=== PATIENT | male | born 1990 | race African-American/Black ===

== ENCOUNTER 2019-03-10 14:32 | Inpatient (IN) | payer OTHER ==
[2019-03-10 17:12] VITALS: BMI 28.2
--- NOTE | 2019-03-10 17:46 | HP ---
"CIWA Score Nausea/Vomitin-No Nausea/No Vomiting Muscle Tremors: 4-Moderate,w/Arms Extend Anxiety: 3 Agitation: 3 Paroxysmal Sweats: 3 (Increased facial moisture) Orientation: 0-Oriented Tacttile Disturbances: 0-None Auditory Disturbances: 0-None Visual Disturbances: 0-None Headache: 0-None Present CIWA-Ar Total Score: 13 - Admission Criteria OASAS Guidelines: Admission for Medically Managed Detox: Requires at least one of the followin. CIWA greater than 12 2. Seizures within the past 24 hours 3. Delirium tremens within the past 24 hours 4. Hallucinations within the past 24 hours 5. Acute intervention needed for co occurring medical disorder 6. Acute intervention needed for co occurring psychiatric disorder 7. Severe withdrawal that cannot be handled at a lower level of care (continued vomiting, continued diarrhea, abnormal vital signs) requiring intravenous medication and/or fluids 8. Patient presents the following: CIWA greater than 12 Admission Criteria Met: Admission criteria met Admission ROS [facility] Chief Complaint: Here to detox from alcohol and occ Xanax. Allergies/Adverse Reactions: Allergies Allergy/AdvReac Type Severity Reaction Status Date / Time No Known Allergies Allergy Verified 03/10/19 17:04 History of Present Illness: First admission for this 28 yo who presents w/ withdrawal symptoms seeking alcohol and xanax detox. Hx: Two blackouts in past 2 weeks. Denies seizures or overdoses. Alcohol use began at age 13. Currently drinks 2-4 pints/day. Increased since beginning of December. Xanax use began at age 18. Currently uses 2 mg 1-2x/wk. Marijuana use began at age 13. Currently smokes 2 x/wk. Nicotine use began at age 13. Smokes 1/2 to 1 PPD. PMHx: Asthma (Last exacerbation 2 months ago); MHHx: Schizophrenia and depression. Denies thoughts of harming self or others. Last saw Provider 2 days go in [facility]. This provider called the following pharmacies: [facility]: Seroquel 100 mg HS: Filled 12/26/18; Mirtazapine 15 mg filled 12/13/18: [facility] [place] : No mental health meds filled. SHx: Domiciled. Unemployed. Denies legal issues. Search Terms: James Rosario, 1990 Search Date: 03/10/2019 05:50:07 PM The Drug Utilization Report below displays all of the controlled substance prescriptions, if any, that your patient has filled in the last twelve months. The information displayed on this report is compiled from pharmacy submissions to the Department, and accurately reflects the information as submitted by the pharmacies. This report was requested by: Celine Salgado | Reference #: [id number] There are no results for the search terms that you entered. Exam Limitations: No Limitations - Ebola screening Have you traveled outside of the country in the last 21 days: No Have you had contact with anyone from an Ebola affected area: No Have you been sick,other than usual withdrawal symptoms: No Do you have a fever: No - Review of Systems Constitutional: Chills, Changes in sleep (Resolved w/ meds) EENT: reports: Blurred Vision, Dental Problems (Tooth pain - internmittent.) Respiratory: reports: No Symptoms reported Cardiac: reports: No Symptoms Reported GI: reports: Vomiting (States vomited 2 days ago after blackout) : reports: No Symptoms Reported Musculoskeletal: reports: Muscle Pain (Intermittent muscle aches/cramps) Integumentary: reports: No Symptoms Reported Neuro: reports: Tremors Endocrine: reports: Increased Thirst Hematology: reports: No Symptoms Reported Psychiatric: reports: Orientated x3, Anxious, Depressed (Denies thoughts of harming self or others.) Patient History - PPD History Previous Implant?: Yes Documented Results: Negative w/o proof Implanted On Prior [facility] Admission?: No PPD to be Administered?: Yes - Smoking Cessation Smoking history: Current every day smoker Have you smoked in the past 12 months: Yes Aproximately how many cigarettes per day: 10 Hx Chewing Tobacco Use: No Initiated information on smoking cessation: No 'Breaking Loose' booklet given: 03/10/19 - Substance & Tx. History Hx Alcohol Use: Yes Hx Substance Use: Yes Substance Use Type: Alcohol, Marijuana, Tranquilizers Hx Substance Use Treatment: No (Has tried to stop on own.) - Substances abused Alcohol Substance route: Oral Frequency: Daily Amount used: 3-4 pints of liquor Age of first use: 13 Date of last use: 03/10/19 Alprazolam (Xanax) Substance route: Oral Frequency: 3-6 times per week Amount used: 2mg Age of first use: 28 Date of last use: 03/08/19 Admission Physical Exam [facility] - Vital Signs Vital Signs: Vital Signs - 24 hr 03/10/19 03/10/19 17:03 17:27 Temperature 97.9 F 97.9 F Pulse Rate 83 83 Respiratory 16 16 Rate Blood Pressure 133/78 133/78 - Physical General Appearance: Yes: Nourished, Mild Distress, Tremorous, Irritable, Sweating (Increased facial moisture), Anxious HEENTM: Yes: EOMI (Jerking movement of eyes upon lateral gaze), Hearing grossly Normal, Normocephalic, Normal Voice, JUAN, Pharynx Normal (Tickened saliva) Respiratory: Yes: Lungs Clear (Pulse Ox = 97 %), Normal Breath Sounds, No Respiratory Distress Neck: Yes: No masses,lesions,Nodules, Supple Breast: Yes: Breast Exam Deferred Cardiology: Yes: Regular Rhythm, Regular Rate, S1, S2 Abdominal: Yes: Normal Bowel Sounds, Non Tender, Flat, Soft Genitourinary: Yes: Within Normal Limits Back: Yes: Normal Inspection Musculoskeletal: Yes: full range of Motion, Gait Steady Extremities: Yes: Normal Capillary Refill, Tremors (Gross tremors) 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 NML intact (Jerking movement of eyes upon lateral gaze), Motor Strength 5/5, Depressed Affect Integumentary: Yes: Normal Color, Dry (Decreased skin turgor), Warm, Moist ( Increased facial moisture) Lymphatic: Yes: Within Normal Limits - Diagnostic (1) Alcohol dependence with withdrawal, uncomplicated Current Visit: Yes Status: Acute (2) Cannabis abuse, uncomplicated Current Visit: Yes Status: Chronic (3) Sedative, hypnotic or anxiolytic abuse, uncomplicated Current Visit: Yes Status: Acute (4) Nicotine dependence, unspecified, uncomplicated Current Visit: Yes Status: Chronic Qualifiers: Nicotine product type: cigarettes Qualified Code(s): F17.210 - Nicotine dependence, cigarettes, uncomplicated (5) Unspecified nystagmus Current Visit: Yes Status: Acute (6) Dehydration Current Visit: Yes Status: Acute (7) Tinea pedis Current Visit: Yes Status: Chronic Qualifiers: Laterality: bilateral Qualified Code(s): B35.3 - Tinea pedis Cleared for Admission [facility] - Detox or Rehab [facility] Level of Care: Medically Managed Detox Regimen/Protocol: Valium (ATIVAN), Not Applicable Claeared for Rehab Admission: No Breathalyzer - Breathalyzer Breathalyzer: 0 Urine Drug Screen - Test Device Lot number: [id number] Expiration date: 10/30/20 - Control Is test valid?: Yes - Results Drug screen NEGATIVE: No Urine drug screen results: THC-Marijuana, BZO-Benzodiazepines Inpatient Rehab Admission - Rehab Decision to Admit Inpatient rehab admission?: No"
[2019-03-10] MEDS ORDERED: BISMUTH SUBSALICYLATE 524 MG/30 ML UD PO PRN (18:23)
[2019-03-10] MEDS ORDERED: MAG HYDROX/AL HYDROX/SIMETH 30 ML UNIT-DOSE CUP PO PRN (18:23)
[2019-03-10] MEDS ORDERED: MENTHOL/PHENOL 1 EACH UD MM PRN (18:23)
[2019-03-10] MEDS ORDERED: MAGNESIUM CITRATE 300 ML BOTTLE PO PRN (18:23)
[2019-03-10] MEDS ORDERED: NICOTINE POLACRILEX 2 MG GUM BUC PRN (18:23)
[2019-03-10] MEDS ORDERED: LORazepam 1 MG TABLET PO PRN (18:23)
[2019-03-10] MEDS ORDERED: MAGNESIUM HYDROX 2400MG/30ML ORAL SUSPENSION 30 ML CUP PO PRN (18:23)
[2019-03-10] MEDS ORDERED: ACETAMINOPHEN 325 MG TABLET (FP) PO PRN ×2 (18:23)
[2019-03-10] MEDS ORDERED: MELATONIN 5 MG TABLETS PO PRN (18:23)
[2019-03-10] MEDS ORDERED: BENZOCAINE 20 % GEL TUBE MM PRN (18:32)
[2019-03-10] MEDS ORDERED: QUEtiapine FUMARATE 50 MG TABLET PO ONE (19:45)
[2019-03-10] MEDS ORDERED: LORazepam 2 MG TABLET PO ONE (19:45)
[2019-03-10] MEDS: IBUPROFEN 400 MG TABLET (FP) PO PRN (20:07)
[2019-03-10] MEDS: TOLNAFTATE 1% CREAM 15 GM TUBE TP SCH (22:18)
[2019-03-10] MEDS: LORazepam 2 MG TABLET PO SCH (22:18)
[2019-03-10] MEDS: THIAMINE HCL 100 MG TABLET (FP) PO SCH (22:18)
[2019-03-11] MEDS: LORazepam 2 MG TABLET PO SCH ×4 (06:30→22:04)
--- NOTE | 2019-03-11 09:08 | EKG ---
Test Reason : Blood Pressure : / mmHG Vent. Rate : 074 BPM Atrial Rate : 074 BPM P-R Int : 134 ms QRS Dur : 094 ms QT Int : 386 ms P-R-T Axes : 075 072 053 degrees QTc Int : 428 ms NORMAL SINUS RHYTHM WITH SINUS ARRHYTHMIA POSSIBLE LEFT ATRIAL ENLARGEMENT LEFT VENTRICULAR HYPERTROPHY ABNORMAL ECG NO PREVIOUS ECGS AVAILABLE Confirmed by Julien Yeboah MD ([id number]) on 03/11/2019 9:07:50 AM Referred By: POWER Confirmed By:Julien Yeboah MD
--- NOTE | 2019-03-11 09:40 | PN ---
S CIWA - CIWA Score Nausea/Vomitin-Mild Nausea/No Vomiting Muscle Tremors: 3 Anxiety: 2 Agitation: 2 Paroxysmal Sweats: No Perspiration Orientation: 0-Oriented Tacttile Disturbances: 1-Very Mild Itch/Numbness Auditory Disturbances: 0-None Visual Disturbances: 0-None Headache: 2-Mild CIWA-Ar Total Score: 11 BHS Progress Note (SOAP) Subjective: alert,irritable,anxious,interrupted sleep,painin the body,nausea Objective: 03/11/19 09:39 Vital Signs Temperature 97.7 F 03/11/19 09:07 Pulse Rate 63 03/11/19 06:00 Respiratory Rate 18 03/11/19 09:07 Blood Pressure 136/71 03/11/19 09:07 O2 Sat by Pulse Oximetry (%) Assessment: 03/11/19 09:40 withdrawal symptom Plan: continue detox ativan regimen
--- NOTE | 2019-03-11 09:45 | CONSULT ---
[facility] Psychiatric Consult - Data Date of interview: 03/11/19 Admission source: Self-referred Identifying data: Mr Rosario is a 28 years old single Black, unemployed receiving food stamp, homeless seeking detox treatment for alcohol, benzodiazepine and cannabis Substance Abuse History: Reports history of alcohol, xanax, and marijuana use. Refer to addiction counselor's summary for further information Medical History: Significant for bronchial asthma. Smokes 10-20 cigarettes daily Psychiatric History: Reports that his first psychiatric contact occured in October 2018 when he was admitted to [facility] for depression, auditory hallucinations and suicidal ideations. Reports that he was diagnosed with Schizophrenia and started on Seroquel and Zoloft. He was discharged after a week and referred to [facility] for outpatient treatment. Claims after seeing the psychiatrist there once, he went to [place], [place] to live with a friend. He said that while at [place], things did not work out with his friend and somehow ended up admitted to [facility] in 2018 for depression and suicidal ideations. He stayed there for 1.5 week and treated with Seroquel 200 mg/hs and Zoloft. After being discharged from [facility], he came back to [facility] and by the end of December attended an outpatient program at [facility] for couple of weeks. At that program, he saw a [facility] and was prescribed Seroquel 200 mg/hs and Lexapro 20 mg/day. 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 Denies previous suicidal attempt. At present, denies experiencing psychotic symptoms. However, reports feeling depressed and sleeping poorly. Requests to resume these medications Physical/Sexual Abuse/Trauma History: Denies history of abuse as a child or DV relationship as an adult Additional Comment: Denies criminal history Mental Status Exam - Mental Status Exam Alert and Oriented to: Time, Place, Person Cognitive Function: Fair Patient Appearance: Well Groomed Mood: Depressed Affect: Appropriate Patient Behavior: Cooperative Speech Pattern: Clear Voice Loudness: Normal Thought Process: Intact, Goal Oriented Thought Disorder: Not Present Hallucinations: Denies Suicidal Ideation: Denies Homicidal Ideation: Denies Insight/Judgement: Poor Sleep: Poorly Appetite: Fair Muscle strength/Tone: Normal Gait/Station: Normal Psychiatric Findings - Problem List ([place] 1, 2,3) (1) Schizophrenia Current Visit: Yes Status: Chronic (2) Substance induced mood disorder Current Visit: Yes Status: Acute (3) Substance-induced sleep disorder Current Visit: Yes Status: Acute (4) Alcohol dependence with withdrawal, uncomplicated Current Visit: Yes Status: Acute (5) Sedative, hypnotic or anxiolytic abuse, uncomplicated Current Visit: Yes Status: Acute (6) Cannabis abuse, uncomplicated Current Visit: Yes Status: Acute (7) Nicotine dependence, unspecified, uncomplicated Current Visit: Yes Status: Chronic Qualifiers: Nicotine product type: cigarettes Qualified Code(s): F17.210 - Nicotine dependence, cigarettes, uncomplicated (8) Bronchial asthma Current Visit: Yes Status: Chronic - Initial Treatment Plan Initial Treatment Plan: 1) Resume Lexapro 20 mg po daily. 2) Start Seroquel 100 mg po HS. 3) Continue inpatient detoxification
[2019-03-11] MEDS: TOLNAFTATE 1% CREAM 15 GM TUBE TP SCH ×2 (10:04→22:04)
[2019-03-11] MEDS: PRENATAL VITAMINS W/ FOLIC ACID TABLET (FP) PO SCH (10:04)
[2019-03-11] MEDS: NICOTINE 14 MG/24 HOURS TOPICAL PATCH TD SCH (10:05)
[2019-03-11] MEDS: ESCITALOPRAM OXALATE 20 MG TABLET (FP) PO SCH (11:00)
[2019-03-11 11:03] LABS: HEMATOCRIT 41.2 % (35.4-49); HEMOGLOBIN 13.6 GM/dL (11.7-16.9); MCH 31.2 pg (25.7-33.7); MCHC 33.1 g/dl (32.0-35.9); MEAN CELL VOLUME 94.3 fl (80-96); MEAN PLT VOLUME 8.3 fl (7.5-11.1); PLATELET COUNT 228 K/MM3 (134-434); RBC 4.37 M/mm3 (4.00-5.60); RDW 14.1 % (11.9-15.9); WHITE BLOOD COUNT 4.8 K/mm3 (4.0-10.0)
[2019-03-11 13:21] LABS: ALBUMIN 3.6 g/dl (3.4-5.0); BILIRUBIN,TOTAL 1.7 mg/dL (0.2-1); BLOOD UREA NITROGEN 20.3 mg/dL (7-18); CALCIUM 9.3 mg/dL (8.5-10.1); CREATININE 0.9 mg/dL (0.55-1.3); POTASSIUM 4.2 mmol/L (3.5-5.1); TOT PROT 6.2 g/dl (6.4-8.2)
[2019-03-11] MEDS: THIAMINE HCL 100 MG TABLET (FP) PO SCH (22:04)
[2019-03-11] MEDS: QUEtiapine FUMARATE 100 MG TABLET (FP) PO SCH (22:04)
[2019-03-12] MEDS: LORazepam 1 MG TABLET PO SCH ×4 (05:58→22:07)
--- NOTE | 2019-03-12 09:40 | PN ---
S CIWA - CIWA Score Nausea/Vomitin-Mild Nausea/No Vomiting Muscle Tremors: 1-None Visible, but [place] Anxiety: 2 Agitation: 2 Paroxysmal Sweats: No Perspiration Orientation: 0-Oriented Tacttile Disturbances: 1-Very Mild Itch/Numbness Auditory Disturbances: 0-None Visual Disturbances: 0-None Headache: 1-Very Mild CIWA-Ar Total Score: 8 BHS Progress Note (SOAP) Subjective: alert,irritable,anxious,interrupted sleep,nausea Objective: 03/12/19 09:37 Vital Signs Temperature 97.7 F 03/12/19 09:20 Pulse Rate 92 H 03/12/19 09:20 Respiratory Rate 18 03/12/19 09:20 Blood Pressure 130/69 03/12/19 09:20 O2 Sat by Pulse Oximetry (%) Laboratory Last Values WBC 4.8 K/mm3 (4.0-10.0) 03/11/19 07:50 RBC 4.37 M/mm3 (4.00-5.60) 03/11/19 07:50 Hgb 13.6 GM/dL (11.7-16.9) 03/11/19 07:50 Hct 41.2 % (35.4-49) 03/11/19 07:50 MCV 94.3 fl (80-96) 03/11/19 07:50 MCH 31.2 pg (25.7-33.7) 03/11/19 07:50 MCHC 33.1 g/dl (32.0-35.9) 03/11/19 07:50 RDW 14.1 % (11.9-15.9) 03/11/19 07:50 Plt Count 228 K/MM3 (134-434) 03/11/19 07:50 MPV 8.3 fl (7.5-11.1) 03/11/19 07:50 Sodium 140 mmol/L (136-145) 03/11/19 07:50 Potassium 4.2 mmol/L (3.5-5.1) 03/11/19 07:50 Chloride 106 mmol/L (98-107) 03/11/19 07:50 Carbon Dioxide 28 mmol/L (21-32) 03/11/19 07:50 Anion Gap 6 MMOL/L (8-16) L 03/11/19 07:50 BUN 20.3 mg/dL (7-18) H 03/11/19 07:50 Creatinine 0.9 mg/dL (0.55-1.3) 03/11/19 07:50 Est GFR (CKD-EPI)AfAm 132.37 03/11/19 07:50 Est GFR (CKD-EPI)NonAf 114.21 03/11/19 07:50 Random Glucose 88 mg/dL (74-106) 03/11/19 07:50 Calcium 9.3 mg/dL (8.5-10.1) 03/11/19 07:50 Total Bilirubin 1.7 mg/dL (0.2-1) H 03/11/19 07:50 AST 28 U/L (15-37) 03/11/19 07:50 ALT 38 U/L (13-61) 03/11/19 07:50 Alkaline Phosphatase 64 U/L (45-117) 03/11/19 07:50 Total Protein 6.2 g/dl (6.4-8.2) L 03/11/19 07:50 Albumin 3.6 g/dl (3.4-5.0) 03/11/19 07:50 Assessment: 03/12/19 09:38 withdrawal symptom,bun is 20.3,bili 1.7,probably due to dehydration,encourage oraL FLUID,REPEAT CMP IN AM Plan: CONTINUE DETOX ATIVAN REGIMEN,FLUID,REPEAT CMP IN AM
[2019-03-12] MEDS: TOLNAFTATE 1% CREAM 15 GM TUBE TP SCH ×2 (10:23→22:10)
[2019-03-12] MEDS: NICOTINE 14 MG/24 HOURS TOPICAL PATCH TD SCH (10:24)
[2019-03-12] MEDS: PRENATAL VITAMINS W/ FOLIC ACID TABLET (FP) PO SCH (10:24)
[2019-03-12] MEDS: ESCITALOPRAM OXALATE 20 MG TABLET (FP) PO SCH (10:24)
[2019-03-12] MEDS: IBUPROFEN 400 MG TABLET (FP) PO PRN (17:07)
[2019-03-12] MEDS: QUEtiapine FUMARATE 100 MG TABLET (FP) PO SCH (22:07)
[2019-03-12] MEDS: THIAMINE HCL 100 MG TABLET (FP) PO SCH (22:07)
[2019-03-13] MEDS ORDERED: LORazepam 0.5 MG TABLET PO PRN
[2019-03-13] MEDS: LORazepam 0.5 MG TABLET PO SCH ×4 (06:21→22:17)
--- NOTE | 2019-03-13 09:29 | PN ---
S CIWA - CIWA Score Nausea/Vomitin-Mild Nausea/No Vomiting Muscle Tremors: 1-None Visible, but [place] Anxiety: 1-Mildly Anxious Agitation: 1-Slight > Activity Paroxysmal Sweats: No Perspiration Orientation: 0-Oriented Tacttile Disturbances: 1-Very Mild Itch/Numbness Auditory Disturbances: 0-None Visual Disturbances: 0-None Headache: 1-Very Mild CIWA-Ar Total Score: 6 BHS Progress Note (SOAP) Subjective: alert,irritable,anxious,interrupted sleep Objective: 03/13/19 09:28 Vital Signs Temperature 96 F L 03/13/19 09:25 Pulse Rate 76 03/13/19 09:25 Respiratory Rate 18 03/13/19 09:25 Blood Pressure 134/77 03/13/19 09:25 O2 Sat by Pulse Oximetry (%) Assessment: 03/13/19 09:29 withdrawal symptom Plan: continue detox ,ativan regimen
[2019-03-13] MEDS: TOLNAFTATE 1% CREAM 15 GM TUBE TP SCH ×2 (10:20→22:18)
[2019-03-13] MEDS: ESCITALOPRAM OXALATE 20 MG TABLET (FP) PO SCH (10:20)
[2019-03-13] MEDS: NICOTINE 14 MG/24 HOURS TOPICAL PATCH TD SCH (10:21)
[2019-03-13] MEDS: PRENATAL VITAMINS W/ FOLIC ACID TABLET (FP) PO SCH (10:30)
[2019-03-13 14:58] LABS: ALBUMIN 3.8 g/dl (3.4-5.0); BILIRUBIN,TOTAL 0.7 mg/dL (0.2-1); BLOOD UREA NITROGEN 16.9 mg/dL (7-18); CALCIUM 9.4 mg/dL (8.5-10.1); CREATININE 0.8 mg/dL (0.55-1.3); POTASSIUM 4.5 mmol/L (3.5-5.1); TOT PROT 6.6 g/dl (6.4-8.2)
[2019-03-13] MEDS: IBUPROFEN 400 MG TABLET (FP) PO PRN (17:50)
[2019-03-13] MEDS: THIAMINE HCL 100 MG TABLET (FP) PO SCH (22:17)
[2019-03-13] MEDS: QUEtiapine FUMARATE 100 MG TABLET (FP) PO SCH (22:17)
[2019-03-14] MEDS ORDERED: LORazepam 0.5 MG TABLET PO ONE (05:00)
[2019-03-14] MEDS: ESCITALOPRAM OXALATE 20 MG TABLET (FP) PO SCH (10:13)
[2019-03-14] MEDS: TOLNAFTATE 1% CREAM 15 GM TUBE TP SCH (10:13)
[2019-03-14] MEDS: PRENATAL VITAMINS W/ FOLIC ACID TABLET (FP) PO SCH (10:13)
[2019-03-14] MEDS: NICOTINE 14 MG/24 HOURS TOPICAL PATCH TD SCH (10:13)
--- NOTE | 2019-03-14 11:07 | DS ---
[facility] Detox Discharge Summary Admission Date: 03/10/19 Discharge Date: 03/14/19 - History Present History: Alcohol Dependence, Cannabis Dependence, Sedative Dependence - Physical Exam Results Vital Signs: Vital Signs Temperature 98.1 F 03/14/19 10:15 Pulse Rate 61 03/14/19 10:15 Respiratory Rate 18 03/14/19 10:15 Blood Pressure 119/60 03/14/19 10:15 O2 Sat by Pulse Oximetry (%) - Treatment Hospital Course: Detox Protocol Followed, Detoxed Safely, Responded well, Discharged Condition Good - Medication Discharge Medications: Ambulatory Orders Escitalopram Oxalate [Lexapro -] 20 mg PO DAILY 03/10/19 Quetiapine Fumarate [Seroquel -] 200 mg PO HS 03/10/19 - Diagnosis (1) Alcohol dependence with withdrawal, uncomplicated Current Visit: Yes Status: Chronic (2) Cannabis abuse, uncomplicated Current Visit: Yes Status: Chronic (3) Sedative, hypnotic or anxiolytic abuse, uncomplicated Current Visit: Yes Status: Chronic (4) Bronchial asthma Current Visit: Yes Status: Chronic Qualifiers: Asthma persistence: intermittent - AMA Did Patient Leave Against Medical Advice: No
[2019-03-14 12:58] VITALS: BP 136/85; PULSE 107; TEMP 98.6
== END 2019-03-14 14:47 | disposition home or self-care (01) | DRG 775 ==
LOC: YASAS 14:32 → Y6N 19:23 → UNDODISIN 03-12 13:50
PROVIDERS: ADMIT Allergy & Immunology; ATTEND Allergy & Immunology
PROC: HZ2ZZZZ Detoxification Services for Substance Abuse Treatment (ICD-10-PCS; principal; 2019-03-10)
DX: F10.230 Alcohol dependence with withdrawal, uncomplicated (principal); F13.10 Sedative, hypnotic or anxiolytic abuse, uncomplicated; F12.10 Cannabis abuse, uncomplicated; F17.210 Nicotine dependence, cigarettes, uncomplicated; F20.9 Schizophrenia, unspecified; F19.24 Other psychoactive substance dependence with psychoactive substance-induced mood disorder; F19.282 Other psychoactive substance dependence with psychoactive substance-induced sleep disorder; J45.20 Mild intermittent asthma, uncomplicated; E86.0 Dehydration; B35.3 Tinea pedis; H55.00 Unspecified nystagmus; Z56.0 Unemployment, unspecified
CPT/HCPCS: 36415; 80053; 85027; 86593; 93005; 93010

== ENCOUNTER 2019-04-03 19:44 | Inpatient (IN) | payer OTHER ==
[2019-04-03 21:42] VITALS: BMI 30.7
--- NOTE | 2019-04-03 22:15 | HP ---
CIWA Score Nausea/Vomitin-No Nausea/No Vomiting Muscle Tremors: None Anxiety: 4-Mod. Anxious/Guarded Agitation: 4-Moderately Restless Paroxysmal Sweats: 3 Orientation: 1-Uncertain about Date Tacttile Disturbances: 0-None Auditory Disturbances: 0-None Visual Disturbances: 2-Mild Sensitivity (to light) Headache: 3-Moderate CIWA-Ar Total Score: 17 - Admission Criteria OASAS Guidelines: Admission for Medically Managed Detox: Requires at least one of the followin. CIWA greater than 12 2. Seizures within the past 24 hours 3. Delirium tremens within the past 24 hours 4. Hallucinations within the past 24 hours 5. Acute intervention needed for co occurring medical disorder 6. Acute intervention needed for co occurring psychiatric disorder 7. Severe withdrawal that cannot be handled at a lower level of care (continued vomiting, continued diarrhea, abnormal vital signs) requiring intravenous medication and/or fluids 8. Patient presents the following: CIWA greater than 12 Admission Criteria Met: Admission criteria met Admitting History and Physical - Smoking History Smoking history: Current every day smoker Have you smoked in the past 12 months: Yes Aproximately how many cigarettes per day: 10 - Alcohol/Substance Use Hx Alcohol Use: Yes Admission ROS S - HPI Chief Complaint: SEEKING ALCOHOL DETOX Allergies/Adverse Reactions: Allergies Allergy/AdvReac Type Severity Reaction Status Date / Time No Known Allergies Allergy Verified 04/03/19 21:24 History of Present Illness: HERE FOR ALCOHOL DETOX. CLIENT IS SELF REFERRED KNOWN TO PROGRAM LAST HERE 3 WEEKS AGO. CLIENT REPORTS RELAPSING RIGHT AFTER DC. SPRESENTS W/ C/O WITHDRAWAL SX'S. SEEKING DETOX AND THE REHAB. REPORTS DAILY USE OF 2 PINTS OF VODKA. LAST USE TODAY APPROX 1 PINT. + EYE WEB APPLICATIONS ARCHITECT, BLACK OUTS, . DENIES HX/O SZ. HE ALSO ABUSES CANNABIS. LIVES W/ FAMILY, UNEMPLOYED, DENIES LEGALS Exam Limitations: No Limitations - Ebola screening Have you traveled outside of the country in the last 21 days: No (N) Have you had contact with anyone from an Ebola affected area: No Do you have a fever: No - Review of Systems Constitutional: Chills, Night Sweats EENT: reports: Dental Problems (TOOT PAIN) Respiratory: reports: No Symptoms reported Cardiac: reports: No Symptoms Reported GI: reports: No Symptoms Reported : reports: No Symptoms Reported Musculoskeletal: reports: Neck Pain Integumentary: reports: No Symptoms Reported Neuro: reports: Headache, Seizure (R/T ETOH WITHDRAWAL "A WHILE AGO") Endocrine: reports: No Symptoms Reported Hematology: reports: No Symptoms Reported Psychiatric: reports: Orientated x3, Anxious Other Systems: Reviewed and Negative Patient History - Patient Medical History Hx Anemia: No Hx Asthma: Yes Hx Chronic Obstructive Pulmonary Disease (COPD): No Hx Cancer: No Hx Cardiac Disorders: No Hx Congestive Heart Failure: No Hx Hypertension: No Hx Hypercholesterolemia: No Hx Pacemaker: No HX Cerebrovascular Accident: No Hx Seizures: No Hx Dementia: No Hx Diabetes: No Hx Gastrointestinal Disorders: Yes (GERD) Hx Liver Disease: No Hx Genitourinary Disorders: No Hx Sexually Transmitted Disorders: No Hx Renal Disease (ESRD): No Hx Thyroid Disease: No Hx Hepatitis C: No Hx Depression: No Hx Suicide Attempt: No Hx Bipolar Disorder: No Hx Schizophrenia: No Other Medical History: DENIES - Patient Surgical History Past Surgical History: No - PPD History Previous Implant?: Yes Documented Results: Negative w/proof Date: 03/12/19 Results: 0MM PPD to be Administered?: No - Smoking Cessation Smoking history: Current every day smoker Have you smoked in the past 12 months: Yes Aproximately how many cigarettes per day: 20 Cigars Per Day: 0 Hx Chewing Tobacco Use: No Initiated information on smoking cessation: Yes 'Breaking Loose' booklet given: 04/03/19 - Substance & Tx. History Hx Alcohol Use: Yes Hx Substance Use: Yes Substance Use Type: Alcohol, Marijuana Hx Substance Use Treatment: Yes ([facility]) - Substances abused Alcohol Substance route: Oral Frequency: Daily Amount used: 2-4 pints of vodka Age of first use: 13 Date of last use: 04/03/19 Alprazolam (Xanax) Substance route: Oral Frequency: 3-6 times per week Amount used: 2mg Age of first use: 28 Date of last use: 03/08/19 Cocaine Substance route: Oral Frequency: 3-6 times per week Amount used: $50 Age of first use: 27 Date of last use: 04/03/19 Marijuana/Hashish Substance route: Smoking Frequency: Daily Amount used: 4 blunts Age of first use: 12 Date of last use: 04/03/19 Admission Physical Exam [facility] - Vital Signs Vital Signs: Vital Signs - 24 hr 04/03/19 21:24 Temperature 98.5 F Pulse Rate 95 H Respiratory 20 Rate Blood Pressure 119/67 - Physical General Appearance: Yes: Mild Distress, Anxious HEENTM: Yes: EOMI, Normocephalic, Normal Voice, JUAN, Pharynx Normal Respiratory: Yes: Chest Non-Tender, Lungs Clear, Normal Breath Sounds, No Respiratory Distress, No Accessory Muscle Use Neck: Yes: No masses,lesions,Nodules, Supple, Trachea in good position Breast: Yes: Breast Exam Deferred Cardiology: Yes: Regular Rhythm, Regular Rate, S1, S2 Abdominal: Yes: Normal Bowel Sounds, Non Tender, Soft Genitourinary: Yes: Within Normal Limits Back: Yes: Normal Inspection Musculoskeletal: Yes: full range of Motion, Gait Steady Extremities: Yes: Normal Capillary Refill, Normal Range of Motion, Non-Tender Neurological: Yes: Fully Oriented, Alert, Motor Strength 5/5, Depressed Affect Integumentary: Yes: Dry, Warm Lymphatic: Yes: Within Normal Limits - Diagnostic (1) Substance induced mood disorder Current Visit: Yes Status: Suspected (2) Substance-induced sleep disorder Current Visit: Yes Status: Suspected (3) Alcohol dependence with withdrawal, uncomplicated Current Visit: Yes Status: Acute (4) Bronchial asthma Current Visit: Yes Status: Chronic Qualifiers: Asthma persistence: intermittent (5) Cannabis abuse, uncomplicated Current Visit: Yes Status: Acute (6) Nicotine dependence, unspecified, uncomplicated Current Visit: Yes Status: Chronic Qualifiers: Nicotine product type: cigarettes Qualified Code(s): F17.210 - Nicotine dependence, cigarettes, uncomplicated Cleared for Admission [facility] - Detox or Rehab [facility] Level of Care: Medically Managed Detox Regimen/Protocol: Librium Claeared for Rehab Admission: No Breathalyzer - Breathalyzer Breathalyzer: 0 Urine Drug Screen - Test Device Lot number: [id number] Expiration date: 10/30/20 - Control Is test valid?: Yes - Results Drug screen NEGATIVE: No Urine drug screen results: THC-Marijuana, BZO-Benzodiazepines Inpatient Rehab Admission - Rehab Decision to Admit Inpatient rehab admission?: No
[2019-04-03] MEDS ORDERED: DICYCLOMINE HCL 10 MG CAPSULE PO PRN (22:31)
[2019-04-03] MEDS ORDERED: MAGNESIUM CITRATE 300 ML BOTTLE PO PRN (22:31)
[2019-04-03] MEDS ORDERED: P-EPHED 60MG/TRIPROLIDI 2.5MG TABLET PO PRN (22:31)
[2019-04-03] MEDS ORDERED: MELATONIN 5 MG TABLETS PO PRN (22:31)
[2019-04-03] MEDS ORDERED: MAGNESIUM HYDROX 2400MG/30ML ORAL SUSPENSION 30 ML CUP PO PRN (22:31)
[2019-04-03] MEDS ORDERED: MAG HYDROX/AL HYDROX/SIMETH 30 ML UNIT-DOSE CUP PO PRN (22:31)
[2019-04-03] MEDS ORDERED: ACETAMINOPHEN 325 MG TABLET (FP) PO PRN ×2 (22:31)
[2019-04-03] MEDS ORDERED: ONDANSETRON *ODT* 4 MG TABLET SL PRN (22:31)
[2019-04-03] MEDS ORDERED: BISMUTH SUBSALICYLATE 524 MG/30 ML UD PO PRN (22:31)
[2019-04-03] MEDS ORDERED: NICOTINE POLACRILEX 2 MG GUM BUC PRN (22:31)
[2019-04-03] MEDS ORDERED: guaiFENesin 200 MG/10 ML 10 ML UNIT-DOSE CUPS PO PRN (22:31)
[2019-04-03] MEDS ORDERED: MENTHOL/PHENOL 1 EACH UD MM PRN (22:31)
[2019-04-03] MEDS ORDERED: hydrOXYzine PAMOATE 25 MG CAPSULE (FP) PO PRN (22:31)
[2019-04-03] MEDS ORDERED: chlordiazePOXIDE HCL 10 MG CAPSULE PO PRN (22:34)
[2019-04-03] MEDS: chlordiazePOXIDE HCL 25 MG CAPSULE PO SCH (23:48)
[2019-04-03] MEDS: METHOCARBAMOL 500 MG TABLET PO PRN (23:52)
[2019-04-03] MEDS: IBUPROFEN 400 MG TABLET (FP) PO PRN (23:52)
[2019-04-04] MEDS: IBUPROFEN 400 MG TABLET (FP) PO PRN ×3 (05:27→21:40)
[2019-04-04] MEDS: chlordiazePOXIDE HCL 25 MG CAPSULE PO SCH ×3 (05:27→21:40)
[2019-04-04] MEDS: METHOCARBAMOL 500 MG TABLET PO PRN ×3 (05:28→21:40)
[2019-04-04 10:13] LABS: HEMOGLOBIN 13.3 GM/dL (11.7-16.9); MCH 31.2 pg (25.7-33.7); MCHC 32.5 g/dl (32.0-35.9); MEAN CELL VOLUME 95.9 fl (80-96); MEAN PLT VOLUME 8.4 fl (7.5-11.1); PLATELET COUNT 241 K/MM3 (134-434); RBC 4.27 M/mm3 (4.00-5.60); RDW 14.2 % (11.9-15.9)
[2019-04-04 10:16] LABS: ALBUMIN 3.5 g/dl (3.4-5.0); BILIRUBIN,TOTAL 1.1 mg/dL (0.2-1); BLOOD UREA NITROGEN 18.4 mg/dL (7-18); CALCIUM 8.8 mg/dL (8.5-10.1); CREATININE 0.9 mg/dL (0.55-1.3); TOT PROT 6.1 g/dl (6.4-8.2)
[2019-04-04] MEDS: TOLNAFTATE 1% POWDER 45 GM POW TP SCH ×2 (10:45→21:43)
[2019-04-04] MEDS: PRENATAL VITAMINS W/ FOLIC ACID TABLET (FP) PO SCH (10:56)
[2019-04-04] MEDS: NICOTINE 21 MG/24 HOURS TOPICAL PATCH TD SCH (10:57)
--- NOTE | 2019-04-04 13:22 | CONSULT ---
[facility] Psychiatric Consult - Data Date of interview: 04/04/19 Admission source: Self-referred Identifying data: Mr Rosario is a 28 years old single Black, unemployed receiving food stamp, homeless seeking detox treatment for alcohol, cocaine, benzodiazepine and cannabis Substance Abuse History: Reports history of alcohol, cocaine, xanax, and marijuana use. Refer to addiction counselor's summary for further information Medical History: Significant for bronchial asthma and GERD. Smokes 10-20 cigarettes daily Psychiatric History: Patient is known to newspaper writer from a encounter during a ecent admission to this facility from April 10-. Historical narrative remains consistent. He reports that his first psychiatric contact occured in October 2018 when he was admitted to [facility] for depression, auditory hallucinations and suicidal ideations. Reports that he was diagnosed with Schizophrenia and started on Seroquel and Zoloft. He was discharged after a week and referred to [facility] for outpatient treatment. Reports that he only went to the outpatient once. Reports a subsequent psychiaric hospitalization at [facility] in December 2018 for depression and suicidal ideations. He stayed there for 1.5 week and treated with Seroquel 200 mg/hs and Zoloft. After being discharged from [facility], he came back to [facility] and by the end of December attended an outpatient program at [facility] for couple of weeks. At that program, he saw a ROOM INSPECTOR and was prescribed Seroquel 200 mg/hs and Lexapro 20 mg/day. When seen by newspaper writer on 03/11/19, he told newspaper writer he stopped taking medications 1.5 week ago [place] Lexapro 20 mg/day and Seroquel 100 mg/hs were ordered by newspaper writer. Told newspaper writer that he has been off medications since being discharge from this facility on 03/14/19. Denies previous suicidal attempt. At present, denies experiencing psychotic and depressive symptoms. He is unwilling to resume these medications Physical/Sexual Abuse/Trauma History: Denies history of abuse as a child or DV relationship as an adult Additional Comment: Denies criminal history Mental Status Exam - Mental Status Exam Alert and Oriented to: Time, Place, Person Cognitive Function: Fair Patient Appearance: Well Groomed Patient Behavior: Cooperative Speech Pattern: Clear Voice Loudness: Normal Thought Process: Intact, Goal Oriented Thought Disorder: Not Present Hallucinations: Denies Suicidal Ideation: Denies Homicidal Ideation: Denies Insight/Judgement: Poor Sleep: Poorly Appetite: Good Muscle strength/Tone: Normal Gait/Station: Normal Psychiatric Findings - Problem List ([place] 1, 2,3) (1) Schizophrenia Current Visit: No Status: Chronic (2) Alcohol dependence with withdrawal, uncomplicated Current Visit: Yes Status: Acute (3) Cocaine dependence Current Visit: Yes Status: Acute (4) Sedative, hypnotic or anxiolytic abuse, uncomplicated Current Visit: No Status: Acute (5) Cannabis dependence Current Visit: Yes Status: Acute (6) Nicotine dependence, unspecified, uncomplicated Current Visit: Yes Status: Chronic Qualifiers: Nicotine product type: cigarettes Qualified Code(s): F17.210 - Nicotine dependence, cigarettes, uncomplicated (7) Bronchial asthma Current Visit: Yes Status: Chronic Qualifiers: Asthma persistence: intermittent (8) GERD (gastroesophageal reflux disease) Current Visit: Yes Status: Acute - Initial Treatment Plan Initial Treatment Plan: Continue inpatient detoxification
--- NOTE | 2019-04-04 14:48 | PN ---
BHS CIWA - CIWA Score Nausea/Vomitin-Mild Nausea/No Vomiting Muscle Tremors: 1-None Visible, but [place] Anxiety: 1-Mildly Anxious Agitation: 1-Slight > Activity Paroxysmal Sweats: 2 Orientation: 0-Oriented (b) Tacttile Disturbances: 1-Very Mild Itch/Numbness ( [id number] [id number] ) Auditory Disturbances: 0-None Visual Disturbances: 0-None Headache: 0-None Present (bbbbbb) CIWA-Ar Total Score: 7 BHS Progress Note (SOAP) Subjective: interrupted sleep, weak, tired , Objective: 04/04/19 14:46 Vital Signs Temperature 98.2 F 04/04/19 13:16 Pulse Rate 66 04/04/19 13:16 Respiratory Rate 20 04/04/19 13:16 Blood Pressure 131/80 04/04/19 13:16 O2 Sat by Pulse Oximetry (%) Laboratory Tests 04/04/19 04/04/19 04/04/19 07:40 07:40 07:40 WBC 5.0 RBC 4.27 Hgb 13.3 Hct 41.0 MCV 95.9 MCH 31.2 MCHC 32.5 RDW 14.2 Plt Count 241 MPV 8.4 Sodium 141 Potassium 4.0 Chloride 108 H Carbon Dioxide 28 Anion Gap 4 L BUN 18.4 H Creatinine 0.9 Est GFR (CKD-EPI)AfAm 131.44 Est GFR (CKD-EPI)NonAf 113.41 Random Glucose 96 Calcium 8.8 Total Bilirubin 1.1 H AST 21 ALT 29 Alkaline Phosphatase 62 Total Protein 6.1 L Albumin 3.5 RPR Titer Nonreactive pt aox3 in nad ambulating Assessment: 04/04/19 14:47 withdrawal sx's Plan: cont. detox increase fluids
[2019-04-04] MEDS: THIAMINE HCL 100 MG TABLET (FP) PO SCH (21:40)
[2019-04-05] MEDS: chlordiazePOXIDE 5 MG CAPSULE PO SCH ×3 (06:30→22:32)
[2019-04-05] MEDS: METHOCARBAMOL 500 MG TABLET PO PRN ×3 (06:30→22:35)
[2019-04-05] MEDS: IBUPROFEN 400 MG TABLET (FP) PO PRN ×3 (06:31→22:35)
--- NOTE | 2019-04-05 10:59 | PN ---
S CIWA - CIWA Score Nausea/Vomitin-Mild Nausea/No Vomiting Muscle Tremors: 2 Anxiety: 1-Mildly Anxious Agitation: 2 Paroxysmal Sweats: 2 Orientation: 0-Oriented Tacttile Disturbances: 0-None Auditory Disturbances: 0-None Visual Disturbances: 0-None Headache: 1-Very Mild CIWA-Ar Total Score: 9 BHS Progress Note (SOAP) Subjective: pt admitted for alcohol detox- says he is feeling fine. O: Vital Signs - 24 hr 04/04/19 04/04/19 04/04/19 13:16 17:23 21:45 Temperature 98.2 F 98.8 F 98.2 F Pulse Rate 66 77 91 H Respiratory 20 18 18 Rate Blood Pressure 131/80 119/73 145/83 04/05/19 04/05/19 04/05/19 00:30 03:38 07:16 Temperature 97.3 F L Pulse Rate 87 Respiratory 18 18 18 Rate Blood Pressure 127/78 04/05/19 09:55 Temperature 97.8 F Pulse Rate 68 Respiratory 18 Rate Blood Pressure 139/72 Laboratory Tests 04/04/19 04/04/19 04/04/19 07:40 07:40 07:40 WBC 5.0 RBC 4.27 Hgb 13.3 Hct 41.0 MCV 95.9 MCH 31.2 MCHC 32.5 RDW 14.2 Plt Count 241 MPV 8.4 Sodium 141 Potassium 4.0 Chloride 108 H Carbon Dioxide 28 Anion Gap 4 L BUN 18.4 H Creatinine 0.9 Est GFR (CKD-EPI)AfAm 131.44 Est GFR (CKD-EPI)NonAf 113.41 Random Glucose 96 Calcium 8.8 Total Bilirubin 1.1 H AST 21 ALT 29 Alkaline Phosphatase 62 Total Protein 6.1 L Albumin 3.5 RPR Titer Nonreactive a/p: AUD- continue alcohol detox
[2019-04-05] MEDS: TOLNAFTATE 1% POWDER 45 GM POW TP SCH (11:11)
[2019-04-05] MEDS: NICOTINE 21 MG/24 HOURS TOPICAL PATCH TD SCH (11:11)
[2019-04-05] MEDS: PRENATAL VITAMINS W/ FOLIC ACID TABLET (FP) PO SCH (11:11)
[2019-04-05] MEDS: THIAMINE HCL 100 MG TABLET (FP) PO SCH (22:32)
[2019-04-06] MEDS ORDERED: chlordiazePOXIDE HCL 10 MG CAPSULE PO PRN
[2019-04-06] MEDS: TOLNAFTATE 1% POWDER 45 GM POW TP SCH ×3 (00:01→22:28)
[2019-04-06] MEDS: IBUPROFEN 400 MG TABLET (FP) PO PRN ×2 (06:26→22:28)
[2019-04-06] MEDS: METHOCARBAMOL 500 MG TABLET PO PRN ×2 (06:26→22:28)
[2019-04-06] MEDS: chlordiazePOXIDE HCL 10 MG CAPSULE PO SCH ×3 (06:27→22:27)
[2019-04-06] MEDS: PRENATAL VITAMINS W/ FOLIC ACID TABLET (FP) PO SCH (10:39)
[2019-04-06] MEDS: NICOTINE 21 MG/24 HOURS TOPICAL PATCH TD SCH (10:39)
--- NOTE | 2019-04-06 14:35 | PN ---
BHS CIWA - CIWA Score Nausea/Vomitin-No Nausea/No Vomiting Muscle Tremors: 2 Anxiety: 2 Agitation: 1-Slight > Activity Paroxysmal Sweats: No Perspiration Orientation: 0-Oriented Tacttile Disturbances: 0-None Auditory Disturbances: 0-None Visual Disturbances: 0-None Headache: 0-None Present CIWA-Ar Total Score: 5 BHS Progress Note (SOAP) Subjective: Feels ok, medication working ok Objective: 04/06/19 14:33 Last Vital Signs Temp Pulse Resp BP Pulse Ox 99.3 F 70 17 141/85 04/06/19 13:57 04/06/19 13:57 04/06/19 13:57 04/06/19 13:57 Elevated b/p noted: denies HTN Laboratory Tests 04/04/19 04/04/19 04/04/19 07:40 07:40 07:40 WBC 5.0 RBC 4.27 Hgb 13.3 Hct 41.0 MCV 95.9 MCH 31.2 MCHC 32.5 RDW 14.2 Plt Count 241 MPV 8.4 Sodium 141 Potassium 4.0 Chloride 108 H Carbon Dioxide 28 Anion Gap 4 L BUN 18.4 H Creatinine 0.9 Est GFR (CKD-EPI)AfAm 131.44 Est GFR (CKD-EPI)NonAf 113.41 Random Glucose 96 Calcium 8.8 Total Bilirubin 1.1 H AST 21 ALT 29 Alkaline Phosphatase 62 Total Protein 6.1 L Albumin 3.5 RPR Titer Nonreactive Labs reviewed Assessment: 04/06/19 14:34 Withdrawal sxs Noted with elevated b/p Plan: Continue detox Encouraged PO water intake Elevated b/p: denies htn, could be r/t withdrawal, start clonidine prn
[2019-04-06] MEDS ORDERED: cloNIDine HCL 0.1 MG TABLET PO PRN (14:36)
[2019-04-06] MEDS: THIAMINE HCL 100 MG TABLET (FP) PO SCH (22:27)
[2019-04-07] MEDS ORDERED: chlordiazePOXIDE HCL 10 MG CAPSULE PO ONE (05:00)
[2019-04-07] MEDS: IBUPROFEN 400 MG TABLET (FP) PO PRN (06:58)
[2019-04-07] MEDS: METHOCARBAMOL 500 MG TABLET PO PRN (07:00)
[2019-04-07 07:02] VITALS: BP 111/55; PULSE 61; TEMP 97.7
--- NOTE | 2019-04-07 09:03 | DS ---
[facility] Detox Discharge Summary Admission Date: 04/03/19 Discharge Date: 04/07/19 - History Present History: Alcohol Dependence, Cannabis Dependence, Cocaine Dependence - Physical Exam Results Vital Signs: Vital Signs Temperature 97.7 F 04/07/19 07:01 Pulse Rate 61 04/07/19 07:01 Respiratory Rate 18 04/07/19 07:01 Blood Pressure 111/55 L 04/07/19 07:01 O2 Sat by Pulse Oximetry (%) Pertinent Admission Physical Exam Findings: Vital Signs Temperature 97.7 F 04/07/19 07:01 Pulse Rate 61 04/07/19 07:01 Respiratory Rate 18 04/07/19 07:01 Blood Pressure 111/55 L 04/07/19 07:01 O2 Sat by Pulse Oximetry (%) Laboratory Tests 04/04/19 04/04/19 04/04/19 07:40 07:40 07:40 WBC 5.0 RBC 4.27 Hgb 13.3 Hct 41.0 MCV 95.9 MCH 31.2 MCHC 32.5 RDW 14.2 Plt Count 241 MPV 8.4 Sodium 141 Potassium 4.0 Chloride 108 H Carbon Dioxide 28 Anion Gap 4 L BUN 18.4 H Creatinine 0.9 Est GFR (CKD-EPI)AfAm 131.44 Est GFR (CKD-EPI)NonAf 113.41 Random Glucose 96 Calcium 8.8 Total Bilirubin 1.1 H AST 21 ALT 29 Alkaline Phosphatase 62 Total Protein 6.1 L Albumin 3.5 RPR Titer Nonreactive - Treatment Hospital Course: Detox Protocol Followed, Detoxed Safely, Responded well, Discharged Condition Good, Rehab Referral Accepted Patient has Accepted a Rehab Referral to: pt declined; referral provided - Medication Discharge Medications: Ambulatory Orders Ibuprofen 600 mg PO Q6H 04/03/19 Methocarbamol [Robaxin-750] 750 mg PO TID 04/03/19 - Diagnosis (1) Alcohol dependence with withdrawal, uncomplicated Current Visit: Yes Status: Acute (2) Cannabis abuse, uncomplicated Current Visit: Yes Status: Acute (3) Cannabis dependence Current Visit: Yes Status: Acute (4) Cocaine dependence Current Visit: Yes Status: Acute (5) GERD (gastroesophageal reflux disease) Current Visit: Yes Status: Acute (6) Bronchial asthma Current Visit: Yes Status: Chronic Qualifiers: Asthma persistence: intermittent (7) Nicotine dependence, unspecified, uncomplicated Current Visit: Yes Status: Chronic Qualifiers: Nicotine product type: cigarettes Qualified Code(s): F17.210 - Nicotine dependence, cigarettes, uncomplicated (8) Substance induced mood disorder Current Visit: Yes Status: Suspected (9) Substance-induced sleep disorder Current Visit: Yes Status: Suspected (10) Dehydration Current Visit: No Status: Acute (11) Sedative, hypnotic or anxiolytic abuse, uncomplicated Current Visit: No Status: Acute (12) Unspecified nystagmus Current Visit: No Status: Acute (13) Schizophrenia Current Visit: No Status: Chronic (14) Tinea pedis Current Visit: No Status: Chronic Qualifiers: Laterality: bilateral Qualified Code(s): B35.3 - Tinea pedis - AMA Did Patient Leave Against Medical Advice: No
== END 2019-04-07 08:25 | disposition home or self-care (01) | DRG 774 ==
LOC: YASAS 19:44 → Y6N 23:01
PROVIDERS: ADMIT Allergy & Immunology; ATTEND Allergy & Immunology
PROC: HZ2ZZZZ Detoxification Services for Substance Abuse Treatment (ICD-10-PCS; principal; 2019-04-03)
DX: F10.230 Alcohol dependence with withdrawal, uncomplicated (principal); F14.20 Cocaine dependence, uncomplicated; F12.20 Cannabis dependence, uncomplicated; F13.10 Sedative, hypnotic or anxiolytic abuse, uncomplicated; F17.210 Nicotine dependence, cigarettes, uncomplicated; F19.24 Other psychoactive substance dependence with psychoactive substance-induced mood disorder; F19.282 Other psychoactive substance dependence with psychoactive substance-induced sleep disorder; F20.9 Schizophrenia, unspecified; R03.0 Elevated blood-pressure reading, without diagnosis of hypertension; E86.0 Dehydration; K21.9 Gastro-esophageal reflux disease without esophagitis; J45.20 Mild intermittent asthma, uncomplicated; H55.00 Unspecified nystagmus; B35.3 Tinea pedis; Z56.0 Unemployment, unspecified
CPT/HCPCS: 36415; 80053; 85027; 86593

== ENCOUNTER 2019-05-15 19:18 | Inpatient (IN) | payer OTHER ==
--- NOTE | 2019-05-15 19:43 | BHS.RME ---
Substance Use & Tx History - Substance Use History Alcohol Substance amount: 2-4 liters of vodka, 3-4 16 oz beers/day Frequency of use: Daily Substance route: Oral Date of Last Use: 05/15/19 (less than 1 hr ago) Cannabis Substance amount: 2 blunts Frequency of use: Daily Substance route: Smoking Date of Last Use: 05/15/19 (4/5 PM) Cocaine (Powder) Substance amount: 1/2 gm Frequency of use: Less than 3 times per week Substance route: Oral Date of Last Use: 05/14/19 (8 PM) Opiates (Other) Substance amount: 4-5 5/10 mg tabs non-prescribed Percocets Frequency of use: More than 3 times per week Substance route: Oral Date of Last Use: 05/15/19 ( 7 am) Physical/Psych/Mental Status - Behavior General Behavior: Increased activity (restlessness, agitation) Eye Contact: Normal - Cooperativeness Cooperativeness: Cooperative - Thinking Thought Processes: Logical Thought content: Future oriented - Physical Health Problems Is patient presently having any pain?: Yes ((R) arm) Does patient presently have any injuries (include location): Yes ((R) arm fx w/ splint inplace) Does patient currently have a fever: No Is patient : No COWS - Scale Resting Pulse: 0= [place] 80 or Below Sweatin= No chills or Flushing Restless Observation: 0= Sits Still Pupil Size: 2= Moderately Dilated (Pupils = 4 mm) Bone or Joint Aches: 1= Mild Discomfort Runny Nose/ Eye Tearin= Nasal Congestion GI Upset > 30mins: 0= None Tremor Observation: 0= None Yawning Observation: 0= None Anxiety or Irritability: 1=Feels Anxious/Irritable Goose Flesh Skin: 0=Smooth Skin COWS Score: 5 CIWA Nausea/Vomitin-No Nausea/No Vomiting Muscle Tremors: None Anxiety: 3 Agitation: 1-Slight > Activity Paroxysmal Sweats: No Perspiration Orientation: 0-Oriented Tacttile Disturbances: 0-None Auditory Disturbances: 0-None Visual Disturbances: 0-None Headache: 0-None Present CIWA-Ar Total Score: 4
[2019-05-15 20:06] VITALS: BMI 28.6
--- NOTE | 2019-05-15 20:27 | HP ---
COWS - Scale Resting Pulse: 0= [place] 80 or Below Sweatin= Chills/Flushing Restless Observation: 0= Sits Still Pupil Size: 2= Moderately Dilated (Pupils = 4 mm) Bone or Joint Aches: 1= Mild Discomfort Runny Nose/ Eye Tearin= None GI Upset > 30mins: 0= None Tremor Observation: 0= None Yawning Observation: 0= None Anxiety or Irritability: 1=Feels Anxious/Irritable Goose Flesh Skin: 0=Smooth Skin COWS Score: 5 CIWA Score Nausea/Vomitin-Mild Nausea/No Vomiting Muscle Tremors: 3 Anxiety: 3 Agitation: 2 Paroxysmal Sweats: 3 (Increased facial moisture) Orientation: 0-Oriented Tacttile Disturbances: 0-None Auditory Disturbances: 0-None Visual Disturbances: 0-None Headache: 0-None Present CIWA-Ar Total Score: 12 - Admission Criteria OASAS Guidelines: Admission for Medically Managed Detox: Requires at least one of the followin. CIWA greater than 12 2. Seizures within the past 24 hours 3. Delirium tremens within the past 24 hours 4. Hallucinations within the past 24 hours 5. Acute intervention needed for co occurring medical disorder 6. Acute intervention needed for co occurring psychiatric disorder 7. Severe withdrawal that cannot be handled at a lower level of care (continued vomiting, continued diarrhea, abnormal vital signs) requiring intravenous medication and/or fluids 8. Patient presents the following: CIWA greater than 12, Acute intervention needed for co-occurring med or psych disorder (JN: 0.10 Elevated blood pressure, Fx (R) arm) Admission Criteria Met: Admission criteria met Admitting History and Physical - Smoking History Smoking history: Current every day smoker Have you smoked in the past 12 months: Yes Aproximately how many cigarettes per day: 20 - Alcohol/Substance Use Hx Alcohol Use: Yes Admission ROS BHS - HPI Chief Complaint: Here cause I need stop and get myself together. Allergies/Adverse Reactions: Allergies Allergy/AdvReac Type Severity Reaction Status Date / Time No Known Allergies Allergy Verified 05/15/19 20:33 History of Present Illness: 28 yo who presents w/ withdrawal symptoms seeking alcohol and opioid detox. Patient seen in [facility] today and sent here for detox after being diagnosed w/ a (R ) ulna fx. Patient has a splint on. Hospital discharge papers reviewed. Last detox 04/07/19 Hx: Denies seizures or overdoses. Blackout in 01/2019 Alcohol use began at age 13. Currently drinks 2-4 pints/day. States started back drinking the same day of discharge. Marijuana use began at age 13. Currently smokes daily. Nicotine use began at age 13. Smokes 1/2 to 1 PPD. EK03/11/19- Reviewed RPR 04/04/2019 - non-reactive PMHx: Fx (R) arm MHHx: Depression. (Not on meds) Denies thoughts of harming self or others. SHx: Domiciled. Unemployed. Denies legal issues. Patient Name: James Christopher Date: 1990 Address: [address] [place] [address] Sex: Male Rx Written Rx Dispensed Drug Quantity Days Supply Prescriber Name 05/10/2019 05/11/2019 oxycodone-acetaminophen 5-325 mg tab 6 1 Negrito Encarnacion Exam Limitations: No Limitations - Ebola screening Have you traveled outside of the country in the last 21 days: No Have you had contact with anyone from an Ebola affected area: No Have you been sick,other than usual withdrawal symptoms: No Do you have a fever: No - Review of Systems Constitutional: Chills, Changes in sleep (Difficulty staying asleep), Weight Stable EENT: reports: Nose Congestion Respiratory: reports: No Symptoms reported Cardiac: reports: No Symptoms Reported GI: reports: Nausea : reports: No Symptoms Reported Musculoskeletal: reports: Other ((R) arm pain. Recent fx) Integumentary: reports: No Symptoms Reported Neuro: reports: Tingling (Fingers (R) hand) Endocrine: reports: Increased Thirst Hematology: reports: No Symptoms Reported Psychiatric: reports: Judgement Intact, Orientated x3, Agitated, Anxious, Depressed (Denies thoughts of harming self or others) Patient History - Patient Medical History Hx Anemia: No Hx Asthma: Yes Hx Chronic Obstructive Pulmonary Disease (COPD): No Hx Cancer: No Hx Cardiac Disorders: No Hx Congestive Heart Failure: No Hx Hypertension: No Hx Hypercholesterolemia: No Hx Pacemaker: No HX Cerebrovascular Accident: No Hx Seizures: No Hx Dementia: No Hx Diabetes: No Hx Gastrointestinal Disorders: No Hx Liver Disease: No Hx Genitourinary Disorders: No Hx Sexually Transmitted Disorders: No Hx Renal Disease (ESRD): No Hx Thyroid Disease: No Hx Hepatitis C: No Hx Depression: No Hx Suicide Attempt: No Hx Bipolar Disorder: No Hx Schizophrenia: No - Patient Surgical History Past Surgical History: No Hx Neurologic Surgery: No Hx Cataract Extraction: No Hx Cardiac Surgery: No Hx Lung Surgery: No Hx Breast Surgery: No Hx Breast Biopsy: No Hx Abdominal Surgery: No Hx Appendectomy: No Hx Cholecystectomy: No Hx Genitourinary Surgery: No Hx Section: No Hx Orthopedic Surgery: Yes (foot sx. 2017) Anesthesia Reaction: No - PPD History Date: 03/12/19 Results: 0MM - Smoking Cessation Smoking history: Current every day smoker Have you smoked in the past 12 months: Yes Aproximately how many cigarettes per day: 20 Cigars Per Day: 0 Hx Chewing Tobacco Use: No Initiated information on smoking cessation: Yes 'Breaking Loose' booklet given: 05/15/19 - Substance & Tx. History Hx Alcohol Use: Yes Hx Substance Use: Yes Substance Use Type: Alcohol, Marijuana, Opiates Hx Substance Use Treatment: Yes (detox, rehab) - Substances abused Alcohol Substance route: Oral Frequency: Daily Amount used: 2 LITERS VODKA Age of first use: 14 Date of last use: 05/15/19 Other Other (specify): PERCOCET Substance route: Oral Frequency: Daily Amount used: 2/10MG Age of first use: 22 Date of last use: 05/15/19 Admission Physical Exam [facility] - Physical General Appearance: Yes: Nourished, Mild Distress, Tremorous (Mild tremors felt) , Irritable HEENTM: Yes: EOMI (Jerking movement of eyes upon lateral gaze), Normal ENT Inspection, JUAN (Pupils = 4 mm), Pharynx Normal Respiratory: Yes: Lungs Clear, Normal Breath Sounds, No Respiratory Distress Neck: Yes: No masses,lesions,Nodules, Supple Breast: Yes: Breast Exam Deferred Cardiology: Yes: Regular Rhythm, Regular Rate, S1, S2 Abdominal: Yes: Non Tender, Flat, Soft, Increased Bowel Sounds Genitourinary: Yes: Within Normal Limits Back: Yes: Within Normal Limits Musculoskeletal: Yes: Gait Steady, Other (Splint (R) arm removed and arm assessed. Radial pulse +. Slight swelling of fingers. Cap refill < 3 sec. Skin intact. Splint w/ elastic bandage re-applied.) Extremities: Yes: Tremors (Mild tremors felt) Neurological: Yes: smooth plater II-XII NML intact (Jerking movement of eyes upon lateral gaze), Fully Oriented, Alert, Normal Response Integumentary: Yes: Normal Color, Warm, Diaphoresis (Mild facial moisture) Lymphatic: Yes: Within Normal Limits - Diagnostic (1) Alcohol dependence with withdrawal, uncomplicated Current Visit: Yes Status: Acute (2) Cannabis abuse, uncomplicated Current Visit: Yes Status: Chronic (3) Unspecified nystagmus Current Visit: Yes Status: Chronic (4) Nicotine dependence, unspecified, uncomplicated Current Visit: Yes Status: Chronic Qualifiers: Nicotine product type: cigarettes Qualified Code(s): F17.210 - Nicotine dependence, cigarettes, uncomplicated (5) Ulna fracture Current Visit: Yes Status: Acute Qualifiers: Encounter type: subsequent encounter Ulna location: shaft Fracture type: closed Fracture morphology: transverse Fracture alignment: displaced Laterality: right Fracture healing: with routine healing Qualified Code(s): S52.221D - Displaced transverse fracture of shaft of right ulna, subsequent encounter for closed fracture with routine healing Cleared for Admission [facility] - Detox or Rehab [facility] Level of Care: Medically Managed Detox Regimen/Protocol: Librium Claeared for Rehab Admission: No Breathalyzer - Breathalyzer Breathalyzer: 0.10 Urine Drug Screen - Test Device Lot number: [id number] Expiration date: 02/24/21 - Control Is test valid?: Yes - Results Drug screen NEGATIVE: No Urine drug screen results: THC-Marijuana, OXY-Oxycodone Inpatient Rehab Admission - Rehab Decision to Admit Inpatient rehab admission?: No
[2019-05-15] MEDS ORDERED: MAG HYDROX/AL HYDROX/SIMETH 30 ML UNIT-DOSE CUP PO PRN (21:13)
[2019-05-15] MEDS ORDERED: MAGNESIUM CITRATE 300 ML BOTTLE PO PRN (21:13)
[2019-05-15] MEDS ORDERED: MAGNESIUM HYDROX 2400MG/30ML ORAL SUSPENSION 30 ML CUP PO PRN (21:13)
[2019-05-15] MEDS ORDERED: NICOTINE POLACRILEX 2 MG GUM BUC PRN (21:13)
[2019-05-15] MEDS ORDERED: MENTHOL/PHENOL 1 EACH UD MM PRN (21:13)
[2019-05-15] MEDS ORDERED: MELATONIN 5 MG TABLETS PO PRN (21:13)
[2019-05-15] MEDS ORDERED: BISMUTH SUBSALICYLATE 524 MG/30 ML UD PO PRN (21:13)
[2019-05-15] MEDS ORDERED: chlordiazePOXIDE HCL 25 MG CAPSULE PO PRN (21:13)
[2019-05-15] MEDS ORDERED: ACETAMINOPHEN 325 MG TABLET (FP) PO PRN (21:13)
[2019-05-15] MEDS: chlordiazePOXIDE HCL 25 MG CAPSULE PO SCH (22:49)
[2019-05-15] MEDS: THIAMINE HCL 100 MG TABLET (FP) PO SCH (22:50)
[2019-05-15] MEDS: IBUPROFEN 400 MG TABLET (FP) PO PRN (22:51)
[2019-05-16] MEDS: chlordiazePOXIDE HCL 25 MG CAPSULE PO SCH ×4 (06:26→22:30)
[2019-05-16] MEDS: IBUPROFEN 400 MG TABLET (FP) PO PRN ×2 (06:31→16:54)
[2019-05-16 09:46] LABS: HEMATOCRIT 41.5 % (35.4-49); HEMOGLOBIN 13.8 GM/dL (11.7-16.9); MCH 31.9 pg (25.7-33.7); MCHC 33.4 g/dl (32.0-35.9); MEAN CELL VOLUME 95.8 fl (80-96); MEAN PLT VOLUME 8.7 fl (7.5-11.1); PLATELET COUNT 202 K/MM3 (134-434); RBC 4.33 M/mm3 (4.00-5.60); RDW 13.3 % (11.9-15.9); WHITE BLOOD COUNT 5.3 K/mm3 (4.0-10.0)
[2019-05-16 10:09] LABS: ALBUMIN 3.1 g/dl (3.4-5.0); BILIRUBIN,TOTAL 0.4 mg/dL (0.2-1); BLOOD UREA NITROGEN 19.6 mg/dL (7-18); CALCIUM 8.4 mg/dL (8.5-10.1); CREATININE 0.9 mg/dL (0.55-1.3); POTASSIUM 3.8 mmol/L (3.5-5.1); TOT PROT 5.8 g/dl (6.4-8.2)
--- NOTE | 2019-05-16 10:14 | PN ---
[facility] CIWA - CIWA Score Nausea/Vomitin Muscle Tremors: 1-None Visible, but [place] Anxiety: 0-No Anxiety, at Ease Agitation: 1-Slight > Activity Paroxysmal Sweats: 1-Minimal Palms Moist Orientation: 0-Oriented Tacttile Disturbances: 0-None Auditory Disturbances: 0-None Visual Disturbances: 1-Very Mild Sensitivity Headache: 1-Very Mild CIWA-Ar Total Score: 8 [facility] COWS - Scale Resting Pulse: 0= [place] 80 or Below Sweatin=Flushed/Facial Moisture Restless Observation: 0= Sits Still Pupil Size: 0= Normal to Room Light Bone or Joint Aches: 0= None Runny Nose/ Eye Tearin= None GI Upset > 30mins: 2= Nausea/Diarrhea Tremor Observation of Outstretched Hands: 1= Tremor [place], Not Seen Yawning Observation: 0= None Anxiety or Irritability: 0= None Goose Flesh Skin: 0=Smooth Skin COWS Score: 5 S Progress Note (SOAP) Subjective: Complains of pain in left arm post fracture 6 days ago Objective: 05/16/19 10:12 Laboratory Last Values WBC 5.3 K/mm3 (4.0-10.0) 05/16/19 07:25 RBC 4.33 M/mm3 (4.00-5.60) 05/16/19 07:25 Hgb 13.8 GM/dL (11.7-16.9) 05/16/19 07:25 Hct 41.5 % (35.4-49) 05/16/19 07:25 MCV 95.8 fl (80-96) 05/16/19 07:25 MCH 31.9 pg (25.7-33.7) 05/16/19 07:25 MCHC 33.4 g/dl (32.0-35.9) 05/16/19 07:25 RDW 13.3 % (11.9-15.9) 05/16/19 07:25 Plt Count 202 K/MM3 (134-434) 05/16/19 07:25 MPV 8.7 fl (7.5-11.1) 05/16/19 07:25 Sodium 141 mmol/L (136-145) 05/16/19 07:25 Potassium 3.8 mmol/L (3.5-5.1) 05/16/19 07:25 Chloride 109 mmol/L (98-107) H 05/16/19 07:25 Carbon Dioxide 27 mmol/L (21-32) 05/16/19 07:25 Anion Gap 5 MMOL/L (8-16) L 05/16/19 07:25 BUN 19.6 mg/dL (7-18) H 05/16/19 07:25 Creatinine 0.9 mg/dL (0.55-1.3) 05/16/19 07:25 Est GFR (CKD-EPI)AfAm 131.44 05/16/19 07:25 Est GFR (CKD-EPI)NonAf 113.41 05/16/19 07:25 Random Glucose 92 mg/dL (74-106) 05/16/19 07:25 Calcium 8.4 mg/dL (8.5-10.1) L 05/16/19 07:25 Total Bilirubin 0.4 mg/dL (0.2-1) 05/16/19 07:25 AST 24 U/L (15-37) 05/16/19 07:25 ALT 28 U/L (13-61) 05/16/19 07:25 Alkaline Phosphatase 59 U/L (45-117) 05/16/19 07:25 Total Protein 5.8 g/dl (6.4-8.2) L 05/16/19 07:25 Albumin 3.1 g/dl (3.4-5.0) L 05/16/19 07:25 Vital Signs Temperature 97.1 F L 05/16/19 09:28 Pulse Rate 71 05/16/19 09:28 Respiratory Rate 16 05/16/19 09:28 Blood Pressure 104/59 L 05/16/19 09:28 O2 Sat by Pulse Oximetry (%) PE Gnl: WDWN, right arm in cast, in bed Mental status: initially asleep. easily aroused, oriented Motor; moves 4 limbs well Assessment: 05/16/19 10:13 1. Alcohol use disorder 2. Opioid use disorder, Percocet, had rx given for recent arm fracture, not on a detox protocol at this time. Not using heroin, not in a methadone program. per notes using Percocet since age 19y. 3. right arm fracture 05/16/19 10:18 Plan: 1. continue Librium detox 2. opioid detox not required at this time, will continue to monitor 3. arm fracture: tx with ibuprofen, muscle relaxor
[2019-05-16] MEDS: PRENATAL VITAMINS W/ FOLIC ACID TABLET (FP) PO SCH (10:35)
[2019-05-16] MEDS: NICOTINE 21 MG/24 HOURS TOPICAL PATCH TD SCH (10:38)
--- NOTE | 2019-05-16 13:05 | CONSULT ---
[facility] Psychiatric Consult - Data Date of interview: 05/16/19 Admission source: [facility] Identifying data: TWO visits at bedside, medical students in attendance, met with patient's refusal of psychiatric interview. Mr Rosario gave multiple pretexts to elude contact with the psychiatric team. " I am tired ", " Come back after I eat " and " I don't want to talk to psychiatrists now." Nursing staff is made aware. Re-enter order for psychiatric consult if still needed or patient willing to cooperate.
--- NOTE | 2019-05-16 15:04 | PN ---
[facility] Progress Note Note: Pt asking for Robaxin for facial tightness. PE: Gnl: in bed Mental status: easily aroused HEENT: symmetric face, nl hearing, nl lip movement Imp 1. complains of facial tightness, nonspecific 2. will hold Robaxin, pt sleeping both times that I examined him, reluctant to give a muscle relaxer when sleepy
[2019-05-16] MEDS: ACETAMINOPHEN 325 MG TABLET (FP) PO PRN (20:56)
[2019-05-16] MEDS: THIAMINE HCL 100 MG TABLET (FP) PO SCH (22:29)
[2019-05-17] MEDS: IBUPROFEN 400 MG TABLET (FP) PO PRN ×3 (02:04→21:37)
[2019-05-17] MEDS: chlordiazePOXIDE HCL 25 MG CAPSULE PO SCH ×4 (06:14→22:18)
--- NOTE | 2019-05-17 10:32 | PN ---
S CIWA - CIWA Score Nausea/Vomitin-No Nausea/No Vomiting Muscle Tremors: None Anxiety: 3 Agitation: 1-Slight > Activity Paroxysmal Sweats: 3 Orientation: 0-Oriented Tacttile Disturbances: 0-None Auditory Disturbances: 0-None Visual Disturbances: 0-None Headache: 2-Mild CIWA-Ar Total Score: 9 [facility] Progress Note (SOAP) Subjective: c/o sweats, anxiety, and headache. Objective: 05/17/19 10:31 Vital Signs 05/17/19 05/17/19 05/17/19 03:30 05:05 06:30 Temperature 98.3 F Pulse Rate 53 L Respiratory 18 18 18 Rate Blood Pressure 118/64 05/17/19 08:55 Temperature 97.8 F Pulse Rate 71 Respiratory 18 Rate Blood Pressure 127/69 Laboratory Last Values WBC 5.3 K/mm3 (4.0-10.0) 05/16/19 07:25 RBC 4.33 M/mm3 (4.00-5.60) 05/16/19 07:25 Hgb 13.8 GM/dL (11.7-16.9) 05/16/19 07:25 Hct 41.5 % (35.4-49) 05/16/19 07:25 MCV 95.8 fl (80-96) 05/16/19 07:25 MCH 31.9 pg (25.7-33.7) 05/16/19 07:25 MCHC 33.4 g/dl (32.0-35.9) 05/16/19 07:25 RDW 13.3 % (11.9-15.9) 05/16/19 07:25 Plt Count 202 K/MM3 (134-434) 05/16/19 07:25 MPV 8.7 fl (7.5-11.1) 05/16/19 07:25 Sodium 141 mmol/L (136-145) 05/16/19 07:25 Potassium 3.8 mmol/L (3.5-5.1) 05/16/19 07:25 Chloride 109 mmol/L (98-107) H 05/16/19 07:25 Carbon Dioxide 27 mmol/L (21-32) 05/16/19 07:25 Anion Gap 5 MMOL/L (8-16) L 05/16/19 07:25 BUN 19.6 mg/dL (7-18) H 05/16/19 07:25 Creatinine 0.9 mg/dL (0.55-1.3) 05/16/19 07:25 Est GFR (CKD-EPI)AfAm 131.44 05/16/19 07:25 Est GFR (CKD-EPI)NonAf 113.41 05/16/19 07:25 Random Glucose 92 mg/dL (74-106) 05/16/19 07:25 Calcium 8.4 mg/dL (8.5-10.1) L 05/16/19 07:25 Total Bilirubin 0.4 mg/dL (0.2-1) 05/16/19 07:25 AST 24 U/L (15-37) 05/16/19 07:25 ALT 28 U/L (13-61) 05/16/19 07:25 Alkaline Phosphatase 59 U/L (45-117) 05/16/19 07:25 Total Protein 5.8 g/dl (6.4-8.2) L 05/16/19 07:25 Albumin 3.1 g/dl (3.4-5.0) L 05/16/19 07:25 Labs noted. Assessment: 05/17/19 10:31 AOX3, in no acute respiratory distress. Full ROM, ambulating in the unit. Withdrawal symptoms. Plan: Continue detox. Increase fluids.
[2019-05-17] MEDS: NICOTINE 21 MG/24 HOURS TOPICAL PATCH TD SCH (11:13)
[2019-05-17] MEDS: PRENATAL VITAMINS W/ FOLIC ACID TABLET (FP) PO SCH (11:14)
[2019-05-17] MEDS: ACETAMINOPHEN 325 MG TABLET (FP) PO PRN (17:47)
[2019-05-17] MEDS: THIAMINE HCL 100 MG TABLET (FP) PO SCH (21:36)
[2019-05-18] MEDS ORDERED: chlordiazePOXIDE HCL 10 MG CAPSULE PO PRN
[2019-05-18] MEDS: chlordiazePOXIDE HCL 10 MG CAPSULE PO SCH ×2 (06:48→10:33)
[2019-05-18] MEDS: IBUPROFEN 400 MG TABLET (FP) PO PRN (06:48)
[2019-05-18] MEDS ORDERED: LOPERAMIDE HCL 2 MG CAPSULE PO ONE (09:34)
[2019-05-18] MEDS ORDERED: ONDANSETRON *ODT* 4 MG TABLET SL ONE (09:35)
--- NOTE | 2019-05-18 09:40 | PN ---
S CIWA - CIWA Score Nausea/Vomitin-No Nausea/No Vomiting Muscle Tremors: 2 Anxiety: 2 Agitation: 0-Normal Activity Paroxysmal Sweats: 2 Orientation: 0-Oriented Tacttile Disturbances: 0-None Auditory Disturbances: 0-None Visual Disturbances: 0-None Headache: 2-Mild CIWA-Ar Total Score: 8 [facility] Progress Note (SOAP) Subjective: 29 years old male admitted on 05/15/19 for alcohol withdrawal sx management treating with librium detox regiment right fore arm Fx on 05/16/19 1/2 cast with steve bandage fingers mobile pink warm follow up appointment with [facility] on June 12 2019 reports loose stool x 1 and feeling nausea after breakfast imodium 8 mg po x 1 + zofran 8 mg sl x 1 Objective: 05/18/19 09:37 Vital Signs Temperature 98.1 F 05/18/19 07:20 Pulse Rate 55 L 05/18/19 07:20 Respiratory Rate 18 05/18/19 07:20 Blood Pressure 102/56 L 05/18/19 07:20 O2 Sat by Pulse Oximetry (%) Laboratory Last Values WBC 5.3 K/mm3 (4.0-10.0) 05/16/19 07:25 RBC 4.33 M/mm3 (4.00-5.60) 05/16/19 07:25 Hgb 13.8 GM/dL (11.7-16.9) 05/16/19 07:25 Hct 41.5 % (35.4-49) 05/16/19 07:25 MCV 95.8 fl (80-96) 05/16/19 07:25 MCH 31.9 pg (25.7-33.7) 05/16/19 07:25 MCHC 33.4 g/dl (32.0-35.9) 05/16/19 07:25 RDW 13.3 % (11.9-15.9) 05/16/19 07:25 Plt Count 202 K/MM3 (134-434) 05/16/19 07:25 MPV 8.7 fl (7.5-11.1) 05/16/19 07:25 Sodium 141 mmol/L (136-145) 05/16/19 07:25 Potassium 3.8 mmol/L (3.5-5.1) 05/16/19 07:25 Chloride 109 mmol/L (98-107) H 05/16/19 07:25 Carbon Dioxide 27 mmol/L (21-32) 05/16/19 07:25 Anion Gap 5 MMOL/L (8-16) L 05/16/19 07:25 BUN 19.6 mg/dL (7-18) H 05/16/19 07:25 Creatinine 0.9 mg/dL (0.55-1.3) 05/16/19 07:25 Est GFR (CKD-EPI)AfAm 131.44 05/16/19 07:25 Est GFR (CKD-EPI)NonAf 113.41 05/16/19 07:25 Random Glucose 92 mg/dL (74-106) 05/16/19 07:25 Calcium 8.4 mg/dL (8.5-10.1) L 05/16/19 07:25 Total Bilirubin 0.4 mg/dL (0.2-1) 05/16/19 07:25 AST 24 U/L (15-37) 05/16/19 07:25 ALT 28 U/L (13-61) 05/16/19 07:25 Alkaline Phosphatase 59 U/L (45-117) 05/16/19 07:25 Total Protein 5.8 g/dl (6.4-8.2) L 05/16/19 07:25 Albumin 3.1 g/dl (3.4-5.0) L 05/16/19 07:25 lab noted Assessment: 05/18/19 09:38 alcohol withdrawal Plan: librium regiment
[2019-05-18] MEDS: PRENATAL VITAMINS W/ FOLIC ACID TABLET (FP) PO SCH (10:33)
[2019-05-18] MEDS: NICOTINE 21 MG/24 HOURS TOPICAL PATCH TD SCH (10:33)
[2019-05-18 14:11] VITALS: BP 103/52; PULSE 71; TEMP 97.4
--- NOTE | 2019-05-18 14:43 | DS ---
[facility] Detox Discharge Summary Admission Date: 05/15/19 Discharge Date: 05/18/19 - History Present History: Alcohol Dependence Additional Comments: 29 years old male admitted on 05/15/19 for alcohol withdrawal sx management treated with librium detox regiment monthly detox admission Mr Rosario prefers to leave the detox today to "take care of few things" and return to [facility] for [facility] admission patient is alert oriented x 3 speech clearly coherently ambulating steady gait respiratory clear lungs bilaterally on auscultation abdomen soft on rebound tenderness skin warm and dry right fore arm 1/2 cast with steve bandage in place fingers pink warm mobile Pertinent Past History: time for discharge: 38 minutes - Physical Exam Results Vital Signs: Vital Signs Temperature 97.4 F L 05/18/19 13:44 Pulse Rate 71 05/18/19 13:44 Respiratory Rate 18 05/18/19 13:44 Blood Pressure 103/52 L 05/18/19 13:44 O2 Sat by Pulse Oximetry (%) Pertinent Admission Physical Exam Findings: alcohol withdrawal Laboratory Last Values WBC 5.3 K/mm3 (4.0-10.0) 05/16/19 07:25 RBC 4.33 M/mm3 (4.00-5.60) 05/16/19 07:25 Hgb 13.8 GM/dL (11.7-16.9) 05/16/19 07:25 Hct 41.5 % (35.4-49) 05/16/19 07:25 MCV 95.8 fl (80-96) 05/16/19 07:25 MCH 31.9 pg (25.7-33.7) 05/16/19 07:25 MCHC 33.4 g/dl (32.0-35.9) 05/16/19 07:25 RDW 13.3 % (11.9-15.9) 05/16/19 07:25 Plt Count 202 K/MM3 (134-434) 05/16/19 07:25 MPV 8.7 fl (7.5-11.1) 05/16/19 07:25 Sodium 141 mmol/L (136-145) 05/16/19 07:25 Potassium 3.8 mmol/L (3.5-5.1) 05/16/19 07:25 Chloride 109 mmol/L (98-107) H 05/16/19 07:25 Carbon Dioxide 27 mmol/L (21-32) 05/16/19 07:25 Anion Gap 5 MMOL/L (8-16) L 05/16/19 07:25 BUN 19.6 mg/dL (7-18) H 05/16/19 07:25 Creatinine 0.9 mg/dL (0.55-1.3) 05/16/19 07:25 Est GFR (CKD-EPI)AfAm 131.44 05/16/19 07:25 Est GFR (CKD-EPI)NonAf 113.41 05/16/19 07:25 Random Glucose 92 mg/dL (74-106) 05/16/19 07:25 Calcium 8.4 mg/dL (8.5-10.1) L 05/16/19 07:25 Total Bilirubin 0.4 mg/dL (0.2-1) 05/16/19 07:25 AST 24 U/L (15-37) 05/16/19 07:25 ALT 28 U/L (13-61) 05/16/19 07:25 Alkaline Phosphatase 59 U/L (45-117) 05/16/19 07:25 Total Protein 5.8 g/dl (6.4-8.2) L 05/16/19 07:25 Albumin 3.1 g/dl (3.4-5.0) L 05/16/19 07:25 lab noted - Treatment Hospital Course: Detox Protocol Followed, Detoxed Safely, Responded well, Discharged Condition Good, Rehab Referral Accepted Patient has Accepted a Rehab Referral to: community support approach - Medication Discharge Medications: Ambulatory Orders NK [No Known Home Medication] 05/15/19 - Diagnosis (1) Alcohol dependence with withdrawal, uncomplicated Current Visit: Yes Status: Acute (2) Ulna fracture Current Visit: Yes Status: Acute Qualifiers: Encounter type: subsequent encounter Ulna location: shaft Fracture type: closed Fracture morphology: transverse Fracture alignment: displaced Laterality: right Fracture healing: with routine healing Qualified Code(s): S52.221D - Displaced transverse fracture of shaft of right ulna, subsequent encounter for closed fracture with routine healing (3) Nicotine dependence, unspecified, uncomplicated Current Visit: Yes Status: Acute Qualifiers: Nicotine product type: cigarettes Qualified Code(s): F17.210 - Nicotine dependence, cigarettes, uncomplicated (4) GERD (gastroesophageal reflux disease) Current Visit: Yes Status: Chronic Qualifiers: Esophagitis presence: without esophagitis Qualified Code(s): K21.9 - Gastro -esophageal reflux disease without esophagitis (5) Substance induced mood disorder Current Visit: Yes Status: Suspected - AMA Did Patient Leave Against Medical Advice: No CIWA Score - CIWA Score Nausea/Vomitin-No Nausea/No Vomiting Muscle Tremors: 2 Anxiety: 1-Mildly Anxious Agitation: 0-Normal Activity Paroxysmal Sweats: 1-Minimal Palms Moist Orientation: 0-Oriented Tacttile Disturbances: 0-None Auditory Disturbances: 0-None Visual Disturbances: 0-None Headache: 2-Mild CIWA-Ar Total Score: 6
[2019-05-19] MEDS ORDERED: chlordiazePOXIDE HCL 10 MG CAPSULE PO SCH (05:00)
[2019-05-20] MEDS ORDERED: chlordiazePOXIDE HCL 10 MG CAPSULE PO ONE (05:00)
== END 2019-05-18 15:43 | disposition home or self-care (01) | DRG 773 ==
LOC: YASAS 19:18 → Y3N 21:32
PROVIDERS: ADMIT Allergy & Immunology; ATTEND Allergy & Immunology
PROC: HZ2ZZZZ Detoxification Services for Substance Abuse Treatment (ICD-10-PCS; principal; 2019-05-15)
DX: F10.230 Alcohol dependence with withdrawal, uncomplicated (principal); F11.23 Opioid dependence with withdrawal; F14.20 Cocaine dependence, uncomplicated; F12.20 Cannabis dependence, uncomplicated; F17.210 Nicotine dependence, cigarettes, uncomplicated; F19.24 Other psychoactive substance dependence with psychoactive substance-induced mood disorder; F32.9 Major depressive disorder, single episode, unspecified; H55.00 Unspecified nystagmus; S52.221D Displaced transverse fracture of shaft of right ulna, subsequent encounter for closed fracture with routine healing; X58.XXXD Exposure to other specified factors, subsequent encounter
CPT/HCPCS: 36415; 80053; 85027; Q0162

== ENCOUNTER 2020-08-18 23:13 | Inpatient (IN) | payer OTHER ==
[2020-08-19 01:52] VITALS: BMI 30.8
[2020-08-19] MEDS ORDERED: IBUPROFEN 400 MG TABLET (FP) PO PRN (02:21)
[2020-08-19] MEDS ORDERED: ACETAMINOPHEN 325 MG TABLET (FP) PO PRN (02:21)
[2020-08-19] MEDS ORDERED: MENTHOL/PHENOL 1 EACH UD MM PRN (02:21)
[2020-08-19] MEDS ORDERED: MAGNESIUM HYDROX 2400MG/30ML ORAL SUSPENSION 30 ML CUP PO PRN (02:21)
[2020-08-19] MEDS ORDERED: DICYCLOMINE HCL 10 MG CAPSULE PO PRN (02:21)
[2020-08-19] MEDS ORDERED: ONDANSETRON *ODT* 4 MG TABLET SL PRN (02:21)
[2020-08-19] MEDS ORDERED: MAG HYDROX/AL HYDROX/SIMETH 30 ML UNIT-DOSE CUP PO PRN (02:21)
[2020-08-19] MEDS ORDERED: P-EPHED 60MG/TRIPROLIDI 2.5MG TABLET PO PRN (02:21)
[2020-08-19] MEDS ORDERED: MAGNESIUM CITRATE 300 ML BOTTLE PO PRN (02:21)
[2020-08-19] MEDS ORDERED: guaiFENesin 200 MG/10 ML 10 ML UNIT-DOSE CUPS PO PRN (02:21)
[2020-08-19] MEDS: METHOCARBAMOL 500 MG TABLET PO PRN ×2 (06:03→11:06)
[2020-08-19] MEDS: PRENATAL VITAMINS W/ FOLIC ACID TABLET (FP) PO SCH (08:02)
[2020-08-19] MEDS ORDERED: ALBUTEROL SO4 HFA INHALER IH PRN (08:38)
[2020-08-19] MEDS ORDERED: DOXYCYCLINE HYCLATE 100 MG CAPSULE PO SCH (10:00)
[2020-08-19] MEDS ORDERED: PRENATAL VITAMINS W/ FOLIC ACID TABLET (FP) PO SCH (10:00)
[2020-08-19 10:02] LABS: HEMOGLOBIN 13.5 GM/dL (11.7-16.9); MCH 32.3 pg (25.7-33.7); MCHC 33.8 g/dl (32.0-35.9); MEAN CELL VOLUME 95.8 fl (80-96); MEAN PLT VOLUME 8.3 fl (7.5-11.1); PLATELET COUNT 227 K/MM3 (134-434); RBC 4.18 M/mm3 (4.00-5.60); RDW 13.2 % (11.9-15.9); WHITE BLOOD COUNT 5.1 K/mm3 (4.0-10.0)
[2020-08-19 10:12] LABS: CALCIUM 8.8 mg/dL (8.5-10.1)
[2020-08-19 10:14] LABS: ALBUMIN 3.8 g/dl (3.4-5.0); BLOOD UREA NITROGEN 21.2 mg/dL (7-18)
[2020-08-19 10:16] LABS: CREATININE 0.9 mg/dL (0.55-1.3)
[2020-08-19 10:18] LABS: BILIRUBIN,TOTAL 0.9 mg/dL (0.2-1); TOT PROT 6.5 g/dl (6.4-8.2)
[2020-08-19] MEDS: FAMOTIDINE 20 MG TABLET PO SCH ×2 (11:02→23:58)
[2020-08-19] MEDS: hydrOXYzine PAMOATE 25 MG CAPSULE (FP) PO PRN (11:02)
[2020-08-19] MEDS: NICOTINE 14 MG/24 HOURS TOPICAL PATCH TD SCH (11:04)
[2020-08-19] MEDS: chlordiazePOXIDE HCL 10 MG CAPSULE PO SCH ×2 (11:04→23:58)
[2020-08-19] MEDS: ESCITALOPRAM OXALATE 10 MG TABLET PO SCH (13:46)
[2020-08-19] MEDS: DOXYCYCLINE HYCLATE 100 MG TABLET PO SCH (17:35)
[2020-08-19] MEDS: QUEtiapine FUMARATE 100 MG TABLET (FP) PO SCH (23:58)
[2020-08-19] MEDS: MELATONIN 5 MG TABLETS PO SCH (23:58)
[2020-08-19] MEDS: THIAMINE HCL 100 MG TABLET (FP) PO SCH (23:58)
[2020-08-20] MEDS: ACETAMINOPHEN 325 MG TABLET (FP) PO PRN ×3 (02:25→22:40)
[2020-08-20] MEDS: METHOCARBAMOL 500 MG TABLET PO PRN ×2 (02:25→10:55)
[2020-08-20] MEDS ORDERED: chlordiazePOXIDE HCL 10 MG CAPSULE PO ONE (05:00)
[2020-08-20] MEDS ORDERED: IBUPROFEN 400 MG TABLET (FP) PO ONE (05:36)
[2020-08-20] MEDS: PRENATAL VITAMINS W/ FOLIC ACID TABLET (FP) PO SCH (06:13)
[2020-08-20] MEDS ORDERED: chlordiazePOXIDE HCL 10 MG CAPSULE PO PRN (09:49)
[2020-08-20] MEDS: FAMOTIDINE 20 MG TABLET PO SCH ×2 (10:54→22:39)
[2020-08-20] MEDS: DOXYCYCLINE HYCLATE 100 MG TABLET PO SCH ×2 (10:55→19:10)
[2020-08-20] MEDS: hydrOXYzine PAMOATE 25 MG CAPSULE (FP) PO PRN (10:55)
[2020-08-20] MEDS: NICOTINE 14 MG/24 HOURS TOPICAL PATCH TD SCH (10:55)
[2020-08-20] MEDS: ESCITALOPRAM OXALATE 10 MG TABLET PO SCH (10:55)
[2020-08-20] MEDS: chlordiazePOXIDE HCL 25 MG CAPSULE PO SCH ×4 (10:56→22:39)
[2020-08-20] MEDS: THIAMINE HCL 100 MG TABLET (FP) PO SCH (22:39)
[2020-08-20] MEDS: QUEtiapine FUMARATE 100 MG TABLET (FP) PO SCH (22:39)
[2020-08-20] MEDS: MELATONIN 5 MG TABLETS PO SCH (22:39)
[2020-08-21] MEDS: PRENATAL VITAMINS W/ FOLIC ACID TABLET (FP) PO SCH (06:23)
[2020-08-21] MEDS: chlordiazePOXIDE 5 MG CAPSULE PO SCH ×4 (10:25→22:48)
[2020-08-21] MEDS: ESCITALOPRAM OXALATE 10 MG TABLET PO SCH (10:25)
[2020-08-21] MEDS: DOXYCYCLINE HYCLATE 100 MG TABLET PO SCH ×2 (10:25→17:52)
[2020-08-21] MEDS: NICOTINE 14 MG/24 HOURS TOPICAL PATCH TD SCH (10:26)
[2020-08-21] MEDS: ACETAMINOPHEN 325 MG TABLET (FP) PO PRN (15:01)
[2020-08-21] MEDS: METHOCARBAMOL 500 MG TABLET PO PRN (15:01)
[2020-08-21] MEDS: NICOTINE POLACRILEX 2 MG GUM BUC PRN ×2 (15:06→17:52)
[2020-08-21] MEDS: QUEtiapine FUMARATE 100 MG TABLET (FP) PO SCH (22:47)
[2020-08-21] MEDS: THIAMINE HCL 100 MG TABLET (FP) PO SCH (22:47)
[2020-08-21] MEDS: BISMUTH SUBSALICYLATE 524 MG/30 ML PO PRN (22:49)
[2020-08-21] MEDS: MELATONIN 5 MG TABLETS PO SCH (22:52)
[2020-08-22] MEDS: METHOCARBAMOL 500 MG TABLET PO PRN ×2 (05:26→18:06)
[2020-08-22] MEDS ORDERED: LORazepam 0.5 MG TABLET PO PRN (06:00)
[2020-08-22] MEDS: PRENATAL VITAMINS W/ FOLIC ACID TABLET (FP) PO SCH (06:06)
[2020-08-22] MEDS ORDERED: chlordiazePOXIDE HCL 10 MG CAPSULE PO SCH (10:00)
[2020-08-22] MEDS: ESCITALOPRAM OXALATE 10 MG TABLET PO SCH (10:40)
[2020-08-22] MEDS: DOXYCYCLINE HYCLATE 100 MG TABLET PO SCH ×2 (10:40→18:03)
[2020-08-22] MEDS: ACETAMINOPHEN 325 MG TABLET (FP) PO PRN ×2 (10:40→22:46)
[2020-08-22] MEDS: NICOTINE 14 MG/24 HOURS TOPICAL PATCH TD SCH (10:41)
[2020-08-22] MEDS ORDERED: chlordiazePOXIDE HCL 10 MG CAPSULE PO PRN (10:53)
[2020-08-22] MEDS ORDERED: LOPERAMIDE HCL 2 MG CAPSULE PO ONE (11:00)
[2020-08-22] MEDS: BISMUTH SUBSALICYLATE 524 MG/30 ML PO PRN (12:20)
[2020-08-22] MEDS: chlordiazePOXIDE HCL 10 MG CAPSULE PO SCH ×2 (12:24→22:43)
[2020-08-22 14:06] LABS: SARS-CoV-2 NAA Not Detected (Not Detected)
[2020-08-22] MEDS ORDERED: LORazepam 0.5 MG TABLET PO ONE (22:00)
[2020-08-22] MEDS: QUEtiapine FUMARATE 100 MG TABLET (FP) PO SCH (22:42)
[2020-08-22] MEDS: THIAMINE HCL 100 MG TABLET (FP) PO SCH (22:42)
[2020-08-22] MEDS: MELATONIN 5 MG TABLETS PO SCH (22:44)
[2020-08-23] MEDS ORDERED: chlordiazePOXIDE HCL 10 MG CAPSULE PO ONE ×2 (05:00)
[2020-08-23] MEDS ORDERED: LORazepam 0.5 MG TABLET PO ONE (05:00)
[2020-08-23] MEDS: PRENATAL VITAMINS W/ FOLIC ACID TABLET (FP) PO SCH (06:00)
[2020-08-23 06:06] VITALS: PULSE 57
[2020-08-23 09:43] VITALS: BP 122/75; TEMP 97.7
== END 2020-08-23 09:30 | disposition home or self-care (01) | DRG 775 ==
LOC: YASAS 23:13 → Y6N 08-19 02:26
PROVIDERS: ADMIT Allergy & Immunology; ATTEND Allergy & Immunology
PROC: HZ2ZZZZ Detoxification Services for Substance Abuse Treatment (ICD-10-PCS; principal; 2020-08-19)
DX: F10.230 Alcohol dependence with withdrawal, uncomplicated (principal); F12.20 Cannabis dependence, uncomplicated; F17.210 Nicotine dependence, cigarettes, uncomplicated; F20.9 Schizophrenia, unspecified; F19.282 Other psychoactive substance dependence with psychoactive substance-induced sleep disorder; F19.24 Other psychoactive substance dependence with psychoactive substance-induced mood disorder; F32.9 Major depressive disorder, single episode, unspecified; F41.9 Anxiety disorder, unspecified; J45.20 Mild intermittent asthma, uncomplicated; K21.9 Gastro-esophageal reflux disease without esophagitis; Z20.2 Contact with and (suspected) exposure to infections with a predominantly sexual mode of transmission; Z91.410 Personal history of adult physical and sexual abuse; Z56.0 Unemployment, unspecified; Z59.0 Homelessness
CPT/HCPCS: 36415; 80053; 85027; 86780; 93005; 93010; C9803; Q0162; U0003; U0005

== ENCOUNTER 2020-09-03 21:38 | Inpatient (IN) | payer OTHER ==
[2020-09-03 23:18] VITALS: BMI 30.2
[2020-09-03] MEDS ORDERED: NICOTINE POLACRILEX 2 MG GUM BUC PRN (23:53)
[2020-09-03] MEDS ORDERED: BISMUTH SUBSALICYLATE 524 MG/30 ML PO PRN (23:53)
[2020-09-03] MEDS ORDERED: ONDANSETRON *ODT* 4 MG TABLET SL PRN (23:53)
[2020-09-03] MEDS ORDERED: MENTHOL/PHENOL 1 EACH UD MM PRN (23:53)
[2020-09-03] MEDS ORDERED: MAGNESIUM HYDROX 2400MG/30ML ORAL SUSPENSION 30 ML CUP PO PRN (23:53)
[2020-09-03] MEDS ORDERED: MAG HYDROX/AL HYDROX/SIMETH 30 ML UNIT-DOSE CUP PO PRN (23:53)
[2020-09-03] MEDS ORDERED: ACETAMINOPHEN 325 MG TABLET (FP) PO PRN (23:53)
[2020-09-03] MEDS ORDERED: MAGNESIUM CITRATE 300 ML BOTTLE PO PRN (23:53)
[2020-09-03] MEDS ORDERED: diazePAM 5 MG TABLET PO PRN (23:54)
[2020-09-03] MEDS ORDERED: diazePAM 5 MG TABLET PO ONE (23:54)
[2020-09-04] MEDS: IBUPROFEN 400 MG TABLET (FP) PO PRN ×3 (04:01→22:15)
[2020-09-04] MEDS: diazePAM 5 MG TABLET PO SCH ×3 (05:21→22:11)
[2020-09-04] MEDS: METHOCARBAMOL 500 MG TABLET PO PRN ×3 (05:22→22:16)
[2020-09-04] MEDS: ACETAMINOPHEN 325 MG TABLET (FP) PO PRN (05:22)
[2020-09-04] MEDS: PRENATAL VITAMINS W/ FOLIC ACID TABLET (FP) PO SCH (10:30)
[2020-09-04] MEDS: hydrOXYzine PAMOATE 25 MG CAPSULE (FP) PO PRN ×2 (10:31→22:14)
[2020-09-04 11:18] LABS: HEMATOCRIT 40.4 % (35.4-49); HEMOGLOBIN 13.7 GM/dL (11.7-16.9); MCH 31.7 pg (25.7-33.7); MCHC 33.8 g/dl (32.0-35.9); MEAN PLT VOLUME 8.2 fl (7.5-11.1); PLATELET COUNT 258 K/MM3 (134-434); RDW 13.1 % (11.9-15.9); WHITE BLOOD COUNT 5.9 K/mm3 (4.0-10.0)
[2020-09-04 11:40] LABS: ALBUMIN 3.7 g/dl (3.4-5.0); BLOOD UREA NITROGEN 17.8 mg/dL (7-18)
[2020-09-04 11:43] LABS: CREATININE 0.9 mg/dL (0.55-1.3)
[2020-09-04 11:44] LABS: BILIRUBIN,TOTAL 0.9 mg/dL (0.2-1); TOT PROT 6.4 g/dl (6.4-8.2)
[2020-09-04] MEDS: QUEtiapine FUMARATE 100 MG TABLET (FP) PO SCH (22:11)
[2020-09-04] MEDS: THIAMINE HCL 100 MG TABLET (FP) PO SCH (22:12)
[2020-09-04] MEDS: MELATONIN 5 MG TABLETS PO SCH (22:13)
[2020-09-05] MEDS: diazePAM 5 MG TABLET PO SCH ×2 (05:40→17:40)
[2020-09-05] MEDS: hydrOXYzine PAMOATE 25 MG CAPSULE (FP) PO PRN ×3 (05:41→22:44)
[2020-09-05] MEDS: IBUPROFEN 400 MG TABLET (FP) PO PRN ×2 (05:43→22:40)
[2020-09-05] MEDS: METHOCARBAMOL 500 MG TABLET PO PRN ×2 (05:43→17:45)
[2020-09-05] MEDS ORDERED: ALBUTEROL SO4 HFA INHALER IH PRN (09:42)
[2020-09-05] MEDS ORDERED: ONDANSETRON *ODT* 4 MG TABLET SL ONE (09:45)
[2020-09-05] MEDS ORDERED: diazePAM 5 MG TABLET PO PRN (09:49)
[2020-09-05] MEDS ORDERED: cloNIDine HCL 0.1 MG TABLET PO PRN (09:53)
[2020-09-05] MEDS: PRENATAL VITAMINS W/ FOLIC ACID TABLET (FP) PO SCH (10:49)
[2020-09-05] MEDS: ESCITALOPRAM OXALATE 10 MG TABLET PO SCH (10:49)
[2020-09-05] MEDS: ACETAMINOPHEN 325 MG TABLET (FP) PO PRN (10:50)
[2020-09-05] MEDS: QUEtiapine FUMARATE 100 MG TABLET (FP) PO SCH (22:40)
[2020-09-05] MEDS: MELATONIN 5 MG TABLETS PO SCH (22:40)
[2020-09-05] MEDS: THIAMINE HCL 100 MG TABLET (FP) PO SCH (22:40)
[2020-09-06] MEDS ORDERED: diazePAM 5 MG TABLET PO ONE (06:00)
[2020-09-06] MEDS: PRENATAL VITAMINS W/ FOLIC ACID TABLET (FP) PO SCH (10:14)
[2020-09-06] MEDS: ESCITALOPRAM OXALATE 10 MG TABLET PO SCH (10:14)
[2020-09-06] MEDS: hydrOXYzine PAMOATE 25 MG CAPSULE (FP) PO PRN ×2 (10:16→17:40)
[2020-09-06] MEDS: METHOCARBAMOL 500 MG TABLET PO PRN ×2 (10:16→18:21)
[2020-09-06] MEDS: IBUPROFEN 400 MG TABLET (FP) PO PRN (18:21)
[2020-09-06] MEDS: THIAMINE HCL 100 MG TABLET (FP) PO SCH (22:09)
[2020-09-06] MEDS: MELATONIN 5 MG TABLETS PO SCH (22:09)
[2020-09-06] MEDS: QUEtiapine FUMARATE 100 MG TABLET (FP) PO SCH (22:09)
[2020-09-07] MEDS ORDERED: diazePAM 5 MG TABLET PO ONE (05:00)
[2020-09-07 09:17] VITALS: BP 126/76; PULSE 89; TEMP 97.9
[2020-09-07] MEDS: PRENATAL VITAMINS W/ FOLIC ACID TABLET (FP) PO SCH (09:40)
[2020-09-07] MEDS: ESCITALOPRAM OXALATE 10 MG TABLET PO SCH (09:40)
== END 2020-09-07 09:48 | disposition home or self-care (01) | DRG 774 ==
LOC: YASAS 21:38 → Y6N 09-04 03:17
PROVIDERS: ADMIT Allergy & Immunology; ATTEND Allergy & Immunology
PROC: HZ2ZZZZ Detoxification Services for Substance Abuse Treatment (ICD-10-PCS; principal; 2020-09-04)
DX: F10.230 Alcohol dependence with withdrawal, uncomplicated (principal); F14.20 Cocaine dependence, uncomplicated; F12.20 Cannabis dependence, uncomplicated; F17.210 Nicotine dependence, cigarettes, uncomplicated; F19.282 Other psychoactive substance dependence with psychoactive substance-induced sleep disorder; F32.9 Major depressive disorder, single episode, unspecified; J45.909 Unspecified asthma, uncomplicated; K21.9 Gastro-esophageal reflux disease without esophagitis; Z91.410 Personal history of adult physical and sexual abuse; Z91.5 Personal history of self-harm; Z56.0 Unemployment, unspecified; Z59.0 Homelessness
CPT/HCPCS: 36415; 80053; 85027; 86780; C9803; Q0162; U0003; U0005

== ENCOUNTER 2020-09-18 00:11 | Inpatient (IN) | payer OTHER ==
[2020-09-18 00:42] VITALS: BMI 30.2
[2020-09-18] MEDS ORDERED: MAGNESIUM HYDROX 2400MG/30ML ORAL SUSPENSION 30 ML CUP PO PRN (01:08)
[2020-09-18] MEDS ORDERED: diazePAM 5 MG TABLET PO ONE (01:08)
[2020-09-18] MEDS ORDERED: MAG HYDROX/AL HYDROX/SIMETH 30 ML UNIT-DOSE CUP PO PRN (01:08)
[2020-09-18] MEDS ORDERED: diazePAM 5 MG TABLET PO PRN (01:08)
[2020-09-18] MEDS ORDERED: MAGNESIUM CITRATE 300 ML BOTTLE PO PRN (01:08)
[2020-09-18] MEDS ORDERED: MENTHOL/PHENOL 1 EACH UD MM PRN (01:08)
[2020-09-18] MEDS ORDERED: NICOTINE POLACRILEX 2 MG GUM BUC PRN (01:08)
[2020-09-18] MEDS ORDERED: BISMUTH SUBSALICYLATE 524 MG/30 ML PO PRN (01:08)
[2020-09-18] MEDS ORDERED: ACETAMINOPHEN 325 MG TABLET (FP) PO PRN (01:08)
[2020-09-18] MEDS: IBUPROFEN 400 MG TABLET (FP) PO PRN (02:07)
[2020-09-18] MEDS: ONDANSETRON *ODT* 4 MG TABLET SL PRN ×3 (02:08→17:51)
[2020-09-18] MEDS: diazePAM 5 MG TABLET PO SCH ×4 (05:40→22:54)
[2020-09-18] MEDS: hydrOXYzine PAMOATE 25 MG CAPSULE (FP) PO SCH ×5 (05:40→23:43)
[2020-09-18] MEDS: ACETAMINOPHEN 325 MG TABLET (FP) PO PRN (05:41)
[2020-09-18] MEDS: PRENATAL VITAMINS W/ FOLIC ACID TABLET (FP) PO SCH (11:03)
[2020-09-18] MEDS: NICOTINE 14 MG/24 HOURS TOPICAL PATCH TD SCH (11:04)
[2020-09-18] MEDS: METHOCARBAMOL 500 MG TABLET PO PRN ×3 (11:04→22:53)
[2020-09-18] MEDS ORDERED: cloNIDine HCL 0.1 MG TABLET PO PRN (13:36)
[2020-09-18] MEDS: MELATONIN 5 MG TABLETS PO SCH (22:51)
[2020-09-18] MEDS: THIAMINE HCL 100 MG TABLET (FP) PO SCH (23:43)
[2020-09-19] MEDS: diazePAM 5 MG TABLET PO SCH ×3 (06:29→22:06)
[2020-09-19] MEDS: hydrOXYzine PAMOATE 25 MG CAPSULE (FP) PO SCH ×5 (06:29→22:47)
[2020-09-19] MEDS: METHOCARBAMOL 500 MG TABLET PO PRN ×2 (06:31→14:44)
[2020-09-19 10:11] LABS: HEMATOCRIT 43.8 % (35.4-49); HEMOGLOBIN 14.4 GM/dL (11.7-16.9); MCH 31.1 pg (25.7-33.7); MCHC 32.9 g/dl (32.0-35.9); MEAN CELL VOLUME 94.3 fl (80-96); PLATELET COUNT 270 10^3/uL (134-434); RBC 4.64 M/mm3 (4.00-5.60); RDW 13.1 % (11.9-15.9); WHITE BLOOD COUNT 6.9 K/mm3 (4.0-10.0)
[2020-09-19 10:15] LABS: CALCIUM 9.6 mg/dL (8.5-10.1)
[2020-09-19 10:16] LABS: ALBUMIN 3.7 g/dl (3.4-5.0)
[2020-09-19 10:20] LABS: TOT PROT 6.6 g/dl (6.4-8.2)
[2020-09-19 10:29] LABS: BILIRUBIN,TOTAL 1.3 mg/dL (0.2-1)
[2020-09-19] MEDS: PRENATAL VITAMINS W/ FOLIC ACID TABLET (FP) PO SCH (10:38)
[2020-09-19] MEDS: NICOTINE 14 MG/24 HOURS TOPICAL PATCH TD SCH (10:39)
[2020-09-19] MEDS ORDERED: GABAPENTIN 100 MG CAPSULE PO ONE (15:32)
[2020-09-19] MEDS: ACETAMINOPHEN 325 MG TABLET (FP) PO PRN (22:04)
[2020-09-19] MEDS: GABAPENTIN 100 MG CAPSULE PO SCH (22:05)
[2020-09-19] MEDS: QUEtiapine FUMARATE 100 MG TABLET (FP) PO SCH (22:06)
[2020-09-19] MEDS: MELATONIN 5 MG TABLETS PO SCH (22:06)
[2020-09-19] MEDS: THIAMINE HCL 100 MG TABLET (FP) PO SCH (22:06)
[2020-09-20] MEDS: diazePAM 5 MG TABLET PO SCH ×2 (05:37→17:30)
[2020-09-20] MEDS: METHOCARBAMOL 500 MG TABLET PO PRN ×2 (05:38→17:31)
[2020-09-20] MEDS: IBUPROFEN 400 MG TABLET (FP) PO PRN ×2 (05:56→22:46)
[2020-09-20] MEDS: hydrOXYzine PAMOATE 25 MG CAPSULE (FP) PO SCH ×5 (07:56→22:44)
[2020-09-20] MEDS: PRENATAL VITAMINS W/ FOLIC ACID TABLET (FP) PO SCH (10:19)
[2020-09-20] MEDS: ESCITALOPRAM OXALATE 10 MG TABLET PO SCH (10:23)
[2020-09-20] MEDS: ACETAMINOPHEN 325 MG TABLET (FP) PO PRN (10:23)
[2020-09-20] MEDS: GABAPENTIN 100 MG CAPSULE PO SCH ×2 (10:23→22:44)
[2020-09-20] MEDS: NICOTINE 14 MG/24 HOURS TOPICAL PATCH TD SCH (10:25)
[2020-09-20] MEDS: MELATONIN 5 MG TABLETS PO SCH (22:43)
[2020-09-20] MEDS: THIAMINE HCL 100 MG TABLET (FP) PO SCH (22:44)
[2020-09-20] MEDS: QUEtiapine FUMARATE 100 MG TABLET (FP) PO SCH (22:44)
[2020-09-21] MEDS ORDERED: diazePAM 5 MG TABLET PO ONE (06:00)
[2020-09-21] MEDS: METHOCARBAMOL 500 MG TABLET PO PRN (06:28)
[2020-09-21] MEDS: hydrOXYzine PAMOATE 25 MG CAPSULE (FP) PO SCH ×2 (06:28→10:30)
[2020-09-21 07:07] LABS: SARS-CoV-2 NAA Not Detected (Not Detected)
[2020-09-21 09:30] VITALS: BP 111/66; PULSE 75; TEMP 97.8
[2020-09-21] MEDS: PRENATAL VITAMINS W/ FOLIC ACID TABLET (FP) PO SCH (10:30)
[2020-09-21] MEDS: ESCITALOPRAM OXALATE 10 MG TABLET PO SCH (10:30)
[2020-09-21] MEDS: GABAPENTIN 100 MG CAPSULE PO SCH (10:30)
[2020-09-21] MEDS: NICOTINE 14 MG/24 HOURS TOPICAL PATCH TD SCH (10:31)
== END 2020-09-21 12:57 | disposition other institution (70) | DRG 774 ==
LOC: YASAS 00:11 → Y6N 01:35
PROVIDERS: ADMIT Allergy & Immunology; ATTEND Allergy & Immunology
PROC: HZ2ZZZZ Detoxification Services for Substance Abuse Treatment (ICD-10-PCS; principal; 2020-09-18)
DX: F10.230 Alcohol dependence with withdrawal, uncomplicated (principal); F14.20 Cocaine dependence, uncomplicated; F15.20 Other stimulant dependence, uncomplicated; F12.20 Cannabis dependence, uncomplicated; F17.210 Nicotine dependence, cigarettes, uncomplicated; F20.9 Schizophrenia, unspecified; F19.280 Other psychoactive substance dependence with psychoactive substance-induced anxiety disorder; F19.282 Other psychoactive substance dependence with psychoactive substance-induced sleep disorder; F41.9 Anxiety disorder, unspecified; J45.909 Unspecified asthma, uncomplicated; K21.9 Gastro-esophageal reflux disease without esophagitis; Z91.410 Personal history of adult physical and sexual abuse; Z56.0 Unemployment, unspecified; Z59.0 Homelessness
CPT/HCPCS: 36415; 80053; 85027; 86780; C9803; Q0162; U0003; U0005

== ENCOUNTER 2020-09-21 13:33 | Inpatient (IN) | payer OTHER ==
[2020-09-21] MEDS ORDERED: MAGNESIUM HYDROX 2400MG/30ML ORAL SUSPENSION 30 ML CUP PO PRN (13:59)
[2020-09-21] MEDS ORDERED: MENTHOL/PHENOL 1 EACH UD MM PRN (13:59)
[2020-09-21] MEDS ORDERED: P-EPHED 60MG/TRIPROLIDI 2.5MG TABLET PO PRN (13:59)
[2020-09-21] MEDS ORDERED: MAG HYDROX/AL HYDROX/SIMETH 30 ML UNIT-DOSE CUP PO PRN (13:59)
[2020-09-21] MEDS ORDERED: MAGNESIUM CITRATE 300 ML BOTTLE PO PRN (13:59)
[2020-09-21] MEDS ORDERED: guaiFENesin 200 MG/10 ML 10 ML UNIT-DOSE CUPS PO PRN (13:59)
[2020-09-21] MEDS ORDERED: NICOTINE POLACRILEX 2 MG GUM BUC PRN (13:59)
[2020-09-21] MEDS ORDERED: IBUPROFEN 400 MG TABLET (FP) PO PRN (13:59)
[2020-09-21] MEDS: hydrOXYzine PAMOATE 25 MG CAPSULE (FP) PO PRN ×2 (14:47→21:43)
[2020-09-21] MEDS: ACETAMINOPHEN 325 MG TABLET (FP) PO PRN (14:47)
[2020-09-21] MEDS: LOPERAMIDE HCL 2 MG CAPSULE PO PRN (14:47)
[2020-09-21] MEDS: QUEtiapine FUMARATE 100 MG TABLET (FP) PO SCH (21:43)
[2020-09-21] MEDS: THIAMINE HCL 100 MG TABLET (FP) PO SCH (21:43)
[2020-09-21] MEDS: MELATONIN 5 MG TABLETS PO SCH (21:44)
[2020-09-22] MEDS: ACETAMINOPHEN 325 MG TABLET (FP) PO PRN (06:30)
[2020-09-22] MEDS: hydrOXYzine PAMOATE 25 MG CAPSULE (FP) PO PRN (06:30)
[2020-09-22] MEDS: LOPERAMIDE HCL 2 MG CAPSULE PO PRN (06:32)
[2020-09-22] MEDS ORDERED: GABAPENTIN 100 MG CAPSULE PO ONE (11:09)
[2020-09-22] MEDS: NICOTINE 7 MG/24 HOURS TOPICAL PATCH TD SCH (11:09)
[2020-09-22] MEDS: ESCITALOPRAM OXALATE 10 MG TABLET PO SCH (11:10)
[2020-09-22] MEDS: METHOCARBAMOL 500 MG TABLET PO PRN ×2 (11:10→21:34)
[2020-09-22] MEDS: PRENATAL VITAMINS W/ FOLIC ACID TABLET (FP) PO SCH (11:10)
[2020-09-22 14:45] LABS: HIV INTERPRETATION NEGATIVE (NEGATIVE)
[2020-09-22] MEDS: MELATONIN 5 MG TABLETS PO SCH (21:34)
[2020-09-22] MEDS: GABAPENTIN 100 MG CAPSULE PO SCH (21:34)
[2020-09-22] MEDS: QUEtiapine FUMARATE 100 MG TABLET (FP) PO SCH (21:35)
[2020-09-22] MEDS: THIAMINE HCL 100 MG TABLET (FP) PO SCH (21:35)
[2020-09-23] MEDS: PRENATAL VITAMINS W/ FOLIC ACID TABLET (FP) PO SCH (10:01)
[2020-09-23] MEDS: GABAPENTIN 100 MG CAPSULE PO SCH ×2 (10:01→21:38)
[2020-09-23] MEDS: NICOTINE 7 MG/24 HOURS TOPICAL PATCH TD SCH (10:02)
[2020-09-23] MEDS: ESCITALOPRAM OXALATE 10 MG TABLET PO SCH (10:02)
[2020-09-23] MEDS: METHOCARBAMOL 500 MG TABLET PO PRN ×2 (10:04→21:36)
[2020-09-23] MEDS: THIAMINE HCL 100 MG TABLET (FP) PO SCH (21:36)
[2020-09-23] MEDS: MELATONIN 5 MG TABLETS PO SCH (21:38)
[2020-09-23] MEDS ORDERED: QUEtiapine FUMARATE 50 MG TABLET PO SCH (22:00)
[2020-09-24 07:34] VITALS: TEMP 97.7
[2020-09-24] MEDS: PRENATAL VITAMINS W/ FOLIC ACID TABLET (FP) PO SCH (10:14)
[2020-09-24] MEDS: GABAPENTIN 100 MG CAPSULE PO SCH (10:14)
[2020-09-24] MEDS: ESCITALOPRAM OXALATE 10 MG TABLET PO SCH (10:14)
[2020-09-24] MEDS: NICOTINE 7 MG/24 HOURS TOPICAL PATCH TD SCH (10:15)
[2020-09-24] MEDS: METHOCARBAMOL 500 MG TABLET PO PRN (10:17)
[2020-09-24 13:47] VITALS: BP 155/77; PULSE 59
[2020-09-24] MEDS ORDERED: ASPIRIN 81 MG CHEWABLE TABLETS PO ONE (13:53)
== END 2020-09-24 14:00 | disposition short-term general hospital (02) | DRG 772 ==
LOC: YASAS 13:33 → Y5N 13:34
PROVIDERS: ADMIT Allergy & Immunology; ATTEND Allergy & Immunology
PROC: HZ42ZZZ Group Counseling for Substance Abuse Treatment, Cognitive-Behavioral (ICD-10-PCS; principal; 2020-09-21)
DX: F10.20 Alcohol dependence, uncomplicated (principal); F15.20 Other stimulant dependence, uncomplicated; F12.20 Cannabis dependence, uncomplicated; F17.210 Nicotine dependence, cigarettes, uncomplicated; F19.280 Other psychoactive substance dependence with psychoactive substance-induced anxiety disorder; F19.282 Other psychoactive substance dependence with psychoactive substance-induced sleep disorder; F20.9 Schizophrenia, unspecified; R07.9 Chest pain, unspecified; R03.0 Elevated blood-pressure reading, without diagnosis of hypertension; Z91.410 Personal history of adult physical and sexual abuse
CPT/HCPCS: 36415; 87389; 93005; 93010

== ENCOUNTER 2020-10-29 13:11 | Inpatient (IN) | payer OTHER ==
[2020-10-29 14:12] VITALS: BMI 31.0
[2020-10-29] MEDS ORDERED: MAG HYDROX/AL HYDROX/SIMETH 30 ML UNIT-DOSE CUP PO PRN (16:31)
[2020-10-29] MEDS ORDERED: MENTHOL/PHENOL 1 EACH UD MM PRN (16:31)
[2020-10-29] MEDS ORDERED: BISMUTH SUBSALICYLATE 524 MG/30 ML PO PRN (16:31)
[2020-10-29] MEDS ORDERED: MAGNESIUM HYDROX 2400MG/30ML ORAL SUSPENSION 30 ML CUP PO PRN (16:31)
[2020-10-29] MEDS ORDERED: NICOTINE 10 MG CARTRIDGE (INHALER) IH PRN (16:31)
[2020-10-29] MEDS ORDERED: NICOTINE POLACRILEX 2 MG GUM BUC PRN (16:31)
[2020-10-29] MEDS ORDERED: ACETAMINOPHEN 325 MG TABLET (FP) PO PRN ×2 (16:31)
[2020-10-29] MEDS ORDERED: MAGNESIUM CITRATE 300 ML BOTTLE PO PRN (16:31)
[2020-10-29] MEDS: hydrOXYzine PAMOATE 25 MG CAPSULE (FP) PO SCH ×2 (19:35→22:12)
[2020-10-29] MEDS: diazePAM 5 MG TABLET PO SCH ×2 (19:35→22:12)
[2020-10-29] MEDS: PRENATAL VITAMINS W/ FOLIC ACID TABLET (FP) PO SCH (19:36)
[2020-10-29] MEDS: NICOTINE 21 MG/24 HOURS TOPICAL PATCH TD SCH (19:38)
[2020-10-29] MEDS: ONDANSETRON *ODT* 4 MG TABLET SL PRN (22:12)
[2020-10-29] MEDS: MELATONIN 5 MG TABLETS PO SCH (22:12)
[2020-10-29] MEDS: THIAMINE HCL 100 MG TABLET (FP) PO SCH (22:12)
[2020-10-30] MEDS: diazePAM 5 MG TABLET PO SCH ×4 (06:43→22:32)
[2020-10-30] MEDS: hydrOXYzine PAMOATE 25 MG CAPSULE (FP) PO SCH ×5 (06:43→22:31)
[2020-10-30] MEDS: METHOCARBAMOL 500 MG TABLET PO PRN ×2 (10:53→17:25)
[2020-10-30] MEDS: PRENATAL VITAMINS W/ FOLIC ACID TABLET (FP) PO SCH (10:53)
[2020-10-30] MEDS: NICOTINE 21 MG/24 HOURS TOPICAL PATCH TD SCH (10:55)
[2020-10-30 11:06] LABS: HEMATOCRIT 41.2 % (35.4-49); HEMOGLOBIN 13.9 GM/dL (11.7-16.9); MCH 31.7 pg (25.7-33.7); MCHC 33.8 g/dl (32.0-35.9); MEAN CELL VOLUME 93.9 fl (80-96); MEAN PLT VOLUME 8.6 fl (7.5-11.1); PLATELET COUNT 221 10^3/uL (134-434); RBC 4.39 M/mm3 (4.00-5.60); RDW 13.4 % (11.9-15.9)
[2020-10-30 11:23] LABS: CALCIUM 8.9 mg/dL (8.5-10.1)
[2020-10-30 11:24] LABS: ALBUMIN 3.5 g/dl (3.4-5.0); BLOOD UREA NITROGEN 13.1 mg/dL (7-18)
[2020-10-30 11:29] LABS: BILIRUBIN,TOTAL 0.9 mg/dL (0.2-1); TOT PROT 6.2 g/dl (6.4-8.2)
[2020-10-30] MEDS: THIAMINE HCL 100 MG TABLET (FP) PO SCH (22:31)
[2020-10-30] MEDS: GABAPENTIN 100 MG CAPSULE PO SCH (22:31)
[2020-10-30] MEDS: QUEtiapine FUMARATE 100 MG TABLET (FP) PO SCH (22:32)
[2020-10-30] MEDS: MELATONIN 5 MG TABLETS PO SCH (22:32)
[2020-10-31] MEDS: hydrOXYzine PAMOATE 25 MG CAPSULE (FP) PO SCH ×5 (06:52→22:17)
[2020-10-31] MEDS: diazePAM 5 MG TABLET PO SCH ×3 (06:52→22:16)
[2020-10-31] MEDS: PRENATAL VITAMINS W/ FOLIC ACID TABLET (FP) PO SCH (10:30)
[2020-10-31] MEDS: METHOCARBAMOL 500 MG TABLET PO PRN (10:30)
[2020-10-31] MEDS: diazePAM 5 MG TABLET PO PRN (10:30)
[2020-10-31] MEDS: ESCITALOPRAM OXALATE 10 MG TABLET PO SCH (10:30)
[2020-10-31] MEDS: NICOTINE 21 MG/24 HOURS TOPICAL PATCH TD SCH (10:31)
[2020-10-31] MEDS: IBUPROFEN 400 MG TABLET (FP) PO PRN (13:53)
[2020-10-31] MEDS: QUEtiapine FUMARATE 100 MG TABLET (FP) PO SCH (22:16)
[2020-10-31] MEDS: MELATONIN 5 MG TABLETS PO SCH (22:17)
[2020-10-31] MEDS: GABAPENTIN 100 MG CAPSULE PO SCH (22:17)
[2020-10-31] MEDS: ONDANSETRON *ODT* 4 MG TABLET SL PRN (22:18)
[2020-10-31] MEDS: THIAMINE HCL 100 MG TABLET (FP) PO SCH (23:17)
[2020-11-01] MEDS: hydrOXYzine PAMOATE 25 MG CAPSULE (FP) PO SCH (05:39)
[2020-11-01] MEDS ORDERED: diazePAM 5 MG TABLET PO SCH (06:00)
[2020-11-01] MEDS ORDERED: hydrOXYzine PAMOATE 25 MG CAPSULE (FP) PO PRN (09:18)
[2020-11-01 09:25] VITALS: BP 130/71; PULSE 84; TEMP 97.3
[2020-11-01] MEDS: PRENATAL VITAMINS W/ FOLIC ACID TABLET (FP) PO SCH (09:51)
[2020-11-01] MEDS: diazePAM 5 MG TABLET PO PRN (09:51)
[2020-11-01] MEDS: ESCITALOPRAM OXALATE 10 MG TABLET PO SCH (09:51)
[2020-11-01] MEDS: METHOCARBAMOL 500 MG TABLET PO PRN (09:51)
[2020-11-01] MEDS: IBUPROFEN 400 MG TABLET (FP) PO PRN (09:52)
[2020-11-01] MEDS: NICOTINE 21 MG/24 HOURS TOPICAL PATCH TD SCH (09:53)
[2020-11-02] MEDS ORDERED: diazePAM 5 MG TABLET PO ONE (06:00)
== END 2020-11-01 10:49 | disposition home or self-care (01) | DRG 775 ==
LOC: YASAS 13:11 → UNDOADMIN 18:57 → Y3N 18:57
PROVIDERS: ADMIT Allergy & Immunology; ATTEND Allergy & Immunology
PROC: HZ2ZZZZ Detoxification Services for Substance Abuse Treatment (ICD-10-PCS; principal; 2020-10-29)
DX: F10.230 Alcohol dependence with withdrawal, uncomplicated (principal); F13.230 Sedative, hypnotic or anxiolytic dependence with withdrawal, uncomplicated; F12.20 Cannabis dependence, uncomplicated; F17.210 Nicotine dependence, cigarettes, uncomplicated; F41.9 Anxiety disorder, unspecified; F19.24 Other psychoactive substance dependence with psychoactive substance-induced mood disorder; F19.280 Other psychoactive substance dependence with psychoactive substance-induced anxiety disorder; F19.282 Other psychoactive substance dependence with psychoactive substance-induced sleep disorder; F20.9 Schizophrenia, unspecified; J45.909 Unspecified asthma, uncomplicated; R07.9 Chest pain, unspecified; E86.0 Dehydration; K21.9 Gastro-esophageal reflux disease without esophagitis; B35.3 Tinea pedis; H55.00 Unspecified nystagmus; R73.9 Hyperglycemia, unspecified; R77.9 Abnormality of plasma protein, unspecified; Z91.410 Personal history of adult physical and sexual abuse; Z20.2 Contact with and (suspected) exposure to infections with a predominantly sexual mode of transmission; Z56.0 Unemployment, unspecified; Z59.0 Homelessness
CPT/HCPCS: 36415; 80053; 82947; 83036; 85027; C9803; Q0162; U0003; U0005

== ENCOUNTER 2020-11-04 14:48 | Inpatient (IN) | payer OTHER ==
[2020-11-04 15:38] VITALS: BMI 31.9
[2020-11-04] MEDS ORDERED: guaiFENesin 200 MG/10 ML 10 ML UNIT-DOSE CUPS PO PRN (21:23)
[2020-11-04] MEDS ORDERED: NICOTINE 10 MG CARTRIDGE (INHALER) IH PRN (21:23)
[2020-11-04] MEDS ORDERED: MAG HYDROX/AL HYDROX/SIMETH 30 ML UNIT-DOSE CUP PO PRN (21:23)
[2020-11-04] MEDS ORDERED: ACETAMINOPHEN 325 MG TABLET (FP) PO PRN (21:23)
[2020-11-04] MEDS ORDERED: MAGNESIUM CITRATE 300 ML BOTTLE PO PRN (21:23)
[2020-11-04] MEDS ORDERED: P-EPHED 60MG/TRIPROLIDI 2.5MG TABLET PO PRN (21:23)
[2020-11-04] MEDS ORDERED: LOPERAMIDE HCL 2 MG CAPSULE PO PRN (21:23)
[2020-11-04] MEDS ORDERED: MAGNESIUM HYDROX 2400MG/30ML ORAL SUSPENSION 30 ML CUP PO PRN (21:23)
[2020-11-04] MEDS: MELATONIN 5 MG TABLETS PO SCH (22:25)
[2020-11-04] MEDS: IBUPROFEN 400 MG TABLET (FP) PO PRN (22:26)
[2020-11-04] MEDS: THIAMINE HCL 100 MG TABLET (FP) PO SCH (22:26)
[2020-11-05] MEDS: hydrOXYzine PAMOATE 25 MG CAPSULE (FP) PO PRN ×2 (07:58→10:02)
[2020-11-05] MEDS: IBUPROFEN 400 MG TABLET (FP) PO PRN ×3 (07:58→21:31)
[2020-11-05] MEDS: PRENATAL VITAMINS W/ FOLIC ACID TABLET (FP) PO SCH (10:02)
[2020-11-05] MEDS: CYCLOBENZAPRINE HCL 10 MG TABLET (FP) PO PRN ×2 (10:03→22:24)
[2020-11-05 15:54] LABS: URINE APPEARANCE CLEAR; URINE BILIRUBIN NEGATIVE (NEGATIVE); URINE COLOR YELLOW; URINE GLUCOSE (UA) NEGATIVE (NEGATIVE); URINE KETONE NEGATIVE (NEGATIVE); URINE LEUK ESTERASE NEGATIVE (NEGATIVE); URINE NITRITE NEGATIVE (NEGATIVE); URINE PROTEIN NEGATIVE (NEGATIVE); URINE UROBILINOGEN 0.2 mg/dL (0.2-1.0)
[2020-11-05] MEDS: THIAMINE HCL 100 MG TABLET (FP) PO SCH (21:29)
[2020-11-05] MEDS: PRAZOSIN HCL 1 MG CAPSULE PO SCH (21:29)
[2020-11-05] MEDS: GABAPENTIN 100 MG CAPSULE PO SCH (21:30)
[2020-11-05] MEDS: MELATONIN 5 MG TABLETS PO SCH (21:31)
[2020-11-05] MEDS: QUEtiapine FUMARATE 50 MG TABLET PO SCH (22:55)
[2020-11-06] MEDS: CYCLOBENZAPRINE HCL 10 MG TABLET (FP) PO PRN ×2 (07:03→22:26)
[2020-11-06] MEDS: PRENATAL VITAMINS W/ FOLIC ACID TABLET (FP) PO SCH (09:52)
[2020-11-06] MEDS: GABAPENTIN 100 MG CAPSULE PO SCH ×2 (09:52→22:00)
[2020-11-06] MEDS: ESCITALOPRAM OXALATE 10 MG TABLET PO SCH (09:52)
[2020-11-06] MEDS: IBUPROFEN 400 MG TABLET (FP) PO PRN (09:53)
[2020-11-06] MEDS: QUEtiapine FUMARATE 50 MG TABLET PO SCH ×2 (22:00→22:58)
[2020-11-06] MEDS: PRAZOSIN HCL 1 MG CAPSULE PO SCH (22:00)
[2020-11-06] MEDS: THIAMINE HCL 100 MG TABLET (FP) PO SCH (22:02)
[2020-11-06] MEDS ORDERED: PT OWN MED DRAWER 7, Y5N ONE (22:05)
[2020-11-06] MEDS: MELATONIN 5 MG TABLETS PO SCH (22:40)
[2020-11-07 06:52] VITALS: BP 124/68; PULSE 75; TEMP 97.3
[2020-11-07] MEDS: ESCITALOPRAM OXALATE 10 MG TABLET PO SCH (09:38)
[2020-11-07] MEDS: GABAPENTIN 100 MG CAPSULE PO SCH (09:39)
[2020-11-07] MEDS: PRENATAL VITAMINS W/ FOLIC ACID TABLET (FP) PO SCH (09:39)
[2020-11-07] MEDS ORDERED: PT OWN MED DRAWER 7, Y5N ONE (09:40)
[2020-11-07] MEDS: CYCLOBENZAPRINE HCL 10 MG TABLET (FP) PO PRN (09:40)
== END 2020-11-07 15:00 | disposition home or self-care (01) | DRG 772 ==
LOC: YASAS 14:48 → Y3W 20:39 → Y3E 11-06 04:22
PROVIDERS: ADMIT Allergy & Immunology; ATTEND Allergy & Immunology
PROC: HZ42ZZZ Group Counseling for Substance Abuse Treatment, Cognitive-Behavioral (ICD-10-PCS; principal; 2020-11-04)
DX: F10.20 Alcohol dependence, uncomplicated (principal); F15.20 Other stimulant dependence, uncomplicated; F12.20 Cannabis dependence, uncomplicated; F17.210 Nicotine dependence, cigarettes, uncomplicated; F20.9 Schizophrenia, unspecified; F19.280 Other psychoactive substance dependence with psychoactive substance-induced anxiety disorder; F19.282 Other psychoactive substance dependence with psychoactive substance-induced sleep disorder; F41.9 Anxiety disorder, unspecified; J45.20 Mild intermittent asthma, uncomplicated; K21.9 Gastro-esophageal reflux disease without esophagitis; Z91.410 Personal history of adult physical and sexual abuse; Z56.0 Unemployment, unspecified; Z59.0 Homelessness
CPT/HCPCS: 81003; C9803; U0003; U0005

== ENCOUNTER 2020-11-18 22:00 | Inpatient (IN) | payer OTHER ==
[~2020-11-18 22:00] MED LIST: LORazepam 2 MG TABLET PO SCH
[2020-11-18] MEDS ORDERED: METHOCARBAMOL 500 MG TABLET PO ONE (22:59)
[2020-11-18 23:36] VITALS: BMI 30.9
[2020-11-18] MEDS ORDERED: ONDANSETRON *ODT* 4 MG TABLET SL PRN (23:51)
[2020-11-18] MEDS ORDERED: MENTHOL/PHENOL 1 EACH UD MM PRN (23:51)
[2020-11-18] MEDS ORDERED: MAGNESIUM HYDROX 2400MG/30ML ORAL SUSPENSION 30 ML CUP PO PRN (23:51)
[2020-11-18] MEDS ORDERED: ACETAMINOPHEN 325 MG TABLET (FP) PO PRN ×2 (23:51)
[2020-11-18] MEDS ORDERED: BISMUTH SUBSALICYLATE 524 MG/30 ML PO PRN (23:51)
[2020-11-18] MEDS ORDERED: METHOCARBAMOL 500 MG TABLET PO PRN (23:51)
[2020-11-18] MEDS ORDERED: MAG HYDROX/AL HYDROX/SIMETH 30 ML UNIT-DOSE CUP PO PRN (23:51)
[2020-11-18] MEDS ORDERED: LORazepam 1 MG TABLET PO PRN (23:51)
[2020-11-18] MEDS ORDERED: NICOTINE 10 MG CARTRIDGE (INHALER) IH PRN (23:51)
[2020-11-18] MEDS ORDERED: MAGNESIUM CITRATE 300 ML BOTTLE PO PRN (23:51)
[2020-11-19] MEDS ORDERED: IBUPROFEN 400 MG TABLET (FP) PO ONE (01:06)
[2020-11-19] MEDS ORDERED: METHOCARBAMOL 500 MG TABLET ONE (01:06)
[2020-11-19] MEDS: IBUPROFEN 400 MG TABLET (FP) PO PRN (01:09)
[2020-11-19] MEDS ORDERED: LORazepam 1 MG TABLET PO SCH (05:00)
[2020-11-19] MEDS ORDERED: hydrOXYzine PAMOATE 25 MG CAPSULE (FP) PO SCH (06:00)
[2020-11-19] MEDS ORDERED: LORazepam 1 MG TABLET PO PRN (08:44)
[2020-11-19] MEDS: GABAPENTIN 100 MG CAPSULE PO SCH ×2 (10:41→22:08)
[2020-11-19] MEDS: PRENATAL VITAMINS W/ FOLIC ACID TABLET (FP) PO SCH (10:41)
[2020-11-19] MEDS: LORazepam 2 MG TABLET PO SCH ×3 (10:41→23:22)
[2020-11-19] MEDS: CYCLOBENZAPRINE HCL 10 MG TABLET (FP) PO PRN (10:43)
[2020-11-19 11:13] LABS: HEMATOCRIT 39.1 % (35.4-49); HEMOGLOBIN 13.1 GM/dL (11.7-16.9); MCH 31.2 pg (25.7-33.7); MCHC 33.6 g/dl (32.0-35.9); MEAN CELL VOLUME 92.8 fl (80-96); PLATELET COUNT 234 10^3/uL (134-434); RBC 4.22 M/mm3 (4.00-5.60); RDW 13.4 % (11.9-15.9); WHITE BLOOD COUNT 6.4 K/mm3 (4.0-10.0)
[2020-11-19 11:34] LABS: CALCIUM 8.7 mg/dL (8.5-10.1)
[2020-11-19 11:35] LABS: ALBUMIN 3.7 g/dl (3.4-5.0); BLOOD UREA NITROGEN 24.4 mg/dL (7-18)
[2020-11-19 11:38] LABS: CREATININE 0.9 mg/dL (0.55-1.3)
[2020-11-19 11:39] LABS: BILIRUBIN,TOTAL 0.6 mg/dL (0.2-1); TOT PROT 6.4 g/dl (6.4-8.2)
[2020-11-19] MEDS ORDERED: MELATONIN 5 MG TABLETS PO SCH (22:00)
[2020-11-19] MEDS: THIAMINE HCL 100 MG TABLET (FP) PO SCH (22:08)
[2020-11-19] MEDS: PRAZOSIN HCL 1 MG CAPSULE PO SCH (22:08)
[2020-11-19] MEDS: QUEtiapine FUMARATE 50 MG TABLET PO SCH (22:08)
[2020-11-20] MEDS ORDERED: LORazepam 0.5 MG TABLET PO PRN
[2020-11-20] MEDS ORDERED: LORazepam 0.5 MG TABLET PO SCH (05:00)
[2020-11-20] MEDS: LORazepam 2 MG TABLET PO SCH ×4 (06:39→22:40)
[2020-11-20] MEDS: CYCLOBENZAPRINE HCL 10 MG TABLET (FP) PO PRN ×2 (06:41→17:40)
[2020-11-20] MEDS: GABAPENTIN 100 MG CAPSULE PO SCH ×2 (11:08→21:50)
[2020-11-20] MEDS: PRENATAL VITAMINS W/ FOLIC ACID TABLET (FP) PO SCH (11:10)
[2020-11-20] MEDS: THIAMINE HCL 100 MG TABLET (FP) PO SCH (21:50)
[2020-11-20] MEDS: PRAZOSIN HCL 1 MG CAPSULE PO SCH (21:50)
[2020-11-20] MEDS: QUEtiapine FUMARATE 50 MG TABLET PO SCH (21:50)
[2020-11-21] MEDS ORDERED: LORazepam 0.5 MG TABLET PO ONE (05:00)
[2020-11-21] MEDS: LORazepam 1 MG TABLET PO SCH ×4 (06:34→23:21)
[2020-11-21] MEDS: PRENATAL VITAMINS W/ FOLIC ACID TABLET (FP) PO SCH (10:30)
[2020-11-21] MEDS: GABAPENTIN 100 MG CAPSULE PO SCH ×2 (10:30→22:04)
[2020-11-21] MEDS: CYCLOBENZAPRINE HCL 10 MG TABLET (FP) PO PRN ×2 (10:30→17:56)
[2020-11-21] MEDS: IBUPROFEN 400 MG TABLET (FP) PO PRN (19:40)
[2020-11-21] MEDS: QUEtiapine FUMARATE 50 MG TABLET PO SCH (22:04)
[2020-11-21] MEDS: THIAMINE HCL 100 MG TABLET (FP) PO SCH (22:04)
[2020-11-21] MEDS: PRAZOSIN HCL 1 MG CAPSULE PO SCH (22:04)
[2020-11-22] MEDS ORDERED: LORazepam 0.5 MG TABLET PO PRN
[2020-11-22] MEDS: LORazepam 0.5 MG TABLET PO SCH ×4 (05:46→22:43)
[2020-11-22] MEDS: CYCLOBENZAPRINE HCL 10 MG TABLET (FP) PO PRN ×2 (05:47→17:18)
[2020-11-22] MEDS ORDERED: MAGNESIUM HYDROX 2400MG/30ML ORAL SUSPENSION 30 ML CUP PO ONE (09:45)
[2020-11-22] MEDS ORDERED: hydrOXYzine PAMOATE 25 MG CAPSULE (FP) PO PRN (10:01)
[2020-11-22] MEDS ORDERED: HALOPERIDOL 5 MG TABLET PO SCH (10:15)
[2020-11-22] MEDS: HALOPERIDOL 5 MG PO SCH ×2 (11:46→22:44)
[2020-11-22] MEDS: PRENATAL VITAMINS W/ FOLIC ACID TABLET (FP) PO SCH (11:47)
[2020-11-22] MEDS: PATIENT'S OWN MEDICATION (NON-FORMULARY) (Hydroxyzine Hcl [Hydroxyzine Hcl] 25 MG Tablet) PO SCH ×2 (11:47→22:48)
[2020-11-22] MEDS: PRAZOSIN HCL 1 MG CAPSULE PO SCH (22:43)
[2020-11-22] MEDS: IBUPROFEN 400 MG TABLET (FP) PO PRN (22:44)
[2020-11-22] MEDS: THIAMINE HCL 100 MG TABLET (FP) PO SCH (22:44)
[2020-11-23] MEDS ORDERED: LORazepam 0.5 MG TABLET PO ONE (05:00)
[2020-11-23 05:38] VITALS: TEMP 98.1
[2020-11-23 09:38] VITALS: BP 122/64; PULSE 82
== END 2020-11-23 09:56 | disposition home or self-care (01) | DRG 774 ==
LOC: YASAS 22:00 → Y6N 11-19 01:17
PROVIDERS: ADMIT Allergy & Immunology; ATTEND Allergy & Immunology
PROC: HZ2ZZZZ Detoxification Services for Substance Abuse Treatment (ICD-10-PCS; principal; 2020-11-19)
DX: F10.230 Alcohol dependence with withdrawal, uncomplicated (principal); F13.230 Sedative, hypnotic or anxiolytic dependence with withdrawal, uncomplicated; F14.20 Cocaine dependence, uncomplicated; F12.20 Cannabis dependence, uncomplicated; F17.210 Nicotine dependence, cigarettes, uncomplicated; F39 Unspecified mood [affective] disorder; F41.9 Anxiety disorder, unspecified; R79.89 Other specified abnormal findings of blood chemistry; Z91.410 Personal history of adult physical and sexual abuse
CPT/HCPCS: 36415; 80053; 84520; 85027; 86780; C9803; U0003; U0005

== ENCOUNTER 2020-12-10 14:27 | Inpatient (IN) | payer OTHER ==
[2020-12-10 18:13] VITALS: BMI 33.7
[2020-12-10] MEDS ORDERED: P-EPHED 60MG/TRIPROLIDI 2.5MG TABLET PO PRN (19:22)
[2020-12-10] MEDS ORDERED: LOPERAMIDE HCL 2 MG CAPSULE PO PRN (19:22)
[2020-12-10] MEDS ORDERED: guaiFENesin 200 MG/10 ML 10 ML UNIT-DOSE CUPS PO PRN (19:22)
[2020-12-10] MEDS ORDERED: ACETAMINOPHEN 325 MG TABLET (FP) PO PRN (19:22)
[2020-12-10] MEDS ORDERED: MAGNESIUM CITRATE 300 ML BOTTLE PO PRN (19:22)
[2020-12-10] MEDS ORDERED: MAGNESIUM HYDROX 2400MG/30ML ORAL SUSPENSION 30 ML CUP PO PRN (19:22)
[2020-12-10] MEDS ORDERED: MAG HYDROX/AL HYDROX/SIMETH 30 ML UNIT-DOSE CUP PO PRN (19:22)
[2020-12-11] MEDS: MELATONIN 5 MG TABLETS PO SCH ×2 (02:26→21:33)
[2020-12-11] MEDS: THIAMINE HCL 100 MG TABLET (FP) PO SCH ×2 (02:27→21:33)
[2020-12-11] MEDS ORDERED: NICOTINE 7 MG/24 HOURS TOPICAL PATCH TD SCH (10:00)
[2020-12-11] MEDS: PRENATAL VITAMINS W/ FOLIC ACID TABLET (FP) PO SCH (10:51)
[2020-12-11] MEDS: NICOTINE 21 MG/24 HOURS TOPICAL PATCH TD SCH (10:57)
[2020-12-11] MEDS: IBUPROFEN 400 MG TABLET (FP) PO PRN (16:02)
[2020-12-12] MEDS: GABAPENTIN 100 MG CAPSULE PO SCH ×2 (09:51→21:17)
[2020-12-12] MEDS: PRENATAL VITAMINS W/ FOLIC ACID TABLET (FP) PO SCH (09:51)
[2020-12-12] MEDS: NICOTINE 21 MG/24 HOURS TOPICAL PATCH TD SCH (09:51)
[2020-12-12] MEDS: CYCLOBENZAPRINE HCL 5 MG TABLET PO PRN ×2 (14:44→21:17)
[2020-12-12] MEDS: IBUPROFEN 400 MG TABLET (FP) PO PRN (17:41)
[2020-12-12] MEDS: PRAZOSIN HCL 1 MG CAPSULE PO SCH (21:16)
[2020-12-12] MEDS: QUEtiapine FUMARATE 100 MG TABLET (FP) PO SCH (21:17)
[2020-12-12] MEDS: MELATONIN 5 MG TABLETS PO SCH (21:19)
[2020-12-12] MEDS: THIAMINE HCL 100 MG TABLET (FP) PO SCH (21:19)
[2020-12-12] MEDS ORDERED: PRAZOSIN HCL 1 MG CAPSULE PO SCH (22:00)
[2020-12-13] MEDS: PRENATAL VITAMINS W/ FOLIC ACID TABLET (FP) PO SCH (10:22)
[2020-12-13] MEDS: GABAPENTIN 100 MG CAPSULE PO SCH ×2 (10:22→21:28)
[2020-12-13] MEDS: IBUPROFEN 400 MG TABLET (FP) PO PRN (10:23)
[2020-12-13] MEDS: CYCLOBENZAPRINE HCL 5 MG TABLET PO PRN ×3 (10:23→21:30)
[2020-12-13] MEDS: NICOTINE 10 MG CARTRIDGE (INHALER) IH PRN (10:24)
[2020-12-13] MEDS: CALCIUM 500MG/VIT-D 200 UNITS COMBO TABLET (FP) PO SCH ×2 (11:55→21:28)
[2020-12-13 16:09] LABS: HEMATOCRIT 42.7 % (35.4-49); HEMOGLOBIN 14.5 GM/dL (11.7-16.9); MCH 31.3 pg (25.7-33.7); MCHC 33.9 g/dl (32.0-35.9); MEAN CELL VOLUME 92.3 fl (80-96); MEAN PLT VOLUME 8.3 fl (7.5-11.1); PLATELET COUNT 279 10^3/uL (134-434); RBC 4.63 M/mm3 (4.00-5.60); RDW 13.9 % (11.9-15.9); WHITE BLOOD COUNT 6.1 K/mm3 (4.0-10.0)
[2020-12-13 16:48] LABS: ALBUMIN 3.9 g/dl (3.4-5.0); BLOOD UREA NITROGEN 14.6 mg/dL (7-18); CALCIUM 9.5 mg/dL (8.5-10.1)
[2020-12-13 16:52] LABS: CREATININE 0.9 mg/dL (0.55-1.3)
[2020-12-13 16:53] LABS: BILIRUBIN,TOTAL 0.6 mg/dL (0.2-1); TOT PROT 7.1 g/dl (6.4-8.2)
[2020-12-13] MEDS ORDERED: PT OWN MED DRAWER 7, Y5N ONE (19:22)
[2020-12-13] MEDS: THIAMINE HCL 100 MG TABLET (FP) PO SCH (21:28)
[2020-12-13] MEDS: PRAZOSIN HCL 1 MG CAPSULE PO SCH (21:28)
[2020-12-13] MEDS: MELATONIN 5 MG TABLETS PO SCH (21:28)
[2020-12-13] MEDS: QUEtiapine FUMARATE 100 MG TABLET (FP) PO SCH (21:29)
[2020-12-14] MEDS: GABAPENTIN 100 MG CAPSULE PO SCH ×2 (10:31→21:15)
[2020-12-14] MEDS: PRENATAL VITAMINS W/ FOLIC ACID TABLET (FP) PO SCH (10:31)
[2020-12-14] MEDS: CYCLOBENZAPRINE HCL 5 MG TABLET PO PRN ×3 (10:31→21:16)
[2020-12-14] MEDS ORDERED: PT OWN MED DRAWER 7, Y5N ONE ×2 (10:32→10:37)
[2020-12-14] MEDS: IBUPROFEN 400 MG TABLET (FP) PO PRN (10:34)
[2020-12-14] MEDS: CALCIUM 500MG/VIT-D 200 UNITS COMBO TABLET (FP) PO SCH ×2 (11:56→21:15)
[2020-12-14] MEDS: PRAZOSIN HCL 1 MG CAPSULE PO SCH (21:15)
[2020-12-14] MEDS: MELATONIN 5 MG TABLETS PO SCH (21:15)
[2020-12-14] MEDS: THIAMINE HCL 100 MG TABLET (FP) PO SCH (21:15)
[2020-12-14] MEDS: QUEtiapine FUMARATE 100 MG TABLET (FP) PO SCH (21:16)
[2020-12-15] MEDS: GABAPENTIN 100 MG CAPSULE PO SCH ×2 (10:07→21:18)
[2020-12-15] MEDS: PRENATAL VITAMINS W/ FOLIC ACID TABLET (FP) PO SCH (10:08)
[2020-12-15] MEDS: CALCIUM 500MG/VIT-D 200 UNITS COMBO TABLET (FP) PO SCH ×2 (10:08→21:17)
[2020-12-15] MEDS: CYCLOBENZAPRINE HCL 5 MG TABLET PO PRN ×2 (10:08→21:19)
[2020-12-15] MEDS: IBUPROFEN 400 MG TABLET (FP) PO PRN ×2 (10:09→17:16)
[2020-12-15] MEDS: NICOTINE 10 MG CARTRIDGE (INHALER) IH PRN (17:17)
[2020-12-15] MEDS: PRAZOSIN HCL 1 MG CAPSULE PO SCH (21:17)
[2020-12-15] MEDS: THIAMINE HCL 100 MG TABLET (FP) PO SCH (21:17)
[2020-12-15] MEDS: MELATONIN 5 MG TABLETS PO SCH (21:17)
[2020-12-15] MEDS: QUEtiapine FUMARATE 100 MG TABLET (FP) PO SCH (21:19)
[2020-12-16 06:54] VITALS: BP 151/82; PULSE 67; TEMP 97.1
== END 2020-12-16 10:20 | disposition home or self-care (01) | DRG 772 ==
LOC: YASAS 14:27 → Y3W 12-11 01:35
PROVIDERS: ADMIT Allergy & Immunology; ATTEND Allergy & Immunology
PROC: HZ42ZZZ Group Counseling for Substance Abuse Treatment, Cognitive-Behavioral (ICD-10-PCS; principal; 2020-12-11)
DX: F10.20 Alcohol dependence, uncomplicated (principal); F14.20 Cocaine dependence, uncomplicated; F13.20 Sedative, hypnotic or anxiolytic dependence, uncomplicated; F12.20 Cannabis dependence, uncomplicated; F17.210 Nicotine dependence, cigarettes, uncomplicated; F19.280 Other psychoactive substance dependence with psychoactive substance-induced anxiety disorder; F19.282 Other psychoactive substance dependence with psychoactive substance-induced sleep disorder; F25.9 Schizoaffective disorder, unspecified; F41.8 Other specified anxiety disorders; F43.10 Post-traumatic stress disorder, unspecified; G47.00 Insomnia, unspecified; M62.838 Other muscle spasm; Z91.410 Personal history of adult physical and sexual abuse
CPT/HCPCS: 36415; 80053; 85027; 86780; 93005; 93010; C9803; U0003; U0005

== ENCOUNTER 2021-04-05 16:19 | Inpatient (IN) | payer OTHER ==
[2021-04-05] MEDS ORDERED: ACETAMINOPHEN 325 MG TABLET (FP) PO PRN ×2 (20:56)
[2021-04-05] MEDS ORDERED: MAG HYDROX/AL HYDROX/SIMETH 30 ML UNIT-DOSE CUP PO PRN (20:56)
[2021-04-05] MEDS ORDERED: BISMUTH SUBSALICYLATE 524 MG/30 ML PO PRN (20:56)
[2021-04-05] MEDS ORDERED: P-EPHED 60MG/TRIPROLIDI 2.5MG TABLET PO PRN (20:56)
[2021-04-05] MEDS ORDERED: ONDANSETRON *ODT* 4 MG TABLET SL PRN (20:56)
[2021-04-05] MEDS ORDERED: MENTHOL/PHENOL 1 EACH UD MM PRN (20:56)
[2021-04-05] MEDS ORDERED: MAGNESIUM CITRATE 300 ML BOTTLE PO PRN (20:56)
[2021-04-05] MEDS ORDERED: guaiFENesin 200 MG/10 ML 10 ML UNIT-DOSE CUPS PO PRN (20:56)
[2021-04-05] MEDS ORDERED: NICOTINE POLACRILEX 2 MG GUM BUC PRN (20:56)
[2021-04-05] MEDS ORDERED: DICYCLOMINE HCL 10 MG CAPSULE PO PRN (20:56)
[2021-04-05] MEDS ORDERED: MAGNESIUM HYDROX 2400MG/30ML ORAL SUSPENSION 30 ML CUP PO PRN (20:56)
[2021-04-05 23:08] VITALS: BMI 32.5
[2021-04-06] MEDS: MELATONIN 5 MG TABLETS PO SCH ×2 (03:02→22:57)
[2021-04-06] MEDS: THIAMINE HCL 100 MG TABLET (FP) PO SCH ×2 (03:03→22:57)
[2021-04-06] MEDS: hydrOXYzine PAMOATE 25 MG CAPSULE (FP) PO PRN (10:24)
[2021-04-06] MEDS: NICOTINE 14 MG/24 HOURS TOPICAL PATCH TD SCH (10:24)
[2021-04-06] MEDS: METHOCARBAMOL 500 MG TABLET PO PRN (10:24)
[2021-04-06] MEDS: PRENATAL VITAMINS W/ FOLIC ACID TABLET (FP) PO SCH (10:24)
[2021-04-06 10:30] LABS: HEMATOCRIT 43.9 % (35.4-49); HEMOGLOBIN 14.2 GM/dL (11.7-16.9); MCH 29.4 pg (25.7-33.7); MCHC 32.3 g/dl (32.0-35.9); MEAN PLT VOLUME 8.4 fl (7.5-11.1); PLATELET COUNT 279 10^3/uL (134-434); RBC 4.82 M/mm3 (4.00-5.60); RDW 13.8 % (11.9-15.9); WHITE BLOOD COUNT 7.3 K/mm3 (4.0-10.0)
[2021-04-06 11:05] LABS: BLOOD UREA NITROGEN 18.5 mg/dL (7-18)
[2021-04-06 11:06] LABS: BILIRUBIN,TOTAL 0.8 mg/dL (0.2-1); TOT PROT 7.1 g/dl (6.4-8.2)
[2021-04-06] MEDS ORDERED: risperiDONE 2 MG TABLET PO ONE (14:15)
[2021-04-06] MEDS ORDERED: chlordiazePOXIDE HCL 25 MG CAPSULE PO PRN (14:48)
[2021-04-06] MEDS: chlordiazePOXIDE HCL 25 MG CAPSULE PO SCH ×2 (17:31→22:57)
[2021-04-06] MEDS: IBUPROFEN 400 MG TABLET (FP) PO PRN (17:33)
[2021-04-06] MEDS: PRAZOSIN HCL 1 MG CAPSULE PO SCH (22:57)
[2021-04-06] MEDS: risperiDONE 3 MG TABLET PO SCH (22:57)
[2021-04-06] MEDS: busPIRone HCL 10 MG TABLET (FP) PO SCH (22:57)
[2021-04-07] MEDS: busPIRone HCL 10 MG TABLET (FP) PO SCH ×3 (06:30→22:50)
[2021-04-07] MEDS: chlordiazePOXIDE HCL 25 MG CAPSULE PO SCH ×4 (06:30→22:51)
[2021-04-07] MEDS: NICOTINE 14 MG/24 HOURS TOPICAL PATCH TD SCH (10:18)
[2021-04-07] MEDS: NICOTINE 10 MG CARTRIDGE (INHALER) IH PRN (10:18)
[2021-04-07] MEDS: buPROPion HCL 75 MG TABLET PO SCH (10:20)
[2021-04-07] MEDS: PRENATAL VITAMINS W/ FOLIC ACID TABLET (FP) PO SCH (10:20)
[2021-04-07] MEDS: risperiDONE 3 MG TABLET PO SCH ×2 (10:20→22:51)
[2021-04-07] MEDS: MELATONIN 5 MG TABLETS PO SCH (22:50)
[2021-04-07] MEDS: THIAMINE HCL 100 MG TABLET (FP) PO SCH (22:50)
[2021-04-07] MEDS: PRAZOSIN HCL 1 MG CAPSULE PO SCH (22:51)
[2021-04-07] MEDS: METHOCARBAMOL 500 MG TABLET PO PRN (22:52)
[2021-04-07] MEDS: IBUPROFEN 400 MG TABLET (FP) PO PRN (22:52)
[2021-04-07] MEDS: hydrOXYzine PAMOATE 25 MG CAPSULE (FP) PO PRN (22:53)
[2021-04-08] MEDS: busPIRone HCL 10 MG TABLET (FP) PO SCH ×3 (06:59→23:34)
[2021-04-08] MEDS: chlordiazePOXIDE HCL 25 MG CAPSULE PO SCH ×4 (06:59→23:35)
[2021-04-08] MEDS: NICOTINE 10 MG CARTRIDGE (INHALER) IH PRN (10:42)
[2021-04-08] MEDS: PRENATAL VITAMINS W/ FOLIC ACID TABLET (FP) PO SCH (10:43)
[2021-04-08] MEDS: risperiDONE 3 MG TABLET PO SCH ×2 (10:43→23:35)
[2021-04-08] MEDS: buPROPion HCL 75 MG TABLET PO SCH (10:45)
[2021-04-08] MEDS: NICOTINE 14 MG/24 HOURS TOPICAL PATCH TD SCH (10:46)
[2021-04-08] MEDS: IBUPROFEN 400 MG TABLET (FP) PO PRN (18:22)
[2021-04-08] MEDS: MELATONIN 5 MG TABLETS PO SCH (23:35)
[2021-04-08] MEDS: PRAZOSIN HCL 1 MG CAPSULE PO SCH (23:35)
[2021-04-08] MEDS: THIAMINE HCL 100 MG TABLET (FP) PO SCH (23:35)
[2021-04-09] MEDS ORDERED: chlordiazePOXIDE HCL 10 MG CAPSULE PO PRN
[2021-04-09] MEDS: busPIRone HCL 10 MG TABLET (FP) PO SCH ×3 (06:57→22:11)
[2021-04-09] MEDS: chlordiazePOXIDE HCL 10 MG CAPSULE PO SCH ×4 (06:58→22:11)
[2021-04-09] MEDS: buPROPion HCL 75 MG TABLET PO SCH (10:15)
[2021-04-09] MEDS: PRENATAL VITAMINS W/ FOLIC ACID TABLET (FP) PO SCH (10:16)
[2021-04-09] MEDS: hydrOXYzine PAMOATE 25 MG CAPSULE (FP) PO PRN (10:16)
[2021-04-09] MEDS: NICOTINE 10 MG CARTRIDGE (INHALER) IH PRN (10:17)
[2021-04-09] MEDS: risperiDONE 3 MG TABLET PO SCH ×2 (10:18→22:11)
[2021-04-09] MEDS: NICOTINE 14 MG/24 HOURS TOPICAL PATCH TD SCH (10:20)
[2021-04-09] MEDS: PRAZOSIN HCL 1 MG CAPSULE PO SCH (22:11)
[2021-04-09] MEDS: THIAMINE HCL 100 MG TABLET (FP) PO SCH (22:11)
[2021-04-09] MEDS: MELATONIN 5 MG TABLETS PO SCH (22:13)
[2021-04-10] MEDS: busPIRone HCL 10 MG TABLET (FP) PO SCH ×3 (05:23→22:16)
[2021-04-10] MEDS: chlordiazePOXIDE HCL 10 MG CAPSULE PO SCH ×2 (05:23→17:34)
[2021-04-10] MEDS: PRENATAL VITAMINS W/ FOLIC ACID TABLET (FP) PO SCH (10:19)
[2021-04-10] MEDS: NICOTINE 14 MG/24 HOURS TOPICAL PATCH TD SCH (10:19)
[2021-04-10] MEDS: NICOTINE 10 MG CARTRIDGE (INHALER) IH PRN (10:20)
[2021-04-10] MEDS: risperiDONE 3 MG TABLET PO SCH ×2 (10:21→22:16)
[2021-04-10] MEDS: buPROPion HCL 75 MG TABLET PO SCH (10:21)
[2021-04-10] MEDS: PRAZOSIN HCL 1 MG CAPSULE PO SCH (22:16)
[2021-04-10] MEDS: THIAMINE HCL 100 MG TABLET (FP) PO SCH (22:16)
[2021-04-10] MEDS: MELATONIN 5 MG TABLETS PO SCH (22:16)
[2021-04-11] MEDS ORDERED: chlordiazePOXIDE HCL 10 MG CAPSULE PO ONE (05:00)
[2021-04-11] MEDS: busPIRone HCL 10 MG TABLET (FP) PO SCH (06:41)
[2021-04-11 09:04] VITALS: BP 117/58; PULSE 86; TEMP 97.5
[2021-04-11] MEDS: NICOTINE 14 MG/24 HOURS TOPICAL PATCH TD SCH (10:34)
[2021-04-11] MEDS: buPROPion HCL 75 MG TABLET PO SCH (10:34)
[2021-04-11] MEDS: risperiDONE 3 MG TABLET PO SCH (10:34)
[2021-04-11] MEDS: PRENATAL VITAMINS W/ FOLIC ACID TABLET (FP) PO SCH (10:34)
== END 2021-04-11 10:54 | disposition home or self-care (01) | DRG 774 ==
LOC: YASAS 16:19 → Y3N 04-06 00:55 → UNDOADMIN 04-06 00:55
PROVIDERS: ADMIT Allergy & Immunology; ATTEND Allergy & Immunology
PROC: HZ2ZZZZ Detoxification Services for Substance Abuse Treatment (ICD-10-PCS; principal; 2021-04-06)
DX: F10.230 Alcohol dependence with withdrawal, uncomplicated (principal); F14.20 Cocaine dependence, uncomplicated; F13.20 Sedative, hypnotic or anxiolytic dependence, uncomplicated; F12.20 Cannabis dependence, uncomplicated; F17.210 Nicotine dependence, cigarettes, uncomplicated; F25.9 Schizoaffective disorder, unspecified; F19.24 Other psychoactive substance dependence with psychoactive substance-induced mood disorder; F43.10 Post-traumatic stress disorder, unspecified; R23.8 Other skin changes; R63.8 Other symptoms and signs concerning food and fluid intake; Z91.410 Personal history of adult physical and sexual abuse; Z59.00 Homelessness unspecified; Z56.0 Unemployment, unspecified
CPT/HCPCS: 36415; 80053; 85027; 86780; C9803-CS; U0003; U0005

== ENCOUNTER 2021-04-12 12:42 | Inpatient (IN) | payer OTHER ==
[2021-04-12 18:18] VITALS: BMI 33.2
[2021-04-12] MEDS ORDERED: ACETAMINOPHEN 325 MG TABLET (FP) PO PRN (19:55)
[2021-04-12] MEDS ORDERED: LOPERAMIDE HCL 2 MG CAPSULE PO PRN (19:55)
[2021-04-12] MEDS ORDERED: MAGNESIUM HYDROX 2400MG/30ML ORAL SUSPENSION 30 ML CUP PO PRN (19:55)
[2021-04-12] MEDS ORDERED: MAGNESIUM CITRATE 300 ML BOTTLE PO PRN (19:55)
[2021-04-12] MEDS ORDERED: P-EPHED 60MG/TRIPROLIDI 2.5MG TABLET PO PRN (19:55)
[2021-04-12] MEDS ORDERED: MAG HYDROX/AL HYDROX/SIMETH 30 ML UNIT-DOSE CUP PO PRN (19:55)
[2021-04-12] MEDS ORDERED: hydrOXYzine PAMOATE 25 MG CAPSULE (FP) PO PRN (19:55)
[2021-04-12] MEDS ORDERED: guaiFENesin 200 MG/10 ML 10 ML UNIT-DOSE CUPS PO PRN (19:55)
[2021-04-12] MEDS ORDERED: NICOTINE POLACRILEX 2 MG GUM BC PRN (19:55)
[2021-04-12] MEDS: MELATONIN 5 MG TABLETS PO SCH (21:25)
[2021-04-12] MEDS: THIAMINE HCL 100 MG TABLET (FP) PO SCH (21:25)
[2021-04-13] MEDS ORDERED: NICOTINE 14 MG/24 HOURS TOPICAL PATCH TD SCH (10:00)
[2021-04-13] MEDS: risperiDONE 3 MG TABLET PO SCH ×2 (10:59→21:14)
[2021-04-13] MEDS: PRENATAL VITAMINS W/ FOLIC ACID TABLET (FP) PO SCH (10:59)
[2021-04-13] MEDS: busPIRone HCL 10 MG TABLET (FP) PO SCH ×2 (10:59→21:14)
[2021-04-13] MEDS: buPROPion HCL 75 MG TABLET PO SCH (11:00)
[2021-04-13] MEDS: NICOTINE 10 MG CARTRIDGE (INHALER) IH SCH (11:02)
[2021-04-13 12:05] LABS: ALBUMIN 4.1 g/dl (3.4-5.0); BLOOD UREA NITROGEN 16.4 mg/dL (7-18); CALCIUM 10.1 mg/dL (8.5-10.1)
[2021-04-13 12:07] LABS: BILIRUBIN,TOTAL 0.9 mg/dL (0.2-1); TOT PROT 7.3 g/dl (6.4-8.2)
[2021-04-13 12:11] LABS: HEMATOCRIT 44.7 % (35.4-49); HEMOGLOBIN 14.4 GM/dL (11.7-16.9); MCH 29.5 pg (25.7-33.7); MCHC 32.3 g/dl (32.0-35.9); MEAN CELL VOLUME 91.3 fl (80-96); MEAN PLT VOLUME 8.1 fl (7.5-11.1); PLATELET COUNT 289 10^3/uL (134-434); WHITE BLOOD COUNT 6.1 K/mm3 (4.0-10.0)
[2021-04-13 15:42] LABS: EPI CELLS 4 /uL (0-25.1); HYALINE CASTS 7 /uL (0-3.1); PH,URINE 5.5 (5.0-8.0); URINE APPEARANCE CLEAR; URINE BACTERIA >9,000 /uL (0-1359); URINE BILIRUBIN NEGATIVE (NEGATIVE); URINE COLOR YELLOW; URINE GLUCOSE (UA) NEGATIVE (NEGATIVE); URINE KETONE TRACE (NEGATIVE); URINE LEUK ESTERASE 1+ (NEGATIVE); URINE NITRITE NEGATIVE (NEGATIVE); URINE PROTEIN NEGATIVE (NEGATIVE); URINE RBC 4 /uL (0-23.9); URINE UROBILINOGEN 0.2 mg/dL (0.2-1.0); URINE WBC 201 /uL (0-25.8)
[2021-04-13] MEDS: PRAZOSIN HCL 1 MG CAPSULE PO SCH (21:14)
[2021-04-13] MEDS: MELATONIN 5 MG TABLETS PO SCH (21:14)
[2021-04-13] MEDS: THIAMINE HCL 100 MG TABLET (FP) PO SCH (21:14)
[2021-04-14] MEDS: busPIRone HCL 10 MG TABLET (FP) PO SCH ×2 (09:32→21:15)
[2021-04-14] MEDS: risperiDONE 3 MG TABLET PO SCH ×2 (09:32→21:15)
[2021-04-14] MEDS: PRENATAL VITAMINS W/ FOLIC ACID TABLET (FP) PO SCH (09:32)
[2021-04-14] MEDS: buPROPion HCL 75 MG TABLET PO SCH (09:32)
[2021-04-14] MEDS: NICOTINE 10 MG CARTRIDGE (INHALER) IH SCH (09:33)
[2021-04-14] MEDS: MELATONIN 5 MG TABLETS PO SCH (21:15)
[2021-04-14] MEDS: THIAMINE HCL 100 MG TABLET (FP) PO SCH (21:15)
[2021-04-14] MEDS: PRAZOSIN HCL 1 MG CAPSULE PO SCH (21:15)
[2021-04-15] MEDS: busPIRone HCL 10 MG TABLET (FP) PO SCH ×2 (10:13→21:21)
[2021-04-15] MEDS: buPROPion HCL 75 MG TABLET PO SCH (10:14)
[2021-04-15] MEDS: PRENATAL VITAMINS W/ FOLIC ACID TABLET (FP) PO SCH (10:14)
[2021-04-15] MEDS: risperiDONE 3 MG TABLET PO SCH ×2 (10:14→21:21)
[2021-04-15] MEDS: NICOTINE 10 MG CARTRIDGE (INHALER) IH SCH (10:15)
[2021-04-15] MEDS: PRAZOSIN HCL 1 MG CAPSULE PO SCH (21:21)
[2021-04-15] MEDS: MELATONIN 5 MG TABLETS PO SCH (21:21)
[2021-04-15] MEDS: THIAMINE HCL 100 MG TABLET (FP) PO SCH (21:21)
[2021-04-16] MEDS: NICOTINE 10 MG CARTRIDGE (INHALER) IH SCH (09:49)
[2021-04-16] MEDS: PRENATAL VITAMINS W/ FOLIC ACID TABLET (FP) PO SCH (09:49)
[2021-04-16] MEDS: buPROPion HCL 75 MG TABLET PO SCH (09:49)
[2021-04-16] MEDS: busPIRone HCL 10 MG TABLET (FP) PO SCH ×2 (09:49→21:45)
[2021-04-16] MEDS: risperiDONE 3 MG TABLET PO SCH ×2 (09:49→21:45)
[2021-04-16] MEDS: THIAMINE HCL 100 MG TABLET (FP) PO SCH (21:44)
[2021-04-16] MEDS: MELATONIN 5 MG TABLETS PO SCH (21:44)
[2021-04-16] MEDS: PRAZOSIN HCL 1 MG CAPSULE PO SCH (21:45)
[2021-04-17] MEDS: busPIRone HCL 10 MG TABLET (FP) PO SCH ×2 (10:19→21:40)
[2021-04-17] MEDS: risperiDONE 3 MG TABLET PO SCH ×2 (10:20→21:40)
[2021-04-17] MEDS: buPROPion HCL 75 MG TABLET PO SCH (10:20)
[2021-04-17] MEDS: PRENATAL VITAMINS W/ FOLIC ACID TABLET (FP) PO SCH (10:21)
[2021-04-17] MEDS: NICOTINE 10 MG CARTRIDGE (INHALER) IH SCH (10:21)
[2021-04-17] MEDS: PRAZOSIN HCL 1 MG CAPSULE PO SCH (21:40)
[2021-04-17] MEDS: THIAMINE HCL 100 MG TABLET (FP) PO SCH (21:40)
[2021-04-17] MEDS: MELATONIN 5 MG TABLETS PO SCH (21:41)
[2021-04-18] MEDS: buPROPion HCL 75 MG TABLET PO SCH (09:40)
[2021-04-18] MEDS: PRENATAL VITAMINS W/ FOLIC ACID TABLET (FP) PO SCH (09:40)
[2021-04-18] MEDS: busPIRone HCL 10 MG TABLET (FP) PO SCH ×2 (09:40→21:45)
[2021-04-18] MEDS: risperiDONE 3 MG TABLET PO SCH ×2 (09:40→21:45)
[2021-04-18] MEDS: NICOTINE 10 MG CARTRIDGE (INHALER) IH SCH (09:41)
[2021-04-18] MEDS ORDERED: NICOTINE 10 MG CARTRIDGE (INHALER) IH PRN (10:17)
[2021-04-18] MEDS: MELATONIN 5 MG TABLETS PO SCH (21:45)
[2021-04-18] MEDS: THIAMINE HCL 100 MG TABLET (FP) PO SCH (21:45)
[2021-04-18] MEDS: PRAZOSIN HCL 1 MG CAPSULE PO SCH (21:45)
[2021-04-19] MEDS: buPROPion HCL 75 MG TABLET PO SCH (10:19)
[2021-04-19] MEDS: busPIRone HCL 10 MG TABLET (FP) PO SCH ×2 (10:19→21:55)
[2021-04-19] MEDS: PRENATAL VITAMINS W/ FOLIC ACID TABLET (FP) PO SCH (10:19)
[2021-04-19] MEDS: risperiDONE 3 MG TABLET PO SCH ×2 (10:19→21:55)
[2021-04-19] MEDS: PRAZOSIN HCL 1 MG CAPSULE PO SCH (21:55)
[2021-04-19] MEDS: traZODone HCL 100 MG TABLET (FP) PO SCH (21:55)
[2021-04-19] MEDS: THIAMINE HCL 100 MG TABLET (FP) PO SCH (21:55)
[2021-04-20] MEDS: busPIRone HCL 10 MG TABLET (FP) PO SCH ×2 (10:13→21:36)
[2021-04-20] MEDS: risperiDONE 3 MG TABLET PO SCH ×2 (10:13→21:36)
[2021-04-20] MEDS: buPROPion HCL 75 MG TABLET PO SCH (10:13)
[2021-04-20] MEDS: PRENATAL VITAMINS W/ FOLIC ACID TABLET (FP) PO SCH (10:14)
[2021-04-20] MEDS: THIAMINE HCL 100 MG TABLET (FP) PO SCH (21:36)
[2021-04-20] MEDS: traZODone HCL 100 MG TABLET (FP) PO SCH (21:36)
[2021-04-20] MEDS: PRAZOSIN HCL 1 MG CAPSULE PO SCH (21:36)
[2021-04-21] MEDS: PRENATAL VITAMINS W/ FOLIC ACID TABLET (FP) PO SCH (10:18)
[2021-04-21] MEDS: risperiDONE 3 MG TABLET PO SCH ×2 (10:19→21:32)
[2021-04-21] MEDS: buPROPion HCL 75 MG TABLET PO SCH (10:19)
[2021-04-21] MEDS: busPIRone HCL 10 MG TABLET (FP) PO SCH ×2 (10:19→21:32)
[2021-04-21] MEDS: PRAZOSIN HCL 1 MG CAPSULE PO SCH (21:31)
[2021-04-21] MEDS: traZODone HCL 100 MG TABLET (FP) PO SCH (21:32)
[2021-04-21] MEDS: THIAMINE HCL 100 MG TABLET (FP) PO SCH (21:32)
[2021-04-22] MEDS: buPROPion HCL 75 MG TABLET PO SCH (10:21)
[2021-04-22] MEDS: PRENATAL VITAMINS W/ FOLIC ACID TABLET (FP) PO SCH (10:21)
[2021-04-22] MEDS: busPIRone HCL 10 MG TABLET (FP) PO SCH ×2 (10:21→22:12)
[2021-04-22] MEDS: risperiDONE 3 MG TABLET PO SCH ×2 (10:21→22:12)
[2021-04-22] MEDS: THIAMINE HCL 100 MG TABLET (FP) PO SCH (22:12)
[2021-04-22] MEDS: traZODone HCL 100 MG TABLET (FP) PO SCH (22:12)
[2021-04-22] MEDS: PRAZOSIN HCL 1 MG CAPSULE PO SCH (22:12)
[2021-04-23] MEDS: risperiDONE 3 MG TABLET PO SCH ×2 (10:28→22:06)
[2021-04-23] MEDS: buPROPion HCL 75 MG TABLET PO SCH (10:28)
[2021-04-23] MEDS: busPIRone HCL 10 MG TABLET (FP) PO SCH ×2 (10:28→22:06)
[2021-04-23] MEDS: PRENATAL VITAMINS W/ FOLIC ACID TABLET (FP) PO SCH (10:28)
[2021-04-23] MEDS: PRAZOSIN HCL 1 MG CAPSULE PO SCH (22:06)
[2021-04-23] MEDS: traZODone HCL 100 MG TABLET (FP) PO SCH (22:06)
[2021-04-23] MEDS: THIAMINE HCL 100 MG TABLET (FP) PO SCH (22:06)
[2021-04-24] MEDS: buPROPion HCL 75 MG TABLET PO SCH (09:51)
[2021-04-24] MEDS: PRENATAL VITAMINS W/ FOLIC ACID TABLET (FP) PO SCH (09:51)
[2021-04-24] MEDS: risperiDONE 3 MG TABLET PO SCH ×2 (09:51→22:06)
[2021-04-24] MEDS: busPIRone HCL 10 MG TABLET (FP) PO SCH ×2 (09:51→22:06)
[2021-04-24] MEDS: PRAZOSIN HCL 1 MG CAPSULE PO SCH (22:06)
[2021-04-24] MEDS: THIAMINE HCL 100 MG TABLET (FP) PO SCH (22:06)
[2021-04-24] MEDS: traZODone HCL 100 MG TABLET (FP) PO SCH (22:06)
[2021-04-25] MEDS: buPROPion HCL 75 MG TABLET PO SCH (09:42)
[2021-04-25] MEDS: IBUPROFEN 400 MG TABLET (FP) PO PRN (09:42)
[2021-04-25] MEDS: risperiDONE 3 MG TABLET PO SCH ×2 (09:42→21:58)
[2021-04-25] MEDS: PRENATAL VITAMINS W/ FOLIC ACID TABLET (FP) PO SCH (09:42)
[2021-04-25] MEDS: busPIRone HCL 10 MG TABLET (FP) PO SCH ×3 (10:31→21:58)
[2021-04-25] MEDS ORDERED: hydrOXYzine PAMOATE 25 MG CAPSULE (FP) PO PRN (11:30)
[2021-04-25] MEDS: PRAZOSIN HCL 1 MG CAPSULE PO SCH (21:57)
[2021-04-25] MEDS: THIAMINE HCL 100 MG TABLET (FP) PO SCH (21:58)
[2021-04-25] MEDS: traZODone HCL 100 MG TABLET (FP) PO SCH (21:58)
[2021-04-26] MEDS: busPIRone HCL 10 MG TABLET (FP) PO SCH ×3 (06:41→21:55)
[2021-04-26] MEDS: PRENATAL VITAMINS W/ FOLIC ACID TABLET (FP) PO SCH (11:00)
[2021-04-26] MEDS: buPROPion HCL 75 MG TABLET PO SCH (11:00)
[2021-04-26] MEDS: risperiDONE 3 MG TABLET PO SCH ×2 (11:00→21:55)
[2021-04-26] MEDS: THIAMINE HCL 100 MG TABLET (FP) PO SCH (21:55)
[2021-04-26] MEDS: traZODone HCL 100 MG TABLET (FP) PO SCH (21:55)
[2021-04-26] MEDS: PRAZOSIN HCL 1 MG CAPSULE PO SCH (23:01)
[2021-04-27] MEDS: busPIRone HCL 10 MG TABLET (FP) PO SCH ×3 (07:43→21:07)
[2021-04-27] MEDS: buPROPion HCL 75 MG TABLET PO SCH (10:54)
[2021-04-27] MEDS: PRENATAL VITAMINS W/ FOLIC ACID TABLET (FP) PO SCH (10:54)
[2021-04-27] MEDS: risperiDONE 3 MG TABLET PO SCH ×2 (10:54→21:06)
[2021-04-27 15:05] LABS: PH,URINE 5.5 (5.0-8.0); URINE APPEARANCE CLEAR; URINE BILIRUBIN NEGATIVE (NEGATIVE); URINE COLOR YELLOW; URINE GLUCOSE (UA) NEGATIVE (NEGATIVE); URINE KETONE NEGATIVE (NEGATIVE); URINE LEUK ESTERASE NEGATIVE (NEGATIVE); URINE NITRITE NEGATIVE (NEGATIVE); URINE PROTEIN NEGATIVE (NEGATIVE)
[2021-04-27] MEDS: PRAZOSIN HCL 1 MG CAPSULE PO SCH (21:06)
[2021-04-27] MEDS: THIAMINE HCL 100 MG TABLET (FP) PO SCH (21:07)
[2021-04-27] MEDS: traZODone HCL 100 MG TABLET (FP) PO SCH (21:07)
[2021-04-28] MEDS: busPIRone HCL 10 MG TABLET (FP) PO SCH ×3 (06:32→22:00)
[2021-04-28] MEDS: PRENATAL VITAMINS W/ FOLIC ACID TABLET (FP) PO SCH (09:21)
[2021-04-28] MEDS: risperiDONE 3 MG TABLET PO SCH ×2 (09:21→22:00)
[2021-04-28] MEDS: buPROPion HCL 75 MG TABLET PO SCH (09:21)
[2021-04-28] MEDS: traZODone HCL 100 MG TABLET (FP) PO SCH (21:59)
[2021-04-28] MEDS: THIAMINE HCL 100 MG TABLET (FP) PO SCH (21:59)
[2021-04-28] MEDS: PRAZOSIN HCL 1 MG CAPSULE PO SCH (22:00)
[2021-04-29] MEDS: busPIRone HCL 10 MG TABLET (FP) PO SCH ×3 (06:42→21:34)
[2021-04-29] MEDS: risperiDONE 3 MG TABLET PO SCH ×2 (10:25→21:34)
[2021-04-29] MEDS: buPROPion HCL 75 MG TABLET PO SCH (10:26)
[2021-04-29] MEDS: PRENATAL VITAMINS W/ FOLIC ACID TABLET (FP) PO SCH (10:26)
[2021-04-29] MEDS: THIAMINE HCL 100 MG TABLET (FP) PO SCH (21:34)
[2021-04-29] MEDS: traZODone HCL 100 MG TABLET (FP) PO SCH (21:34)
[2021-04-30] MEDS: PRAZOSIN HCL 1 MG CAPSULE PO SCH ×2 (00:02→21:46)
[2021-04-30] MEDS: busPIRone HCL 10 MG TABLET (FP) PO SCH ×3 (06:53→21:45)
[2021-04-30] MEDS: risperiDONE 3 MG TABLET PO SCH ×2 (10:11→21:46)
[2021-04-30] MEDS: buPROPion HCL 75 MG TABLET PO SCH (10:11)
[2021-04-30] MEDS: PRENATAL VITAMINS W/ FOLIC ACID TABLET (FP) PO SCH (10:11)
[2021-04-30] MEDS: THIAMINE HCL 100 MG TABLET (FP) PO SCH (21:45)
[2021-04-30] MEDS: traZODone HCL 100 MG TABLET (FP) PO SCH (21:46)
[2021-05-01] MEDS: busPIRone HCL 10 MG TABLET (FP) PO SCH ×3 (06:59→21:48)
[2021-05-01] MEDS: risperiDONE 3 MG TABLET PO SCH ×2 (09:48→21:48)
[2021-05-01] MEDS: buPROPion HCL 75 MG TABLET PO SCH (09:48)
[2021-05-01] MEDS: PRENATAL VITAMINS W/ FOLIC ACID TABLET (FP) PO SCH (09:48)
[2021-05-01] MEDS: PRAZOSIN HCL 1 MG CAPSULE PO SCH (21:48)
[2021-05-01] MEDS: traZODone HCL 100 MG TABLET (FP) PO SCH (21:48)
[2021-05-01] MEDS: THIAMINE HCL 100 MG TABLET (FP) PO SCH (21:48)
[2021-05-02] MEDS: busPIRone HCL 10 MG TABLET (FP) PO SCH ×3 (07:05→21:16)
[2021-05-02] MEDS: PRENATAL VITAMINS W/ FOLIC ACID TABLET (FP) PO SCH (10:19)
[2021-05-02] MEDS: risperiDONE 3 MG TABLET PO SCH ×2 (10:19→21:16)
[2021-05-02] MEDS: buPROPion HCL 75 MG TABLET PO SCH (10:19)
[2021-05-02] MEDS: THIAMINE HCL 100 MG TABLET (FP) PO SCH (21:16)
[2021-05-02] MEDS: traZODone HCL 100 MG TABLET (FP) PO SCH (21:16)
[2021-05-02] MEDS: PRAZOSIN HCL 1 MG CAPSULE PO SCH (23:48)
[2021-05-03] MEDS: busPIRone HCL 10 MG TABLET (FP) PO SCH ×3 (06:53→21:24)
[2021-05-03] MEDS: risperiDONE 3 MG TABLET PO SCH ×2 (10:19→21:24)
[2021-05-03] MEDS: PRENATAL VITAMINS W/ FOLIC ACID TABLET (FP) PO SCH (10:19)
[2021-05-03] MEDS: buPROPion HCL 75 MG TABLET PO SCH (10:19)
[2021-05-03] MEDS: traZODone HCL 100 MG TABLET (FP) PO SCH (21:24)
[2021-05-03] MEDS: THIAMINE HCL 100 MG TABLET (FP) PO SCH (21:24)
[2021-05-03] MEDS: PRAZOSIN HCL 1 MG CAPSULE PO SCH (21:26)
[2021-05-04] MEDS: busPIRone HCL 10 MG TABLET (FP) PO SCH ×3 (06:38→21:52)
[2021-05-04] MEDS: buPROPion HCL 75 MG TABLET PO SCH (09:28)
[2021-05-04] MEDS: PRENATAL VITAMINS W/ FOLIC ACID TABLET (FP) PO SCH (09:28)
[2021-05-04] MEDS: risperiDONE 3 MG TABLET PO SCH ×2 (09:29→21:52)
[2021-05-04] MEDS: traZODone HCL 100 MG TABLET (FP) PO SCH (21:52)
[2021-05-04] MEDS: THIAMINE HCL 100 MG TABLET (FP) PO SCH (21:52)
[2021-05-04] MEDS: PRAZOSIN HCL 1 MG CAPSULE PO SCH (21:54)
[2021-05-05] MEDS: busPIRone HCL 10 MG TABLET (FP) PO SCH ×3 (06:31→21:37)
[2021-05-05] MEDS: buPROPion HCL 75 MG TABLET PO SCH (09:54)
[2021-05-05] MEDS: risperiDONE 3 MG TABLET PO SCH ×2 (09:54→21:38)
[2021-05-05] MEDS: PRENATAL VITAMINS W/ FOLIC ACID TABLET (FP) PO SCH (09:54)
[2021-05-05] MEDS: THIAMINE HCL 100 MG TABLET (FP) PO SCH (21:37)
[2021-05-05] MEDS: traZODone HCL 100 MG TABLET (FP) PO SCH (21:37)
[2021-05-05] MEDS: PRAZOSIN HCL 1 MG CAPSULE PO SCH (21:37)
[2021-05-06] MEDS: busPIRone HCL 10 MG TABLET (FP) PO SCH ×3 (07:30→21:27)
[2021-05-06] MEDS: risperiDONE 3 MG TABLET PO SCH ×2 (09:30→21:27)
[2021-05-06] MEDS: buPROPion HCL 75 MG TABLET PO SCH (09:30)
[2021-05-06] MEDS: PRENATAL VITAMINS W/ FOLIC ACID TABLET (FP) PO SCH (09:30)
[2021-05-06] MEDS: THIAMINE HCL 100 MG TABLET (FP) PO SCH (21:27)
[2021-05-06] MEDS: traZODone HCL 100 MG TABLET (FP) PO SCH (21:27)
[2021-05-06] MEDS: PRAZOSIN HCL 1 MG CAPSULE PO SCH (21:28)
[2021-05-06 22:04] VITALS: TEMP 98
[2021-05-07] MEDS: busPIRone HCL 10 MG TABLET (FP) PO SCH ×3 (06:46→21:25)
[2021-05-07] MEDS: buPROPion HCL 75 MG TABLET PO SCH (11:39)
[2021-05-07] MEDS: risperiDONE 3 MG TABLET PO SCH ×2 (11:39→21:25)
[2021-05-07] MEDS: PRENATAL VITAMINS W/ FOLIC ACID TABLET (FP) PO SCH (11:39)
[2021-05-07] MEDS: traZODone HCL 100 MG TABLET (FP) PO SCH (21:24)
[2021-05-07] MEDS: THIAMINE HCL 100 MG TABLET (FP) PO SCH (21:24)
[2021-05-07] MEDS: PRAZOSIN HCL 1 MG CAPSULE PO SCH (21:25)
[2021-05-07] MEDS: IBUPROFEN 400 MG TABLET (FP) PO PRN (21:26)
[2021-05-08] MEDS: busPIRone HCL 10 MG TABLET (FP) PO SCH ×3 (06:43→21:36)
[2021-05-08] MEDS: PRENATAL VITAMINS W/ FOLIC ACID TABLET (FP) PO SCH (09:12)
[2021-05-08] MEDS: buPROPion HCL 75 MG TABLET PO SCH (09:12)
[2021-05-08] MEDS: risperiDONE 3 MG TABLET PO SCH ×2 (09:12→21:35)
[2021-05-08 20:45] VITALS: BP 123/79; PULSE 86
[2021-05-08] MEDS: THIAMINE HCL 100 MG TABLET (FP) PO SCH (21:35)
[2021-05-08] MEDS: PRAZOSIN HCL 1 MG CAPSULE PO SCH (21:36)
[2021-05-08] MEDS: traZODone HCL 100 MG TABLET (FP) PO SCH (21:36)
[2021-05-08] MEDS: IBUPROFEN 400 MG TABLET (FP) PO PRN (21:36)
[2021-05-09] MEDS: busPIRone HCL 10 MG TABLET (FP) PO SCH ×3 (06:35→21:45)
[2021-05-09] MEDS: PRENATAL VITAMINS W/ FOLIC ACID TABLET (FP) PO SCH (09:43)
[2021-05-09] MEDS: risperiDONE 3 MG TABLET PO SCH ×2 (09:43→21:45)
[2021-05-09] MEDS: buPROPion HCL 75 MG TABLET PO SCH (09:43)
[2021-05-09] MEDS: THIAMINE HCL 100 MG TABLET (FP) PO SCH (21:45)
[2021-05-09] MEDS: traZODone HCL 100 MG TABLET (FP) PO SCH (21:45)
[2021-05-09] MEDS: PRAZOSIN HCL 1 MG CAPSULE PO SCH (21:45)
[2021-05-10] MEDS: busPIRone HCL 10 MG TABLET (FP) PO SCH (06:34)
== END 2021-05-10 09:00 | disposition home or self-care (01) | DRG 772 ==
LOC: YASAS 12:42 → Y3E 19:16
PROVIDERS: ADMIT Allergy & Immunology; ATTEND Allergy & Immunology
PROC: HZ42ZZZ Group Counseling for Substance Abuse Treatment, Cognitive-Behavioral (ICD-10-PCS; principal; 2021-04-12)
DX: F10.20 Alcohol dependence, uncomplicated (principal); F13.20 Sedative, hypnotic or anxiolytic dependence, uncomplicated; F12.20 Cannabis dependence, uncomplicated; F17.210 Nicotine dependence, cigarettes, uncomplicated; F19.280 Other psychoactive substance dependence with psychoactive substance-induced anxiety disorder; F19.282 Other psychoactive substance dependence with psychoactive substance-induced sleep disorder; F19.24 Other psychoactive substance dependence with psychoactive substance-induced mood disorder; F20.9 Schizophrenia, unspecified; F31.9 Bipolar disorder, unspecified; F41.9 Anxiety disorder, unspecified; F90.9 Attention-deficit hyperactivity disorder, unspecified type; F43.10 Post-traumatic stress disorder, unspecified; G47.00 Insomnia, unspecified; J45.20 Mild intermittent asthma, uncomplicated; K21.9 Gastro-esophageal reflux disease without esophagitis; Z91.410 Personal history of adult physical and sexual abuse; Z56.0 Unemployment, unspecified; Z59.00 Homelessness unspecified
CPT/HCPCS: 36415; 80053; 81003; 85027; 86780; C9803; U0003; U0005

== ENCOUNTER 2022-01-24 20:12 | Inpatient (IN) | payer OTHER ==
[2022-01-24 20:43] VITALS: BMI 30.8
[2022-01-24] MEDS ORDERED: MAG HYDROX/AL HYDROX/SIMETH 30 ML UNIT-DOSE CUP PO PRN (21:02)
[2022-01-24] MEDS ORDERED: MAGNESIUM CITRATE 300 ML BOTTLE PO PRN (21:02)
[2022-01-24] MEDS ORDERED: ACETAMINOPHEN 325 MG TABLET (FP) PO PRN (21:02)
[2022-01-24] MEDS ORDERED: DICYCLOMINE HCL 10 MG CAPSULE PO PRN (21:02)
[2022-01-24] MEDS ORDERED: MAGNESIUM HYDROX 2400MG/30ML ORAL SUSPENSION 30 ML CUP PO PRN (21:02)
[2022-01-24] MEDS ORDERED: BISMUTH SUBSALICYLATE 524 MG/30 ML PO PRN (21:02)
[2022-01-24] MEDS ORDERED: P-EPHED 60MG/TRIPROLIDI 2.5MG TABLET PO PRN (21:02)
[2022-01-24] MEDS ORDERED: ONDANSETRON *ODT* 4 MG TABLET SL PRN (21:02)
[2022-01-24] MEDS ORDERED: guaiFENesin 200 MG/10 ML 10 ML UNIT-DOSE CUPS PO PRN (21:02)
[2022-01-24] MEDS ORDERED: LOPERAMIDE HCL 2 MG CAPSULE PO PRN (21:02)
[2022-01-24] MEDS ORDERED: NICOTINE POLACRILEX 2 MG GUM BUC PRN (21:02)
[2022-01-24] MEDS ORDERED: BENZOCAINE/MENTHOL (CHLORASEPTIC ) LOZENGE MM PRN (21:02)
[2022-01-24] MEDS ORDERED: NALOXONE HCL (KLOXXADO) 8 MG SPRAY NS PRN (21:02)
[2022-01-24] MEDS ORDERED: hydrOXYzine PAMOATE 25 MG CAPSULE (FP) PO PRN (21:02)
[2022-01-24] MEDS ORDERED: IBUPROFEN 600 MG TABLET (FP) PO ONE (21:17)
[2022-01-24] MEDS: IBUPROFEN 600 MG TABLET (FP) PO PRN (21:27)
[2022-01-24] MEDS: MELATONIN 5 MG TABLETS PO SCH (21:28)
[2022-01-24] MEDS: THIAMINE HCL 100 MG TABLET (FP) PO SCH (21:28)
[2022-01-24] MEDS ORDERED: chlordiazePOXIDE HCL 25 MG CAPSULE PO PRN (21:37)
[2022-01-24] MEDS: chlordiazePOXIDE HCL 25 MG CAPSULE PO SCH (22:19)
[2022-01-24] MEDS ORDERED: chlordiazePOXIDE HCL 25 MG CAPSULE ONE (22:19)
[2022-01-25] MEDS ORDERED: chlordiazePOXIDE HCL 25 MG CAPSULE ONE ×2 (05:28→10:46)
[2022-01-25] MEDS: chlordiazePOXIDE HCL 25 MG CAPSULE PO SCH ×4 (05:29→22:24)
[2022-01-25] MEDS ORDERED: ONDANSETRON *ODT* 4 MG TABLET ONE (09:05)
[2022-01-25] MEDS ORDERED: IBUPROFEN 600 MG TABLET (FP) PO ONE (09:18)
[2022-01-25] MEDS: IBUPROFEN 600 MG TABLET (FP) PO PRN ×2 (09:59→18:12)
[2022-01-25] MEDS: PRENATAL VITAMINS W/ FOLIC ACID TABLET (FP) PO SCH (11:40)
[2022-01-25] MEDS: NICOTINE 14 MG/24 HOURS TOPICAL PATCH TD SCH (11:40)
[2022-01-25] MEDS ORDERED: QUEtiapine FUMARATE 100 MG TABLET (FP) PO ONE (15:42)
[2022-01-25] MEDS ORDERED: QUEtiapine FUMARATE 50 MG TABLET PO ONE (15:49)
[2022-01-25] MEDS: IBUPROFEN 400 MG TABLET (FP) PO PRN (16:56)
[2022-01-25] MEDS: METHOCARBAMOL 500 MG TABLET PO PRN (17:29)
[2022-01-25] MEDS: ACETAMINOPHEN 325 MG TABLET (FP) PO PRN (18:52)
[2022-01-25] MEDS: THIAMINE HCL 100 MG TABLET (FP) PO SCH (22:24)
[2022-01-25] MEDS: QUEtiapine FUMARATE 100 MG TABLET (FP) PO SCH (22:24)
[2022-01-25] MEDS: MELATONIN 5 MG TABLETS PO SCH (22:24)
[2022-01-26] MEDS: chlordiazePOXIDE HCL 25 MG CAPSULE PO SCH ×4 (06:05→22:26)
[2022-01-26] MEDS: NICOTINE 14 MG/24 HOURS TOPICAL PATCH TD SCH (10:49)
[2022-01-26] MEDS: PRENATAL VITAMINS W/ FOLIC ACID TABLET (FP) PO SCH (10:49)
[2022-01-26] MEDS: QUEtiapine FUMARATE 100 MG TABLET (FP) PO SCH ×2 (10:49→22:26)
[2022-01-26] MEDS: IBUPROFEN 600 MG TABLET (FP) PO PRN (12:28)
[2022-01-26] MEDS: ACETAMINOPHEN 325 MG TABLET (FP) PO PRN (17:26)
[2022-01-26] MEDS ORDERED: BENZOCAINE 10 % GEL TUBE MM PRN (17:56)
[2022-01-26] MEDS: BENZOCAINE 20 % GEL TUBE MM PRN (22:24)
[2022-01-26] MEDS: MELATONIN 5 MG TABLETS PO SCH (22:25)
[2022-01-26] MEDS: THIAMINE HCL 100 MG TABLET (FP) PO SCH (22:26)
[2022-01-27] MEDS ORDERED: chlordiazePOXIDE HCL 10 MG CAPSULE PO PRN
[2022-01-27] MEDS: chlordiazePOXIDE HCL 10 MG CAPSULE PO SCH ×4 (06:29→22:27)
[2022-01-27] MEDS: IBUPROFEN 600 MG TABLET (FP) PO PRN ×2 (08:27→17:44)
[2022-01-27] MEDS: METHOCARBAMOL 500 MG TABLET PO PRN ×2 (08:28→22:26)
[2022-01-27] MEDS: NICOTINE 14 MG/24 HOURS TOPICAL PATCH TD SCH (10:39)
[2022-01-27] MEDS: PRENATAL VITAMINS W/ FOLIC ACID TABLET (FP) PO SCH (10:40)
[2022-01-27] MEDS: QUEtiapine FUMARATE 100 MG TABLET (FP) PO SCH ×2 (10:40→22:23)
[2022-01-27] MEDS: BENZOCAINE 20 % GEL TUBE MM PRN ×2 (10:41→17:40)
[2022-01-27 16:20] LABS: HEMATOCRIT 44.6 % (35.4-49); HEMOGLOBIN 15.1 GM/dL (11.7-16.9); MCH 31.6 pg (25.7-33.7); MCHC 33.7 g/dl (32.0-35.9); MEAN CELL VOLUME 93.7 fl (80-96); MEAN PLT VOLUME 7.7 fl (7.5-11.1); PLATELET COUNT 341 10^3/uL (134-434); RBC 4.77 M/mm3 (4.00-5.60); RDW 13.8 % (11.9-15.9); WHITE BLOOD COUNT 7.5 K/mm3 (4.0-10.0)
[2022-01-27 16:29] LABS: CALCIUM 9.1 mg/dL (8.5-10.1)
[2022-01-27 16:30] LABS: ALBUMIN 3.2 g/dl (3.4-5.0); BLOOD UREA NITROGEN 13.4 mg/dL (7-18)
[2022-01-27 16:35] LABS: BILIRUBIN,TOTAL 0.2 mg/dL (0.2-1)
[2022-01-27] MEDS ORDERED: ALBUTEROL SO4 HFA INHALER IH PRN (19:55)
[2022-01-27] MEDS ORDERED: guaiFENesin 600 MG TABLET.ER (FP) PO SCH (22:00)
[2022-01-27] MEDS: MELATONIN 5 MG TABLETS PO SCH (22:22)
[2022-01-27] MEDS: THIAMINE HCL 100 MG TABLET (FP) PO SCH (22:23)
[2022-01-28] MEDS: chlordiazePOXIDE HCL 10 MG CAPSULE PO SCH ×2 (05:37→18:30)
[2022-01-28] MEDS: IBUPROFEN 600 MG TABLET (FP) PO PRN ×3 (05:39→22:42)
[2022-01-28] MEDS: QUEtiapine FUMARATE 100 MG TABLET (FP) PO SCH (09:14)
[2022-01-28] MEDS: PRENATAL VITAMINS W/ FOLIC ACID TABLET (FP) PO SCH (09:14)
[2022-01-28] MEDS: NICOTINE 14 MG/24 HOURS TOPICAL PATCH TD SCH (09:14)
[2022-01-28] MEDS: QUEtiapine FUMARATE 200 MG TABLET PO SCH (22:40)
[2022-01-28] MEDS: MELATONIN 5 MG TABLETS PO SCH (22:40)
[2022-01-28] MEDS: PRAZOSIN HCL 1 MG CAPSULE PO SCH (22:40)
[2022-01-28] MEDS: THIAMINE HCL 100 MG TABLET (FP) PO SCH (22:41)
[2022-01-28] MEDS: DIVALPROEX SODIUM 250 MG TABLET E.C. PO SCH (22:41)
[2022-01-28] MEDS: busPIRone HCL 5 MG TABLET PO SCH (22:46)
[2022-01-29] MEDS ORDERED: chlordiazePOXIDE HCL 10 MG CAPSULE PO ONE (05:00)
[2022-01-29] MEDS: busPIRone HCL 5 MG TABLET PO SCH ×3 (05:47→22:19)
[2022-01-29] MEDS: IBUPROFEN 400 MG TABLET (FP) PO PRN (05:48)
[2022-01-29] MEDS ORDERED: QUEtiapine FUMARATE 100 MG TABLET (FP) PO SCH (10:00)
[2022-01-29] MEDS: METHOCARBAMOL 500 MG TABLET PO PRN (10:37)
[2022-01-29] MEDS: DIVALPROEX SODIUM 250 MG TABLET E.C. PO SCH ×2 (10:37→22:19)
[2022-01-29] MEDS: PRENATAL VITAMINS W/ FOLIC ACID TABLET (FP) PO SCH (10:37)
[2022-01-29] MEDS: NICOTINE 14 MG/24 HOURS TOPICAL PATCH TD SCH (10:38)
[2022-01-29] MEDS ORDERED: hydrOXYzine PAMOATE 50 MG CAPSULE (FP) PO ONE (19:18)
[2022-01-29] MEDS: THIAMINE HCL 100 MG TABLET (FP) PO SCH (22:19)
[2022-01-29] MEDS: MELATONIN 5 MG TABLETS PO SCH (22:19)
[2022-01-29] MEDS: QUEtiapine FUMARATE 200 MG TABLET PO SCH (22:19)
[2022-01-29] MEDS: PRAZOSIN HCL 1 MG CAPSULE PO SCH (22:19)
[2022-01-30 05:55] VITALS: RESP 16
[2022-01-30] MEDS: busPIRone HCL 5 MG TABLET PO SCH (06:03)
[2022-01-30 09:01] VITALS: BP 158/72; PULSE 90; TEMP 97.7
== END 2022-01-30 09:54 | disposition home or self-care (01) | DRG 775 ==
LOC: YASAS 20:12 → Y3N 01-25 11:14
PROVIDERS: ADMIT Allergy & Immunology; ATTEND Surgery
PROC: HZ2ZZZZ Detoxification Services for Substance Abuse Treatment (ICD-10-PCS; principal; 2022-01-25)
DX: F10.20 Alcohol dependence, uncomplicated (principal); F12.20 Cannabis dependence, uncomplicated; F17.210 Nicotine dependence, cigarettes, uncomplicated; F25.9 Schizoaffective disorder, unspecified; F19.24 Other psychoactive substance dependence with psychoactive substance-induced mood disorder; G47.00 Insomnia, unspecified; J45.909 Unspecified asthma, uncomplicated; K21.9 Gastro-esophageal reflux disease without esophagitis; K08.89 Other specified disorders of teeth and supporting structures; Z86.59 Personal history of other mental and behavioral disorders; Z91.410 Personal history of adult physical and sexual abuse; Z91.199 Patient's noncompliance with other medical treatment and regimen due to unspecified reason
CPT/HCPCS: 36415; 71046-TC-FY; 80053; 85027; 86780; C9803-CS; U0003; U0005

== ENCOUNTER 2022-01-31 18:42 | Inpatient (IN) | payer OTHER ==
[2022-01-31 20:43] VITALS: RESP 18; BMI 32.3
[2022-01-31] MEDS ORDERED: MAGNESIUM CITRATE 300 ML BOTTLE PO PRN (21:22)
[2022-01-31] MEDS ORDERED: ACETAMINOPHEN 325 MG TABLET (FP) PO PRN (21:22)
[2022-01-31] MEDS ORDERED: LOPERAMIDE HCL 2 MG CAPSULE PO PRN (21:22)
[2022-01-31] MEDS ORDERED: MAG HYDROX/AL HYDROX/SIMETH 30 ML UNIT-DOSE CUP PO PRN (21:22)
[2022-01-31] MEDS ORDERED: P-EPHED 60MG/TRIPROLIDI 2.5MG TABLET PO PRN (21:22)
[2022-01-31] MEDS ORDERED: MAGNESIUM HYDROX 2400MG/30ML ORAL SUSPENSION 30 ML CUP PO PRN (21:22)
[2022-01-31] MEDS ORDERED: NICOTINE POLACRILEX 2 MG GUM BC PRN (21:22)
[2022-01-31] MEDS ORDERED: guaiFENesin 200 MG/10 ML 10 ML UNIT-DOSE CUPS PO PRN (21:22)
[2022-01-31] MEDS ORDERED: IBUPROFEN 400 MG TABLET (FP) PO ONE (21:54)
[2022-01-31] MEDS: IBUPROFEN 400 MG TABLET (FP) PO PRN (21:55)
[2022-01-31] MEDS ORDERED: MELATONIN 5 MG TABLETS PO SCH (22:00)
[2022-01-31] MEDS ORDERED: THIAMINE HCL 100 MG TABLET (FP) PO SCH (22:00)
[2022-02-01 01:10] VITALS: BP 121/80; PULSE 94; TEMP 96.9
[2022-02-01] MEDS ORDERED: PRENATAL VITAMINS W/ FOLIC ACID TABLET (FP) PO SCH (10:00)
[2022-02-01] MEDS ORDERED: NICOTINE 14 MG/24 HOURS TOPICAL PATCH TD SCH (10:00)
[2022-02-01 10:32] LABS: HEMATOCRIT 41.9 % (35.4-49); HEMOGLOBIN 13.7 GM/dL (11.7-16.9); MCH 30.2 pg (25.7-33.7); MCHC 32.6 g/dl (32.0-35.9); MEAN CELL VOLUME 92.8 fl (80-96); MEAN PLT VOLUME 8.2 fl (7.5-11.1); PLATELET COUNT 288 10^3/uL (134-434); RBC 4.52 M/mm3 (4.00-5.60); RDW 14.1 % (11.9-15.9); WHITE BLOOD COUNT 7.6 K/mm3 (4.0-10.0)
[2022-02-01 10:39] LABS: ALBUMIN 3.2 g/dl (3.4-5.0); BLOOD UREA NITROGEN 22.9 mg/dL (7-18); CALCIUM 9.2 mg/dL (8.5-10.1)
[2022-02-01 10:43] LABS: CREATININE 0.9 mg/dL (0.55-1.3)
[2022-02-01 10:44] LABS: BILIRUBIN,TOTAL 0.6 mg/dL (0.2-1); TOT PROT 5.8 g/dl (6.4-8.2)
[2022-02-01] MEDS ORDERED: DIVALPROEX SODIUM 500 MG TABLET E.C. PO SCH (10:45)
[2022-02-01] MEDS ORDERED: QUEtiapine FUMARATE 100 MG TABLET (FP) PO SCH (10:45)
[2022-02-01] MEDS ORDERED: DIVALPROEX SODIUM 250 MG TABLET E.C. PO SCH ×2 (10:47→11:00)
[2022-02-01 13:23] LABS: URINE APPEARANCE CLEAR; URINE BILIRUBIN NEGATIVE (NEGATIVE); URINE COLOR YELLOW; URINE GLUCOSE (UA) NEGATIVE (NEGATIVE); URINE KETONE NEGATIVE (NEGATIVE); URINE LEUK ESTERASE NEGATIVE (NEGATIVE); URINE NITRITE NEGATIVE (NEGATIVE); URINE PROTEIN NEGATIVE (NEGATIVE); URINE UROBILINOGEN 0.2 mg/dL (0.2-1.0)
[2022-02-01] MEDS: IBUPROFEN 400 MG TABLET (FP) PO PRN (15:17)
[2022-02-01] MEDS ORDERED: QUEtiapine FUMARATE 200 MG TABLET PO SCH (22:00)
[2022-02-01] MEDS ORDERED: PRAZOSIN HCL 1 MG CAPSULE PO SCH (22:00)
== END 2022-02-01 16:30 | disposition left against medical advice (07) | DRG 770 ==
LOC: YASAS 18:42 → Y3E 02-01 00:20
PROVIDERS: ADMIT Allergy & Immunology; ATTEND Psychiatry & Neurology Pain Medicine
PROC: HZ42ZZZ Group Counseling for Substance Abuse Treatment, Cognitive-Behavioral (ICD-10-PCS; principal; 2022-02-01)
DX: F10.20 Alcohol dependence, uncomplicated (principal); F14.20 Cocaine dependence, uncomplicated; F13.20 Sedative, hypnotic or anxiolytic dependence, uncomplicated; F12.20 Cannabis dependence, uncomplicated; F17.210 Nicotine dependence, cigarettes, uncomplicated; F10.24 Alcohol dependence with alcohol-induced mood disorder; F10.282 Alcohol dependence with alcohol-induced sleep disorder; F31.9 Bipolar disorder, unspecified; F43.10 Post-traumatic stress disorder, unspecified; J45.909 Unspecified asthma, uncomplicated; Z91.410 Personal history of adult physical and sexual abuse
CPT/HCPCS: 36415; 80053; 81003; 85027; 86780; C9803-CS; U0003; U0005

== ENCOUNTER 2022-02-04 16:34 | Inpatient (IN) | payer OTHER ==
[2022-02-04 17:39] VITALS: RESP 18; BMI 32.1
[2022-02-05] MEDS ORDERED: MAGNESIUM CITRATE 300 ML BOTTLE PO PRN (00:56)
[2022-02-05] MEDS ORDERED: ACETAMINOPHEN 325 MG TABLET (FP) PO PRN (00:56)
[2022-02-05] MEDS ORDERED: NICOTINE POLACRILEX 2 MG GUM BC PRN (00:56)
[2022-02-05] MEDS ORDERED: guaiFENesin 200 MG/10 ML 10 ML UNIT-DOSE CUPS PO PRN (00:56)
[2022-02-05] MEDS ORDERED: P-EPHED 60MG/TRIPROLIDI 2.5MG TABLET PO PRN (00:56)
[2022-02-05] MEDS ORDERED: LOPERAMIDE HCL 2 MG CAPSULE PO PRN (00:56)
[2022-02-05] MEDS ORDERED: MAG HYDROX/AL HYDROX/SIMETH 30 ML UNIT-DOSE CUP PO PRN (00:56)
[2022-02-05] MEDS ORDERED: MAGNESIUM HYDROX 2400MG/30ML ORAL SUSPENSION 30 ML CUP PO PRN (00:56)
[2022-02-05] MEDS: IBUPROFEN 400 MG TABLET (FP) PO PRN ×2 (07:14→21:07)
[2022-02-05] MEDS: PRENATAL VITAMINS W/ FOLIC ACID TABLET (FP) PO SCH (09:28)
[2022-02-05] MEDS: NICOTINE 14 MG/24 HOURS TOPICAL PATCH TD SCH (09:29)
[2022-02-05 11:29] LABS: HEMOGLOBIN 13.1 GM/dL (11.7-16.9); MCH 30.5 pg (25.7-33.7); MCHC 32.7 g/dl (32.0-35.9); MEAN CELL VOLUME 93.1 fl (80-96); MEAN PLT VOLUME 8.7 fl (7.5-11.1); PLATELET COUNT 246 10^3/uL (134-434); RBC 4.29 M/mm3 (4.00-5.60); WHITE BLOOD COUNT 5.4 K/mm3 (4.0-10.0)
[2022-02-05 11:45] LABS: BLOOD UREA NITROGEN 17.2 mg/dL (7-18); CALCIUM 8.9 mg/dL (8.5-10.1); CREATININE 0.9 mg/dL (0.55-1.3)
[2022-02-05 11:46] LABS: BILIRUBIN,TOTAL 0.9 mg/dL (0.2-1)
[2022-02-05 11:47] LABS: TOT PROT 5.5 g/dl (6.4-8.2)
[2022-02-05] MEDS: QUEtiapine FUMARATE 50 MG TABLET PO SCH ×2 (14:15→21:07)
[2022-02-05] MEDS: DIVALPROEX SODIUM 500 MG TABLET E.C. PO SCH (14:15)
[2022-02-05] MEDS: THIAMINE HCL 100 MG TABLET (FP) PO SCH (21:08)
[2022-02-05] MEDS: MELATONIN 5 MG TABLETS PO SCH (21:09)
[2022-02-05] MEDS: PRAZOSIN HCL 1 MG CAPSULE PO SCH (23:30)
[2022-02-06] MEDS: QUEtiapine FUMARATE 50 MG TABLET PO SCH ×2 (09:37→21:13)
[2022-02-06] MEDS: PRENATAL VITAMINS W/ FOLIC ACID TABLET (FP) PO SCH (09:37)
[2022-02-06] MEDS: DIVALPROEX SODIUM 500 MG TABLET E.C. PO SCH (09:37)
[2022-02-06] MEDS: NICOTINE 14 MG/24 HOURS TOPICAL PATCH TD SCH (09:37)
[2022-02-06] MEDS: IBUPROFEN 400 MG TABLET (FP) PO PRN ×2 (09:38→21:12)
[2022-02-06] MEDS: ACAMPROSATE CALCIUM 333 MG TABLET.DR PO SCH ×2 (13:49→21:15)
[2022-02-06] MEDS: THIAMINE HCL 100 MG TABLET (FP) PO SCH (21:13)
[2022-02-06] MEDS: PRAZOSIN HCL 1 MG CAPSULE PO SCH (21:13)
[2022-02-06] MEDS: MELATONIN 5 MG TABLETS PO SCH (21:15)
[2022-02-07] MEDS: ACAMPROSATE CALCIUM 333 MG TABLET.DR PO SCH ×3 (06:41→21:23)
[2022-02-07] MEDS: IBUPROFEN 400 MG TABLET (FP) PO PRN (06:42)
[2022-02-07] MEDS: DIVALPROEX SODIUM 500 MG TABLET E.C. PO SCH (09:49)
[2022-02-07] MEDS: NICOTINE 14 MG/24 HOURS TOPICAL PATCH TD SCH (09:49)
[2022-02-07] MEDS: PRENATAL VITAMINS W/ FOLIC ACID TABLET (FP) PO SCH (09:49)
[2022-02-07] MEDS: QUEtiapine FUMARATE 50 MG TABLET PO SCH ×2 (09:49→21:23)
[2022-02-07] MEDS: hydrOXYzine PAMOATE 50 MG CAPSULE (FP) PO PRN (12:25)
[2022-02-07] MEDS: MELATONIN 5 MG TABLETS PO SCH (21:22)
[2022-02-07] MEDS: THIAMINE HCL 100 MG TABLET (FP) PO SCH (21:23)
[2022-02-07] MEDS: PRAZOSIN HCL 1 MG CAPSULE PO SCH (21:25)
[2022-02-08] MEDS: ACAMPROSATE CALCIUM 333 MG TABLET.DR PO SCH (06:09)
[2022-02-08 07:05] VITALS: BP 142/79; PULSE 70; TEMP 96.3
[2022-02-08] MEDS: PRENATAL VITAMINS W/ FOLIC ACID TABLET (FP) PO SCH (09:36)
[2022-02-08] MEDS: NICOTINE 14 MG/24 HOURS TOPICAL PATCH TD SCH (09:36)
[2022-02-08] MEDS: QUEtiapine FUMARATE 50 MG TABLET PO SCH (09:37)
[2022-02-08] MEDS: DIVALPROEX SODIUM 500 MG TABLET E.C. PO SCH (09:37)
[2022-02-08] MEDS: IBUPROFEN 400 MG TABLET (FP) PO PRN (09:38)
[2022-02-08] MEDS: hydrOXYzine PAMOATE 50 MG CAPSULE (FP) PO PRN (09:38)
[2022-02-08 15:38] LABS: URINE APPEARANCE CLEAR; URINE BILIRUBIN NEGATIVE (NEGATIVE); URINE COLOR YELLOW; URINE GLUCOSE (UA) NEGATIVE (NEGATIVE); URINE KETONE NEGATIVE (NEGATIVE); URINE LEUK ESTERASE NEGATIVE (NEGATIVE); URINE NITRITE NEGATIVE (NEGATIVE); URINE PROTEIN NEGATIVE (NEGATIVE); URINE UROBILINOGEN 0.2 mg/dL (0.2-1.0)
== END 2022-02-08 12:20 | disposition left against medical advice (07) | DRG 770 ==
LOC: YASAS 16:34 → Y6N 02-05 01:39 → Y5N 02-05 02:48
PROVIDERS: ADMIT Allergy & Immunology; ATTEND Allergy & Immunology
PROC: HZ42ZZZ Group Counseling for Substance Abuse Treatment, Cognitive-Behavioral (ICD-10-PCS; principal; 2022-02-05)
DX: F10.20 Alcohol dependence, uncomplicated (principal); F12.20 Cannabis dependence, uncomplicated; F17.210 Nicotine dependence, cigarettes, uncomplicated; F10.280 Alcohol dependence with alcohol-induced anxiety disorder; F10.282 Alcohol dependence with alcohol-induced sleep disorder; F10.24 Alcohol dependence with alcohol-induced mood disorder; F31.9 Bipolar disorder, unspecified; F43.10 Post-traumatic stress disorder, unspecified; F90.9 Attention-deficit hyperactivity disorder, unspecified type; G47.00 Insomnia, unspecified; J45.909 Unspecified asthma, uncomplicated; K21.9 Gastro-esophageal reflux disease without esophagitis; Z56.0 Unemployment, unspecified; Z59.00 Homelessness unspecified
CPT/HCPCS: 36415; 80053; 80164; 81003; 85027; 86780; 87811; C9803-CS; U0003; U0005

== ENCOUNTER 2022-02-24 20:02 | Inpatient (IN) | payer OTHER ==
[2022-02-24 20:30] VITALS: BMI 31.4
[2022-02-24] MEDS ORDERED: NICOTINE POLACRILEX 2 MG GUM BUC PRN (20:56)
[2022-02-24] MEDS ORDERED: NALOXONE HCL (KLOXXADO) 8 MG SPRAY NS PRN (20:56)
[2022-02-24] MEDS ORDERED: IBUPROFEN 400 MG TABLET (FP) PO PRN (20:56)
[2022-02-24] MEDS ORDERED: METHOCARBAMOL 500 MG TABLET PO PRN (20:56)
[2022-02-24] MEDS ORDERED: DICYCLOMINE HCL 10 MG CAPSULE PO PRN (20:56)
[2022-02-24] MEDS ORDERED: BISMUTH SUBSALICYLATE 524 MG/30 ML PO PRN (20:56)
[2022-02-24] MEDS ORDERED: ONDANSETRON *ODT* 4 MG TABLET SL PRN (20:56)
[2022-02-24] MEDS ORDERED: POLYETHYLENE GLYCOL (HEALTHYLAX) 3350 17 GM PACKET PO PRN (20:56)
[2022-02-24] MEDS ORDERED: LOPERAMIDE HCL 2 MG CAPSULE PO PRN (20:56)
[2022-02-24] MEDS ORDERED: P-EPHED 60MG/TRIPROLIDI 2.5MG TABLET PO PRN (20:56)
[2022-02-24] MEDS ORDERED: MAG HYDROX/AL HYDROX/SIMETH 30 ML UNIT-DOSE CUP PO PRN (20:56)
[2022-02-24] MEDS ORDERED: BENZOCAINE/MENTHOL (CHLORASEPTIC ) LOZENGE MM PRN (20:56)
[2022-02-24] MEDS ORDERED: guaiFENesin 200 MG/10 ML 10 ML UNIT-DOSE CUPS PO PRN (20:56)
[2022-02-24] MEDS ORDERED: MAGNESIUM HYDROX 2400MG/30ML ORAL SUSPENSION 30 ML CUP PO PRN (20:56)
[2022-02-24] MEDS ORDERED: ACETAMINOPHEN 325 MG TABLET (FP) PO PRN ×2 (20:56)
[2022-02-24] MEDS: THIAMINE HCL 100 MG TABLET (FP) PO SCH (22:04)
[2022-02-24] MEDS: MELATONIN 5 MG TABLETS PO SCH (22:04)
[2022-02-25 09:01] LABS: HEMATOCRIT 44.8 % (35.4-49); HEMOGLOBIN 14.7 GM/dL (11.7-16.9); MCH 30.6 pg (25.7-33.7); MCHC 32.7 g/dl (32.0-35.9); MEAN CELL VOLUME 93.5 fl (80-96); MEAN PLT VOLUME 8.3 fl (7.5-11.1); PLATELET COUNT 278 10^3/uL (134-434); RBC 4.79 M/mm3 (4.00-5.60); RDW 13.7 % (11.9-15.9); WHITE BLOOD COUNT 7.7 K/mm3 (4.0-10.0)
[2022-02-25 09:09] LABS: BLOOD UREA NITROGEN 19.2 mg/dL (7-18); CALCIUM 8.9 mg/dL (8.5-10.1)
[2022-02-25 09:10] LABS: ALBUMIN 3.1 g/dl (3.4-5.0)
[2022-02-25 09:13] LABS: CREATININE 1.1 mg/dL (0.55-1.3)
[2022-02-25 09:14] LABS: BILIRUBIN,TOTAL 1.5 mg/dL (0.2-1); TOT PROT 5.7 g/dl (6.4-8.2)
[2022-02-25] MEDS: PRENATAL VITAMINS W/ FOLIC ACID TABLET (FP) PO SCH (10:18)
[2022-02-25] MEDS: hydrOXYzine PAMOATE 50 MG CAPSULE (FP) PO PRN ×2 (10:21→17:34)
[2022-02-25] MEDS: IBUPROFEN 600 MG TABLET (FP) PO PRN (10:21)
[2022-02-25] MEDS: NICOTINE 14 MG/24 HOURS TOPICAL PATCH TD SCH (10:22)
[2022-02-25] MEDS ORDERED: chlordiazePOXIDE HCL 25 MG CAPSULE PO PRN (10:26)
[2022-02-25] MEDS: chlordiazePOXIDE HCL 25 MG CAPSULE PO SCH ×3 (10:47→22:19)
[2022-02-25] MEDS ORDERED: QUEtiapine FUMARATE 100 MG TABLET (FP) PO SCH ×2 (22:00)
[2022-02-25] MEDS: THIAMINE HCL 100 MG TABLET (FP) PO SCH (22:22)
[2022-02-25] MEDS: MELATONIN 5 MG TABLETS PO SCH (22:23)
[2022-02-26] MEDS: chlordiazePOXIDE HCL 25 MG CAPSULE PO SCH ×4 (05:36→22:11)
[2022-02-26] MEDS ORDERED: DIVALPROEX SODIUM 500 MG TABLET E.C. PO SCH (10:00)
[2022-02-26] MEDS: PRENATAL VITAMINS W/ FOLIC ACID TABLET (FP) PO SCH (10:11)
[2022-02-26] MEDS: NICOTINE 14 MG/24 HOURS TOPICAL PATCH TD SCH (10:13)
[2022-02-26] MEDS ORDERED: DIVALPROEX NA *ER* EXTEND REL 500 MG TABLET.SA (FP) PO ONE (10:39)
[2022-02-26] MEDS: IBUPROFEN 600 MG TABLET (FP) PO PRN (17:54)
[2022-02-26] MEDS ORDERED: QUEtiapine FUMARATE 300 MG TABLET PO SCH (22:00)
[2022-02-26] MEDS: QUETIAPINE FUMARATE 200 MG, QUETIAPINE FUMARATE 50 MG PO SCH (22:14)
[2022-02-26] MEDS: THIAMINE HCL 100 MG TABLET (FP) PO SCH (22:14)
[2022-02-27] MEDS: chlordiazePOXIDE HCL 10 MG CAPSULE PO SCH ×4 (05:46→22:07)
[2022-02-27] MEDS ORDERED: DIVALPROEX SODIUM 500 MG TABLET E.C. PO SCH (10:00)
[2022-02-27] MEDS: NICOTINE 14 MG/24 HOURS TOPICAL PATCH TD SCH (10:16)
[2022-02-27] MEDS: QUEtiapine FUMARATE 50 MG TABLET PO SCH (10:16)
[2022-02-27] MEDS: DIVALPROEX NA *ER* EXTEND REL 500 MG TABLET.SA (FP) PO SCH (10:16)
[2022-02-27] MEDS: PRENATAL VITAMINS W/ FOLIC ACID TABLET (FP) PO SCH (10:16)
[2022-02-27] MEDS: IBUPROFEN 600 MG TABLET (FP) PO PRN (17:47)
[2022-02-27] MEDS: THIAMINE HCL 100 MG TABLET (FP) PO SCH (22:07)
[2022-02-27] MEDS: QUETIAPINE FUMARATE 200 MG, QUETIAPINE FUMARATE 50 MG PO SCH (22:07)
[2022-02-28] MEDS ORDERED: chlordiazePOXIDE HCL 10 MG CAPSULE PO PRN
[2022-02-28] MEDS: chlordiazePOXIDE HCL 10 MG CAPSULE PO SCH ×2 (05:24→16:53)
[2022-02-28] MEDS: QUEtiapine FUMARATE 50 MG TABLET PO SCH (09:16)
[2022-02-28] MEDS: PRENATAL VITAMINS W/ FOLIC ACID TABLET (FP) PO SCH (09:16)
[2022-02-28] MEDS: DIVALPROEX NA *ER* EXTEND REL 500 MG TABLET.SA (FP) PO SCH (09:16)
[2022-02-28] MEDS: NICOTINE 14 MG/24 HOURS TOPICAL PATCH TD SCH (09:17)
[2022-02-28 09:20] VITALS: RESP 18
[2022-02-28 13:02] VITALS: TEMP 97.5
[2022-02-28 13:43] LABS: URINE APPEARANCE CLEAR; URINE BILIRUBIN NEGATIVE (NEGATIVE); URINE COLOR YELLOW; URINE GLUCOSE (UA) NEGATIVE (NEGATIVE); URINE KETONE NEGATIVE (NEGATIVE); URINE LEUK ESTERASE NEGATIVE (NEGATIVE); URINE NITRITE NEGATIVE (NEGATIVE); URINE PROTEIN NEGATIVE (NEGATIVE); URINE UROBILINOGEN 0.2 mg/dL (0.2-1.0)
[2022-02-28] MEDS: IBUPROFEN 600 MG TABLET (FP) PO PRN (16:52)
[2022-02-28 17:24] VITALS: BP 107/57; PULSE 77
[2022-03-01] MEDS ORDERED: chlordiazePOXIDE HCL 10 MG CAPSULE PO ONE (05:00)
== END 2022-02-28 20:16 | disposition home or self-care (01) | DRG 775 ==
LOC: YASAS 20:02 → Y3N 21:47
PROVIDERS: ADMIT Allergy & Immunology; ATTEND Surgery
PROC: HZ2ZZZZ Detoxification Services for Substance Abuse Treatment (ICD-10-PCS; principal; 2022-02-24)
DX: F10.230 Alcohol dependence with withdrawal, uncomplicated (principal); F12.20 Cannabis dependence, uncomplicated; F17.210 Nicotine dependence, cigarettes, uncomplicated; F19.282 Other psychoactive substance dependence with psychoactive substance-induced sleep disorder; F19.280 Other psychoactive substance dependence with psychoactive substance-induced anxiety disorder; F19.24 Other psychoactive substance dependence with psychoactive substance-induced mood disorder; F31.9 Bipolar disorder, unspecified; F25.9 Schizoaffective disorder, unspecified; F43.10 Post-traumatic stress disorder, unspecified; F90.9 Attention-deficit hyperactivity disorder, unspecified type; G47.00 Insomnia, unspecified; Z91.410 Personal history of adult physical and sexual abuse; Z56.0 Unemployment, unspecified; Z59.00 Homelessness unspecified
CPT/HCPCS: 36415; 80053; 80164; 81003; 85027; 86780; 87811; C9803-CS; Q0162; U0003; U0005

== ENCOUNTER 2022-03-03 17:09 | Inpatient (IN) | payer OTHER ==
[2022-03-03 19:48] VITALS: BMI 31.4
[2022-03-03] MEDS ORDERED: MAGNESIUM HYDROX 2400MG/30ML ORAL SUSPENSION 30 ML CUP PO PRN (21:26)
[2022-03-03] MEDS ORDERED: POLYETHYLENE GLYCOL (HEALTHYLAX) 3350 17 GM PACKET PO PRN (21:26)
[2022-03-03] MEDS ORDERED: MAG HYDROX/AL HYDROX/SIMETH 30 ML UNIT-DOSE CUP PO PRN (21:26)
[2022-03-03] MEDS ORDERED: MELATONIN 5 MG TABLETS PO PRN (21:26)
[2022-03-03] MEDS ORDERED: IBUPROFEN 400 MG TABLET (FP) PO PRN (21:26)
[2022-03-03] MEDS ORDERED: ACETAMINOPHEN 325 MG TABLET (FP) PO PRN ×2 (21:26)
[2022-03-03] MEDS ORDERED: BENZOCAINE/MENTHOL (CHLORASEPTIC ) LOZENGE MM PRN (21:26)
[2022-03-03] MEDS ORDERED: LOPERAMIDE HCL 2 MG CAPSULE PO PRN (21:26)
[2022-03-03] MEDS ORDERED: P-EPHED 60MG/TRIPROLIDI 2.5MG TABLET PO PRN (21:26)
[2022-03-03] MEDS ORDERED: guaiFENesin 200 MG/10 ML 10 ML UNIT-DOSE CUPS PO PRN (21:26)
[2022-03-03] MEDS ORDERED: DICYCLOMINE HCL 10 MG CAPSULE PO PRN (21:26)
[2022-03-03] MEDS ORDERED: BISMUTH SUBSALICYLATE 524 MG/30 ML PO PRN (21:26)
[2022-03-03] MEDS ORDERED: ONDANSETRON *ODT* 4 MG TABLET SL PRN (21:26)
[2022-03-03] MEDS ORDERED: METHOCARBAMOL 500 MG TABLET PO PRN (21:26)
[2022-03-03] MEDS ORDERED: hydrOXYzine PAMOATE 25 MG CAPSULE (FP) PO PRN (21:26)
[2022-03-03] MEDS ORDERED: diazePAM 5 MG TABLET PO PRN (21:28)
[2022-03-03] MEDS ORDERED: IBUPROFEN 600 MG TABLET (FP) PO ONE (22:46)
[2022-03-03] MEDS: IBUPROFEN 600 MG TABLET (FP) PO PRN (22:54)
[2022-03-04] MEDS: THIAMINE HCL 100 MG TABLET (FP) PO SCH ×2 (00:24→22:45)
[2022-03-04] MEDS: diazePAM 5 MG TABLET PO SCH ×5 (00:24→22:49)
[2022-03-04] MEDS: PRENATAL VITAMINS W/ FOLIC ACID TABLET (FP) PO SCH (10:34)
[2022-03-04] MEDS: NICOTINE 7 MG/24 HOURS TOPICAL PATCH TD SCH (10:34)
[2022-03-04] MEDS: IBUPROFEN 600 MG TABLET (FP) PO PRN (10:36)
[2022-03-04] MEDS: QUEtiapine FUMARATE 50 MG TABLET PO SCH (10:49)
[2022-03-04] MEDS: FLUoxetine HCL 10 MG TABLET PO SCH (11:28)
[2022-03-04] MEDS: DIVALPROEX NA *ER* EXTEND REL 250 MG TABLET.SA PO SCH (11:28)
[2022-03-04] MEDS ORDERED: QUEtiapine FUMARATE 300 MG TABLET PO SCH (22:00)
[2022-03-04] MEDS: QUEtiapine FUMARATE 100 MG TABLET (FP) PO SCH (22:47)
[2022-03-05] MEDS: diazePAM 5 MG TABLET PO SCH ×2 (05:44→17:30)
[2022-03-05] MEDS: QUEtiapine FUMARATE 50 MG TABLET PO SCH (10:19)
[2022-03-05] MEDS: FLUoxetine HCL 10 MG TABLET PO SCH (10:20)
[2022-03-05] MEDS: DIVALPROEX NA *ER* EXTEND REL 250 MG TABLET.SA PO SCH (10:20)
[2022-03-05] MEDS: PRENATAL VITAMINS W/ FOLIC ACID TABLET (FP) PO SCH (10:20)
[2022-03-05] MEDS: NICOTINE 7 MG/24 HOURS TOPICAL PATCH TD SCH (10:21)
[2022-03-05] MEDS: IBUPROFEN 600 MG TABLET (FP) PO PRN (17:33)
[2022-03-05 21:02] VITALS: RESP 18
[2022-03-05] MEDS ORDERED: QUEtiapine FUMARATE 100 MG TABLET (FP) PO SCH (22:00)
[2022-03-05] MEDS: THIAMINE HCL 100 MG TABLET (FP) PO SCH (22:25)
[2022-03-05] MEDS: QUEtiapine FUMARATE 100 MG TABLET (FP) PO SCH (22:25)
[2022-03-06] MEDS ORDERED: diazePAM 5 MG TABLET PO ONE (06:00)
[2022-03-06 09:24] VITALS: BP 149/82; PULSE 98; TEMP 96.9
[2022-03-06] MEDS: NICOTINE 7 MG/24 HOURS TOPICAL PATCH TD SCH (09:44)
[2022-03-06] MEDS: DIVALPROEX NA *ER* EXTEND REL 250 MG TABLET.SA PO SCH (09:44)
[2022-03-06] MEDS: FLUoxetine HCL 10 MG TABLET PO SCH (09:45)
[2022-03-06] MEDS: QUEtiapine FUMARATE 50 MG TABLET PO SCH (09:45)
[2022-03-06] MEDS: PRENATAL VITAMINS W/ FOLIC ACID TABLET (FP) PO SCH (09:45)
== END 2022-03-06 09:42 | disposition home or self-care (01) | DRG 775 ==
LOC: YASAS 17:09 → Y6N 22:53
PROVIDERS: ADMIT Allergy & Immunology; ATTEND Surgery
PROC: HZ2ZZZZ Detoxification Services for Substance Abuse Treatment (ICD-10-PCS; principal; 2022-03-03)
DX: F10.230 Alcohol dependence with withdrawal, uncomplicated (principal); F15.20 Other stimulant dependence, uncomplicated; F12.20 Cannabis dependence, uncomplicated; F17.210 Nicotine dependence, cigarettes, uncomplicated; F10.282 Alcohol dependence with alcohol-induced sleep disorder; F10.280 Alcohol dependence with alcohol-induced anxiety disorder; F10.24 Alcohol dependence with alcohol-induced mood disorder; F31.9 Bipolar disorder, unspecified; F41.9 Anxiety disorder, unspecified; F43.10 Post-traumatic stress disorder, unspecified; J45.909 Unspecified asthma, uncomplicated; K21.9 Gastro-esophageal reflux disease without esophagitis; Z91.410 Personal history of adult physical and sexual abuse
CPT/HCPCS: C9803-CS; U0003; U0005

== ENCOUNTER 2022-03-08 20:16 | Inpatient (IN) | payer OTHER ==
[2022-03-08 22:26] VITALS: BMI 32.1
[2022-03-09] MEDS ORDERED: guaiFENesin 200 MG/10 ML 10 ML UNIT-DOSE CUPS PO PRN (03:14)
[2022-03-09] MEDS ORDERED: LOPERAMIDE HCL 2 MG CAPSULE PO PRN (03:14)
[2022-03-09] MEDS ORDERED: MAGNESIUM HYDROX 2400MG/30ML ORAL SUSPENSION 30 ML CUP PO PRN (03:14)
[2022-03-09] MEDS ORDERED: BENZOCAINE/MENTHOL (CHLORASEPTIC ) LOZENGE MM PRN (03:14)
[2022-03-09] MEDS ORDERED: NICOTINE POLACRILEX 2 MG GUM BC PRN (03:14)
[2022-03-09] MEDS ORDERED: P-EPHED 60MG/TRIPROLIDI 2.5MG TABLET PO PRN (03:14)
[2022-03-09] MEDS ORDERED: MAG HYDROX/AL HYDROX/SIMETH 30 ML UNIT-DOSE CUP PO PRN (03:14)
[2022-03-09] MEDS ORDERED: POLYETHYLENE GLYCOL (HEALTHYLAX) 3350 17 GM PACKET PO PRN (03:14)
[2022-03-09] MEDS ORDERED: IBUPROFEN 400 MG TABLET (FP) PO ONE (07:45)
[2022-03-09] MEDS: IBUPROFEN 400 MG TABLET (FP) PO PRN (07:48)
[2022-03-09] MEDS ORDERED: ALBUTEROL SO4 HFA INHALER IH PRN (09:31)
[2022-03-09] MEDS: PRENATAL VITAMINS W/ FOLIC ACID TABLET (FP) PO SCH (09:46)
[2022-03-09] MEDS: NICOTINE 14 MG/24 HOURS TOPICAL PATCH TD SCH (09:46)
[2022-03-09] MEDS: ACETAMINOPHEN 325 MG TABLET (FP) PO PRN (10:23)
[2022-03-09] MEDS ORDERED: QUEtiapine FUMARATE 50 MG TABLET PO ONE (15:03)
[2022-03-09 17:18] LABS: ALBUMIN 3.6 g/dl (3.4-5.0); BLOOD UREA NITROGEN 18.6 mg/dL (7-18); CALCIUM 9.4 mg/dL (8.5-10.1)
[2022-03-09 17:22] LABS: CREATININE 1.1 mg/dL (0.55-1.3)
[2022-03-09 17:24] LABS: BILIRUBIN,TOTAL 0.8 mg/dL (0.2-1); TOT PROT 6.6 g/dl (6.4-8.2)
[2022-03-09 17:32] LABS: HEMATOCRIT 44.3 % (35.4-49); HEMOGLOBIN 14.6 GM/dL (11.7-16.9); MCH 30.7 pg (25.7-33.7); MCHC 32.9 g/dl (32.0-35.9); MEAN CELL VOLUME 93.3 fl (80-96); MEAN PLT VOLUME 8.4 fl (7.5-11.1); PLATELET COUNT 294 10^3/uL (134-434); RBC 4.75 M/mm3 (4.00-5.60)
[2022-03-09] MEDS: DOXYCYCLINE HYCLATE 100 MG TABLET PO SCH (17:50)
[2022-03-09] MEDS: MELATONIN 5 MG TABLETS PO SCH (21:15)
[2022-03-09] MEDS: THIAMINE HCL 100 MG TABLET (FP) PO SCH (21:15)
[2022-03-09] MEDS: QUETIAPINE FUMARATE 200 MG, QUETIAPINE FUMARATE 50 MG PO SCH (21:15)
[2022-03-09] MEDS ORDERED: QUEtiapine FUMARATE 200 MG TABLET PO SCH (22:00)
[2022-03-10 06:58] VITALS: RESP 18; TEMP 97.7
[2022-03-10] MEDS: NICOTINE 14 MG/24 HOURS TOPICAL PATCH TD SCH (10:23)
[2022-03-10] MEDS: FLUoxetine HCL 20 MG CAPSULE PO SCH (10:23)
[2022-03-10] MEDS: DOXYCYCLINE HYCLATE 100 MG TABLET PO SCH ×2 (10:23→18:22)
[2022-03-10] MEDS: DIVALPROEX SODIUM 500 MG TABLET E.C. PO SCH (10:23)
[2022-03-10] MEDS: QUEtiapine FUMARATE 50 MG TABLET PO SCH (10:23)
[2022-03-10] MEDS: PRENATAL VITAMINS W/ FOLIC ACID TABLET (FP) PO SCH (10:23)
[2022-03-10] MEDS: IBUPROFEN 400 MG TABLET (FP) PO PRN (10:24)
[2022-03-10 10:59] LABS: URINE APPEARANCE CLEAR; URINE BILIRUBIN NEGATIVE (NEGATIVE); URINE COLOR YELLOW; URINE GLUCOSE (UA) NEGATIVE (NEGATIVE); URINE KETONE NEGATIVE (NEGATIVE); URINE LEUK ESTERASE NEGATIVE (NEGATIVE); URINE NITRITE NEGATIVE (NEGATIVE); URINE PROTEIN NEGATIVE (NEGATIVE); URINE UROBILINOGEN 0.2 mg/dL (0.2-1.0)
[2022-03-10 12:14] LABS: HIV INTERPRETATION NEGATIVE (NEGATIVE)
[2022-03-10] MEDS ORDERED: NICOTINE 14 MG/24 HOURS TOPICAL PATCH TD PRN (12:46)
[2022-03-10] MEDS: THIAMINE HCL 100 MG TABLET (FP) PO SCH (21:24)
[2022-03-10] MEDS: QUETIAPINE FUMARATE 200 MG, QUETIAPINE FUMARATE 50 MG PO SCH (21:24)
[2022-03-10] MEDS: ACETAMINOPHEN 325 MG TABLET (FP) PO PRN (21:25)
[2022-03-10] MEDS: MELATONIN 5 MG TABLETS PO SCH (21:25)
[2022-03-11 07:20] VITALS: BP 152/72; PULSE 63
[2022-03-11] MEDS: DOXYCYCLINE HYCLATE 100 MG TABLET PO SCH (10:08)
[2022-03-11] MEDS: PRENATAL VITAMINS W/ FOLIC ACID TABLET (FP) PO SCH (10:09)
[2022-03-11] MEDS: DIVALPROEX SODIUM 500 MG TABLET E.C. PO SCH (10:11)
[2022-03-11] MEDS: QUEtiapine FUMARATE 50 MG TABLET PO SCH (10:11)
[2022-03-11] MEDS: FLUoxetine HCL 20 MG CAPSULE PO SCH (10:11)
== END 2022-03-11 10:22 | disposition left against medical advice (07) | DRG 770 ==
LOC: YASAS 20:16 → Y3W 03-09 08:04 → UNDOADMIN 03-09 08:04 → Y3W 03-09 11:32
PROVIDERS: ADMIT Allergy & Immunology; ATTEND Psychiatry & Neurology Pain Medicine
PROC: HZ42ZZZ Group Counseling for Substance Abuse Treatment, Cognitive-Behavioral (ICD-10-PCS; principal; 2022-03-09)
DX: F10.20 Alcohol dependence, uncomplicated (principal); F12.20 Cannabis dependence, uncomplicated; F17.210 Nicotine dependence, cigarettes, uncomplicated; F31.9 Bipolar disorder, unspecified; F20.9 Schizophrenia, unspecified; J45.909 Unspecified asthma, uncomplicated; K21.9 Gastro-esophageal reflux disease without esophagitis; Z86.59 Personal history of other mental and behavioral disorders; Z56.0 Unemployment, unspecified; Z59.00 Homelessness unspecified
CPT/HCPCS: 36415; 80053; 80164; 81003; 85027; 86780; 87389; C9803-CS; U0003; U0005

== ENCOUNTER 2022-05-04 08:03 | Inpatient (IN) | payer OTHER ==
[2022-05-04 08:41] VITALS: BMI 32.1
[2022-05-04] MEDS ORDERED: ACETAMINOPHEN 325 MG TABLET (FP) PO PRN ×2 (09:07)
[2022-05-04] MEDS ORDERED: DICYCLOMINE HCL 10 MG CAPSULE PO PRN (09:07)
[2022-05-04] MEDS ORDERED: MAG HYDROX/AL HYDROX/SIMETH 30 ML UNIT-DOSE CUP PO PRN (09:07)
[2022-05-04] MEDS ORDERED: BISMUTH SUBSALICYLATE 262 MG/15 ML BTL PO PRN (09:07)
[2022-05-04] MEDS ORDERED: hydrOXYzine PAMOATE 25 MG CAPSULE (FP) PO PRN (09:07)
[2022-05-04] MEDS ORDERED: LOPERAMIDE HCL 2 MG CAPSULE PO PRN (09:07)
[2022-05-04] MEDS ORDERED: NICOTINE 10 MG CARTRIDGE (INHALER) IH PRN (09:07)
[2022-05-04] MEDS ORDERED: NICOTINE POLACRILEX 2 MG GUM BUC PRN (09:07)
[2022-05-04] MEDS ORDERED: ONDANSETRON *ODT* 4 MG TABLET SL PRN (09:07)
[2022-05-04] MEDS ORDERED: IBUPROFEN 400 MG TABLET (FP) PO PRN (09:07)
[2022-05-04] MEDS ORDERED: POLYETHYLENE GLYCOL (HEALTHYLAX) 3350 17 GM PACKET PO PRN (09:07)
[2022-05-04] MEDS ORDERED: BENZOCAINE/MENTHOL (CHLORASEPTIC ) LOZENGE MM PRN (09:07)
[2022-05-04] MEDS ORDERED: MAGNESIUM HYDROX 2400MG/30ML ORAL SUSPENSION 30 ML CUP PO PRN (09:07)
[2022-05-04] MEDS ORDERED: P-EPHED 60MG/TRIPROLIDI 2.5MG TABLET PO PRN (09:07)
[2022-05-04] MEDS ORDERED: ALBUTEROL SO4 HFA INHALER IH PRN ×2 (09:12→13:18)
[2022-05-04] MEDS ORDERED: NICOTINE 7 MG/24 HOURS TOPICAL PATCH TD ONE (10:21)
[2022-05-04] MEDS ORDERED: diazePAM 5 MG TABLET ONE (10:21)
[2022-05-04] MEDS ORDERED: PRENATAL VITAMINS W/ FOLIC ACID TABLET (FP) PO ONE (10:21)
[2022-05-04] MEDS: PRENATAL VITAMINS W/ FOLIC ACID TABLET (FP) PO SCH (10:25)
[2022-05-04] MEDS: diazePAM 5 MG TABLET PO SCH ×3 (10:31→22:19)
[2022-05-04] MEDS: NICOTINE 7 MG/24 HOURS TOPICAL PATCH TD SCH (10:31)
[2022-05-04] MEDS: MINERAL OIL/PETROLAT/WATER TOPICAL CREAM 113 GM JAR TP SCH (10:58)
[2022-05-04] MEDS: FAMOTIDINE 20 MG TABLET PO SCH (10:58)
[2022-05-04] MEDS ORDERED: NICOTINE POLACRILEX 2 MG GUM ONE (11:00)
[2022-05-04 12:36] LABS: HEMATOCRIT 44.6 % (35.4-49); HEMOGLOBIN 15.1 GM/dL (11.7-16.9); MCH 31.9 pg (25.7-33.7); MCHC 33.7 g/dl (32.0-35.9); MEAN CELL VOLUME 94.6 fl (80-96); MEAN PLT VOLUME 8.2 fl (7.5-11.1); PLATELET COUNT 313 10^3/uL (134-434); RBC 4.72 M/mm3 (4.00-5.60); RDW 13.9 % (11.9-15.9); WHITE BLOOD COUNT 7.3 K/mm3 (4.0-10.0)
[2022-05-04 12:50] LABS: ALBUMIN 3.8 g/dl (3.4-5.0); BLOOD UREA NITROGEN 13.4 mg/dL (7-18)
[2022-05-04 12:51] LABS: CALCIUM 9.5 mg/dL (8.5-10.1)
[2022-05-04 12:54] LABS: TOT PROT 6.6 g/dl (6.4-8.2)
[2022-05-04] MEDS: IBUPROFEN 600 MG TABLET (FP) PO PRN (17:23)
[2022-05-04] MEDS: THIAMINE HCL 100 MG TABLET (FP) PO SCH (22:19)
[2022-05-04] MEDS: QUEtiapine FUMARATE 200 MG TABLET PO SCH (22:19)
[2022-05-04] MEDS: MELATONIN 5 MG TABLETS PO SCH (22:19)
[2022-05-04] MEDS: METHOCARBAMOL 500 MG TABLET PO PRN (22:19)
[2022-05-05] MEDS: diazePAM 5 MG TABLET PO SCH ×3 (06:19→22:35)
[2022-05-05] MEDS: FAMOTIDINE 20 MG TABLET PO SCH (09:33)
[2022-05-05] MEDS: PRENATAL VITAMINS W/ FOLIC ACID TABLET (FP) PO SCH (09:33)
[2022-05-05] MEDS: FLUoxetine HCL 20 MG CAPSULE PO SCH (09:33)
[2022-05-05] MEDS: MINERAL OIL/PETROLAT/WATER TOPICAL CREAM 113 GM JAR TP SCH (09:34)
[2022-05-05] MEDS: NICOTINE 7 MG/24 HOURS TOPICAL PATCH TD SCH (09:34)
[2022-05-05] MEDS: DIVALPROEX NA *ER* EXTEND REL 500 MG TABLET.SA (FP) PO SCH (09:36)
[2022-05-05] MEDS: QUEtiapine FUMARATE 200 MG TABLET PO SCH (22:34)
[2022-05-05] MEDS: THIAMINE HCL 100 MG TABLET (FP) PO SCH (22:34)
[2022-05-05] MEDS: MELATONIN 5 MG TABLETS PO SCH (22:34)
[2022-05-06] MEDS: diazePAM 5 MG TABLET PO SCH ×2 (05:50→17:36)
[2022-05-06] MEDS: NICOTINE 7 MG/24 HOURS TOPICAL PATCH TD SCH (10:17)
[2022-05-06] MEDS: DIVALPROEX NA *ER* EXTEND REL 500 MG TABLET.SA (FP) PO SCH (10:21)
[2022-05-06] MEDS: PRENATAL VITAMINS W/ FOLIC ACID TABLET (FP) PO SCH (10:21)
[2022-05-06] MEDS: MINERAL OIL/PETROLAT/WATER TOPICAL CREAM 113 GM JAR TP SCH (10:21)
[2022-05-06] MEDS: FAMOTIDINE 20 MG TABLET PO SCH (10:21)
[2022-05-06] MEDS: FLUoxetine HCL 20 MG CAPSULE PO SCH (10:21)
[2022-05-06] MEDS: IBUPROFEN 600 MG TABLET (FP) PO PRN (17:40)
[2022-05-06] MEDS: METHOCARBAMOL 500 MG TABLET PO PRN (17:41)
[2022-05-06] MEDS: QUEtiapine FUMARATE 200 MG TABLET PO SCH (22:12)
[2022-05-06] MEDS: MELATONIN 5 MG TABLETS PO SCH (22:13)
[2022-05-06] MEDS: THIAMINE HCL 100 MG TABLET (FP) PO SCH (22:13)
[2022-05-07] MEDS ORDERED: diazePAM 5 MG TABLET PO ONE (06:00)
[2022-05-07 07:21] VITALS: RESP 16
[2022-05-07 09:13] VITALS: BP 132/79; PULSE 87; TEMP 98.1
== END 2022-05-07 10:12 | disposition home or self-care (01) | DRG 775 ==
LOC: YASAS 08:03 → Y3N 09:56
PROVIDERS: ADMIT Allergy & Immunology; ATTEND Family Medicine
PROC: HZ2ZZZZ Detoxification Services for Substance Abuse Treatment (ICD-10-PCS; principal; 2022-05-04)
DX: F10.230 Alcohol dependence with withdrawal, uncomplicated (principal); F12.20 Cannabis dependence, uncomplicated; F17.210 Nicotine dependence, cigarettes, uncomplicated; F19.282 Other psychoactive substance dependence with psychoactive substance-induced sleep disorder; F31.9 Bipolar disorder, unspecified; F25.1 Schizoaffective disorder, depressive type; J45.20 Mild intermittent asthma, uncomplicated; Z91.410 Personal history of adult physical and sexual abuse; Z56.0 Unemployment, unspecified; Z59.00 Homelessness unspecified
CPT/HCPCS: 36415; 80053; 82140; 85027; 86780; 87811; C9803-CS; U0003; U0005

== ENCOUNTER 2022-06-08 20:53 | Inpatient (IN) | payer OTHER ==
[2022-06-08 21:18] VITALS: BMI 30.8
[2022-06-08] MEDS ORDERED: BENZOCAINE/MENTHOL (CHLORASEPTIC ) LOZENGE MM PRN (23:59)
[2022-06-08] MEDS ORDERED: BISMUTH SUBSALICYLATE 524 MG/30 ML PO PRN (23:59)
[2022-06-08] MEDS ORDERED: ONDANSETRON *ODT* 4 MG TABLET SL PRN (23:59)
[2022-06-08] MEDS ORDERED: POLYETHYLENE GLYCOL (HEALTHYLAX) 3350 17 GM PACKET PO PRN (23:59)
[2022-06-08] MEDS ORDERED: ACETAMINOPHEN 325 MG TABLET (FP) PO PRN ×2 (23:59)
[2022-06-08] MEDS ORDERED: MAGNESIUM HYDROX 2400MG/30ML ORAL SUSPENSION 30 ML CUP PO PRN (23:59)
[2022-06-08] MEDS ORDERED: LOPERAMIDE HCL 2 MG CAPSULE PO PRN (23:59)
[2022-06-08] MEDS ORDERED: DICYCLOMINE HCL 10 MG CAPSULE PO PRN (23:59)
[2022-06-08] MEDS ORDERED: MAG HYDROX/AL HYDROX/SIMETH 30 ML UNIT-DOSE CUP PO PRN (23:59)
[2022-06-08] MEDS ORDERED: NICOTINE POLACRILEX 2 MG GUM BUC PRN (23:59)
[2022-06-08] MEDS ORDERED: IBUPROFEN 400 MG TABLET (FP) PO PRN (23:59)
[2022-06-09] MEDS ORDERED: cloNIDine HCL 0.1 MG TABLET PO ONE (02:28)
[2022-06-09] MEDS: METHOCARBAMOL 500 MG TABLET PO PRN (02:44)
[2022-06-09] MEDS ORDERED: hydrOXYzine PAMOATE 25 MG CAPSULE (FP) PO ONE (05:44)
[2022-06-09] MEDS ORDERED: diazePAM 5 MG TABLET PO PRN (07:43)
[2022-06-09] MEDS ORDERED: diazePAM 5 MG TABLET PO ONE (08:00)
[2022-06-09] MEDS ORDERED: diazePAM 5 MG TABLET ONE (08:04)
[2022-06-09] MEDS ORDERED: IBUPROFEN 600 MG TABLET (FP) PO ONE (10:21)
[2022-06-09] MEDS: IBUPROFEN 600 MG TABLET (FP) PO PRN (10:24)
[2022-06-09] MEDS: NICOTINE 14 MG/24 HOURS TOPICAL PATCH TD SCH (10:25)
[2022-06-09] MEDS: diazePAM 5 MG TABLET PO SCH ×3 (10:25→22:26)
[2022-06-09] MEDS: PRENATAL VITAMINS W/ FOLIC ACID TABLET (FP) PO SCH (10:25)
[2022-06-09 12:11] LABS: HEMATOCRIT 45.4 % (35.4-49); HEMOGLOBIN 14.9 GM/dL (11.7-16.9); MCH 31.2 pg (25.7-33.7); MCHC 32.9 g/dl (32.0-35.9); MEAN CELL VOLUME 94.9 fl (80-96); MEAN PLT VOLUME 8.5 fl (7.5-11.1); PLATELET COUNT 272 10^3/uL (134-434); RBC 4.79 M/mm3 (4.00-5.60); RDW 13.3 % (11.9-15.9); WHITE BLOOD COUNT 7.9 K/mm3 (4.0-10.0)
[2022-06-09 12:19] LABS: CALCIUM 9.2 mg/dL (8.5-10.1)
[2022-06-09 12:20] LABS: ALBUMIN 3.8 g/dl (3.4-5.0); BLOOD UREA NITROGEN 14.7 mg/dL (7-18)
[2022-06-09 12:21] LABS: CREATININE 1.1 mg/dL (0.55-1.3)
[2022-06-09 12:23] LABS: BILIRUBIN,TOTAL 0.7 mg/dL (0.2-1); TOT PROT 6.7 g/dl (6.4-8.2)
[2022-06-09] MEDS ORDERED: QUEtiapine FUMARATE 50 MG TABLET PO ONE (14:30)
[2022-06-09] MEDS ORDERED: MELATONIN 5 MG TABLETS PO SCH (22:00)
[2022-06-09] MEDS: THIAMINE HCL 100 MG TABLET (FP) PO SCH (22:26)
[2022-06-09] MEDS: QUEtiapine FUMARATE 100 MG TABLET (FP) PO SCH (22:26)
[2022-06-10] MEDS: diazePAM 5 MG TABLET PO SCH ×4 (05:38→22:36)
[2022-06-10] MEDS: METHOCARBAMOL 500 MG TABLET PO PRN ×2 (10:08→16:36)
[2022-06-10] MEDS: PRENATAL VITAMINS W/ FOLIC ACID TABLET (FP) PO SCH (10:08)
[2022-06-10] MEDS: IBUPROFEN 600 MG TABLET (FP) PO PRN (10:08)
[2022-06-10] MEDS: FLUoxetine HCL 10 MG CAPSULE PO SCH (10:09)
[2022-06-10] MEDS: NICOTINE 14 MG/24 HOURS TOPICAL PATCH TD SCH (10:12)
[2022-06-10] MEDS: QUEtiapine FUMARATE 100 MG TABLET (FP) PO SCH (22:36)
[2022-06-10] MEDS: THIAMINE HCL 100 MG TABLET (FP) PO SCH (22:36)
[2022-06-11] MEDS: diazePAM 5 MG TABLET PO SCH ×3 (05:29→22:23)
[2022-06-11] MEDS: PRENATAL VITAMINS W/ FOLIC ACID TABLET (FP) PO SCH (10:18)
[2022-06-11] MEDS: FLUoxetine HCL 10 MG CAPSULE PO SCH (10:18)
[2022-06-11] MEDS: NICOTINE 14 MG/24 HOURS TOPICAL PATCH TD SCH (10:19)
[2022-06-11] MEDS ORDERED: QUEtiapine FUMARATE 50 MG TABLET PO ONE (12:15)
[2022-06-11] MEDS: THIAMINE HCL 100 MG TABLET (FP) PO SCH (22:22)
[2022-06-11] MEDS: QUEtiapine FUMARATE 100 MG TABLET (FP) PO SCH (22:23)
[2022-06-12] MEDS: diazePAM 5 MG TABLET PO SCH ×2 (05:22→17:37)
[2022-06-12] MEDS: IBUPROFEN 600 MG TABLET (FP) PO PRN (05:24)
[2022-06-12] MEDS: FLUoxetine HCL 10 MG CAPSULE PO SCH (10:29)
[2022-06-12] MEDS: METHOCARBAMOL 500 MG TABLET PO PRN (10:29)
[2022-06-12] MEDS: PRENATAL VITAMINS W/ FOLIC ACID TABLET (FP) PO SCH (10:29)
[2022-06-12] MEDS: NICOTINE 14 MG/24 HOURS TOPICAL PATCH TD SCH (10:30)
[2022-06-12] MEDS: QUEtiapine FUMARATE 50 MG TABLET PO SCH (10:53)
[2022-06-12] MEDS ORDERED: hydrOXYzine PAMOATE 25 MG CAPSULE (FP) PO ONE (16:53)
[2022-06-12] MEDS: QUEtiapine FUMARATE 100 MG TABLET (FP) PO SCH (22:07)
[2022-06-12] MEDS: THIAMINE HCL 100 MG TABLET (FP) PO SCH (22:07)
[2022-06-13] MEDS ORDERED: diazePAM 5 MG TABLET PO ONE (06:00)
[2022-06-13 06:15] VITALS: RESP 18
[2022-06-13 09:35] VITALS: BP 110/61; PULSE 73; TEMP 97.8
[2022-06-13] MEDS: NICOTINE 14 MG/24 HOURS TOPICAL PATCH TD SCH (10:03)
[2022-06-13] MEDS: PRENATAL VITAMINS W/ FOLIC ACID TABLET (FP) PO SCH (10:03)
[2022-06-13] MEDS: QUEtiapine FUMARATE 50 MG TABLET PO SCH (10:03)
[2022-06-13] MEDS: FLUoxetine HCL 10 MG CAPSULE PO SCH (10:03)
== END 2022-06-13 11:12 | disposition home or self-care (01) | DRG 775 ==
LOC: YASAS 20:53 → Y6N 06-09 12:13
PROVIDERS: ADMIT Allergy & Immunology; ATTEND Surgery
PROC: HZ2ZZZZ Detoxification Services for Substance Abuse Treatment (ICD-10-PCS; principal; 2022-06-09)
DX: F10.230 Alcohol dependence with withdrawal, uncomplicated (principal); F12.20 Cannabis dependence, uncomplicated; F15.20 Other stimulant dependence, uncomplicated; F17.210 Nicotine dependence, cigarettes, uncomplicated; F19.282 Other psychoactive substance dependence with psychoactive substance-induced sleep disorder; F19.24 Other psychoactive substance dependence with psychoactive substance-induced mood disorder; F31.9 Bipolar disorder, unspecified; F25.9 Schizoaffective disorder, unspecified; G47.00 Insomnia, unspecified; J45.20 Mild intermittent asthma, uncomplicated; K21.9 Gastro-esophageal reflux disease without esophagitis; Z91.410 Personal history of adult physical and sexual abuse
CPT/HCPCS: 36415; 80053; 85027; 86780; 87811; C9803-CS; U0003; U0005

== ENCOUNTER 2022-06-22 23:23 | Inpatient (IN) | payer OTHER ==
[2022-06-22 23:49] VITALS: BMI 30.8
[2022-06-23] MEDS ORDERED: BISMUTH SUBSALICYLATE 524 MG/30 ML PO PRN (00:26)
[2022-06-23] MEDS ORDERED: MAG HYDROX/AL HYDROX/SIMETH 30 ML UNIT-DOSE CUP PO PRN (00:26)
[2022-06-23] MEDS ORDERED: NALOXONE HCL (KLOXXADO) 8 MG SPRAY NS PRN (00:26)
[2022-06-23] MEDS ORDERED: ONDANSETRON *ODT* 4 MG TABLET SL PRN (00:26)
[2022-06-23] MEDS ORDERED: DICYCLOMINE HCL 10 MG CAPSULE PO PRN (00:26)
[2022-06-23] MEDS ORDERED: BENZONATATE 200 MG CAPSULE PO PRN (00:26)
[2022-06-23] MEDS ORDERED: LOPERAMIDE HCL 2 MG CAPSULE PO PRN (00:26)
[2022-06-23] MEDS ORDERED: NALOXONE HCL 0.4 MG/ML VIAL IM PRN (00:26)
[2022-06-23] MEDS ORDERED: NICOTINE 10 MG CARTRIDGE (INHALER) IH PRN (00:26)
[2022-06-23] MEDS ORDERED: guaiFENesin 600 MG TABLET.ER (FP) PO PRN (00:26)
[2022-06-23] MEDS ORDERED: BENZOCAINE/MENTHOL (CHLORASEPTIC ) LOZENGE MM PRN (00:26)
[2022-06-23] MEDS ORDERED: POLYETHYLENE GLYCOL (HEALTHYLAX) 3350 17 GM PACKET PO PRN (00:26)
[2022-06-23] MEDS ORDERED: chlordiazePOXIDE HCL 25 MG CAPSULE PO ONE (09:30)
[2022-06-23] MEDS: PRENATAL VITAMINS W/ FOLIC ACID TABLET (FP) PO SCH (10:20)
[2022-06-23] MEDS: chlordiazePOXIDE HCL 25 MG CAPSULE PO SCH ×3 (11:50→22:33)
[2022-06-23] MEDS: IBUPROFEN 600 MG TABLET (FP) PO PRN (12:46)
[2022-06-23] MEDS: METHOCARBAMOL 500 MG TABLET PO PRN (12:46)
[2022-06-23] MEDS ORDERED: QUEtiapine FUMARATE 50 MG TABLET PO ONE (14:30)
[2022-06-23] MEDS: MAGNESIUM HYDROX 2400MG/30ML ORAL SUSPENSION 30 ML CUP PO PRN (15:00)
[2022-06-23] MEDS: IBUPROFEN 400 MG TABLET (FP) PO PRN (17:56)
[2022-06-23] MEDS ORDERED: QUEtiapine FUMARATE 100 MG TABLET (FP) PO SCH (22:00)
[2022-06-23] MEDS: THIAMINE HCL 100 MG TABLET (FP) PO SCH (22:32)
[2022-06-23] MEDS: MELATONIN 5 MG TABLETS PO SCH (22:36)
[2022-06-24] MEDS: chlordiazePOXIDE HCL 25 MG CAPSULE PO SCH ×4 (06:04→22:15)
[2022-06-24] MEDS: QUEtiapine FUMARATE 50 MG TABLET PO SCH (10:56)
[2022-06-24] MEDS: PRENATAL VITAMINS W/ FOLIC ACID TABLET (FP) PO SCH (10:56)
[2022-06-24] MEDS: IBUPROFEN 600 MG TABLET (FP) PO PRN (10:59)
[2022-06-24] MEDS: MAGNESIUM HYDROX 2400MG/30ML ORAL SUSPENSION 30 ML CUP PO PRN (11:00)
[2022-06-24 11:11] LABS: HEMATOCRIT 43.6 % (35.4-49); HEMOGLOBIN 14.8 GM/dL (11.7-16.9); MCH 31.5 pg (25.7-33.7); MCHC 33.9 g/dl (32.0-35.9); MEAN CELL VOLUME 92.7 fl (80-96); MEAN PLT VOLUME 8.9 fl (7.5-11.1); PLATELET COUNT 277 10^3/uL (134-434); RDW 13.3 % (11.9-15.9)
[2022-06-24] MEDS: FLUoxetine HCL 10 MG CAPSULE PO SCH (11:39)
[2022-06-24] MEDS: IBUPROFEN 400 MG TABLET (FP) PO PRN (17:24)
[2022-06-24] MEDS ORDERED: LACTULOSE 20 GM/30 ML UDC (FOR ORAL USE ONLY) PO PRN (19:19)
[2022-06-24] MEDS: THIAMINE HCL 100 MG TABLET (FP) PO SCH (22:15)
[2022-06-24] MEDS: QUEtiapine FUMARATE 100 MG TABLET (FP) PO SCH (22:15)
[2022-06-24] MEDS: MELATONIN 5 MG TABLETS PO SCH (22:19)
[2022-06-25 01:30] LABS: CALCIUM 9.1 mg/dL (8.5-10.1)
[2022-06-25 01:31] LABS: ALBUMIN 3.6 g/dl (3.4-5.0); BLOOD UREA NITROGEN 17.1 mg/dL (7-18)
[2022-06-25 01:34] LABS: CREATININE 1.1 mg/dL (0.55-1.3)
[2022-06-25 01:35] LABS: BILIRUBIN,TOTAL 1.1 mg/dL (0.2-1); TOT PROT 6.5 g/dl (6.4-8.2)
[2022-06-25] MEDS: chlordiazePOXIDE HCL 25 MG CAPSULE PO SCH ×4 (05:50→22:25)
[2022-06-25] MEDS: IBUPROFEN 600 MG TABLET (FP) PO PRN (05:53)
[2022-06-25] MEDS: METHOCARBAMOL 500 MG TABLET PO PRN ×3 (05:53→22:24)
[2022-06-25] MEDS ORDERED: ALBUTEROL SO4 HFA INHALER IH PRN (08:35)
[2022-06-25] MEDS: FLUoxetine HCL 10 MG CAPSULE PO SCH (10:08)
[2022-06-25] MEDS: QUEtiapine FUMARATE 50 MG TABLET PO SCH (10:09)
[2022-06-25] MEDS: PRENATAL VITAMINS W/ FOLIC ACID TABLET (FP) PO SCH (10:09)
[2022-06-25] MEDS: ACETAMINOPHEN 325 MG TABLET (FP) PO PRN (10:12)
[2022-06-25] MEDS: LACTULOSE 20 GM/30 ML UDC (FOR ORAL USE ONLY) PO SCH ×2 (13:47→22:24)
[2022-06-25] MEDS: IBUPROFEN 400 MG TABLET (FP) PO PRN ×2 (15:09→22:24)
[2022-06-25] MEDS: THIAMINE HCL 100 MG TABLET (FP) PO SCH (22:24)
[2022-06-25] MEDS: QUEtiapine FUMARATE 100 MG TABLET (FP) PO SCH (22:24)
[2022-06-25] MEDS: MELATONIN 5 MG TABLETS PO SCH (22:35)
[2022-06-26] MEDS: chlordiazePOXIDE HCL 10 MG CAPSULE PO SCH ×4 (05:15→22:06)
[2022-06-26] MEDS: LACTULOSE 20 GM/30 ML UDC (FOR ORAL USE ONLY) PO SCH ×3 (05:15→22:05)
[2022-06-26] MEDS: IBUPROFEN 600 MG TABLET (FP) PO PRN (05:18)
[2022-06-26] MEDS: QUEtiapine FUMARATE 50 MG TABLET PO SCH (10:11)
[2022-06-26] MEDS: FLUoxetine HCL 10 MG CAPSULE PO SCH (10:11)
[2022-06-26] MEDS: PRENATAL VITAMINS W/ FOLIC ACID TABLET (FP) PO SCH (10:11)
[2022-06-26] MEDS: METHOCARBAMOL 500 MG TABLET PO PRN ×2 (10:12→17:28)
[2022-06-26] MEDS: ACETAMINOPHEN 325 MG TABLET (FP) PO PRN (10:16)
[2022-06-26] MEDS: IBUPROFEN 400 MG TABLET (FP) PO PRN (17:28)
[2022-06-26] MEDS: MAGNESIUM HYDROX 2400MG/30ML ORAL SUSPENSION 30 ML CUP PO PRN (19:34)
[2022-06-26] MEDS: THIAMINE HCL 100 MG TABLET (FP) PO SCH (22:06)
[2022-06-26] MEDS: QUEtiapine FUMARATE 100 MG TABLET (FP) PO SCH (22:06)
[2022-06-26] MEDS: MELATONIN 5 MG TABLETS PO SCH (22:07)
[2022-06-27] MEDS: chlordiazePOXIDE HCL 10 MG CAPSULE PO SCH ×2 (05:15→16:54)
[2022-06-27] MEDS: LACTULOSE 20 GM/30 ML UDC (FOR ORAL USE ONLY) PO SCH ×3 (05:16→22:26)
[2022-06-27] MEDS: METHOCARBAMOL 500 MG TABLET PO PRN ×2 (05:17→16:53)
[2022-06-27] MEDS: IBUPROFEN 600 MG TABLET (FP) PO PRN ×2 (05:17→16:53)
[2022-06-27] MEDS: PRENATAL VITAMINS W/ FOLIC ACID TABLET (FP) PO SCH (10:19)
[2022-06-27] MEDS: FLUoxetine HCL 10 MG CAPSULE PO SCH (10:19)
[2022-06-27] MEDS: QUEtiapine FUMARATE 50 MG TABLET PO SCH (10:19)
[2022-06-27 17:05] VITALS: RESP 17
[2022-06-27] MEDS: THIAMINE HCL 100 MG TABLET (FP) PO SCH (22:27)
[2022-06-27] MEDS: MELATONIN 5 MG TABLETS PO SCH (22:27)
[2022-06-27] MEDS: QUEtiapine FUMARATE 100 MG TABLET (FP) PO SCH (22:27)
[2022-06-28] MEDS ORDERED: chlordiazePOXIDE HCL 10 MG CAPSULE PO ONE (05:00)
[2022-06-28] MEDS: LACTULOSE 20 GM/30 ML UDC (FOR ORAL USE ONLY) PO SCH (05:34)
[2022-06-28] MEDS: IBUPROFEN 600 MG TABLET (FP) PO PRN (05:35)
[2022-06-28] MEDS: METHOCARBAMOL 500 MG TABLET PO PRN (05:35)
[2022-06-28 05:46] VITALS: BP 100/55; PULSE 67; TEMP 97.7
== END 2022-06-28 07:05 | disposition home or self-care (01) | DRG 775 ==
LOC: YASAS 23:23 → Y6N 06-23 11:33
PROVIDERS: ADMIT Allergy & Immunology; ATTEND Psychiatry & Neurology Psychiatry
PROC: HZ2ZZZZ Detoxification Services for Substance Abuse Treatment (ICD-10-PCS; principal; 2022-06-23)
DX: F10.230 Alcohol dependence with withdrawal, uncomplicated (principal); F12.20 Cannabis dependence, uncomplicated; F17.210 Nicotine dependence, cigarettes, uncomplicated; F19.282 Other psychoactive substance dependence with psychoactive substance-induced sleep disorder; F19.24 Other psychoactive substance dependence with psychoactive substance-induced mood disorder; F41.9 Anxiety disorder, unspecified; F32.9 Major depressive disorder, single episode, unspecified; J45.20 Mild intermittent asthma, uncomplicated; K21.9 Gastro-esophageal reflux disease without esophagitis; R79.89 Other specified abnormal findings of blood chemistry; Z91.410 Personal history of adult physical and sexual abuse
CPT/HCPCS: 36415; 80053; 82140; 82962; 85027; 86780; 87811; C9803-CS; U0003; U0005

== ENCOUNTER 2022-07-06 17:12 | Inpatient (IN) | payer OTHER ==
[2022-07-06 19:05] VITALS: BMI 33.3
[2022-07-06] MEDS ORDERED: MAG HYDROX/AL HYDROX/SIMETH 30 ML UNIT-DOSE CUP PO PRN (20:00)
[2022-07-06] MEDS ORDERED: MAGNESIUM HYDROX 2400MG/30ML ORAL SUSPENSION 30 ML CUP PO PRN (20:00)
[2022-07-06] MEDS ORDERED: NALOXONE HCL (KLOXXADO) 8 MG SPRAY NS PRN (20:00)
[2022-07-06] MEDS ORDERED: LOPERAMIDE HCL 2 MG CAPSULE PO PRN (20:00)
[2022-07-06] MEDS ORDERED: POLYETHYLENE GLYCOL (HEALTHYLAX) 3350 17 GM PACKET PO PRN (20:00)
[2022-07-06] MEDS ORDERED: NALOXONE HCL 0.4 MG/ML VIAL IM PRN (20:00)
[2022-07-06] MEDS ORDERED: BENZOCAINE/MENTHOL (CHLORASEPTIC ) LOZENGE MM PRN (20:00)
[2022-07-06] MEDS ORDERED: NICOTINE POLACRILEX 2 MG GUM BC PRN (20:00)
[2022-07-06] MEDS ORDERED: guaiFENesin 600 MG TABLET.ER (FP) PO PRN (20:00)
[2022-07-06] MEDS ORDERED: BENZONATATE 200 MG CAPSULE PO PRN (20:00)
[2022-07-06] MEDS: hydrOXYzine PAMOATE 25 MG CAPSULE (FP) PO PRN (20:28)
[2022-07-06] MEDS: IBUPROFEN 600 MG TABLET (FP) PO PRN (20:28)
[2022-07-07] MEDS: ACETAMINOPHEN 325 MG TABLET (FP) PO PRN (02:11)
[2022-07-07] MEDS: MELATONIN 5 MG TABLETS PO SCH ×2 (02:13→22:16)
[2022-07-07] MEDS: THIAMINE HCL 100 MG TABLET (FP) PO SCH ×2 (02:14→21:00)
[2022-07-07] MEDS: NICOTINE 21 MG/24 HOURS TOPICAL PATCH TD SCH (09:32)
[2022-07-07] MEDS: hydrOXYzine PAMOATE 25 MG CAPSULE (FP) PO PRN (09:32)
[2022-07-07] MEDS: IBUPROFEN 600 MG TABLET (FP) PO PRN (09:32)
[2022-07-07] MEDS: PRENATAL VITAMINS W/ FOLIC ACID TABLET (FP) PO SCH (09:32)
[2022-07-07] MEDS ORDERED: FLUoxetine HCL 10 MG TABLET PO SCH (10:00)
[2022-07-07] MEDS: FLUoxetine HCL 20 MG CAPSULE PO SCH (10:10)
[2022-07-07] MEDS: QUEtiapine FUMARATE 100 MG TABLET (FP) PO SCH (10:10)
[2022-07-07 11:37] LABS: HEMATOCRIT 43.2 % (35.4-49); HEMOGLOBIN 14.8 GM/dL (11.7-16.9); MCH 31.3 pg (25.7-33.7); MCHC 34.2 g/dl (32.0-35.9); MEAN CELL VOLUME 91.7 fl (80-96); MEAN PLT VOLUME 8.2 fl (7.5-11.1); PLATELET COUNT 323 10^3/uL (134-434); RBC 4.71 M/mm3 (4.00-5.60); RDW 13.7 % (11.9-15.9); WHITE BLOOD COUNT 7.4 K/mm3 (4.0-10.0)
[2022-07-07 12:04] LABS: ALBUMIN 3.7 g/dl (3.4-5.0); BLOOD UREA NITROGEN 17.2 mg/dL (7-18); CALCIUM 9.6 mg/dL (8.5-10.1); CREATININE 0.9 mg/dL (0.55-1.3)
[2022-07-07 12:05] LABS: BILIRUBIN,TOTAL 0.5 mg/dL (0.2-1); TOT PROT 6.7 g/dl (6.4-8.2)
[2022-07-07 12:23] LABS: SYPHILIS W/ RPR CONF NON-REACTIVE (NONREACTIVE)
[2022-07-07] MEDS: ACAMPROSATE CALCIUM 333 MG TABLET.DR PO SCH ×2 (13:41→21:00)
[2022-07-07] MEDS: METHOCARBAMOL 500 MG TABLET PO PRN ×2 (13:42→21:00)
[2022-07-07 16:00] LABS: HIV INTERPRETATION NEGATIVE (NEGATIVE)
[2022-07-07] MEDS: QUEtiapine FUMARATE 200 MG TABLET PO SCH (21:00)
[2022-07-08] MEDS: ACAMPROSATE CALCIUM 333 MG TABLET.DR PO SCH ×3 (06:45→21:08)
[2022-07-08] MEDS: IBUPROFEN 400 MG TABLET (FP) PO PRN ×2 (06:46→21:09)
[2022-07-08] MEDS: QUEtiapine FUMARATE 100 MG TABLET (FP) PO SCH (09:28)
[2022-07-08] MEDS: FLUoxetine HCL 20 MG CAPSULE PO SCH (09:28)
[2022-07-08] MEDS: PRENATAL VITAMINS W/ FOLIC ACID TABLET (FP) PO SCH (09:28)
[2022-07-08] MEDS: NICOTINE 21 MG/24 HOURS TOPICAL PATCH TD SCH (09:29)
[2022-07-08] MEDS: METHOCARBAMOL 500 MG TABLET PO PRN ×2 (09:30→17:02)
[2022-07-08] MEDS: hydrOXYzine PAMOATE 25 MG CAPSULE (FP) PO PRN (17:02)
[2022-07-08] MEDS: QUEtiapine FUMARATE 200 MG TABLET PO SCH (21:08)
[2022-07-08] MEDS: THIAMINE HCL 100 MG TABLET (FP) PO SCH (21:08)
[2022-07-08] MEDS: MELATONIN 5 MG TABLETS PO SCH (21:09)
[2022-07-09] MEDS: IBUPROFEN 400 MG TABLET (FP) PO PRN ×2 (06:00→21:11)
[2022-07-09] MEDS: METHOCARBAMOL 500 MG TABLET PO PRN (06:00)
[2022-07-09] MEDS: ACAMPROSATE CALCIUM 333 MG TABLET.DR PO SCH ×3 (06:01→21:11)
[2022-07-09] MEDS: PRENATAL VITAMINS W/ FOLIC ACID TABLET (FP) PO SCH (09:36)
[2022-07-09] MEDS: FLUoxetine HCL 20 MG CAPSULE PO SCH (09:36)
[2022-07-09] MEDS: NICOTINE 21 MG/24 HOURS TOPICAL PATCH TD SCH (09:37)
[2022-07-09] MEDS: QUEtiapine FUMARATE 100 MG TABLET (FP) PO SCH (09:37)
[2022-07-09] MEDS: ACETAMINOPHEN 325 MG TABLET (FP) PO PRN (09:38)
[2022-07-09] MEDS: hydrOXYzine PAMOATE 25 MG CAPSULE (FP) PO PRN (12:05)
[2022-07-09] MEDS: QUEtiapine FUMARATE 200 MG TABLET PO SCH (21:10)
[2022-07-09] MEDS: MELATONIN 5 MG TABLETS PO SCH (21:10)
[2022-07-09] MEDS: THIAMINE HCL 100 MG TABLET (FP) PO SCH (21:43)
[2022-07-10] MEDS: IBUPROFEN 400 MG TABLET (FP) PO PRN (06:24)
[2022-07-10] MEDS: hydrOXYzine PAMOATE 25 MG CAPSULE (FP) PO PRN (06:25)
[2022-07-10] MEDS: ACAMPROSATE CALCIUM 333 MG TABLET.DR PO SCH ×4 (07:53→21:17)
[2022-07-10] MEDS: METHOCARBAMOL 500 MG TABLET PO PRN ×2 (08:57→21:17)
[2022-07-10] MEDS: QUEtiapine FUMARATE 100 MG TABLET (FP) PO SCH (09:28)
[2022-07-10] MEDS: FLUoxetine HCL 20 MG CAPSULE PO SCH (09:28)
[2022-07-10] MEDS: NICOTINE 21 MG/24 HOURS TOPICAL PATCH TD SCH (09:28)
[2022-07-10] MEDS: PRENATAL VITAMINS W/ FOLIC ACID TABLET (FP) PO SCH (09:28)
[2022-07-10] MEDS: LACTULOSE 20 GM/30 ML UDC (FOR ORAL USE ONLY) PO SCH ×2 (14:27→21:15)
[2022-07-10] MEDS: diphenhydrAMINE HCL 25 MG CAPSULE (FP) PO PRN (17:39)
[2022-07-10 18:33] LABS: URINE APPEARANCE CLEAR; URINE BILIRUBIN NEGATIVE (NEGATIVE); URINE COLOR YELLOW; URINE GLUCOSE (UA) NEGATIVE (NEGATIVE); URINE KETONE NEGATIVE (NEGATIVE); URINE LEUK ESTERASE NEGATIVE (NEGATIVE); URINE NITRITE NEGATIVE (NEGATIVE); URINE PROTEIN NEGATIVE (NEGATIVE); URINE UROBILINOGEN 0.2 mg/dL (0.2-1.0)
[2022-07-10] MEDS: QUEtiapine FUMARATE 200 MG TABLET PO SCH (21:15)
[2022-07-10] MEDS: MELATONIN 5 MG TABLETS PO SCH (21:17)
[2022-07-10] MEDS: THIAMINE HCL 100 MG TABLET (FP) PO SCH (21:17)
[2022-07-11] MEDS: LACTULOSE 20 GM/30 ML UDC (FOR ORAL USE ONLY) PO SCH ×3 (08:37→21:25)
[2022-07-11] MEDS: ACAMPROSATE CALCIUM 333 MG TABLET.DR PO SCH (08:37)
[2022-07-11] MEDS: QUEtiapine FUMARATE 100 MG TABLET (FP) PO SCH (09:38)
[2022-07-11] MEDS: PRENATAL VITAMINS W/ FOLIC ACID TABLET (FP) PO SCH (09:38)
[2022-07-11] MEDS: NICOTINE 21 MG/24 HOURS TOPICAL PATCH TD SCH (09:38)
[2022-07-11] MEDS: FLUoxetine HCL 20 MG CAPSULE PO SCH (09:38)
[2022-07-11] MEDS: METHOCARBAMOL 500 MG TABLET PO PRN ×2 (09:40→19:54)
[2022-07-11] MEDS: IBUPROFEN 400 MG TABLET (FP) PO PRN ×3 (09:40→21:26)
[2022-07-11] MEDS ORDERED: ALBUTEROL SO4 HFA INHALER IH PRN (12:55)
[2022-07-11] MEDS: PANTOPRAZOLE 20 MG TABLET PO SCH (13:37)
[2022-07-11] MEDS: diphenhydrAMINE HCL 25 MG CAPSULE (FP) PO PRN (15:55)
[2022-07-11] MEDS: THIAMINE HCL 100 MG TABLET (FP) PO SCH (21:25)
[2022-07-11] MEDS: QUEtiapine FUMARATE 200 MG TABLET PO SCH (21:25)
[2022-07-11] MEDS: MELATONIN 5 MG TABLETS PO SCH (21:27)
[2022-07-12] MEDS: LACTULOSE 20 GM/30 ML UDC (FOR ORAL USE ONLY) PO SCH ×3 (08:35→21:25)
[2022-07-12] MEDS: QUEtiapine FUMARATE 100 MG TABLET (FP) PO SCH (09:40)
[2022-07-12] MEDS: FLUoxetine HCL 20 MG CAPSULE PO SCH (09:40)
[2022-07-12] MEDS: NICOTINE 21 MG/24 HOURS TOPICAL PATCH TD SCH (09:40)
[2022-07-12] MEDS: PRENATAL VITAMINS W/ FOLIC ACID TABLET (FP) PO SCH (09:40)
[2022-07-12] MEDS: PANTOPRAZOLE 20 MG TABLET PO SCH (09:40)
[2022-07-12] MEDS: IBUPROFEN 600 MG TABLET (FP) PO PRN (09:43)
[2022-07-12] MEDS: METHOCARBAMOL 500 MG TABLET PO PRN ×2 (12:29→21:27)
[2022-07-12 15:28] LABS: INR 0.99 (0.83-1.09); PROTHROMBIN TIME (PATIENT) 11.5 SEC (9.7-13.0)
[2022-07-12] MEDS: MELATONIN 5 MG TABLETS PO SCH (21:25)
[2022-07-12] MEDS: QUEtiapine FUMARATE 200 MG TABLET PO SCH (21:25)
[2022-07-12] MEDS: THIAMINE HCL 100 MG TABLET (FP) PO SCH (21:25)
[2022-07-13] MEDS: LACTULOSE 20 GM/30 ML UDC (FOR ORAL USE ONLY) PO SCH (06:58)
[2022-07-13] MEDS: NICOTINE 21 MG/24 HOURS TOPICAL PATCH TD SCH (09:23)
[2022-07-13] MEDS: PRENATAL VITAMINS W/ FOLIC ACID TABLET (FP) PO SCH (09:24)
[2022-07-13] MEDS: PANTOPRAZOLE 20 MG TABLET PO SCH (09:24)
[2022-07-13] MEDS: QUEtiapine FUMARATE 100 MG TABLET (FP) PO SCH (09:24)
[2022-07-13] MEDS: FLUoxetine HCL 20 MG CAPSULE PO SCH (09:24)
[2022-07-13] MEDS: IBUPROFEN 600 MG TABLET (FP) PO PRN (09:25)
[2022-07-13] MEDS: METHOCARBAMOL 500 MG TABLET PO PRN (15:37)
[2022-07-13] MEDS: THIAMINE HCL 100 MG TABLET (FP) PO SCH (21:26)
[2022-07-13] MEDS: MELATONIN 5 MG TABLETS PO SCH (21:26)
[2022-07-13] MEDS: QUEtiapine FUMARATE 200 MG TABLET PO SCH (21:26)
[2022-07-13] MEDS: IBUPROFEN 400 MG TABLET (FP) PO PRN (21:27)
[2022-07-14] MEDS: NICOTINE 21 MG/24 HOURS TOPICAL PATCH TD SCH (09:35)
[2022-07-14] MEDS: PRENATAL VITAMINS W/ FOLIC ACID TABLET (FP) PO SCH (09:35)
[2022-07-14] MEDS: FLUoxetine HCL 20 MG CAPSULE PO SCH (09:36)
[2022-07-14] MEDS: QUEtiapine FUMARATE 100 MG TABLET (FP) PO SCH (09:36)
[2022-07-14] MEDS: PANTOPRAZOLE 20 MG TABLET PO SCH (09:36)
[2022-07-14] MEDS: METHOCARBAMOL 500 MG TABLET PO PRN (09:38)
[2022-07-14] MEDS: QUEtiapine FUMARATE 200 MG TABLET PO SCH (21:03)
[2022-07-14] MEDS: THIAMINE HCL 100 MG TABLET (FP) PO SCH (21:04)
[2022-07-14] MEDS: MELATONIN 5 MG TABLETS PO SCH (21:04)
[2022-07-15] MEDS: IBUPROFEN 600 MG TABLET (FP) PO PRN (04:18)
[2022-07-15] MEDS: METHOCARBAMOL 500 MG TABLET PO PRN ×2 (06:52→17:37)
[2022-07-15] MEDS: PRENATAL VITAMINS W/ FOLIC ACID TABLET (FP) PO SCH (09:34)
[2022-07-15] MEDS: NICOTINE 21 MG/24 HOURS TOPICAL PATCH TD SCH (09:34)
[2022-07-15] MEDS: QUEtiapine FUMARATE 100 MG TABLET (FP) PO SCH (09:35)
[2022-07-15] MEDS: PANTOPRAZOLE 20 MG TABLET PO SCH (09:35)
[2022-07-15] MEDS: FLUoxetine HCL 20 MG CAPSULE PO SCH (09:35)
[2022-07-15] MEDS: QUEtiapine FUMARATE 200 MG TABLET PO SCH (21:32)
[2022-07-15] MEDS: IBUPROFEN 400 MG TABLET (FP) PO PRN (21:32)
[2022-07-15] MEDS: THIAMINE HCL 100 MG TABLET (FP) PO SCH (21:33)
[2022-07-15] MEDS: MELATONIN 5 MG TABLETS PO SCH (21:33)
[2022-07-16] MEDS: PANTOPRAZOLE 20 MG TABLET PO SCH (09:35)
[2022-07-16] MEDS: FLUoxetine HCL 20 MG CAPSULE PO SCH (09:35)
[2022-07-16] MEDS: PRENATAL VITAMINS W/ FOLIC ACID TABLET (FP) PO SCH (09:35)
[2022-07-16] MEDS: NICOTINE 21 MG/24 HOURS TOPICAL PATCH TD SCH (09:36)
[2022-07-16] MEDS: METHOCARBAMOL 500 MG TABLET PO PRN ×2 (09:36→21:32)
[2022-07-16] MEDS: QUEtiapine FUMARATE 100 MG TABLET (FP) PO SCH (09:36)
[2022-07-16] MEDS: IBUPROFEN 400 MG TABLET (FP) PO PRN (14:16)
[2022-07-16] MEDS: MELATONIN 5 MG TABLETS PO SCH (21:32)
[2022-07-16] MEDS: THIAMINE HCL 100 MG TABLET (FP) PO SCH (21:32)
[2022-07-16] MEDS: QUEtiapine FUMARATE 200 MG TABLET PO SCH (21:32)
[2022-07-17 06:20] VITALS: RESP 18
[2022-07-17] MEDS: PRENATAL VITAMINS W/ FOLIC ACID TABLET (FP) PO SCH (09:37)
[2022-07-17] MEDS: PANTOPRAZOLE 20 MG TABLET PO SCH (09:37)
[2022-07-17] MEDS: NICOTINE 21 MG/24 HOURS TOPICAL PATCH TD SCH (09:37)
[2022-07-17] MEDS: QUEtiapine FUMARATE 100 MG TABLET (FP) PO SCH (09:38)
[2022-07-17] MEDS: FLUoxetine HCL 20 MG CAPSULE PO SCH (09:38)
[2022-07-17] MEDS: METHOCARBAMOL 500 MG TABLET PO PRN ×2 (09:39→21:37)
[2022-07-17] MEDS: IBUPROFEN 600 MG TABLET (FP) PO PRN ×2 (15:33→23:58)
[2022-07-17] MEDS: QUEtiapine FUMARATE 200 MG TABLET PO SCH (21:36)
[2022-07-17] MEDS: MELATONIN 5 MG TABLETS PO SCH (21:37)
[2022-07-17] MEDS: THIAMINE HCL 100 MG TABLET (FP) PO SCH (21:38)
[2022-07-18] MEDS: NICOTINE 21 MG/24 HOURS TOPICAL PATCH TD SCH (10:00)
[2022-07-18] MEDS: PANTOPRAZOLE 20 MG TABLET PO SCH (10:00)
[2022-07-18] MEDS: PRENATAL VITAMINS W/ FOLIC ACID TABLET (FP) PO SCH (10:00)
[2022-07-18] MEDS: FLUoxetine HCL 20 MG CAPSULE PO SCH (10:00)
[2022-07-18] MEDS: QUEtiapine FUMARATE 100 MG TABLET (FP) PO SCH (10:00)
[2022-07-18] MEDS: METHOCARBAMOL 500 MG TABLET PO PRN ×2 (10:02→21:24)
[2022-07-18] MEDS: IBUPROFEN 400 MG TABLET (FP) PO PRN ×2 (10:02→21:24)
[2022-07-18] MEDS: QUEtiapine FUMARATE 200 MG TABLET PO SCH (21:24)
[2022-07-18] MEDS: THIAMINE HCL 100 MG TABLET (FP) PO SCH (21:43)
[2022-07-18] MEDS: MELATONIN 5 MG TABLETS PO SCH (21:43)
[2022-07-19] MEDS: NICOTINE 21 MG/24 HOURS TOPICAL PATCH TD SCH (10:02)
[2022-07-19] MEDS: PRENATAL VITAMINS W/ FOLIC ACID TABLET (FP) PO SCH (10:02)
[2022-07-19] MEDS: FLUoxetine HCL 20 MG CAPSULE PO SCH (10:02)
[2022-07-19] MEDS: QUEtiapine FUMARATE 100 MG TABLET (FP) PO SCH (10:02)
[2022-07-19] MEDS: PANTOPRAZOLE 20 MG TABLET PO SCH (10:02)
[2022-07-19] MEDS: METHOCARBAMOL 500 MG TABLET PO PRN ×2 (10:03→21:24)
[2022-07-19] MEDS: IBUPROFEN 400 MG TABLET (FP) PO PRN ×2 (10:03→21:24)
[2022-07-19] MEDS: QUEtiapine FUMARATE 200 MG TABLET PO SCH (21:24)
[2022-07-19] MEDS: THIAMINE HCL 100 MG TABLET (FP) PO SCH (21:25)
[2022-07-19] MEDS: MELATONIN 5 MG TABLETS PO SCH (21:25)
[2022-07-20] MEDS: PRENATAL VITAMINS W/ FOLIC ACID TABLET (FP) PO SCH (09:55)
[2022-07-20] MEDS: NICOTINE 21 MG/24 HOURS TOPICAL PATCH TD SCH (09:55)
[2022-07-20] MEDS: QUEtiapine FUMARATE 100 MG TABLET (FP) PO SCH (09:56)
[2022-07-20] MEDS: PANTOPRAZOLE 20 MG TABLET PO SCH (09:56)
[2022-07-20] MEDS: FLUoxetine HCL 20 MG CAPSULE PO SCH (09:56)
[2022-07-20] MEDS: IBUPROFEN 400 MG TABLET (FP) PO PRN ×2 (09:57→21:17)
[2022-07-20] MEDS: METHOCARBAMOL 500 MG TABLET PO PRN ×2 (09:57→21:17)
[2022-07-20] MEDS: QUEtiapine FUMARATE 200 MG TABLET PO SCH (21:17)
[2022-07-20] MEDS: MELATONIN 5 MG TABLETS PO SCH (21:18)
[2022-07-20] MEDS: THIAMINE HCL 100 MG TABLET (FP) PO SCH (21:48)
[2022-07-21] MEDS: NICOTINE 21 MG/24 HOURS TOPICAL PATCH TD SCH (09:58)
[2022-07-21] MEDS: PRENATAL VITAMINS W/ FOLIC ACID TABLET (FP) PO SCH (09:58)
[2022-07-21] MEDS: IBUPROFEN 400 MG TABLET (FP) PO PRN ×2 (09:59→21:32)
[2022-07-21] MEDS: METHOCARBAMOL 500 MG TABLET PO PRN ×2 (09:59→21:33)
[2022-07-21] MEDS: QUEtiapine FUMARATE 100 MG TABLET (FP) PO SCH (09:59)
[2022-07-21] MEDS: PANTOPRAZOLE 20 MG TABLET PO SCH (09:59)
[2022-07-21] MEDS: FLUoxetine HCL 20 MG CAPSULE PO SCH (09:59)
[2022-07-21] MEDS ORDERED: COLLOIDAL OATMEAL 1 BAR EACH TP PRN (11:03)
[2022-07-21] MEDS: MELATONIN 5 MG TABLETS PO SCH (21:33)
[2022-07-21] MEDS: QUEtiapine FUMARATE 200 MG TABLET PO SCH (21:34)
[2022-07-21] MEDS: THIAMINE HCL 100 MG TABLET (FP) PO SCH (22:32)
[2022-07-22] MEDS: PRENATAL VITAMINS W/ FOLIC ACID TABLET (FP) PO SCH (09:52)
[2022-07-22] MEDS: FLUoxetine HCL 20 MG CAPSULE PO SCH (09:53)
[2022-07-22] MEDS: QUEtiapine FUMARATE 100 MG TABLET (FP) PO SCH (09:53)
[2022-07-22] MEDS: PANTOPRAZOLE 20 MG TABLET PO SCH (09:53)
[2022-07-22] MEDS: METHOCARBAMOL 500 MG TABLET PO PRN ×2 (09:54→21:31)
[2022-07-22] MEDS: IBUPROFEN 600 MG TABLET (FP) PO PRN (09:54)
[2022-07-22] MEDS: NICOTINE 21 MG/24 HOURS TOPICAL PATCH TD SCH (09:56)
[2022-07-22] MEDS: MELATONIN 5 MG TABLETS PO SCH (21:31)
[2022-07-22] MEDS: THIAMINE HCL 100 MG TABLET (FP) PO SCH (21:32)
[2022-07-22] MEDS: QUEtiapine FUMARATE 200 MG TABLET PO SCH (21:32)
[2022-07-22] MEDS: IBUPROFEN 400 MG TABLET (FP) PO PRN (21:33)
[2022-07-23] MEDS: NICOTINE 21 MG/24 HOURS TOPICAL PATCH TD SCH (10:04)
[2022-07-23] MEDS: PRENATAL VITAMINS W/ FOLIC ACID TABLET (FP) PO SCH (10:05)
[2022-07-23] MEDS: METHOCARBAMOL 500 MG TABLET PO PRN ×2 (10:06→21:28)
[2022-07-23] MEDS: IBUPROFEN 600 MG TABLET (FP) PO PRN (10:06)
[2022-07-23] MEDS: QUEtiapine FUMARATE 100 MG TABLET (FP) PO SCH (10:06)
[2022-07-23] MEDS: PANTOPRAZOLE 20 MG TABLET PO SCH (10:06)
[2022-07-23] MEDS: FLUoxetine HCL 20 MG CAPSULE PO SCH (10:06)
[2022-07-23] MEDS: QUEtiapine FUMARATE 200 MG TABLET PO SCH (21:28)
[2022-07-23] MEDS: IBUPROFEN 400 MG TABLET (FP) PO PRN (21:29)
[2022-07-23] MEDS: THIAMINE HCL 100 MG TABLET (FP) PO SCH (22:02)
[2022-07-23] MEDS: MELATONIN 5 MG TABLETS PO SCH (22:02)
[2022-07-24] MEDS: PRENATAL VITAMINS W/ FOLIC ACID TABLET (FP) PO SCH (09:52)
[2022-07-24] MEDS: NICOTINE 21 MG/24 HOURS TOPICAL PATCH TD SCH (09:52)
[2022-07-24] MEDS: QUEtiapine FUMARATE 100 MG TABLET (FP) PO SCH (09:53)
[2022-07-24] MEDS: FLUoxetine HCL 20 MG CAPSULE PO SCH (09:53)
[2022-07-24] MEDS: PANTOPRAZOLE 20 MG TABLET PO SCH (09:53)
[2022-07-24] MEDS: METHOCARBAMOL 500 MG TABLET PO PRN ×2 (09:55→21:26)
[2022-07-24] MEDS: QUEtiapine FUMARATE 200 MG TABLET PO SCH (21:23)
[2022-07-24] MEDS: THIAMINE HCL 100 MG TABLET (FP) PO SCH (21:23)
[2022-07-24] MEDS: MELATONIN 5 MG TABLETS PO SCH (21:24)
[2022-07-25] MEDS: METHOCARBAMOL 500 MG TABLET PO PRN ×2 (07:03→21:36)
[2022-07-25] MEDS: PANTOPRAZOLE 20 MG TABLET PO SCH (09:52)
[2022-07-25] MEDS: QUEtiapine FUMARATE 100 MG TABLET (FP) PO SCH (09:52)
[2022-07-25] MEDS: FLUoxetine HCL 20 MG CAPSULE PO SCH (09:52)
[2022-07-25] MEDS: PRENATAL VITAMINS W/ FOLIC ACID TABLET (FP) PO SCH (09:52)
[2022-07-25] MEDS: NICOTINE 21 MG/24 HOURS TOPICAL PATCH TD SCH (09:53)
[2022-07-25] MEDS: QUEtiapine FUMARATE 200 MG TABLET PO SCH (22:59)
[2022-07-25] MEDS: MELATONIN 5 MG TABLETS PO SCH (22:59)
[2022-07-25] MEDS: THIAMINE HCL 100 MG TABLET (FP) PO SCH (22:59)
[2022-07-26] MEDS: METHOCARBAMOL 500 MG TABLET PO PRN (06:36)
[2022-07-26 07:05] VITALS: BP 136/86; PULSE 74; TEMP 97.4
[2022-07-26] MEDS: PANTOPRAZOLE 20 MG TABLET PO SCH (10:10)
[2022-07-26] MEDS: FLUoxetine HCL 20 MG CAPSULE PO SCH (10:10)
[2022-07-26] MEDS: NICOTINE 21 MG/24 HOURS TOPICAL PATCH TD SCH (10:10)
[2022-07-26] MEDS: PRENATAL VITAMINS W/ FOLIC ACID TABLET (FP) PO SCH (10:10)
[2022-07-26] MEDS: QUEtiapine FUMARATE 100 MG TABLET (FP) PO SCH (12:37)
== END 2022-07-26 14:50 | disposition home or self-care (01) | DRG 772 ==
LOC: YASAS 17:12 → Y5N 07-07 01:57
PROVIDERS: ADMIT Allergy & Immunology; ATTEND Psychiatry & Neurology Pain Medicine
PROC: HZ42ZZZ Group Counseling for Substance Abuse Treatment, Cognitive-Behavioral (ICD-10-PCS; principal; 2022-07-07)
DX: F10.20 Alcohol dependence, uncomplicated (principal); F13.20 Sedative, hypnotic or anxiolytic dependence, uncomplicated; F15.10 Other stimulant abuse, uncomplicated; F12.20 Cannabis dependence, uncomplicated; F17.210 Nicotine dependence, cigarettes, uncomplicated; F19.24 Other psychoactive substance dependence with psychoactive substance-induced mood disorder; F31.9 Bipolar disorder, unspecified; F25.1 Schizoaffective disorder, depressive type; F41.9 Anxiety disorder, unspecified; E72.20 Disorder of urea cycle metabolism, unspecified; K21.9 Gastro-esophageal reflux disease without esophagitis; J45.20 Mild intermittent asthma, uncomplicated; Z86.711 Personal history of pulmonary embolism
CPT/HCPCS: 36415; 80053; 81003; 82140; 82272; 85027; 85610; 86780; 86803; 87389; 87811; 93005; 93010; C9803-CS; U0003; U0005

== ENCOUNTER 2022-08-08 21:10 | Inpatient (IN) | payer OTHER ==
[2022-08-08 23:34] VITALS: BMI 32.1
[2022-08-09] MEDS ORDERED: DICYCLOMINE HCL 10 MG CAPSULE PO PRN (01:50)
[2022-08-09] MEDS ORDERED: POLYETHYLENE GLYCOL (HEALTHYLAX) 3350 17 GM PACKET PO PRN (01:50)
[2022-08-09] MEDS ORDERED: BENZONATATE 200 MG CAPSULE PO PRN (01:50)
[2022-08-09] MEDS ORDERED: NALOXONE HCL 0.4 MG/ML VIAL IM PRN (01:50)
[2022-08-09] MEDS ORDERED: NICOTINE POLACRILEX 2 MG GUM BUC PRN (01:50)
[2022-08-09] MEDS ORDERED: MAGNESIUM HYDROX 2400MG/30ML ORAL SUSPENSION 30 ML CUP PO PRN (01:50)
[2022-08-09] MEDS ORDERED: LOPERAMIDE HCL 2 MG CAPSULE PO PRN (01:50)
[2022-08-09] MEDS ORDERED: MAG HYDROX/AL HYDROX/SIMETH 30 ML UNIT-DOSE CUP PO PRN (01:50)
[2022-08-09] MEDS ORDERED: guaiFENesin 600 MG TABLET.ER (FP) PO PRN (01:50)
[2022-08-09] MEDS ORDERED: NALOXONE HCL (KLOXXADO) 8 MG SPRAY NS PRN (01:50)
[2022-08-09] MEDS ORDERED: IBUPROFEN 600 MG TABLET (FP) PO PRN (01:50)
[2022-08-09] MEDS ORDERED: IBUPROFEN 400 MG TABLET (FP) PO PRN (01:50)
[2022-08-09] MEDS ORDERED: ONDANSETRON *ODT* 4 MG TABLET SL PRN (01:50)
[2022-08-09] MEDS ORDERED: BENZOCAINE/MENTHOL (CHLORASEPTIC ) LOZENGE MM PRN (01:50)
[2022-08-09] MEDS ORDERED: BISMUTH SUBSALICYLATE 524 MG/30 ML PO PRN (01:50)
[2022-08-09] MEDS: METHOCARBAMOL 500 MG TABLET PO PRN ×2 (03:07→10:17)
[2022-08-09] MEDS ORDERED: LORazepam 1 MG TABLET PO PRN (08:40)
[2022-08-09] MEDS ORDERED: ALBUTEROL SO4 HFA INHALER IH PRN (09:14)
[2022-08-09] MEDS ORDERED: COLLOIDAL OATMEAL 1 BAR EACH TP PRN (09:15)
[2022-08-09] MEDS: PRENATAL VITAMINS W/ FOLIC ACID TABLET (FP) PO SCH (10:13)
[2022-08-09] MEDS: LORazepam 2 MG TABLET PO SCH ×3 (10:13→22:55)
[2022-08-09] MEDS: NICOTINE 14 MG/24 HOURS TOPICAL PATCH TD SCH (10:15)
[2022-08-09] MEDS: QUEtiapine FUMARATE 100 MG TABLET (FP) PO SCH (17:40)
[2022-08-09] MEDS: THIAMINE HCL 100 MG TABLET (FP) PO SCH (22:54)
[2022-08-09] MEDS: QUEtiapine FUMARATE 200 MG TABLET PO SCH (22:54)
[2022-08-09] MEDS: MELATONIN 5 MG TABLETS PO SCH (22:56)
[2022-08-10] MEDS: LORazepam 2 MG TABLET PO SCH ×4 (05:44→22:45)
[2022-08-10] MEDS: ACETAMINOPHEN 325 MG TABLET (FP) PO PRN (05:45)
[2022-08-10] MEDS: METHOCARBAMOL 500 MG TABLET PO PRN ×2 (05:45→22:45)
[2022-08-10] MEDS: PRENATAL VITAMINS W/ FOLIC ACID TABLET (FP) PO SCH (10:26)
[2022-08-10] MEDS: QUEtiapine FUMARATE 100 MG TABLET (FP) PO SCH (10:26)
[2022-08-10] MEDS: NICOTINE 14 MG/24 HOURS TOPICAL PATCH TD SCH (10:28)
[2022-08-10 11:03] LABS: HEMATOCRIT 39.4 % (35.4-49); HEMOGLOBIN 13.2 GM/dL (11.7-16.9); MCH 30.7 pg (25.7-33.7); MCHC 33.5 g/dl (32.0-35.9); MEAN CELL VOLUME 91.5 fl (80-96); PLATELET COUNT 287 10^3/uL (134-434); RDW 13.8 % (11.9-15.9); WHITE BLOOD COUNT 5.9 K/mm3 (4.0-10.0)
[2022-08-10 11:06] LABS: POTASSIUM 4.5 mmol/L (3.5-5.1)
[2022-08-10 11:19] LABS: ALBUMIN 3.5 g/dl (3.4-5.0); BLOOD UREA NITROGEN 15.6 mg/dL (7-18)
[2022-08-10 11:20] LABS: MAGNESIUM 1.9 mg/dL (1.8-2.4)
[2022-08-10 11:22] LABS: PHOSPHOROUS 3.6 mg/dL (2.5-4.9)
[2022-08-10 11:23] LABS: TOT PROT 6.4 g/dl (6.4-8.2)
[2022-08-10 11:24] LABS: BILIRUBIN,TOTAL 0.4 mg/dL (0.2-1)
[2022-08-10] MEDS: THIAMINE HCL 100 MG TABLET (FP) PO SCH (22:44)
[2022-08-10] MEDS: MELATONIN 5 MG TABLETS PO SCH (22:44)
[2022-08-10] MEDS: QUEtiapine FUMARATE 200 MG TABLET PO SCH (22:44)
[2022-08-11] MEDS: LORazepam 1 MG TABLET PO SCH ×4 (05:54→22:37)
[2022-08-11] MEDS: PRENATAL VITAMINS W/ FOLIC ACID TABLET (FP) PO SCH (10:13)
[2022-08-11] MEDS: QUEtiapine FUMARATE 100 MG TABLET (FP) PO SCH (10:13)
[2022-08-11] MEDS: NICOTINE 14 MG/24 HOURS TOPICAL PATCH TD SCH (10:13)
[2022-08-11 13:35] LABS: HEMATOCRIT 38.9 % (35.4-49); HEMOGLOBIN 13.3 GM/dL (11.7-16.9); MCH 31.5 pg (25.7-33.7); MCHC 34.2 g/dl (32.0-35.9); MEAN CELL VOLUME 92.1 fl (80-96); MEAN PLT VOLUME 8.4 fl (7.5-11.1); PLATELET COUNT 275 10^3/uL (134-434); RBC 4.22 M/mm3 (4.00-5.60); RDW 13.4 % (11.9-15.9); WHITE BLOOD COUNT 5.5 K/mm3 (4.0-10.0)
[2022-08-11 13:44] LABS: POTASSIUM 4.4 mmol/L (3.5-5.1)
[2022-08-11 13:51] LABS: ALBUMIN 3.5 g/dl (3.4-5.0); BLOOD UREA NITROGEN 14.7 mg/dL (7-18); CALCIUM 9.6 mg/dL (8.5-10.1)
[2022-08-11 13:54] LABS: BILIRUBIN,TOTAL 0.6 mg/dL (0.2-1); CREATININE 0.9 mg/dL (0.55-1.3); TOT PROT 6.4 g/dl (6.4-8.2)
[2022-08-11] MEDS: QUEtiapine FUMARATE 200 MG TABLET PO SCH (22:36)
[2022-08-11] MEDS: MELATONIN 5 MG TABLETS PO SCH (22:36)
[2022-08-11] MEDS: THIAMINE HCL 100 MG TABLET (FP) PO SCH (22:36)
[2022-08-11] MEDS: METHOCARBAMOL 500 MG TABLET PO PRN (22:36)
[2022-08-11] MEDS: ACETAMINOPHEN 325 MG TABLET (FP) PO PRN (22:37)
[2022-08-12] MEDS ORDERED: LORazepam 0.5 MG TABLET PO PRN
[2022-08-12] MEDS: LORazepam 0.5 MG TABLET PO SCH ×4 (05:29→22:31)
[2022-08-12] MEDS: PRENATAL VITAMINS W/ FOLIC ACID TABLET (FP) PO SCH (10:39)
[2022-08-12] MEDS: NICOTINE 14 MG/24 HOURS TOPICAL PATCH TD SCH (10:39)
[2022-08-12] MEDS: QUEtiapine FUMARATE 100 MG TABLET (FP) PO SCH (10:39)
[2022-08-12] MEDS: MELATONIN 5 MG TABLETS PO SCH (22:31)
[2022-08-12] MEDS: QUEtiapine FUMARATE 200 MG TABLET PO SCH (22:31)
[2022-08-12] MEDS: THIAMINE HCL 100 MG TABLET (FP) PO SCH (22:31)
[2022-08-13] MEDS ORDERED: LORazepam 0.5 MG TABLET PO ONE ×2 (05:00→06:42)
[2022-08-13 06:14] VITALS: BP 113/58; PULSE 82; RESP 16; TEMP 98.2
[2022-08-13] MEDS: ACETAMINOPHEN 325 MG TABLET (FP) PO PRN (06:33)
== END 2022-08-13 09:12 | disposition home or self-care (01) | DRG 775 ==
LOC: YASAS 21:10 → Y3N 08-09 02:30
PROVIDERS: ADMIT Allergy & Immunology; ATTEND Surgery
PROC: HZ2ZZZZ Detoxification Services for Substance Abuse Treatment (ICD-10-PCS; principal; 2022-08-09)
DX: F10.230 Alcohol dependence with withdrawal, uncomplicated (principal); F12.20 Cannabis dependence, uncomplicated; F17.210 Nicotine dependence, cigarettes, uncomplicated; F25.1 Schizoaffective disorder, depressive type; F43.10 Post-traumatic stress disorder, unspecified; F41.9 Anxiety disorder, unspecified; F32.A Depression, unspecified; F90.9 Attention-deficit hyperactivity disorder, unspecified type; G47.00 Insomnia, unspecified; J45.20 Mild intermittent asthma, uncomplicated; K21.9 Gastro-esophageal reflux disease without esophagitis
CPT/HCPCS: 36415; 80053; 82140; 83735; 84100; 85027; 86780; C9803-CS; U0003; U0005

== ENCOUNTER 2022-08-14 23:53 | Inpatient (IN) | payer OTHER ==
[2022-08-15 00:35] VITALS: BMI 35.5
[2022-08-15] MEDS ORDERED: NALOXONE HCL 0.4 MG/ML VIAL IM PRN (02:09)
[2022-08-15] MEDS ORDERED: LOPERAMIDE HCL 2 MG CAPSULE PO PRN (02:09)
[2022-08-15] MEDS ORDERED: POLYETHYLENE GLYCOL (HEALTHYLAX) 3350 17 GM PACKET PO PRN (02:09)
[2022-08-15] MEDS ORDERED: BENZONATATE 200 MG CAPSULE PO PRN (02:09)
[2022-08-15] MEDS ORDERED: MAGNESIUM HYDROX 2400MG/30ML ORAL SUSPENSION 30 ML CUP PO PRN (02:09)
[2022-08-15] MEDS ORDERED: BENZOCAINE/MENTHOL (CHLORASEPTIC ) LOZENGE MM PRN (02:09)
[2022-08-15] MEDS ORDERED: AMMONIUM LACTATE 12% LOTION 225 GM BOTTLE TP PRN (02:09)
[2022-08-15] MEDS ORDERED: guaiFENesin 600 MG TABLET.ER (FP) PO PRN (02:09)
[2022-08-15] MEDS ORDERED: NALOXONE HCL (KLOXXADO) 8 MG SPRAY NS PRN (02:09)
[2022-08-15] MEDS ORDERED: NICOTINE POLACRILEX 2 MG GUM BUC PRN (02:09)
[2022-08-15] MEDS ORDERED: MAG HYDROX/AL HYDROX/SIMETH 30 ML UNIT-DOSE CUP PO PRN (02:09)
[2022-08-15] MEDS: IBUPROFEN 400 MG TABLET (FP) PO PRN (05:50)
[2022-08-15] MEDS: hydrOXYzine PAMOATE 25 MG CAPSULE (FP) PO PRN ×2 (08:28→18:03)
[2022-08-15] MEDS: IBUPROFEN 600 MG TABLET (FP) PO PRN ×2 (08:29→19:29)
[2022-08-15] MEDS: PRENATAL VITAMINS W/ FOLIC ACID TABLET (FP) PO SCH (10:03)
[2022-08-15] MEDS: NICOTINE 14 MG/24 HOURS TOPICAL PATCH TD SCH (10:03)
[2022-08-15] MEDS: ASPIRIN COATED 81 MG TABLET.EC PO SCH (12:29)
[2022-08-15] MEDS: QUEtiapine FUMARATE 50 MG TABLET PO SCH (12:29)
[2022-08-15 12:46] LABS: HIV INTERPRETATION NEGATIVE (NEGATIVE)
[2022-08-15] MEDS: BACLOFEN 10 MG TABLET (FP) PO SCH ×2 (15:04→21:32)
[2022-08-15] MEDS: THIAMINE HCL 100 MG TABLET (FP) PO SCH (21:32)
[2022-08-15] MEDS: MELATONIN 5 MG TABLETS PO SCH (21:33)
[2022-08-16] MEDS: BACLOFEN 10 MG TABLET (FP) PO SCH ×3 (05:46→21:11)
[2022-08-16] MEDS: IBUPROFEN 400 MG TABLET (FP) PO PRN (05:47)
[2022-08-16] MEDS: NICOTINE 14 MG/24 HOURS TOPICAL PATCH TD SCH (09:48)
[2022-08-16] MEDS: ASPIRIN COATED 81 MG TABLET.EC PO SCH (09:48)
[2022-08-16] MEDS: PRENATAL VITAMINS W/ FOLIC ACID TABLET (FP) PO SCH (09:48)
[2022-08-16] MEDS: QUEtiapine FUMARATE 50 MG TABLET PO SCH (09:48)
[2022-08-16 11:12] LABS: PH,URINE 5.5 (5.0-8.0); URINE APPEARANCE CLEAR; URINE BILIRUBIN NEGATIVE (NEGATIVE); URINE COLOR YELLOW; URINE GLUCOSE (UA) NEGATIVE (NEGATIVE); URINE KETONE NEGATIVE (NEGATIVE); URINE LEUK ESTERASE NEGATIVE (NEGATIVE); URINE NITRITE NEGATIVE (NEGATIVE); URINE PROTEIN NEGATIVE (NEGATIVE); URINE UROBILINOGEN 0.2 mg/dL (0.2-1.0)
[2022-08-16] MEDS ORDERED: QUEtiapine FUMARATE 200 MG TABLET PO SCH (11:30)
[2022-08-16] MEDS: LIDOCAINE 5% TOPICAL PATCH TP SCH (12:05)
[2022-08-16] MEDS: COLLOIDAL OATMEAL 1 BAR EACH TP PRN (12:58)
[2022-08-16] MEDS: hydrOXYzine PAMOATE 25 MG CAPSULE (FP) PO PRN (21:11)
[2022-08-16] MEDS: THIAMINE HCL 100 MG TABLET (FP) PO SCH (21:11)
[2022-08-16] MEDS: LIDOCAINE PATCH REMOVAL MC SCH (21:12)
[2022-08-16] MEDS: MELATONIN 5 MG TABLETS PO SCH (21:12)
[2022-08-16] MEDS: IBUPROFEN 600 MG TABLET (FP) PO PRN (21:13)
[2022-08-17] MEDS: BACLOFEN 10 MG TABLET (FP) PO SCH ×3 (05:54→21:28)
[2022-08-17] MEDS: IBUPROFEN 600 MG TABLET (FP) PO PRN ×2 (05:56→21:29)
[2022-08-17] MEDS: NICOTINE 14 MG/24 HOURS TOPICAL PATCH TD SCH (10:25)
[2022-08-17] MEDS: ASPIRIN COATED 81 MG TABLET.EC PO SCH (10:25)
[2022-08-17] MEDS: QUEtiapine FUMARATE 200 MG TABLET PO SCH (10:26)
[2022-08-17] MEDS: PRENATAL VITAMINS W/ FOLIC ACID TABLET (FP) PO SCH (10:26)
[2022-08-17] MEDS: LIDOCAINE 5% TOPICAL PATCH TP SCH (10:26)
[2022-08-17] MEDS: THIAMINE HCL 100 MG TABLET (FP) PO SCH (21:28)
[2022-08-17] MEDS: MELATONIN 5 MG TABLETS PO SCH (21:29)
[2022-08-17] MEDS: LIDOCAINE PATCH REMOVAL MC SCH (21:29)
[2022-08-18] MEDS: BACLOFEN 10 MG TABLET (FP) PO SCH ×3 (06:20→21:36)
[2022-08-18] MEDS: QUEtiapine FUMARATE 200 MG TABLET PO SCH (09:58)
[2022-08-18] MEDS: PRENATAL VITAMINS W/ FOLIC ACID TABLET (FP) PO SCH (09:58)
[2022-08-18] MEDS: LIDOCAINE 5% TOPICAL PATCH TP SCH (09:58)
[2022-08-18] MEDS: ASPIRIN COATED 81 MG TABLET.EC PO SCH (09:58)
[2022-08-18] MEDS: NICOTINE 14 MG/24 HOURS TOPICAL PATCH TD SCH (09:59)
[2022-08-18] MEDS: IBUPROFEN 600 MG TABLET (FP) PO PRN (14:50)
[2022-08-18] MEDS: THIAMINE HCL 100 MG TABLET (FP) PO SCH (21:36)
[2022-08-18] MEDS: LIDOCAINE PATCH REMOVAL MC SCH (21:37)
[2022-08-18] MEDS: MELATONIN 5 MG TABLETS PO SCH (21:37)
[2022-08-19] MEDS: BACLOFEN 10 MG TABLET (FP) PO SCH ×3 (06:34→21:39)
[2022-08-19] MEDS: IBUPROFEN 600 MG TABLET (FP) PO PRN (06:35)
[2022-08-19] MEDS: QUEtiapine FUMARATE 200 MG TABLET PO SCH (09:38)
[2022-08-19] MEDS: ASPIRIN COATED 81 MG TABLET.EC PO SCH (09:38)
[2022-08-19] MEDS: PRENATAL VITAMINS W/ FOLIC ACID TABLET (FP) PO SCH (09:38)
[2022-08-19] MEDS: NICOTINE 14 MG/24 HOURS TOPICAL PATCH TD SCH (09:38)
[2022-08-19] MEDS: LIDOCAINE 5% TOPICAL PATCH TP SCH (09:38)
[2022-08-19] MEDS: LIDOCAINE PATCH REMOVAL MC SCH (21:40)
[2022-08-19] MEDS: THIAMINE HCL 100 MG TABLET (FP) PO SCH (21:40)
[2022-08-19] MEDS: ACETAMINOPHEN 325 MG TABLET (FP) PO PRN (21:40)
[2022-08-19] MEDS: MELATONIN 5 MG TABLETS PO SCH (21:40)
[2022-08-20] MEDS: BACLOFEN 10 MG TABLET (FP) PO SCH ×3 (06:36→21:42)
[2022-08-20] MEDS: ACETAMINOPHEN 325 MG TABLET (FP) PO PRN ×2 (06:37→21:42)
[2022-08-20] MEDS: PRENATAL VITAMINS W/ FOLIC ACID TABLET (FP) PO SCH (09:59)
[2022-08-20] MEDS: QUEtiapine FUMARATE 200 MG TABLET PO SCH (09:59)
[2022-08-20] MEDS: NICOTINE 14 MG/24 HOURS TOPICAL PATCH TD SCH (10:00)
[2022-08-20] MEDS: ASPIRIN COATED 81 MG TABLET.EC PO SCH (10:00)
[2022-08-20] MEDS: LIDOCAINE 5% TOPICAL PATCH TP SCH (10:00)
[2022-08-20] MEDS: MELATONIN 5 MG TABLETS PO SCH (21:42)
[2022-08-20] MEDS: THIAMINE HCL 100 MG TABLET (FP) PO SCH (21:42)
[2022-08-20] MEDS: LIDOCAINE PATCH REMOVAL MC SCH (21:45)
[2022-08-21] MEDS: BACLOFEN 10 MG TABLET (FP) PO SCH ×3 (07:12→23:04)
[2022-08-21] MEDS: PRENATAL VITAMINS W/ FOLIC ACID TABLET (FP) PO SCH (09:46)
[2022-08-21] MEDS: NICOTINE 14 MG/24 HOURS TOPICAL PATCH TD SCH (09:46)
[2022-08-21] MEDS: ASPIRIN COATED 81 MG TABLET.EC PO SCH (09:47)
[2022-08-21] MEDS: LIDOCAINE 5% TOPICAL PATCH TP SCH (09:47)
[2022-08-21] MEDS: QUEtiapine FUMARATE 200 MG TABLET PO SCH (09:47)
[2022-08-21] MEDS: LIDOCAINE PATCH REMOVAL MC SCH (22:55)
[2022-08-21] MEDS: THIAMINE HCL 100 MG TABLET (FP) PO SCH (23:04)
[2022-08-21] MEDS: MELATONIN 5 MG TABLETS PO SCH (23:04)
[2022-08-22] MEDS: BACLOFEN 10 MG TABLET (FP) PO SCH ×3 (06:26→22:50)
[2022-08-22] MEDS: ASPIRIN COATED 81 MG TABLET.EC PO SCH (11:10)
[2022-08-22] MEDS: LIDOCAINE 5% TOPICAL PATCH TP SCH (11:10)
[2022-08-22] MEDS: PRENATAL VITAMINS W/ FOLIC ACID TABLET (FP) PO SCH (11:11)
[2022-08-22] MEDS: NICOTINE 14 MG/24 HOURS TOPICAL PATCH TD SCH (11:11)
[2022-08-22] MEDS: QUEtiapine FUMARATE 200 MG TABLET PO SCH (11:11)
[2022-08-22] MEDS: MELATONIN 5 MG TABLETS PO SCH (22:50)
[2022-08-22] MEDS: LIDOCAINE PATCH REMOVAL MC SCH (22:50)
[2022-08-22] MEDS: THIAMINE HCL 100 MG TABLET (FP) PO SCH (22:55)
[2022-08-23] MEDS: BACLOFEN 10 MG TABLET (FP) PO SCH (06:30)
[2022-08-23] MEDS ORDERED: BISMUTH SUBSALICYLATE 524 MG/30 ML PO PRN (09:42)
[2022-08-23] MEDS: PRENATAL VITAMINS W/ FOLIC ACID TABLET (FP) PO SCH (09:54)
[2022-08-23] MEDS: QUEtiapine FUMARATE 200 MG TABLET PO SCH (09:54)
[2022-08-23] MEDS: NICOTINE 14 MG/24 HOURS TOPICAL PATCH TD SCH (09:55)
[2022-08-23] MEDS: ASPIRIN COATED 81 MG TABLET.EC PO SCH (09:55)
[2022-08-23] MEDS: LIDOCAINE 5% TOPICAL PATCH TP SCH (09:56)
[2022-08-23] MEDS: BACLOFEN 10 MG TABLET (FP) PO PRN (09:57)
[2022-08-23] MEDS: PANTOPRAZOLE 20 MG TABLET PO SCH (09:57)
[2022-08-23] MEDS: NALTREXONE HCL 50 MG TABLET PO SCH (09:58)
[2022-08-23] MEDS: IBUPROFEN 600 MG TABLET (FP) PO PRN (14:48)
[2022-08-23] MEDS: THIAMINE HCL 100 MG TABLET (FP) PO SCH (21:30)
[2022-08-23] MEDS: MELATONIN 5 MG TABLETS PO SCH (21:30)
[2022-08-23] MEDS: LIDOCAINE PATCH REMOVAL MC SCH (21:30)
[2022-08-24] MEDS ORDERED: QUEtiapine FUMARATE 200 MG TABLET PO SCH (09:17)
[2022-08-24] MEDS: NICOTINE 14 MG/24 HOURS TOPICAL PATCH TD SCH (10:32)
[2022-08-24] MEDS: LIDOCAINE 5% TOPICAL PATCH TP SCH (10:32)
[2022-08-24] MEDS: PRENATAL VITAMINS W/ FOLIC ACID TABLET (FP) PO SCH (10:33)
[2022-08-24] MEDS: ASPIRIN COATED 81 MG TABLET.EC PO SCH (10:34)
[2022-08-24] MEDS: PANTOPRAZOLE 20 MG TABLET PO SCH (10:35)
[2022-08-24] MEDS: NALTREXONE HCL 50 MG TABLET PO SCH (10:37)
[2022-08-24] MEDS ORDERED: QUEtiapine FUMARATE 100 MG TABLET (FP) ONE (10:38)
[2022-08-24] MEDS: QUEtiapine FUMARATE 300 MG TABLET PO SCH (10:40)
[2022-08-24] MEDS: THIAMINE HCL 100 MG TABLET (FP) PO SCH (21:39)
[2022-08-24] MEDS: MELATONIN 5 MG TABLETS PO SCH (21:39)
[2022-08-24] MEDS: LIDOCAINE PATCH REMOVAL MC SCH (22:09)
[2022-08-25] MEDS ORDERED: QUEtiapine FUMARATE 100 MG TABLET (FP) ONE (08:37)
[2022-08-25 09:03] VITALS: RESP 18
[2022-08-25] MEDS: LIDOCAINE 5% TOPICAL PATCH TP SCH (09:37)
[2022-08-25] MEDS: QUEtiapine FUMARATE 300 MG TABLET PO SCH (09:37)
[2022-08-25] MEDS: NICOTINE 14 MG/24 HOURS TOPICAL PATCH TD SCH (09:37)
[2022-08-25] MEDS: ASPIRIN COATED 81 MG TABLET.EC PO SCH (09:37)
[2022-08-25] MEDS: NALTREXONE HCL 50 MG TABLET PO SCH (09:37)
[2022-08-25] MEDS: PRENATAL VITAMINS W/ FOLIC ACID TABLET (FP) PO SCH (09:37)
[2022-08-25] MEDS: PANTOPRAZOLE 20 MG TABLET PO SCH (09:37)
[2022-08-25] MEDS: COLLOIDAL OATMEAL 1 BAR EACH TP PRN (15:42)
[2022-08-25] MEDS: LIDOCAINE PATCH REMOVAL MC SCH (21:46)
[2022-08-25] MEDS: MELATONIN 5 MG TABLETS PO SCH (21:47)
[2022-08-25] MEDS: THIAMINE HCL 100 MG TABLET (FP) PO SCH (21:47)
[2022-08-26] MEDS ORDERED: QUEtiapine FUMARATE 100 MG TABLET (FP) ONE (08:44)
[2022-08-26] MEDS: NICOTINE 14 MG/24 HOURS TOPICAL PATCH TD SCH (09:33)
[2022-08-26] MEDS: PRENATAL VITAMINS W/ FOLIC ACID TABLET (FP) PO SCH (09:33)
[2022-08-26] MEDS: PANTOPRAZOLE 20 MG TABLET PO SCH (09:34)
[2022-08-26] MEDS: LIDOCAINE 5% TOPICAL PATCH TP SCH (09:34)
[2022-08-26] MEDS: ASPIRIN COATED 81 MG TABLET.EC PO SCH (09:34)
[2022-08-26] MEDS: QUEtiapine FUMARATE 300 MG TABLET PO SCH (09:34)
[2022-08-26] MEDS: NALTREXONE HCL 50 MG TABLET PO SCH (09:36)
[2022-08-26] MEDS: BACLOFEN 10 MG TABLET (FP) PO PRN (09:37)
[2022-08-26] MEDS: MELATONIN 5 MG TABLETS PO SCH (21:30)
[2022-08-26] MEDS: THIAMINE HCL 100 MG TABLET (FP) PO SCH (21:30)
[2022-08-26] MEDS: LIDOCAINE PATCH REMOVAL MC SCH (21:30)
[2022-08-27 07:11] VITALS: TEMP 97.5
[2022-08-27] MEDS: NICOTINE 14 MG/24 HOURS TOPICAL PATCH TD SCH (10:19)
[2022-08-27] MEDS: PANTOPRAZOLE 20 MG TABLET PO SCH (10:19)
[2022-08-27] MEDS: ASPIRIN COATED 81 MG TABLET.EC PO SCH (10:19)
[2022-08-27] MEDS: QUEtiapine FUMARATE 300 MG TABLET PO SCH (10:19)
[2022-08-27] MEDS: PRENATAL VITAMINS W/ FOLIC ACID TABLET (FP) PO SCH (10:19)
[2022-08-27] MEDS: LIDOCAINE 5% TOPICAL PATCH TP SCH (10:20)
[2022-08-27] MEDS: NALTREXONE HCL 50 MG TABLET PO SCH (10:22)
[2022-08-27] MEDS: BACLOFEN 10 MG TABLET (FP) PO PRN (17:20)
[2022-08-27] MEDS: MELATONIN 5 MG TABLETS PO SCH (21:13)
[2022-08-27] MEDS: THIAMINE HCL 100 MG TABLET (FP) PO SCH (21:13)
[2022-08-27] MEDS: LIDOCAINE PATCH REMOVAL MC SCH (21:13)
[2022-08-28 06:57] VITALS: BP 153/78; PULSE 71
== END 2022-08-28 06:00 | disposition left against medical advice (07) | DRG 770 ==
LOC: YASAS 23:53 → Y3W 08-15 02:19
PROVIDERS: ADMIT Allergy & Immunology; ATTEND Psychiatry & Neurology Pain Medicine
PROC: HZ42ZZZ Group Counseling for Substance Abuse Treatment, Cognitive-Behavioral (ICD-10-PCS; principal; 2022-08-15)
DX: F10.20 Alcohol dependence, uncomplicated (principal); F13.20 Sedative, hypnotic or anxiolytic dependence, uncomplicated; F12.20 Cannabis dependence, uncomplicated; F41.9 Anxiety disorder, unspecified; F32.A Depression, unspecified; J45.909 Unspecified asthma, uncomplicated; K21.9 Gastro-esophageal reflux disease without esophagitis; M54.89 Other dorsalgia; R79.89 Other specified abnormal findings of blood chemistry; R00.2 Palpitations
CPT/HCPCS: 36415; 81003; 87389; 93005; 93010; C9803-CS; J0475; U0003; U0005

== ENCOUNTER 2022-09-11 06:38 | Inpatient (IN) | payer OTHER ==
[2022-09-11 07:04] VITALS: BMI 35.9
[2022-09-11] MEDS ORDERED: NALOXONE HCL (KLOXXADO) 8 MG SPRAY NS PRN (08:17)
[2022-09-11] MEDS ORDERED: guaiFENesin 600 MG TABLET.ER (FP) PO PRN (08:17)
[2022-09-11] MEDS ORDERED: NICOTINE 10 MG CARTRIDGE (INHALER) IH PRN (08:17)
[2022-09-11] MEDS ORDERED: LORazepam 1 MG TABLET PO PRN (08:17)
[2022-09-11] MEDS ORDERED: LOPERAMIDE HCL 2 MG CAPSULE PO PRN (08:17)
[2022-09-11] MEDS ORDERED: BENZONATATE 200 MG CAPSULE PO PRN (08:17)
[2022-09-11] MEDS ORDERED: ONDANSETRON *ODT* 4 MG TABLET SL PRN (08:17)
[2022-09-11] MEDS ORDERED: MAG HYDROX/AL HYDROX/SIMETH 30 ML UNIT-DOSE CUP PO PRN (08:17)
[2022-09-11] MEDS ORDERED: IBUPROFEN 400 MG TABLET (FP) PO PRN (08:17)
[2022-09-11] MEDS ORDERED: POLYETHYLENE GLYCOL (HEALTHYLAX) 3350 17 GM PACKET PO PRN (08:17)
[2022-09-11] MEDS ORDERED: NALOXONE HCL 0.4 MG/ML VIAL IM PRN (08:17)
[2022-09-11] MEDS ORDERED: BISMUTH SUBSALICYLATE 524 MG/30 ML PO PRN (08:17)
[2022-09-11] MEDS ORDERED: MAGNESIUM HYDROX 2400MG/30ML ORAL SUSPENSION 30 ML CUP PO PRN (08:17)
[2022-09-11] MEDS ORDERED: BENZOCAINE/MENTHOL (CHLORASEPTIC ) LOZENGE MM PRN (08:17)
[2022-09-11] MEDS ORDERED: DICYCLOMINE HCL 10 MG CAPSULE PO PRN (08:17)
[2022-09-11] MEDS ORDERED: ALBUTEROL SO4 HFA INHALER IH PRN (08:22)
[2022-09-11] MEDS: hydrOXYzine PAMOATE 25 MG CAPSULE (FP) PO PRN (09:22)
[2022-09-11] MEDS: METHOCARBAMOL 500 MG TABLET PO PRN ×2 (09:22→17:33)
[2022-09-11] MEDS: IBUPROFEN 600 MG TABLET (FP) PO PRN (09:22)
[2022-09-11 10:23] LABS: POTASSIUM 4.1 mmol/L (3.5-5.1)
[2022-09-11 10:24] LABS: HEMOGLOBIN 15.2 GM/dL (11.7-16.9); MCH 30.7 pg (25.7-33.7); MCHC 33.7 g/dl (32.0-35.9); MEAN CELL VOLUME 91.1 fl (80-96); MEAN PLT VOLUME 8.1 fl (7.5-11.1); PLATELET COUNT 278 10^3/uL (134-434); RBC 4.94 M/mm3 (4.00-5.60); RDW 13.5 % (11.9-15.9); WHITE BLOOD COUNT 8.9 K/mm3 (4.0-10.0)
[2022-09-11 10:30] LABS: BLOOD UREA NITROGEN 21.1 mg/dL (7-18); CALCIUM 9.8 mg/dL (8.5-10.1)
[2022-09-11] MEDS: NICOTINE 14 MG/24 HOURS TOPICAL PATCH TD SCH (10:31)
[2022-09-11] MEDS: PRENATAL VITAMINS W/ FOLIC ACID TABLET (FP) PO SCH (10:31)
[2022-09-11 10:33] LABS: CREATININE 1.1 mg/dL (0.55-1.3)
[2022-09-11] MEDS: LORazepam 2 MG TABLET PO SCH ×3 (10:33→22:17)
[2022-09-11] MEDS: QUEtiapine FUMARATE 300 MG TABLET PO SCH (11:42)
[2022-09-11] MEDS: ACETAMINOPHEN 325 MG TABLET (FP) PO PRN (17:33)
[2022-09-11] MEDS: THIAMINE HCL 100 MG TABLET (FP) PO SCH (22:16)
[2022-09-11] MEDS: MELATONIN 5 MG TABLETS PO SCH (22:16)
[2022-09-12] MEDS: LORazepam 2 MG TABLET PO SCH ×4 (05:51→22:31)
[2022-09-12] MEDS: ACETAMINOPHEN 325 MG TABLET (FP) PO PRN (05:52)
[2022-09-12] MEDS: NICOTINE 14 MG/24 HOURS TOPICAL PATCH TD SCH (10:11)
[2022-09-12] MEDS: PRENATAL VITAMINS W/ FOLIC ACID TABLET (FP) PO SCH (10:11)
[2022-09-12] MEDS: QUEtiapine FUMARATE 300 MG TABLET PO SCH (10:11)
[2022-09-12] MEDS: METHOCARBAMOL 500 MG TABLET PO PRN (10:11)
[2022-09-12] MEDS ORDERED: COLLOIDAL OATMEAL 1 BAR EACH TP PRN (11:52)
[2022-09-12] MEDS ORDERED: LOPERAMIDE HCL 2 MG CAPSULE PO ONE (11:53)
[2022-09-12] MEDS ORDERED: ONDANSETRON *ODT* 4 MG TABLET SL ONE (11:53)
[2022-09-12] MEDS ORDERED: NICOTINE POLACRILEX 2 MG GUM BUC PRN (11:54)
[2022-09-12] MEDS: LACTULOSE 20 GM/30 ML UDC (FOR ORAL USE ONLY) PO SCH ×3 (13:13→22:32)
[2022-09-12] MEDS: hydrOXYzine PAMOATE 25 MG CAPSULE (FP) PO PRN (17:14)
[2022-09-12] MEDS: MELATONIN 5 MG TABLETS PO SCH (22:32)
[2022-09-12] MEDS: THIAMINE HCL 100 MG TABLET (FP) PO SCH (22:38)
[2022-09-13] MEDS: LORazepam 1 MG TABLET PO SCH ×4 (05:22→22:33)
[2022-09-13] MEDS: PRENATAL VITAMINS W/ FOLIC ACID TABLET (FP) PO SCH (10:24)
[2022-09-13] MEDS: ASPIRIN 81 MG CHEWABLE TABLETS PO SCH (10:24)
[2022-09-13] MEDS: QUEtiapine FUMARATE 300 MG TABLET PO SCH (10:25)
[2022-09-13] MEDS: NICOTINE 14 MG/24 HOURS TOPICAL PATCH TD SCH (10:25)
[2022-09-13] MEDS: LACTULOSE 20 GM/30 ML UDC (FOR ORAL USE ONLY) PO SCH ×4 (10:26→22:35)
[2022-09-13] MEDS: METHOCARBAMOL 500 MG TABLET PO PRN (10:27)
[2022-09-13 11:47] LABS: BLOOD UREA NITROGEN 10.8 mg/dL (7-18)
[2022-09-13] MEDS: THIAMINE HCL 100 MG TABLET (FP) PO SCH (22:34)
[2022-09-13] MEDS: MELATONIN 5 MG TABLETS PO SCH (22:34)
[2022-09-14] MEDS ORDERED: LORazepam 0.5 MG TABLET PO PRN
[2022-09-14] MEDS: LORazepam 0.5 MG TABLET PO SCH ×4 (05:55→22:17)
[2022-09-14] MEDS: IBUPROFEN 600 MG TABLET (FP) PO PRN ×2 (06:04→20:34)
[2022-09-14] MEDS: ASPIRIN 81 MG CHEWABLE TABLETS PO SCH (10:19)
[2022-09-14] MEDS: PRENATAL VITAMINS W/ FOLIC ACID TABLET (FP) PO SCH (10:19)
[2022-09-14] MEDS: QUEtiapine FUMARATE 300 MG TABLET PO SCH (10:19)
[2022-09-14] MEDS: NICOTINE 14 MG/24 HOURS TOPICAL PATCH TD SCH (10:20)
[2022-09-14] MEDS: LACTULOSE 20 GM/30 ML UDC (FOR ORAL USE ONLY) PO SCH ×4 (10:20→22:18)
[2022-09-14] MEDS: METHOCARBAMOL 500 MG TABLET PO PRN ×2 (10:21→22:17)
[2022-09-14] MEDS: hydrOXYzine PAMOATE 25 MG CAPSULE (FP) PO PRN (10:21)
[2022-09-14] MEDS ORDERED: cloNIDine HCL 0.1 MG TABLET PO PRN (11:54)
[2022-09-14] MEDS: MELATONIN 5 MG TABLETS PO SCH (22:25)
[2022-09-14] MEDS: THIAMINE HCL 100 MG TABLET (FP) PO SCH (22:26)
[2022-09-14 23:00] VITALS: RESP 17
[2022-09-15] MEDS ORDERED: LORazepam 0.5 MG TABLET PO ONE (05:00)
[2022-09-15] MEDS: IBUPROFEN 600 MG TABLET (FP) PO PRN (05:34)
[2022-09-15 09:45] VITALS: BP 146/86; PULSE 86; TEMP 97.1
[2022-09-15] MEDS: QUEtiapine FUMARATE 300 MG TABLET PO SCH (10:41)
[2022-09-15] MEDS: NICOTINE 14 MG/24 HOURS TOPICAL PATCH TD SCH (10:41)
[2022-09-15] MEDS: LACTULOSE 20 GM/30 ML UDC (FOR ORAL USE ONLY) PO SCH (10:41)
[2022-09-15] MEDS: PRENATAL VITAMINS W/ FOLIC ACID TABLET (FP) PO SCH (10:41)
[2022-09-15] MEDS: ASPIRIN 81 MG CHEWABLE TABLETS PO SCH (10:41)
== END 2022-09-15 09:55 | disposition home or self-care (01) | DRG 775 ==
LOC: YASAS 06:38 → Y6N 08:21
PROVIDERS: ADMIT Allergy & Immunology; ATTEND Surgery
PROC: HZ2ZZZZ Detoxification Services for Substance Abuse Treatment (ICD-10-PCS; principal; 2022-09-11)
DX: F10.230 Alcohol dependence with withdrawal, uncomplicated (principal); F12.20 Cannabis dependence, uncomplicated; F17.210 Nicotine dependence, cigarettes, uncomplicated; F19.282 Other psychoactive substance dependence with psychoactive substance-induced sleep disorder; F19.280 Other psychoactive substance dependence with psychoactive substance-induced anxiety disorder; F32.A Depression, unspecified; F43.10 Post-traumatic stress disorder, unspecified; F90.9 Attention-deficit hyperactivity disorder, unspecified type; J45.20 Mild intermittent asthma, uncomplicated; K21.9 Gastro-esophageal reflux disease without esophagitis; R79.89 Other specified abnormal findings of blood chemistry; Z86.711 Personal history of pulmonary embolism; Z79.82 Long term (current) use of aspirin
CPT/HCPCS: 36415; 80053; 82140; 82247; 84520; 85027; 86780; 87635; 87811; Q0162

== ENCOUNTER 2022-09-30 01:07 | Inpatient (IN) | payer OTHER ==
[2022-09-30 01:26] VITALS: BMI 37.2
[2022-09-30] MEDS ORDERED: POLYETHYLENE GLYCOL (HEALTHYLAX) 3350 17 GM PACKET PO PRN (02:16)
[2022-09-30] MEDS ORDERED: NALOXONE HCL (KLOXXADO) 8 MG SPRAY NS PRN (02:16)
[2022-09-30] MEDS ORDERED: LOPERAMIDE HCL 2 MG CAPSULE PO PRN (02:16)
[2022-09-30] MEDS ORDERED: BENZONATATE 200 MG CAPSULE PO PRN (02:16)
[2022-09-30] MEDS ORDERED: NALOXONE HCL 0.4 MG/ML VIAL IM PRN (02:16)
[2022-09-30] MEDS ORDERED: BISMUTH SUBSALICYLATE 524 MG/30 ML PO PRN (02:16)
[2022-09-30] MEDS ORDERED: BENZOCAINE/MENTHOL (CHLORASEPTIC ) LOZENGE MM PRN (02:16)
[2022-09-30] MEDS ORDERED: MAGNESIUM HYDROX 2400MG/30ML ORAL SUSPENSION 30 ML CUP PO PRN (02:16)
[2022-09-30] MEDS ORDERED: ACETAMINOPHEN 325 MG TABLET (FP) PO PRN (02:16)
[2022-09-30] MEDS ORDERED: NICOTINE 10 MG CARTRIDGE (INHALER) IH PRN (02:16)
[2022-09-30] MEDS ORDERED: ONDANSETRON *ODT* 4 MG TABLET SL PRN (02:16)
[2022-09-30] MEDS ORDERED: MAG HYDROX/AL HYDROX/SIMETH 30 ML UNIT-DOSE CUP PO PRN (02:16)
[2022-09-30] MEDS ORDERED: DICYCLOMINE HCL 10 MG CAPSULE PO PRN (02:16)
[2022-09-30] MEDS ORDERED: guaiFENesin 600 MG TABLET.ER (FP) PO PRN (02:16)
[2022-09-30] MEDS ORDERED: METHOCARBAMOL 500 MG TABLET ONE (02:53)
[2022-09-30] MEDS ORDERED: IBUPROFEN 400 MG TABLET (FP) PO ONE (02:53)
[2022-09-30] MEDS: IBUPROFEN 400 MG TABLET (FP) PO PRN (02:56)
[2022-09-30] MEDS: METHOCARBAMOL 500 MG TABLET PO PRN ×3 (02:57→22:56)
[2022-09-30] MEDS: PRENATAL VITAMINS W/ FOLIC ACID TABLET (FP) PO SCH (10:21)
[2022-09-30] MEDS: NICOTINE 21 MG/24 HOURS TOPICAL PATCH TD SCH (10:21)
[2022-09-30] MEDS: IBUPROFEN 600 MG TABLET (FP) PO PRN ×2 (10:22→17:38)
[2022-09-30] MEDS ORDERED: diazePAM 5 MG TABLET PO PRN (10:56)
[2022-09-30] MEDS ORDERED: ALBUTEROL SO4 HFA INHALER IH PRN (10:57)
[2022-09-30] MEDS: ASPIRIN 81 MG CHEWABLE TABLETS PO SCH (11:21)
[2022-09-30] MEDS: diazePAM 5 MG TABLET PO SCH ×3 (11:21→22:55)
[2022-09-30] MEDS ORDERED: QUEtiapine FUMARATE 100 MG TABLET (FP) PO STA (12:02)
[2022-09-30] MEDS: THIAMINE HCL 100 MG TABLET (FP) PO SCH (22:57)
[2022-09-30] MEDS: MELATONIN 5 MG TABLETS PO SCH (22:57)
[2022-10-01] MEDS: diazePAM 5 MG TABLET PO SCH ×4 (05:26→22:57)
[2022-10-01] MEDS: METHOCARBAMOL 500 MG TABLET PO PRN ×2 (05:27→17:26)
[2022-10-01] MEDS: IBUPROFEN 600 MG TABLET (FP) PO PRN ×2 (05:28→22:55)
[2022-10-01 09:34] VITALS: RESP 18
[2022-10-01] MEDS: NICOTINE 21 MG/24 HOURS TOPICAL PATCH TD SCH (10:24)
[2022-10-01] MEDS: QUEtiapine FUMARATE 300 MG TABLET PO SCH (10:26)
[2022-10-01] MEDS: PRENATAL VITAMINS W/ FOLIC ACID TABLET (FP) PO SCH (10:26)
[2022-10-01] MEDS: ASPIRIN 81 MG CHEWABLE TABLETS PO SCH (10:26)
[2022-10-01 11:54] LABS: HEMOGLOBIN 13.3 GM/dL (11.7-16.9); MCH 30.4 pg (25.7-33.7); MCHC 32.6 g/dl (32.0-35.9); MEAN CELL VOLUME 93.2 fl (80-96); MEAN PLT VOLUME 8.8 fl (7.5-11.1); PLATELET COUNT 324 10^3/uL (134-434); RDW 13.9 % (11.9-15.9); WHITE BLOOD COUNT 8.2 K/mm3 (4.0-10.0)
[2022-10-01 12:11] LABS: POTASSIUM 4.4 mmol/L (3.5-5.1)
[2022-10-01 12:14] LABS: ALBUMIN 3.7 g/dl (3.4-5.0); CALCIUM 9.7 mg/dL (8.5-10.1)
[2022-10-01 12:15] LABS: BLOOD UREA NITROGEN 22.9 mg/dL (7-18)
[2022-10-01 12:17] LABS: CREATININE 1.1 mg/dL (0.55-1.3)
[2022-10-01 12:19] LABS: BILIRUBIN,TOTAL 0.9 mg/dL (0.2-1); TOT PROT 6.9 g/dl (6.4-8.2)
[2022-10-01] MEDS: MELATONIN 5 MG TABLETS PO SCH (22:56)
[2022-10-01] MEDS: THIAMINE HCL 100 MG TABLET (FP) PO SCH (22:58)
[2022-10-02] MEDS: diazePAM 5 MG TABLET PO SCH ×2 (05:21→14:36)
[2022-10-02] MEDS: METHOCARBAMOL 500 MG TABLET PO PRN (05:22)
[2022-10-02] MEDS: PRENATAL VITAMINS W/ FOLIC ACID TABLET (FP) PO SCH (10:13)
[2022-10-02] MEDS: NICOTINE 21 MG/24 HOURS TOPICAL PATCH TD SCH (10:13)
[2022-10-02] MEDS: QUEtiapine FUMARATE 300 MG TABLET PO SCH (10:13)
[2022-10-02] MEDS: ASPIRIN 81 MG CHEWABLE TABLETS PO SCH (10:13)
[2022-10-02] MEDS: IBUPROFEN 400 MG TABLET (FP) PO PRN (10:15)
[2022-10-02 20:45] VITALS: BP 144/90; PULSE 90; TEMP 97.7
[2022-10-03] MEDS ORDERED: diazePAM 5 MG TABLET PO SCH (06:00)
[2022-10-04] MEDS ORDERED: diazePAM 5 MG TABLET PO ONE (06:00)
== END 2022-10-02 21:36 | disposition left against medical advice (07) | DRG 770 ==
LOC: YASAS 01:07 → Y3N 02:57
PROVIDERS: ADMIT Allergy & Immunology; ATTEND Allergy & Immunology
PROC: HZ2ZZZZ Detoxification Services for Substance Abuse Treatment (ICD-10-PCS; principal; 2022-09-30)
DX: F10.230 Alcohol dependence with withdrawal, uncomplicated (principal); F13.10 Sedative, hypnotic or anxiolytic abuse, uncomplicated; F17.210 Nicotine dependence, cigarettes, uncomplicated; F19.24 Other psychoactive substance dependence with psychoactive substance-induced mood disorder; F43.10 Post-traumatic stress disorder, unspecified; K21.9 Gastro-esophageal reflux disease without esophagitis
CPT/HCPCS: 36415; 80053; 85027; 86780; 87635; 87811

== ENCOUNTER 2022-10-08 23:42 | Inpatient (IN) | payer OTHER ==
[2022-10-09 00:07] VITALS: BMI 35.9
[2022-10-09] MEDS ORDERED: POLYETHYLENE GLYCOL (HEALTHYLAX) 3350 17 GM PACKET PO PRN (00:26)
[2022-10-09] MEDS ORDERED: guaiFENesin 600 MG TABLET.ER (FP) PO PRN (00:26)
[2022-10-09] MEDS ORDERED: MAG HYDROX/AL HYDROX/SIMETH 30 ML UNIT-DOSE CUP PO PRN (00:26)
[2022-10-09] MEDS ORDERED: DICYCLOMINE HCL 10 MG CAPSULE PO PRN (00:26)
[2022-10-09] MEDS ORDERED: BISMUTH SUBSALICYLATE 524 MG/30 ML PO PRN (00:26)
[2022-10-09] MEDS ORDERED: NALOXONE HCL 0.4 MG/ML VIAL IM PRN (00:26)
[2022-10-09] MEDS ORDERED: NICOTINE POLACRILEX 2 MG GUM BUC PRN (00:26)
[2022-10-09] MEDS ORDERED: MAGNESIUM HYDROX 2400MG/30ML ORAL SUSPENSION 30 ML CUP PO PRN (00:26)
[2022-10-09] MEDS ORDERED: BENZOCAINE/MENTHOL (CHLORASEPTIC ) LOZENGE MM PRN (00:26)
[2022-10-09] MEDS ORDERED: LOPERAMIDE HCL 2 MG CAPSULE PO PRN (00:26)
[2022-10-09] MEDS ORDERED: BENZONATATE 200 MG CAPSULE PO PRN (00:26)
[2022-10-09] MEDS ORDERED: ACETAMINOPHEN 325 MG TABLET (FP) PO PRN (00:26)
[2022-10-09] MEDS ORDERED: ONDANSETRON *ODT* 4 MG TABLET SL PRN (00:26)
[2022-10-09] MEDS ORDERED: NALOXONE HCL (KLOXXADO) 8 MG SPRAY NS PRN (00:26)
[2022-10-09] MEDS: hydrOXYzine PAMOATE 25 MG CAPSULE (FP) PO PRN (01:21)
[2022-10-09] MEDS: METHOCARBAMOL 500 MG TABLET PO PRN ×2 (01:21→22:39)
[2022-10-09] MEDS ORDERED: diazePAM 5 MG TABLET PO PRN (10:13)
[2022-10-09] MEDS: NICOTINE 14 MG/24 HOURS TOPICAL PATCH TD SCH (10:18)
[2022-10-09] MEDS: PRENATAL VITAMINS W/ FOLIC ACID TABLET (FP) PO SCH (10:18)
[2022-10-09] MEDS: IBUPROFEN 400 MG TABLET (FP) PO PRN (10:19)
[2022-10-09] MEDS: diazePAM 5 MG TABLET PO SCH ×3 (10:42→22:35)
[2022-10-09] MEDS: QUEtiapine FUMARATE 300 MG TABLET PO SCH (15:02)
[2022-10-09] MEDS: THIAMINE HCL 100 MG TABLET (FP) PO SCH (22:35)
[2022-10-09] MEDS: MELATONIN 5 MG TABLETS PO SCH (22:47)
[2022-10-10] MEDS: METHOCARBAMOL 500 MG TABLET PO PRN ×3 (05:33→22:27)
[2022-10-10] MEDS: diazePAM 5 MG TABLET PO SCH ×4 (05:34→22:24)
[2022-10-10] MEDS: PRENATAL VITAMINS W/ FOLIC ACID TABLET (FP) PO SCH (10:27)
[2022-10-10] MEDS: hydrOXYzine PAMOATE 25 MG CAPSULE (FP) PO PRN ×2 (10:28→22:27)
[2022-10-10] MEDS: QUEtiapine FUMARATE 300 MG TABLET PO SCH (10:28)
[2022-10-10] MEDS: NICOTINE 14 MG/24 HOURS TOPICAL PATCH TD SCH (10:29)
[2022-10-10 12:21] LABS: HEMATOCRIT 46.4 % (35.4-49); HEMOGLOBIN 14.9 GM/dL (11.7-16.9); MCH 29.8 pg (25.7-33.7); MCHC 32.1 g/dl (32.0-35.9); MEAN CELL VOLUME 92.8 fl (80-96); MEAN PLT VOLUME 8.8 fl (7.5-11.1); PLATELET COUNT 346 10^3/uL (134-434); RDW 13.5 % (11.9-15.9); WHITE BLOOD COUNT 7.9 K/mm3 (4.0-10.0)
[2022-10-10 12:25] LABS: POTASSIUM 4.3 mmol/L (3.5-5.1)
[2022-10-10 12:27] LABS: BLOOD UREA NITROGEN 19.6 mg/dL (7-18)
[2022-10-10 12:28] LABS: CALCIUM 9.8 mg/dL (8.5-10.1)
[2022-10-10 12:29] LABS: ALBUMIN 4.2 g/dl (3.4-5.0)
[2022-10-10 12:31] LABS: CREATININE 1.1 mg/dL (0.55-1.3)
[2022-10-10 12:32] LABS: TOT PROT 7.7 g/dl (6.4-8.2)
[2022-10-10] MEDS: IBUPROFEN 600 MG TABLET (FP) PO PRN (15:33)
[2022-10-10 21:14] VITALS: RESP 18
[2022-10-10] MEDS: THIAMINE HCL 100 MG TABLET (FP) PO SCH (22:24)
[2022-10-10] MEDS: IBUPROFEN 400 MG TABLET (FP) PO PRN (22:27)
[2022-10-10] MEDS: MELATONIN 5 MG TABLETS PO SCH (22:29)
[2022-10-11] MEDS: diazePAM 5 MG TABLET PO SCH ×3 (05:39→22:20)
[2022-10-11] MEDS: IBUPROFEN 600 MG TABLET (FP) PO PRN (05:39)
[2022-10-11] MEDS: METHOCARBAMOL 500 MG TABLET PO PRN ×2 (10:21→22:20)
[2022-10-11] MEDS: hydrOXYzine PAMOATE 25 MG CAPSULE (FP) PO PRN (10:21)
[2022-10-11] MEDS: PRENATAL VITAMINS W/ FOLIC ACID TABLET (FP) PO SCH (10:21)
[2022-10-11] MEDS: QUEtiapine FUMARATE 300 MG TABLET PO SCH (10:21)
[2022-10-11] MEDS: NICOTINE 14 MG/24 HOURS TOPICAL PATCH TD SCH (10:23)
[2022-10-11] MEDS ORDERED: ALBUTEROL SO4 HFA INHALER IH PRN (10:52)
[2022-10-11] MEDS: ASPIRIN 81 MG CHEWABLE TABLETS PO SCH (11:27)
[2022-10-11] MEDS: THIAMINE HCL 100 MG TABLET (FP) PO SCH (22:19)
[2022-10-11] MEDS: MELATONIN 5 MG TABLETS PO SCH (22:21)
[2022-10-12] MEDS ORDERED: diazePAM 5 MG TABLET PO SCH (06:00)
[2022-10-12 09:18] VITALS: BP 128/74; PULSE 72; TEMP 96.8
[2022-10-12] MEDS: NICOTINE 14 MG/24 HOURS TOPICAL PATCH TD SCH (10:43)
[2022-10-12] MEDS: ASPIRIN 81 MG CHEWABLE TABLETS PO SCH (10:43)
[2022-10-12] MEDS: PRENATAL VITAMINS W/ FOLIC ACID TABLET (FP) PO SCH (10:43)
[2022-10-12] MEDS: QUEtiapine FUMARATE 300 MG TABLET PO SCH (10:44)
[2022-10-13] MEDS ORDERED: diazePAM 5 MG TABLET PO ONE (06:00)
== END 2022-10-12 10:45 | disposition left against medical advice (07) | DRG 770 ==
LOC: YASAS 23:42 → Y6N 10-09 01:03
PROVIDERS: ADMIT Allergy & Immunology; ATTEND Allergy & Immunology
PROC: HZ2ZZZZ Detoxification Services for Substance Abuse Treatment (ICD-10-PCS; principal; 2022-10-09)
DX: F10.230 Alcohol dependence with withdrawal, uncomplicated (principal); F14.20 Cocaine dependence, uncomplicated; F13.20 Sedative, hypnotic or anxiolytic dependence, uncomplicated; F12.20 Cannabis dependence, uncomplicated; F17.210 Nicotine dependence, cigarettes, uncomplicated; F19.282 Other psychoactive substance dependence with psychoactive substance-induced sleep disorder; F31.9 Bipolar disorder, unspecified; F43.10 Post-traumatic stress disorder, unspecified; J45.20 Mild intermittent asthma, uncomplicated; Z91.410 Personal history of adult physical and sexual abuse
CPT/HCPCS: 36415; 80053; 85027; 86780; 87635; 87811; Q0162

== ENCOUNTER 2022-10-20 23:15 | Inpatient (IN) | payer OTHER ==
[2022-10-21] MEDS ORDERED: BENZOCAINE/MENTHOL (CHLORASEPTIC ) LOZENGE MM PRN (00:10)
[2022-10-21] MEDS ORDERED: guaiFENesin 600 MG TABLET.ER (FP) PO PRN (00:10)
[2022-10-21] MEDS ORDERED: LOPERAMIDE HCL 2 MG CAPSULE PO PRN (00:10)
[2022-10-21] MEDS ORDERED: BENZONATATE 200 MG CAPSULE PO PRN (00:10)
[2022-10-21] MEDS ORDERED: IBUPROFEN 400 MG TABLET (FP) PO PRN (00:10)
[2022-10-21] MEDS ORDERED: NICOTINE POLACRILEX 2 MG GUM BUC PRN (00:10)
[2022-10-21] MEDS ORDERED: NALOXONE HCL 0.4 MG/ML VIAL IM PRN (00:10)
[2022-10-21] MEDS ORDERED: ONDANSETRON *ODT* 4 MG TABLET SL PRN (00:10)
[2022-10-21] MEDS ORDERED: MAG HYDROX/AL HYDROX/SIMETH 30 ML UNIT-DOSE CUP PO PRN (00:10)
[2022-10-21] MEDS ORDERED: MAGNESIUM HYDROX 2400MG/30ML ORAL SUSPENSION 30 ML CUP PO PRN (00:10)
[2022-10-21] MEDS ORDERED: NALOXONE HCL (KLOXXADO) 8 MG SPRAY NS PRN (00:10)
[2022-10-21] MEDS ORDERED: DICYCLOMINE HCL 10 MG CAPSULE PO PRN (00:10)
[2022-10-21] MEDS ORDERED: POLYETHYLENE GLYCOL (HEALTHYLAX) 3350 17 GM PACKET PO PRN (00:10)
[2022-10-21] MEDS ORDERED: BISMUTH SUBSALICYLATE 524 MG/30 ML PO PRN (00:10)
[2022-10-21 00:38] VITALS: BMI 37.7
[2022-10-21] MEDS ORDERED: ONDANSETRON *ODT* 4 MG TABLET ONE (02:14)
[2022-10-21] MEDS ORDERED: chlordiazePOXIDE HCL 25 MG CAPSULE PO PRN (09:50)
[2022-10-21] MEDS: PRENATAL VITAMINS W/ FOLIC ACID TABLET (FP) PO SCH (10:21)
[2022-10-21] MEDS: chlordiazePOXIDE HCL 25 MG CAPSULE PO SCH ×3 (10:22→22:18)
[2022-10-21] MEDS: METHOCARBAMOL 500 MG TABLET PO PRN ×2 (10:22→17:15)
[2022-10-21] MEDS: NICOTINE 14 MG/24 HOURS TOPICAL PATCH TD SCH (10:22)
[2022-10-21] MEDS: hydrOXYzine PAMOATE 25 MG CAPSULE (FP) PO PRN (15:45)
[2022-10-21] MEDS: IBUPROFEN 600 MG TABLET (FP) PO PRN (17:15)
[2022-10-21] MEDS: MELATONIN 5 MG TABLETS PO SCH (22:18)
[2022-10-21] MEDS: THIAMINE HCL 100 MG TABLET (FP) PO SCH (22:18)
[2022-10-21] MEDS: ACETAMINOPHEN 325 MG TABLET (FP) PO PRN (22:19)
[2022-10-22] MEDS: chlordiazePOXIDE HCL 10 MG CAPSULE PO SCH ×4 (05:15→22:30)
[2022-10-22] MEDS: ACETAMINOPHEN 325 MG TABLET (FP) PO PRN (05:16)
[2022-10-22] MEDS: NICOTINE 14 MG/24 HOURS TOPICAL PATCH TD SCH (10:25)
[2022-10-22] MEDS: METHOCARBAMOL 500 MG TABLET PO PRN (10:25)
[2022-10-22] MEDS: PRENATAL VITAMINS W/ FOLIC ACID TABLET (FP) PO SCH (10:25)
[2022-10-22] MEDS: QUEtiapine FUMARATE 300 MG TABLET PO SCH (11:09)
[2022-10-22] MEDS: BACITRACIN 0.9 GM PACKET TP SCH ×2 (11:49→22:30)
[2022-10-22] MEDS: hydrOXYzine PAMOATE 25 MG CAPSULE (FP) PO PRN (17:19)
[2022-10-22] MEDS: THIAMINE HCL 100 MG TABLET (FP) PO SCH (22:30)
[2022-10-22] MEDS: IBUPROFEN 600 MG TABLET (FP) PO PRN (22:32)
[2022-10-22] MEDS: MELATONIN 5 MG TABLETS PO SCH (22:34)
[2022-10-23] MEDS: chlordiazePOXIDE HCL 10 MG CAPSULE PO SCH ×2 (05:08→17:17)
[2022-10-23] MEDS: QUEtiapine FUMARATE 300 MG TABLET PO SCH (09:40)
[2022-10-23] MEDS: PRENATAL VITAMINS W/ FOLIC ACID TABLET (FP) PO SCH (09:40)
[2022-10-23] MEDS: BACITRACIN 0.9 GM PACKET TP SCH ×2 (09:40→22:30)
[2022-10-23] MEDS: NICOTINE 14 MG/24 HOURS TOPICAL PATCH TD SCH (09:41)
[2022-10-23] MEDS ORDERED: ALBUTEROL SO4 HFA INHALER IH PRN (14:38)
[2022-10-23] MEDS ORDERED: ASPIRIN 81 MG CHEWABLE TABLETS PO SCH (14:45)
[2022-10-23] MEDS: LACTULOSE 20 GM/30 ML UDC (FOR ORAL USE ONLY) PO SCH ×2 (17:17→22:30)
[2022-10-23] MEDS: ACETAMINOPHEN 325 MG TABLET (FP) PO PRN (17:18)
[2022-10-23] MEDS: THIAMINE HCL 100 MG TABLET (FP) PO SCH (22:30)
[2022-10-23] MEDS: MELATONIN 5 MG TABLETS PO SCH (22:30)
[2022-10-23] MEDS: METHOCARBAMOL 500 MG TABLET PO PRN (22:31)
[2022-10-24] MEDS ORDERED: chlordiazePOXIDE HCL 10 MG CAPSULE PO PRN
[2022-10-24] MEDS ORDERED: chlordiazePOXIDE HCL 10 MG CAPSULE PO ONE (05:00)
[2022-10-24 05:59] VITALS: BP 111/63; PULSE 60; RESP 18; TEMP 97.9
== END 2022-10-24 07:01 | disposition home or self-care (01) | DRG 775 ==
LOC: YASAS 23:15 → Y3N 10-21 03:38
PROVIDERS: ADMIT Allergy & Immunology; ATTEND Surgery
PROC: HZ2ZZZZ Detoxification Services for Substance Abuse Treatment (ICD-10-PCS; principal; 2022-10-21)
DX: F10.230 Alcohol dependence with withdrawal, uncomplicated (principal); F13.20 Sedative, hypnotic or anxiolytic dependence, uncomplicated; F12.20 Cannabis dependence, uncomplicated; F17.210 Nicotine dependence, cigarettes, uncomplicated; F25.1 Schizoaffective disorder, depressive type; F31.9 Bipolar disorder, unspecified; F19.282 Other psychoactive substance dependence with psychoactive substance-induced sleep disorder; F43.10 Post-traumatic stress disorder, unspecified; K21.9 Gastro-esophageal reflux disease without esophagitis; R79.89 Other specified abnormal findings of blood chemistry
CPT/HCPCS: 82140; 87635; 87811; Q0162

== ENCOUNTER 2022-11-08 19:58 | Inpatient (IN) | payer OTHER ==
[2022-11-08 20:45] VITALS: BMI 36.6
[2022-11-08] MEDS ORDERED: DICYCLOMINE HCL 10 MG CAPSULE PO PRN (21:43)
[2022-11-08] MEDS ORDERED: LOPERAMIDE HCL 2 MG CAPSULE PO PRN (21:43)
[2022-11-08] MEDS ORDERED: ACETAMINOPHEN 325 MG TABLET (FP) PO PRN (21:43)
[2022-11-08] MEDS ORDERED: NALOXONE HCL 0.4 MG/ML VIAL IM PRN (21:43)
[2022-11-08] MEDS ORDERED: BENZONATATE 200 MG CAPSULE PO PRN (21:43)
[2022-11-08] MEDS ORDERED: MAGNESIUM HYDROX 2400MG/30ML ORAL SUSPENSION 30 ML CUP PO PRN (21:43)
[2022-11-08] MEDS ORDERED: NICOTINE POLACRILEX 2 MG GUM BUC PRN (21:43)
[2022-11-08] MEDS ORDERED: BISMUTH SUBSALICYLATE 524 MG/30 ML PO PRN (21:43)
[2022-11-08] MEDS ORDERED: NALOXONE HCL (KLOXXADO) 8 MG SPRAY NS PRN (21:43)
[2022-11-08] MEDS ORDERED: MAG HYDROX/AL HYDROX/SIMETH 30 ML UNIT-DOSE CUP PO PRN (21:43)
[2022-11-08] MEDS ORDERED: POLYETHYLENE GLYCOL (HEALTHYLAX) 3350 17 GM PACKET PO PRN (21:43)
[2022-11-08] MEDS ORDERED: ONDANSETRON *ODT* 4 MG TABLET SL PRN (21:43)
[2022-11-08] MEDS ORDERED: IBUPROFEN 400 MG TABLET (FP) PO PRN (21:43)
[2022-11-08] MEDS: THIAMINE HCL 100 MG TABLET (FP) PO SCH (23:21)
[2022-11-08] MEDS: IBUPROFEN 600 MG TABLET (FP) PO PRN (23:23)
[2022-11-08] MEDS: MELATONIN 5 MG TABLETS PO SCH (23:24)
[2022-11-09] MEDS: QUEtiapine FUMARATE 300 MG TABLET PO SCH (10:57)
[2022-11-09] MEDS: PRENATAL VITAMINS W/ FOLIC ACID TABLET (FP) PO SCH (10:57)
[2022-11-09] MEDS: NICOTINE 14 MG/24 HOURS TOPICAL PATCH TD SCH (10:57)
[2022-11-09] MEDS: IBUPROFEN 600 MG TABLET (FP) PO PRN ×2 (10:57→18:17)
[2022-11-09] MEDS ORDERED: diazePAM 5 MG TABLET PO PRN (11:04)
[2022-11-09] MEDS: diazePAM 5 MG TABLET PO SCH ×3 (11:43→23:05)
[2022-11-09 13:42] LABS: HEMATOCRIT 46.5 % (35.4-49); HEMOGLOBIN 15.1 GM/dL (11.7-16.9); MCH 29.7 pg (25.7-33.7); MCHC 32.5 g/dl (32.0-35.9); MEAN CELL VOLUME 91.3 fl (80-96); MEAN PLT VOLUME 8.6 fl (7.5-11.1); PLATELET COUNT 300 10^3/uL (134-434); RBC 5.09 M/mm3 (4.00-5.60); RDW 13.6 % (11.9-15.9); WHITE BLOOD COUNT 4.7 K/mm3 (4.0-10.0)
[2022-11-09 14:21] LABS: POTASSIUM 4.3 mmol/L (3.5-5.1)
[2022-11-09 14:23] LABS: CALCIUM 8.9 mg/dL (8.5-10.1)
[2022-11-09 14:24] LABS: ALBUMIN 3.5 g/dl (3.4-5.0); BLOOD UREA NITROGEN 16.4 mg/dL (7-18)
[2022-11-09 14:27] LABS: CREATININE 1.1 mg/dL (0.55-1.3)
[2022-11-09 14:28] LABS: BILIRUBIN,TOTAL 0.4 mg/dL (0.2-1); TOT PROT 6.6 g/dl (6.4-8.2)
[2022-11-09] MEDS: BENZOCAINE/MENTHOL (CHLORASEPTIC ) LOZENGE MM PRN (18:18)
[2022-11-09] MEDS: METHOCARBAMOL 500 MG TABLET PO PRN (23:04)
[2022-11-09] MEDS: MELATONIN 5 MG TABLETS PO SCH (23:04)
[2022-11-09] MEDS: guaiFENesin 600 MG TABLET.ER (FP) PO PRN (23:05)
[2022-11-09] MEDS: THIAMINE HCL 100 MG TABLET (FP) PO SCH (23:05)
[2022-11-10] MEDS: diazePAM 5 MG TABLET PO SCH ×4 (05:31→22:36)
[2022-11-10] MEDS: METHOCARBAMOL 500 MG TABLET PO PRN ×2 (06:00→17:41)
[2022-11-10] MEDS: BENZOCAINE/MENTHOL (CHLORASEPTIC ) LOZENGE MM PRN ×2 (06:03→10:32)
[2022-11-10] MEDS: guaiFENesin 600 MG TABLET.ER (FP) PO PRN ×2 (06:06→17:47)
[2022-11-10] MEDS: NICOTINE 14 MG/24 HOURS TOPICAL PATCH TD SCH (10:22)
[2022-11-10] MEDS: PRENATAL VITAMINS W/ FOLIC ACID TABLET (FP) PO SCH (10:22)
[2022-11-10] MEDS: QUEtiapine FUMARATE 300 MG TABLET PO SCH (10:23)
[2022-11-10] MEDS: IBUPROFEN 600 MG TABLET (FP) PO PRN ×2 (10:34→22:37)
[2022-11-10] MEDS: THIAMINE HCL 100 MG TABLET (FP) PO SCH (22:36)
[2022-11-10] MEDS: MELATONIN 5 MG TABLETS PO SCH (22:37)
[2022-11-11] MEDS: diazePAM 5 MG TABLET PO SCH ×3 (06:01→23:21)
[2022-11-11] MEDS: METHOCARBAMOL 500 MG TABLET PO PRN (06:12)
[2022-11-11] MEDS: IBUPROFEN 600 MG TABLET (FP) PO PRN (06:12)
[2022-11-11] MEDS: BENZOCAINE/MENTHOL (CHLORASEPTIC ) LOZENGE MM PRN (06:13)
[2022-11-11 06:38] VITALS: RESP 18
[2022-11-11] MEDS: NICOTINE 14 MG/24 HOURS TOPICAL PATCH TD SCH (09:41)
[2022-11-11] MEDS: QUEtiapine FUMARATE 300 MG TABLET PO SCH (09:42)
[2022-11-11] MEDS: PRENATAL VITAMINS W/ FOLIC ACID TABLET (FP) PO SCH (09:42)
[2022-11-11] MEDS ORDERED: COLLOIDAL OATMEAL 1 BAR EACH TP PRN (12:43)
[2022-11-11] MEDS: MELATONIN 5 MG TABLETS PO SCH (23:10)
[2022-11-11] MEDS: THIAMINE HCL 100 MG TABLET (FP) PO SCH (23:21)
[2022-11-12] MEDS ORDERED: diazePAM 5 MG TABLET PO SCH (06:00)
[2022-11-12 09:38] VITALS: BP 129/82; PULSE 76; TEMP 96.9
[2022-11-12] MEDS: NICOTINE 14 MG/24 HOURS TOPICAL PATCH TD SCH (10:22)
[2022-11-12] MEDS: QUEtiapine FUMARATE 300 MG TABLET PO SCH (10:22)
[2022-11-12] MEDS: PRENATAL VITAMINS W/ FOLIC ACID TABLET (FP) PO SCH (10:22)
[2022-11-13] MEDS ORDERED: diazePAM 5 MG TABLET PO ONE (06:00)
== END 2022-11-12 09:58 | disposition home or self-care (01) | DRG 775 ==
LOC: YASAS 19:58 → Y3N 22:55
PROVIDERS: ADMIT Allergy & Immunology; ATTEND Allergy & Immunology
PROC: HZ2ZZZZ Detoxification Services for Substance Abuse Treatment (ICD-10-PCS; principal; 2022-11-08)
DX: F10.230 Alcohol dependence with withdrawal, uncomplicated (principal); F12.20 Cannabis dependence, uncomplicated; F17.210 Nicotine dependence, cigarettes, uncomplicated; F25.1 Schizoaffective disorder, depressive type; F31.9 Bipolar disorder, unspecified; U07.1 COVID-19; J45.909 Unspecified asthma, uncomplicated; K21.9 Gastro-esophageal reflux disease without esophagitis; Z91.410 Personal history of adult physical and sexual abuse
CPT/HCPCS: 36415; 80053; 85027; 86780; 87635

== ENCOUNTER 2022-11-22 21:47 | Inpatient (IN) | payer OTHER ==
[2022-11-22 22:07] VITALS: BMI 37.2
[2022-11-22] MEDS ORDERED: METHOCARBAMOL 500 MG TABLET PO PRN (23:37)
[2022-11-22] MEDS ORDERED: IBUPROFEN 400 MG TABLET (FP) PO PRN (23:37)
[2022-11-22] MEDS ORDERED: LOPERAMIDE HCL 2 MG CAPSULE PO PRN (23:37)
[2022-11-22] MEDS ORDERED: AMMONIUM LACTATE 12% LOTION 225 GM BOTTLE TP PRN (23:37)
[2022-11-22] MEDS ORDERED: MAG HYDROX/AL HYDROX/SIMETH 30 ML UNIT-DOSE CUP PO PRN (23:37)
[2022-11-22] MEDS ORDERED: guaiFENesin 600 MG TABLET.ER (FP) PO PRN (23:37)
[2022-11-22] MEDS ORDERED: BENZONATATE 200 MG CAPSULE PO PRN (23:37)
[2022-11-22] MEDS ORDERED: ACETAMINOPHEN 325 MG TABLET (FP) PO PRN (23:37)
[2022-11-22] MEDS ORDERED: hydrOXYzine PAMOATE 25 MG CAPSULE (FP) PO PRN (23:37)
[2022-11-22] MEDS ORDERED: P-EPHED 60MG/TRIPROLIDI 2.5MG TABLET PO PRN (23:37)
[2022-11-22] MEDS ORDERED: POLYETHYLENE GLYCOL (HEALTHYLAX) 3350 17 GM PACKET PO PRN (23:37)
[2022-11-22] MEDS ORDERED: NICOTINE POLACRILEX 2 MG GUM BUC PRN (23:37)
[2022-11-22] MEDS ORDERED: BENZOCAINE/MENTHOL (CHLORASEPTIC ) LOZENGE MM PRN (23:37)
[2022-11-22] MEDS ORDERED: COLLOIDAL OATMEAL 1 BAR EACH TP PRN (23:37)
[2022-11-22] MEDS ORDERED: MAGNESIUM HYDROX 2400MG/30ML ORAL SUSPENSION 30 ML CUP PO PRN (23:37)
[2022-11-22] MEDS ORDERED: ALBUTEROL SO4 HFA INHALER IH PRN (23:39)
[2022-11-23] MEDS: MELATONIN 5 MG TABLETS PO SCH ×2 (04:08→21:48)
[2022-11-23 07:23] VITALS: RESP 18
[2022-11-23] MEDS: PRENATAL VITAMINS W/ FOLIC ACID TABLET (FP) PO SCH (10:04)
[2022-11-23] MEDS: ASPIRIN 81 MG CHEWABLE TABLETS PO SCH (10:04)
[2022-11-23] MEDS: IBUPROFEN 600 MG TABLET (FP) PO PRN (10:05)
[2022-11-23] MEDS: QUEtiapine FUMARATE 300 MG TABLET PO SCH (10:05)
[2022-11-23] MEDS: VENLAFAXINE HCL 75 MG E.R. CAPSULES PO SCH (10:15)
[2022-11-23] MEDS: THIAMINE HCL 100 MG TABLET (FP) PO SCH (21:48)
[2022-11-24] MEDS: ASPIRIN 81 MG CHEWABLE TABLETS PO SCH (10:40)
[2022-11-24] MEDS: PRENATAL VITAMINS W/ FOLIC ACID TABLET (FP) PO SCH (10:40)
[2022-11-24] MEDS: VENLAFAXINE HCL 75 MG E.R. CAPSULES PO SCH (10:40)
[2022-11-24] MEDS: QUEtiapine FUMARATE 300 MG TABLET PO SCH (10:40)
[2022-11-24] MEDS: IBUPROFEN 600 MG TABLET (FP) PO PRN (20:26)
[2022-11-24] MEDS: THIAMINE HCL 100 MG TABLET (FP) PO SCH (21:41)
[2022-11-24] MEDS: MELATONIN 5 MG TABLETS PO SCH (21:41)
[2022-11-25 07:33] VITALS: BP 151/89; PULSE 60; TEMP 97.7
[2022-11-25] MEDS: VENLAFAXINE HCL 75 MG E.R. CAPSULES PO SCH (09:44)
[2022-11-25] MEDS: ASPIRIN 81 MG CHEWABLE TABLETS PO SCH (09:44)
[2022-11-25] MEDS: QUEtiapine FUMARATE 300 MG TABLET PO SCH (09:44)
[2022-11-25] MEDS: PRENATAL VITAMINS W/ FOLIC ACID TABLET (FP) PO SCH (09:44)
[2022-11-25] MEDS: THIAMINE HCL 100 MG TABLET (FP) PO SCH (22:03)
[2022-11-25] MEDS: MELATONIN 5 MG TABLETS PO SCH (22:03)
== END 2022-11-26 03:55 | disposition left against medical advice (07) | DRG 770 ==
LOC: YASAS 21:47 → Y5N 23:37
PROVIDERS: ADMIT Allergy & Immunology; ATTEND Psychiatry & Neurology Pain Medicine
PROC: HZ42ZZZ Group Counseling for Substance Abuse Treatment, Cognitive-Behavioral (ICD-10-PCS; principal; 2022-11-22)
DX: F10.20 Alcohol dependence, uncomplicated (principal); F13.20 Sedative, hypnotic or anxiolytic dependence, uncomplicated; F12.20 Cannabis dependence, uncomplicated; F17.210 Nicotine dependence, cigarettes, uncomplicated; F19.280 Other psychoactive substance dependence with psychoactive substance-induced anxiety disorder; F31.9 Bipolar disorder, unspecified; F25.1 Schizoaffective disorder, depressive type; J45.909 Unspecified asthma, uncomplicated; K21.9 Gastro-esophageal reflux disease without esophagitis; F43.10 Post-traumatic stress disorder, unspecified; R79.89 Other specified abnormal findings of blood chemistry; Z56.0 Unemployment, unspecified
CPT/HCPCS: 87635; 87811

== ENCOUNTER 2022-12-15 21:29 | Inpatient (IN) | payer OTHER ==
[2022-12-16 00:33] VITALS: BMI 36.6
[2022-12-16] MEDS ORDERED: NALOXONE HCL (KLOXXADO) 8 MG SPRAY NS PRN (00:59)
[2022-12-16] MEDS ORDERED: MAG HYDROX/AL HYDROX/SIMETH 30 ML UNIT-DOSE CUP PO PRN (00:59)
[2022-12-16] MEDS ORDERED: BISMUTH SUBSALICYLATE 524 MG/30 ML PO PRN (00:59)
[2022-12-16] MEDS ORDERED: DICYCLOMINE HCL 10 MG CAPSULE PO PRN (00:59)
[2022-12-16] MEDS ORDERED: guaiFENesin 600 MG TABLET.ER (FP) PO PRN (00:59)
[2022-12-16] MEDS ORDERED: POLYETHYLENE GLYCOL (HEALTHYLAX) 3350 17 GM PACKET PO PRN (00:59)
[2022-12-16] MEDS ORDERED: IBUPROFEN 400 MG TABLET (FP) PO PRN (00:59)
[2022-12-16] MEDS ORDERED: ACETAMINOPHEN 325 MG TABLET (FP) PO PRN (00:59)
[2022-12-16] MEDS ORDERED: BENZONATATE 200 MG CAPSULE PO PRN (00:59)
[2022-12-16] MEDS ORDERED: hydrOXYzine PAMOATE 25 MG CAPSULE (FP) PO PRN (00:59)
[2022-12-16] MEDS ORDERED: MAGNESIUM HYDROX 2400MG/30ML ORAL SUSPENSION 30 ML CUP PO PRN (00:59)
[2022-12-16] MEDS ORDERED: NICOTINE POLACRILEX 2 MG GUM BUC PRN (00:59)
[2022-12-16] MEDS ORDERED: BENZOCAINE/MENTHOL (CHLORASEPTIC ) LOZENGE MM PRN (00:59)
[2022-12-16] MEDS ORDERED: LOPERAMIDE HCL 2 MG CAPSULE PO PRN (00:59)
[2022-12-16] MEDS ORDERED: ONDANSETRON *ODT* 4 MG TABLET SL PRN (00:59)
[2022-12-16] MEDS ORDERED: NALOXONE HCL 0.4 MG/ML VIAL IM PRN (00:59)
[2022-12-16] MEDS: IBUPROFEN 600 MG TABLET (FP) PO PRN ×2 (03:45→10:14)
[2022-12-16] MEDS: METHOCARBAMOL 500 MG TABLET PO PRN ×2 (03:45→17:42)
[2022-12-16] MEDS ORDERED: ALBUTEROL SO4 HFA INHALER IH PRN (07:30)
[2022-12-16] MEDS ORDERED: diazePAM 5 MG TABLET PO PRN (10:02)
[2022-12-16] MEDS ORDERED: diazePAM 5 MG TABLET PO ONE (10:02)
[2022-12-16] MEDS: NICOTINE 21 MG/24 HOURS TOPICAL PATCH TD SCH (10:11)
[2022-12-16] MEDS: PRENATAL VITAMINS W/ FOLIC ACID TABLET (FP) PO SCH (10:11)
[2022-12-16] MEDS: QUEtiapine FUMARATE 200 MG TABLET PO SCH (10:13)
[2022-12-16] MEDS: diazePAM 5 MG TABLET PO SCH ×3 (10:47→23:02)
[2022-12-16 12:53] VITALS: RESP 18
[2022-12-16] MEDS: THIAMINE HCL 100 MG TABLET (FP) PO SCH (23:02)
[2022-12-16] MEDS: MELATONIN 5 MG TABLETS PO SCH (23:02)
[2022-12-17] MEDS: diazePAM 5 MG TABLET PO SCH ×4 (05:42→22:40)
[2022-12-17] MEDS: cloNIDine HCL 0.1 MG TABLET PO PRN ×2 (09:29→17:44)
[2022-12-17] MEDS: QUEtiapine FUMARATE 200 MG TABLET PO SCH (09:30)
[2022-12-17] MEDS: PRENATAL VITAMINS W/ FOLIC ACID TABLET (FP) PO SCH (09:30)
[2022-12-17] MEDS: NICOTINE 21 MG/24 HOURS TOPICAL PATCH TD SCH (09:30)
[2022-12-17] MEDS: METHOCARBAMOL 500 MG TABLET PO PRN (17:44)
[2022-12-17] MEDS: THIAMINE HCL 100 MG TABLET (FP) PO SCH (22:40)
[2022-12-17] MEDS: MELATONIN 5 MG TABLETS PO SCH (23:46)
[2022-12-18] MEDS ORDERED: diazePAM 5 MG TABLET PO SCH (06:00)
[2022-12-18 06:08] VITALS: TEMP 97.8
[2022-12-18 09:40] VITALS: BP 148/90; PULSE 87
[2022-12-19] MEDS ORDERED: diazePAM 5 MG TABLET PO SCH (06:00)
[2022-12-20] MEDS ORDERED: diazePAM 5 MG TABLET PO ONE (06:00)
== END 2022-12-18 09:28 | disposition left against medical advice (07) | DRG 770 ==
LOC: YASAS 21:29 → Y3N 12-16 02:28 → UNDOADMIN 12-16 02:28
PROVIDERS: ADMIT Allergy & Immunology; ATTEND Allergy & Immunology
PROC: HZ2ZZZZ Detoxification Services for Substance Abuse Treatment (ICD-10-PCS; principal; 2022-12-16)
DX: F10.230 Alcohol dependence with withdrawal, uncomplicated (principal); F12.20 Cannabis dependence, uncomplicated; F17.210 Nicotine dependence, cigarettes, uncomplicated; F31.9 Bipolar disorder, unspecified; F19.280 Other psychoactive substance dependence with psychoactive substance-induced anxiety disorder; J45.909 Unspecified asthma, uncomplicated; K21.9 Gastro-esophageal reflux disease without esophagitis; Z91.410 Personal history of adult physical and sexual abuse
CPT/HCPCS: 87635

== ENCOUNTER 2023-01-07 11:21 | Inpatient (IN) | payer OTHER ==
[2023-01-07 11:49] VITALS: BMI 36.7
[2023-01-07] MEDS ORDERED: BENZONATATE 200 MG CAPSULE PO PRN (14:28)
[2023-01-07] MEDS ORDERED: guaiFENesin 600 MG TABLET.ER (FP) PO PRN (14:28)
[2023-01-07] MEDS ORDERED: IBUPROFEN 400 MG TABLET (FP) PO PRN (14:28)
[2023-01-07] MEDS ORDERED: BISMUTH SUBSALICYLATE 524 MG/30 ML PO PRN (14:28)
[2023-01-07] MEDS ORDERED: NALOXONE HCL (KLOXXADO) 8 MG SPRAY NS PRN (14:28)
[2023-01-07] MEDS ORDERED: chlordiazePOXIDE HCL 25 MG CAPSULE PO PRN (14:28)
[2023-01-07] MEDS ORDERED: DICYCLOMINE HCL 10 MG CAPSULE PO PRN (14:28)
[2023-01-07] MEDS ORDERED: MAG HYDROX/AL HYDROX/SIMETH 30 ML UNIT-DOSE CUP PO PRN (14:28)
[2023-01-07] MEDS ORDERED: POLYETHYLENE GLYCOL (HEALTHYLAX) 3350 17 GM PACKET PO PRN (14:28)
[2023-01-07] MEDS ORDERED: BENZOCAINE/MENTHOL (CHLORASEPTIC ) LOZENGE MM PRN (14:28)
[2023-01-07] MEDS ORDERED: ONDANSETRON *ODT* 4 MG TABLET SL PRN (14:28)
[2023-01-07] MEDS ORDERED: ACETAMINOPHEN 325 MG TABLET (FP) PO PRN (14:28)
[2023-01-07] MEDS ORDERED: NALOXONE HCL 0.4 MG/ML VIAL IM PRN (14:28)
[2023-01-07] MEDS ORDERED: MAGNESIUM HYDROX 2400MG/30ML ORAL SUSPENSION 30 ML CUP PO PRN (14:28)
[2023-01-07] MEDS ORDERED: LOPERAMIDE HCL 2 MG CAPSULE PO PRN (14:28)
[2023-01-07] MEDS ORDERED: COLLOIDAL OATMEAL 1 BAR EACH TP PRN (14:35)
[2023-01-07] MEDS ORDERED: NICOTINE POLACRILEX 2 MG GUM BC PRN (15:19)
[2023-01-07] MEDS: chlordiazePOXIDE HCL 25 MG CAPSULE PO SCH ×2 (17:45→22:47)
[2023-01-07] MEDS: hydrOXYzine PAMOATE 25 MG CAPSULE (FP) PO PRN (17:47)
[2023-01-07] MEDS: METHOCARBAMOL 500 MG TABLET PO PRN (17:48)
[2023-01-07] MEDS ORDERED: ARIPiprazole 10 MG TABLET PO ONE (18:28)
[2023-01-07] MEDS: MELATONIN 5 MG TABLETS PO SCH (22:46)
[2023-01-07] MEDS: THIAMINE HCL 100 MG TABLET (FP) PO SCH (22:46)
[2023-01-08] MEDS: chlordiazePOXIDE HCL 25 MG CAPSULE PO SCH ×4 (05:58→22:06)
[2023-01-08] MEDS: IBUPROFEN 600 MG TABLET (FP) PO PRN ×2 (06:06→17:39)
[2023-01-08] MEDS: ARIPiprazole 10 MG TABLET PO SCH (10:13)
[2023-01-08] MEDS: PRENATAL VITAMINS W/ FOLIC ACID TABLET (FP) PO SCH (10:13)
[2023-01-08] MEDS: NICOTINE 21 MG/24 HOURS TOPICAL PATCH TD SCH (10:13)
[2023-01-08 10:26] LABS: HEMATOCRIT 41.6 % (35.4-49); HEMOGLOBIN 14.3 GM/dL (11.7-16.9); MCH 31.3 pg (25.7-33.7); MCHC 34.5 g/dl (32.0-35.9); MEAN CELL VOLUME 90.7 fl (80-96); MEAN PLT VOLUME 8.4 fl (7.5-11.1); PLATELET COUNT 260 10^3/uL (134-434); RBC 4.58 M/mm3 (4.00-5.60); RDW 16.1 % (11.9-15.9); WHITE BLOOD COUNT 5.9 K/mm3 (4.0-10.0)
[2023-01-08 10:39] LABS: POTASSIUM 3.9 mmol/L (3.5-5.1)
[2023-01-08 10:43] LABS: CALCIUM 8.9 mg/dL (8.5-10.1)
[2023-01-08 10:44] LABS: ALBUMIN 3.3 g/dl (3.4-5.0); BLOOD UREA NITROGEN 15.2 mg/dL (7-18)
[2023-01-08 10:46] LABS: CREATININE 1.1 mg/dL (0.55-1.3)
[2023-01-08 10:48] LABS: BILIRUBIN,TOTAL 0.8 mg/dL (0.2-1); TOT PROT 6.2 g/dl (6.4-8.2)
[2023-01-08] MEDS ORDERED: ALBUTEROL SO4 HFA INHALER IH PRN (15:52)
[2023-01-08] MEDS: ASPIRIN 81 MG CHEWABLE TABLETS PO SCH (16:10)
[2023-01-08] MEDS: METHOCARBAMOL 500 MG TABLET PO PRN (17:39)
[2023-01-08] MEDS: MELATONIN 5 MG TABLETS PO SCH (22:05)
[2023-01-08] MEDS: THIAMINE HCL 100 MG TABLET (FP) PO SCH (22:05)
[2023-01-08] MEDS: hydrOXYzine PAMOATE 25 MG CAPSULE (FP) PO PRN (22:05)
[2023-01-09] MEDS: chlordiazePOXIDE HCL 25 MG CAPSULE PO SCH ×4 (05:19→22:19)
[2023-01-09] MEDS: NICOTINE 21 MG/24 HOURS TOPICAL PATCH TD SCH (10:01)
[2023-01-09] MEDS: ASPIRIN 81 MG CHEWABLE TABLETS PO SCH (10:02)
[2023-01-09] MEDS: ARIPiprazole 10 MG TABLET PO SCH (10:02)
[2023-01-09] MEDS: PRENATAL VITAMINS W/ FOLIC ACID TABLET (FP) PO SCH (10:02)
[2023-01-09] MEDS: GABAPENTIN 100 MG CAPSULE PO SCH ×2 (15:18→22:17)
[2023-01-09] MEDS: METHOCARBAMOL 500 MG TABLET PO PRN (17:18)
[2023-01-09] MEDS: MELATONIN 5 MG TABLETS PO SCH (22:18)
[2023-01-09] MEDS: THIAMINE HCL 100 MG TABLET (FP) PO SCH (22:18)
[2023-01-10] MEDS ORDERED: chlordiazePOXIDE HCL 10 MG CAPSULE PO PRN
[2023-01-10] MEDS ORDERED: chlordiazePOXIDE HCL 10 MG CAPSULE PO SCH (05:00)
[2023-01-10] MEDS: GABAPENTIN 100 MG CAPSULE PO SCH (05:26)
[2023-01-10 06:20] VITALS: BP 110/68; PULSE 74; RESP 19; TEMP 97.7
[2023-01-11] MEDS ORDERED: chlordiazePOXIDE HCL 10 MG CAPSULE PO SCH (05:00)
[2023-01-12] MEDS ORDERED: chlordiazePOXIDE HCL 10 MG CAPSULE PO ONE (05:00)
== END 2023-01-10 07:00 | disposition left against medical advice (07) | DRG 770 ==
LOC: YASAS 11:21 → SUATTDRO 11:21 → Y3N 14:33
PROVIDERS: ADMIT Allergy & Immunology; ATTEND Surgery
PROC: HZ2ZZZZ Detoxification Services for Substance Abuse Treatment (ICD-10-PCS; principal; 2023-01-07)
DX: F10.230 Alcohol dependence with withdrawal, uncomplicated (principal); F14.20 Cocaine dependence, uncomplicated; F13.20 Sedative, hypnotic or anxiolytic dependence, uncomplicated; F12.20 Cannabis dependence, uncomplicated; F17.210 Nicotine dependence, cigarettes, uncomplicated; F43.10 Post-traumatic stress disorder, unspecified; F41.9 Anxiety disorder, unspecified; G47.00 Insomnia, unspecified; J45.20 Mild intermittent asthma, uncomplicated; K21.9 Gastro-esophageal reflux disease without esophagitis; Z91.410 Personal history of adult physical and sexual abuse
CPT/HCPCS: 36415; 80053; 85027; 86780; 87635; 87811; Q0162

== ENCOUNTER 2023-02-12 18:22 | Inpatient (IN) | payer OTHER ==
[2023-02-12 19:47] VITALS: BMI 36.4
[2023-02-12] MEDS ORDERED: ONDANSETRON *ODT* 4 MG TABLET SL PRN (21:40)
[2023-02-12] MEDS ORDERED: BISMUTH SUBSALICYLATE 524 MG/30 ML PO PRN (21:40)
[2023-02-12] MEDS ORDERED: ACETAMINOPHEN 325 MG TABLET (FP) PO PRN (21:40)
[2023-02-12] MEDS ORDERED: guaiFENesin 600 MG TABLET.ER (FP) PO PRN (21:40)
[2023-02-12] MEDS ORDERED: POLYETHYLENE GLYCOL (HEALTHYLAX) 3350 17 GM PACKET PO PRN (21:40)
[2023-02-12] MEDS ORDERED: LOPERAMIDE HCL 2 MG CAPSULE PO PRN (21:40)
[2023-02-12] MEDS ORDERED: IBUPROFEN 600 MG TABLET (FP) PO PRN (21:40)
[2023-02-12] MEDS ORDERED: MAG HYDROX/AL HYDROX/SIMETH 30 ML UNIT-DOSE CUP PO PRN (21:40)
[2023-02-12] MEDS ORDERED: BENZONATATE 200 MG CAPSULE PO PRN (21:40)
[2023-02-12] MEDS ORDERED: MAGNESIUM HYDROX 2400MG/30ML ORAL SUSPENSION 30 ML CUP PO PRN (21:40)
[2023-02-12] MEDS ORDERED: NALOXONE HCL (KLOXXADO) 8 MG SPRAY NS PRN (21:40)
[2023-02-12] MEDS ORDERED: IBUPROFEN 400 MG TABLET (FP) PO PRN (21:40)
[2023-02-12] MEDS ORDERED: BENZOCAINE/MENTHOL (CHLORASEPTIC ) LOZENGE MM PRN (21:40)
[2023-02-12] MEDS ORDERED: NALOXONE HCL 0.4 MG/ML VIAL IM PRN (21:40)
[2023-02-12] MEDS ORDERED: NICOTINE POLACRILEX 2 MG GUM BUC PRN (21:40)
[2023-02-12] MEDS ORDERED: DICYCLOMINE HCL 10 MG CAPSULE PO PRN (21:40)
[2023-02-12] MEDS ORDERED: hydrOXYzine PAMOATE 25 MG CAPSULE (FP) PO ONE (23:06)
[2023-02-12] MEDS ORDERED: ACETAMINOPHEN 325 MG TABLET (FP) ONE (23:07)
[2023-02-12] MEDS: MELATONIN 5 MG TABLETS PO SCH (23:14)
[2023-02-12] MEDS: THIAMINE HCL 100 MG TABLET (FP) PO SCH (23:14)
[2023-02-12] MEDS: hydrOXYzine PAMOATE 25 MG CAPSULE (FP) PO PRN (23:16)
[2023-02-12] MEDS: METHOCARBAMOL 500 MG TABLET PO PRN (23:46)
[2023-02-13] MEDS ORDERED: ALBUTEROL SO4 HFA INHALER IH PRN (08:06)
[2023-02-13] MEDS: hydrOXYzine PAMOATE 25 MG CAPSULE (FP) PO PRN (10:07)
[2023-02-13] MEDS: ASPIRIN 81 MG CHEWABLE TABLETS PO SCH (10:07)
[2023-02-13] MEDS: NICOTINE 21 MG/24 HOURS TOPICAL PATCH TD SCH (10:07)
[2023-02-13] MEDS: PRENATAL VITAMINS W/ FOLIC ACID TABLET (FP) PO SCH (10:07)
[2023-02-13] MEDS ORDERED: LORazepam 1 MG TABLET PO PRN (10:50)
[2023-02-13] MEDS: LORazepam 2 MG TABLET PO SCH ×3 (11:33→22:19)
[2023-02-13] MEDS ORDERED: cloNIDine HCL 0.1 MG TABLET PO ONE (14:42)
[2023-02-13] MEDS: GABAPENTIN 100 MG CAPSULE PO SCH ×2 (14:45→22:18)
[2023-02-13] MEDS: METHOCARBAMOL 500 MG TABLET PO PRN (17:10)
[2023-02-13 17:11] LABS: HEMATOCRIT 43.4 % (35.4-49); HEMOGLOBIN 14.3 GM/dL (11.7-16.9); MCH 30.3 pg (25.7-33.7); MEAN CELL VOLUME 91.9 fl (80-96); MEAN PLT VOLUME 8.5 fl (7.5-11.1); PLATELET COUNT 303 10^3/uL (134-434); RBC 4.73 M/mm3 (4.00-5.60); RDW 15.8 % (11.9-15.9); WHITE BLOOD COUNT 6.2 K/mm3 (4.0-10.0)
[2023-02-13 17:12] LABS: CHLORIDE 108 mmol/L (98-107); POTASSIUM 4.4 mmol/L (3.5-5.1); SODIUM 139 mmol/L (136-145)
[2023-02-13 17:19] LABS: CALCIUM 8.7 mg/dL (8.5-10.1)
[2023-02-13 17:20] LABS: ALBUMIN 3.2 g/dl (3.4-5.0); ANION GAP 4 mmol/L (4-13); BLOOD UREA NITROGEN 16.8 mg/dL (7-18); CO2 27 mmol/L (21-32); GLUCOSE,RANDOM 109 mg/dL (74-106)
[2023-02-13 17:22] LABS: SGPT/ALT 37 U/L (13-61)
[2023-02-13 17:23] LABS: CREATININE 1.1 mg/dL (0.55-1.3); SGOT/AST 26 U/L (15-37)
[2023-02-13 17:24] LABS: BILIRUBIN,TOTAL 0.7 mg/dL (0.2-1); TOT PROT 5.8 g/dl (6.4-8.2)
[2023-02-13 17:25] LABS: ALK PHOS 74 U/L (45-117)
[2023-02-13] MEDS: MELATONIN 5 MG TABLETS PO SCH (22:18)
[2023-02-13] MEDS: THIAMINE HCL 100 MG TABLET (FP) PO SCH (22:18)
[2023-02-14] MEDS: LORazepam 2 MG TABLET PO SCH ×4 (05:40→22:37)
[2023-02-14] MEDS: GABAPENTIN 100 MG CAPSULE PO SCH ×3 (06:06→22:27)
[2023-02-14] MEDS: NICOTINE 21 MG/24 HOURS TOPICAL PATCH TD SCH (10:06)
[2023-02-14] MEDS: METHOCARBAMOL 500 MG TABLET PO PRN (10:07)
[2023-02-14] MEDS: ASPIRIN 81 MG CHEWABLE TABLETS PO SCH (10:07)
[2023-02-14] MEDS: PRENATAL VITAMINS W/ FOLIC ACID TABLET (FP) PO SCH (10:10)
[2023-02-14] MEDS ORDERED: cloNIDine HCL 0.1 MG TABLET PO ONE (11:14)
[2023-02-14] MEDS ORDERED: COLLOIDAL OATMEAL 1 BAR EACH TP PRN (13:22)
[2023-02-14] MEDS: THIAMINE HCL 100 MG TABLET (FP) PO SCH (22:26)
[2023-02-14] MEDS: MELATONIN 5 MG TABLETS PO SCH (22:28)
[2023-02-14] MEDS: cloNIDine HCL 0.1 MG TABLET PO PRN (22:29)
[2023-02-15] MEDS: GABAPENTIN 100 MG CAPSULE PO SCH ×3 (05:59→22:27)
[2023-02-15] MEDS: LORazepam 1 MG TABLET PO SCH ×4 (06:00→22:27)
[2023-02-15 06:22] VITALS: RESP 18
[2023-02-15] MEDS: PRENATAL VITAMINS W/ FOLIC ACID TABLET (FP) PO SCH (10:22)
[2023-02-15] MEDS: hydrOXYzine PAMOATE 25 MG CAPSULE (FP) PO PRN (10:22)
[2023-02-15] MEDS: METHOCARBAMOL 500 MG TABLET PO PRN ×3 (10:22→22:27)
[2023-02-15] MEDS: ASPIRIN 81 MG CHEWABLE TABLETS PO SCH (10:22)
[2023-02-15] MEDS: NICOTINE 21 MG/24 HOURS TOPICAL PATCH TD SCH (10:23)
[2023-02-15] MEDS: cloNIDine HCL 0.1 MG TABLET PO PRN (14:40)
[2023-02-15 21:27] VITALS: TEMP 97.7
[2023-02-15] MEDS: THIAMINE HCL 100 MG TABLET (FP) PO SCH (22:27)
[2023-02-15] MEDS: MELATONIN 5 MG TABLETS PO SCH (22:29)
[2023-02-16] MEDS ORDERED: LORazepam 0.5 MG TABLET PO PRN
[2023-02-16] MEDS: LORazepam 0.5 MG TABLET PO SCH ×2 (05:24→11:21)
[2023-02-16] MEDS: GABAPENTIN 100 MG CAPSULE PO SCH (05:25)
[2023-02-16 05:49] VITALS: BP 115/67; PULSE 67
[2023-02-16] MEDS: PRENATAL VITAMINS W/ FOLIC ACID TABLET (FP) PO SCH (09:39)
[2023-02-16] MEDS: NICOTINE 21 MG/24 HOURS TOPICAL PATCH TD SCH (09:39)
[2023-02-16] MEDS: ASPIRIN 81 MG CHEWABLE TABLETS PO SCH (09:39)
[2023-02-17] MEDS ORDERED: LORazepam 0.5 MG TABLET PO ONE (05:00)
== END 2023-02-16 09:05 | disposition home or self-care (01) | DRG 775 ==
LOC: YASAS 18:22 → Y6N 23:06
PROVIDERS: ADMIT Allergy & Immunology; ATTEND Surgery
PROC: HZ2ZZZZ Detoxification Services for Substance Abuse Treatment (ICD-10-PCS; principal; 2023-02-12)
DX: F10.230 Alcohol dependence with withdrawal, uncomplicated (principal); F13.20 Sedative, hypnotic or anxiolytic dependence, uncomplicated; F15.20 Other stimulant dependence, uncomplicated; F17.210 Nicotine dependence, cigarettes, uncomplicated; F31.9 Bipolar disorder, unspecified; F25.1 Schizoaffective disorder, depressive type; F19.282 Other psychoactive substance dependence with psychoactive substance-induced sleep disorder; F19.280 Other psychoactive substance dependence with psychoactive substance-induced anxiety disorder; F19.24 Other psychoactive substance dependence with psychoactive substance-induced mood disorder; F43.10 Post-traumatic stress disorder, unspecified; J45.20 Mild intermittent asthma, uncomplicated; K21.9 Gastro-esophageal reflux disease without esophagitis
CPT/HCPCS: 36415; 80053; 80307; 85027; 86780; 87635

== ENCOUNTER 2023-03-09 22:42 | Inpatient (IN) | payer OTHER ==
[2023-03-09 23:34] VITALS: BMI 34.7
[2023-03-10] MEDS ORDERED: ALBUTEROL SO4 HFA INHALER IH PRN (00:10)
[2023-03-10] MEDS ORDERED: MAG HYDROX/AL HYDROX/SIMETH 30 ML UNIT-DOSE CUP PO PRN (00:34)
[2023-03-10] MEDS ORDERED: ACETAMINOPHEN 325 MG TABLET (FP) PO PRN (00:34)
[2023-03-10] MEDS ORDERED: NALOXONE HCL 0.4 MG/ML VIAL IM PRN (00:34)
[2023-03-10] MEDS ORDERED: DICYCLOMINE HCL 10 MG CAPSULE PO PRN (00:34)
[2023-03-10] MEDS ORDERED: POLYETHYLENE GLYCOL (HEALTHYLAX) 3350 17 GM PACKET PO PRN (00:34)
[2023-03-10] MEDS ORDERED: NICOTINE POLACRILEX 2 MG GUM BUC PRN (00:34)
[2023-03-10] MEDS ORDERED: MAGNESIUM HYDROX 2400MG/30ML ORAL SUSPENSION 30 ML CUP PO PRN (00:34)
[2023-03-10] MEDS ORDERED: BISMUTH SUBSALICYLATE 524 MG/30 ML PO PRN (00:34)
[2023-03-10] MEDS ORDERED: BENZONATATE 200 MG CAPSULE PO PRN (00:34)
[2023-03-10] MEDS ORDERED: BENZOCAINE/MENTHOL (CHLORASEPTIC ) LOZENGE MM PRN (00:34)
[2023-03-10] MEDS ORDERED: guaiFENesin 600 MG TABLET.ER (FP) PO PRN (00:34)
[2023-03-10] MEDS ORDERED: LOPERAMIDE HCL 2 MG CAPSULE PO PRN (00:34)
[2023-03-10] MEDS ORDERED: LORazepam 1 MG TABLET PO PRN (00:34)
[2023-03-10] MEDS ORDERED: IBUPROFEN 400 MG TABLET (FP) PO PRN (00:34)
[2023-03-10] MEDS ORDERED: NALOXONE HCL (KLOXXADO) 8 MG SPRAY NS PRN (00:34)
[2023-03-10] MEDS: LORazepam 2 MG TABLET PO SCH ×4 (05:40→22:11)
[2023-03-10] MEDS: PRENATAL VITAMINS W/ FOLIC ACID TABLET (FP) PO SCH (10:13)
[2023-03-10] MEDS: ONDANSETRON *ODT* 4 MG TABLET SL PRN (10:14)
[2023-03-10] MEDS: NICOTINE 21 MG/24 HOURS TOPICAL PATCH TD SCH (10:14)
[2023-03-10] MEDS: IBUPROFEN 600 MG TABLET (FP) PO PRN ×2 (10:17→17:08)
[2023-03-10] MEDS: cloNIDine HCL 0.1 MG TABLET PO PRN (17:08)
[2023-03-10] MEDS: THIAMINE HCL 100 MG TABLET (FP) PO SCH (22:11)
[2023-03-10] MEDS: MELATONIN 5 MG TABLETS PO SCH (22:11)
[2023-03-11] MEDS: LORazepam 1 MG TABLET PO SCH ×4 (05:39→22:33)
[2023-03-11] MEDS: PRENATAL VITAMINS W/ FOLIC ACID TABLET (FP) PO SCH (10:20)
[2023-03-11] MEDS: IBUPROFEN 600 MG TABLET (FP) PO PRN ×2 (10:20→17:07)
[2023-03-11] MEDS: NICOTINE 21 MG/24 HOURS TOPICAL PATCH TD SCH (10:21)
[2023-03-11] MEDS: cloNIDine HCL 0.1 MG TABLET PO PRN (10:22)
[2023-03-11 11:41] LABS: POTASSIUM 4.2 mmol/L (3.5-5.1)
[2023-03-11 11:42] LABS: HEMATOCRIT 41.8 % (35.4-49); HEMOGLOBIN 13.7 GM/dL (11.7-16.9); MCH 30.6 pg (25.7-33.7); MCHC 32.7 g/dl (32.0-35.9); MEAN CELL VOLUME 93.6 fl (80-96); MEAN PLT VOLUME 8.4 fl (7.5-11.1); PLATELET COUNT 241 10^3/uL (134-434); RBC 4.47 M/mm3 (4.00-5.60); WHITE BLOOD COUNT 3.4 K/mm3 (4.0-10.0)
[2023-03-11 11:44] LABS: ALBUMIN 3.3 g/dl (3.4-5.0); CALCIUM 8.6 mg/dL (8.5-10.1)
[2023-03-11 11:45] LABS: BLOOD UREA NITROGEN 16.1 mg/dL (7-18)
[2023-03-11 11:49] LABS: BILIRUBIN,TOTAL 1.2 mg/dL (0.2-1); TOT PROT 5.7 g/dl (6.4-8.2)
[2023-03-11] MEDS: MELATONIN 5 MG TABLETS PO SCH (22:33)
[2023-03-11] MEDS: THIAMINE HCL 100 MG TABLET (FP) PO SCH (22:33)
[2023-03-12] MEDS ORDERED: LORazepam 0.5 MG TABLET PO PRN
[2023-03-12] MEDS: LORazepam 0.5 MG TABLET PO SCH ×4 (05:26→22:39)
[2023-03-12] MEDS: cloNIDine HCL 0.1 MG TABLET PO PRN (05:29)
[2023-03-12] MEDS: NICOTINE 21 MG/24 HOURS TOPICAL PATCH TD SCH (10:19)
[2023-03-12] MEDS: PRENATAL VITAMINS W/ FOLIC ACID TABLET (FP) PO SCH (10:20)
[2023-03-12] MEDS: IBUPROFEN 600 MG TABLET (FP) PO PRN (10:21)
[2023-03-12] MEDS: ONDANSETRON *ODT* 4 MG TABLET SL PRN (10:51)
[2023-03-12] MEDS: THIAMINE HCL 100 MG TABLET (FP) PO SCH (22:39)
[2023-03-12] MEDS: MELATONIN 5 MG TABLETS PO SCH (22:39)
[2023-03-12] MEDS ORDERED: METHOCARBAMOL 750 MG TABLET PO PRN (23:40)
[2023-03-13] MEDS ORDERED: LORazepam 0.5 MG TABLET PO ONE ×2 (05:00→08:54)
[2023-03-13 08:47] VITALS: BP 132/74; PULSE 68; RESP 18; TEMP 97.7
[2023-03-13] MEDS: PRENATAL VITAMINS W/ FOLIC ACID TABLET (FP) PO SCH (09:58)
[2023-03-13] MEDS: NICOTINE 21 MG/24 HOURS TOPICAL PATCH TD SCH (09:58)
== END 2023-03-13 11:02 | disposition home or self-care (01) | DRG 775 ==
LOC: YASAS 22:42 → Y3N 03-10 02:14
PROVIDERS: ADMIT Allergy & Immunology; ATTEND Allergy & Immunology
PROC: HZ2ZZZZ Detoxification Services for Substance Abuse Treatment (ICD-10-PCS; principal; 2023-03-10)
DX: F10.230 Alcohol dependence with withdrawal, uncomplicated (principal); F12.20 Cannabis dependence, uncomplicated; F17.210 Nicotine dependence, cigarettes, uncomplicated; F10.280 Alcohol dependence with alcohol-induced anxiety disorder; J45.20 Mild intermittent asthma, uncomplicated; K21.9 Gastro-esophageal reflux disease without esophagitis; M54.50 Low back pain, unspecified; Z86.59 Personal history of other mental and behavioral disorders
CPT/HCPCS: 36415; 80053; 80307; 85027; 86780; 87635; 93005; 93010; Q0162

== ENCOUNTER 2023-04-19 20:32 | Inpatient (IN) | payer OTHER ==
[2023-04-19 21:18] VITALS: BMI 33.3
[2023-04-19] MEDS ORDERED: LOPERAMIDE HCL 2 MG CAPSULE PO PRN (23:23)
[2023-04-19] MEDS ORDERED: IBUPROFEN 600 MG TABLET (FP) PO PRN (23:23)
[2023-04-19] MEDS ORDERED: guaiFENesin 600 MG TABLET.ER (FP) PO PRN (23:23)
[2023-04-19] MEDS ORDERED: ONDANSETRON *ODT* 4 MG TABLET SL PRN (23:23)
[2023-04-19] MEDS ORDERED: BISMUTH SUBSALICYLATE 524 MG/30 ML PO PRN (23:23)
[2023-04-19] MEDS ORDERED: DICYCLOMINE HCL 10 MG CAPSULE PO PRN (23:23)
[2023-04-19] MEDS ORDERED: IBUPROFEN 400 MG TABLET (FP) PO PRN (23:23)
[2023-04-19] MEDS ORDERED: BENZOCAINE/MENTHOL (CHLORASEPTIC ) LOZENGE MM PRN (23:23)
[2023-04-19] MEDS ORDERED: BENZONATATE 200 MG CAPSULE PO PRN (23:23)
[2023-04-19] MEDS ORDERED: MAG HYDROX/AL HYDROX/SIMETH 30 ML UNIT-DOSE CUP PO PRN (23:23)
[2023-04-19] MEDS ORDERED: MAGNESIUM HYDROX 2400MG/30ML ORAL SUSPENSION 30 ML CUP PO PRN (23:23)
[2023-04-19] MEDS ORDERED: P-EPHED 60MG/TRIPROLIDI 2.5MG TABLET PO PRN (23:23)
[2023-04-19] MEDS ORDERED: POLYETHYLENE GLYCOL (HEALTHYLAX) 3350 17 GM PACKET PO PRN (23:23)
[2023-04-20] MEDS: hydrOXYzine PAMOATE 25 MG CAPSULE (FP) PO PRN (02:46)
[2023-04-20] MEDS ORDERED: LORazepam 1 MG TABLET PO PRN (09:52)
[2023-04-20] MEDS: LORazepam 2 MG TABLET PO SCH ×3 (10:26→22:29)
[2023-04-20] MEDS: PRENATAL VITAMINS W/ FOLIC ACID TABLET (FP) PO SCH (10:26)
[2023-04-20] MEDS: METHOCARBAMOL 500 MG TABLET PO PRN (10:28)
[2023-04-20 10:50] LABS: HEMATOCRIT 42.2 % (35.4-49); HEMOGLOBIN 14.1 GM/dL (11.7-16.9); MCHC 33.5 g/dl (32.0-35.9); MEAN CELL VOLUME 92.5 fl (80-96); MEAN PLT VOLUME 8.6 fl (7.5-11.1); PLATELET COUNT 300 10^3/uL (134-434); RBC 4.56 M/mm3 (4.00-5.60); RDW 14.7 % (11.9-15.9); WHITE BLOOD COUNT 7.4 K/mm3 (4.0-10.0)
[2023-04-20 10:59] LABS: CHLORIDE 106 mmol/L (98-107); POTASSIUM 3.7 mmol/L (3.5-5.1); SODIUM 138 mmol/L (136-145)
[2023-04-20 11:23] LABS: GLUCOSE,RANDOM 82 mg/dL (74-106)
[2023-04-20 11:25] LABS: ANION GAP 9 mmol/L (4-13); CALCIUM 9.3 mg/dL (8.5-10.1); CO2 23 mmol/L (21-32)
[2023-04-20 11:26] LABS: ALBUMIN 3.3 g/dl (3.4-5.0); BLOOD UREA NITROGEN 14.5 mg/dL (7-18)
[2023-04-20 11:29] LABS: CREATININE 0.9 mg/dL (0.55-1.3); SGOT/AST 14 U/L (15-37); SGPT/ALT 26 U/L (13-61)
[2023-04-20 11:30] LABS: BILIRUBIN,TOTAL 0.8 mg/dL (0.2-1)
[2023-04-20 11:31] LABS: ALK PHOS 64 U/L (45-117)
[2023-04-20] MEDS: GABAPENTIN 100 MG CAPSULE PO SCH (22:29)
[2023-04-20] MEDS: QUEtiapine FUMARATE 100 MG TABLET (FP) PO SCH (22:29)
[2023-04-20] MEDS: THIAMINE HCL 100 MG TABLET (FP) PO SCH (22:29)
[2023-04-21] MEDS: LORazepam 2 MG TABLET PO SCH ×4 (05:12→23:15)
[2023-04-21] MEDS: GABAPENTIN 100 MG CAPSULE PO SCH (05:13)
[2023-04-21] MEDS ORDERED: COLLOIDAL OATMEAL 1 BAR EACH TP PRN (09:56)
[2023-04-21] MEDS: QUEtiapine FUMARATE 100 MG TABLET (FP) PO SCH (10:27)
[2023-04-21] MEDS: PRENATAL VITAMINS W/ FOLIC ACID TABLET (FP) PO SCH (10:27)
[2023-04-21] MEDS: METHOCARBAMOL 500 MG TABLET PO PRN ×2 (10:28→23:15)
[2023-04-21] MEDS: ACETAMINOPHEN 325 MG TABLET (FP) PO PRN (17:34)
[2023-04-21] MEDS: THIAMINE HCL 100 MG TABLET (FP) PO SCH (23:14)
[2023-04-21] MEDS: QUEtiapine FUMARATE 200 MG TABLET PO SCH (23:14)
[2023-04-21] MEDS: DIVALPROEX SODIUM 250 MG TABLET E.C. PO SCH (23:15)
[2023-04-22] MEDS: LORazepam 1 MG TABLET PO SCH ×4 (06:00→22:19)
[2023-04-22] MEDS: QUEtiapine FUMARATE 100 MG TABLET (FP) PO SCH (10:04)
[2023-04-22] MEDS: PRENATAL VITAMINS W/ FOLIC ACID TABLET (FP) PO SCH (10:04)
[2023-04-22] MEDS: DIVALPROEX SODIUM 250 MG TABLET E.C. PO SCH ×2 (10:04→22:17)
[2023-04-22] MEDS: ACETAMINOPHEN 325 MG TABLET (FP) PO PRN (17:28)
[2023-04-22] MEDS: METHOCARBAMOL 500 MG TABLET PO PRN (22:17)
[2023-04-22] MEDS: hydrOXYzine PAMOATE 25 MG CAPSULE (FP) PO PRN (22:17)
[2023-04-22] MEDS: THIAMINE HCL 100 MG TABLET (FP) PO SCH (22:18)
[2023-04-22] MEDS: QUEtiapine FUMARATE 200 MG TABLET PO SCH (22:18)
[2023-04-23] MEDS ORDERED: LORazepam 0.5 MG TABLET PO PRN
[2023-04-23] MEDS: LORazepam 0.5 MG TABLET PO SCH ×4 (05:36→23:42)
[2023-04-23] MEDS: QUEtiapine FUMARATE 100 MG TABLET (FP) PO SCH (10:19)
[2023-04-23] MEDS: DIVALPROEX SODIUM 250 MG TABLET E.C. PO SCH ×2 (10:19→23:41)
[2023-04-23] MEDS: PRENATAL VITAMINS W/ FOLIC ACID TABLET (FP) PO SCH (10:19)
[2023-04-23] MEDS: METHOCARBAMOL 500 MG TABLET PO PRN (17:45)
[2023-04-23] MEDS: QUEtiapine FUMARATE 200 MG TABLET PO SCH (23:41)
[2023-04-23] MEDS: THIAMINE HCL 100 MG TABLET (FP) PO SCH (23:41)
[2023-04-24] MEDS ORDERED: LORazepam 0.5 MG TABLET PO ONE (05:00)
[2023-04-24 06:12] VITALS: BP 121/75; PULSE 66; RESP 17; TEMP 98.2
== END 2023-04-24 07:35 | disposition home or self-care (01) | DRG 775 ==
LOC: YASAS 20:32 → Y3N 04-20 02:20
PROVIDERS: ADMIT Allergy & Immunology; ATTEND Allergy & Immunology
PROC: HZ2ZZZZ Detoxification Services for Substance Abuse Treatment (ICD-10-PCS; principal; 2023-04-20)
DX: F10.230 Alcohol dependence with withdrawal, uncomplicated (principal); F13.20 Sedative, hypnotic or anxiolytic dependence, uncomplicated; F12.20 Cannabis dependence, uncomplicated; F17.210 Nicotine dependence, cigarettes, uncomplicated; F19.24 Other psychoactive substance dependence with psychoactive substance-induced mood disorder; F31.9 Bipolar disorder, unspecified; F25.9 Schizoaffective disorder, unspecified; G47.00 Insomnia, unspecified
CPT/HCPCS: 36415; 80053; 80307; 85027; 86780; 87635; 87811; Q0162

== ENCOUNTER 2023-09-20 06:15 | Inpatient (IN) | payer OTHER ==
[2023-09-20 06:53] VITALS: BMI 34.4
[2023-09-20] MEDS ORDERED: ACETAMINOPHEN 325 MG TABLET (FP) PO PRN (09:03)
[2023-09-20] MEDS ORDERED: IBUPROFEN 400 MG TABLET (FP) PO PRN (09:03)
[2023-09-20] MEDS ORDERED: guaiFENesin 600 MG TABLET.ER (FP) PO PRN (09:03)
[2023-09-20] MEDS ORDERED: BENZONATATE 200 MG CAPSULE PO PRN (09:03)
[2023-09-20] MEDS ORDERED: LOPERAMIDE HCL 2 MG CAPSULE PO PRN (09:03)
[2023-09-20] MEDS ORDERED: BISMUTH SUBSALICYLATE 262 MG/15 ML BTL PO PRN (09:03)
[2023-09-20] MEDS ORDERED: diazePAM 5 MG TABLET PO PRN (09:03)
[2023-09-20] MEDS ORDERED: IBUPROFEN 600 MG TABLET (FP) PO PRN (09:03)
[2023-09-20] MEDS ORDERED: MAG HYDROX/AL HYDROX/SIMETH 30 ML UNIT-DOSE CUP PO PRN (09:03)
[2023-09-20] MEDS ORDERED: DICYCLOMINE HCL 10 MG CAPSULE PO PRN (09:03)
[2023-09-20] MEDS ORDERED: POLYETHYLENE GLYCOL (HEALTHYLAX) 3350 17 GM PACKET PO PRN (09:03)
[2023-09-20] MEDS ORDERED: NALOXONE HCL 0.4 MG/ML VIAL IM PRN (09:03)
[2023-09-20] MEDS ORDERED: ALBUTEROL SO4 HFA INHALER IH PRN (09:06)
[2023-09-20] MEDS ORDERED: methaDONE HCL 10 MG TABLET (FOR DETOX USE ONLY) ONE (10:13)
[2023-09-20] MEDS ORDERED: cloNIDine HCL 0.1 MG TABLET ONE (10:14)
[2023-09-20] MEDS ORDERED: BUPRENORPHINE/NALOXONE 0.5 MG/0.125 MG FILM ONE (10:14)
[2023-09-20] MEDS ORDERED: ASPIRIN 81 MG CHEWABLE TABLETS ONE (10:14)
[2023-09-20] MEDS: methaDONE HCL 10 MG TABLET (FOR DETOX USE ONLY) PO ONE (10:19)
[2023-09-20] MEDS: BUPRENORPHINE/NALOXONE 0.5 MG/0.125 MG FILM SL ONE ×2 (10:23→22:23)
[2023-09-20] MEDS: cloNIDine HCL 0.1 MG TABLET PO SCH (10:23)
[2023-09-20] MEDS: ASPIRIN 81 MG CHEWABLE TABLETS PO SCH (10:23)
[2023-09-20] MEDS ORDERED: PRENATAL VITAMINS W/ FOLIC ACID TABLET (FP) PO ONE (10:24)
[2023-09-20] MEDS: PRENATAL VITAMINS W/ FOLIC ACID TABLET (FP) PO SCH (10:25)
[2023-09-20] MEDS ORDERED: diazePAM 5 MG TABLET ONE (11:07)
[2023-09-20] MEDS: diazePAM 5 MG TABLET PO SCH (11:07)
[2023-09-20] MEDS: ONDANSETRON *ODT* 4 MG TABLET SL PRN (15:08)
[2023-09-20] MEDS: APIXABAN 5 MG TABLET PO SCH (22:22)
[2023-09-20] MEDS: THIAMINE 100 MG TABLET PO SCH (22:23)
[2023-09-20] MEDS: PRAZOSIN HCL 1 MG CAPSULE PO SCH (22:25)
[2023-09-20] MEDS: METHOCARBAMOL 500 MG TABLET PO PRN (22:42)
[2023-09-20] MEDS: MELATONIN 5 MG TABLETS PO SCH (23:14)
[2023-09-21] MEDS: BUPRENORPHINE/NALOXONE 0.5 MG/0.125 MG FILM SL SCH (09:34)
[2023-09-21] MEDS: NALOXONE (NARCAN) HCL 4 MG/0.1 ML SPRAY NS PRN (10:58)
[2023-09-21 11:43] LABS: HEMATOCRIT 41.4 % (35.4-49); HEMOGLOBIN 13.8 GM/dL (11.7-16.9); MCH 30.3 pg (25.7-33.7); MCHC 33.2 g/dl (32.0-35.9); MEAN CELL VOLUME 91.2 fl (80-96); MEAN PLT VOLUME 8.9 fl (7.5-11.1); PLATELET COUNT 262 10^3/uL (134-434); RBC 4.54 M/mm3 (4.00-5.60); RDW 13.1 % (11.9-15.9); WHITE BLOOD COUNT 5.5 K/mm3 (4.0-10.0)
[2023-09-21 11:58] LABS: POTASSIUM 3.8 mmol/L (3.5-5.1)
[2023-09-21 12:00] LABS: ALBUMIN 3.8 g/dl (3.4-5.0); CALCIUM 9.2 mg/dL (8.5-10.1)
[2023-09-21 12:06] LABS: BILIRUBIN,TOTAL 1.4 mg/dL (0.2-1); TOT PROT 6.4 g/dl (6.4-8.2)
[2023-09-21] MEDS: MAGNESIUM HYDROX 2400MG/30ML ORAL SUSPENSION 30 ML CUP PO PRN (17:24)
[2023-09-21] MEDS: hydrOXYzine PAMOATE 25 MG CAPSULE (FP) PO PRN (20:31)
[2023-09-21] MEDS ORDERED: PRAZOSIN HCL 5 MG CAPSULE PO SCH (22:00)
[2023-09-22] MEDS: diazePAM 5 MG TABLET PO SCH (05:09)
[2023-09-22] MEDS: BUPRENORPHINE/NALOXONE 2 MG/0.5 MG FILM PACKET SL SCH (09:48)
[2023-09-22] MEDS: methaDONE HCL 10 MG TABLET (FOR DETOX USE ONLY) PO ONE (09:49)
[2023-09-22] MEDS: DOCUSATE SODIUM 100 MG CAPSULE (FP) PO ONE (19:17)
[2023-09-22] MEDS: LACTULOSE 20 GM/30 ML UDC (FOR ORAL USE ONLY) PO ONE (19:17)
[2023-09-23] MEDS: diazePAM 5 MG TABLET PO SCH (05:55)
[2023-09-23] MEDS: BUPRENORPHINE/NALOXONE 4 MG/1 MG FILM PACKET SL SCH (10:26)
[2023-09-23] MEDS ORDERED: DOCUSATE SODIUM 100 MG CAPSULE (FP) PO PRN (11:27)
[2023-09-23] MEDS ORDERED: LACTULOSE 20 GM/30 ML UDC (FOR ORAL USE ONLY) PO PRN (11:29)
[2023-09-23] MEDS: SODIUM PHOSPHATE/NA BIPHOS 133 ML ENEMA RC ONE (12:20)
[2023-09-23] MEDS: LACTULOSE 20 GM/30 ML UDC (FOR ORAL USE ONLY) PO SCH (14:40)
[2023-09-23] MEDS: DOCUSATE SODIUM 100 MG CAPSULE (FP) PO PRN (14:40)
[2023-09-24] MEDS: diazePAM 5 MG TABLET PO ONE (05:31)
[2023-09-24] MEDS: methaDONE HCL 10 MG TABLET (FOR DETOX USE ONLY) PO ONE (10:14)
[2023-09-24] MEDS: BUPRENORPHINE/NALOXONE 8 MG/2 MG FILM PACKET SL SCH (10:16)
[2023-09-24] MEDS: NICOTINE POLACRILEX 4 MG GUM BUC PRN (11:18)
[2023-09-25] MEDS: BENZOCAINE/MENTHOL (CHLORASEPTIC ) LOZENGE MM PRN (06:03)
[2023-09-25] MEDS: BUPRENORPHINE/NALOXONE 8 MG/2 MG FILM PACKET SL SCH (09:24)
[2023-09-25] MEDS: cloNIDine HCL 0.1 MG TABLET PO PRN (19:40)
[2023-09-26 09:00] VITALS: BP 148/69; PULSE 88; RESP 18; TEMP 97.6
[2023-09-26] MEDS: BUPRENORPHINE/NALOXONE 8 MG/2 MG FILM PACKET SL ONE (09:43)
== END 2023-09-26 12:10 | disposition other institution (70) | DRG 773 ==
LOC: YASAS 06:15 → Y6N 09:34
PROVIDERS: ADMIT Allergy & Immunology; ATTEND Surgery
PROC: HZ2ZZZZ Detoxification Services for Substance Abuse Treatment (ICD-10-PCS; principal; 2023-09-20)
DX: F11.23 Opioid dependence with withdrawal (principal); F10.230 Alcohol dependence with withdrawal, uncomplicated; F15.10 Other stimulant abuse, uncomplicated; F17.210 Nicotine dependence, cigarettes, uncomplicated; F19.282 Other psychoactive substance dependence with psychoactive substance-induced sleep disorder; F19.24 Other psychoactive substance dependence with psychoactive substance-induced mood disorder; F43.10 Post-traumatic stress disorder, unspecified; F41.9 Anxiety disorder, unspecified; I10 Essential (primary) hypertension; J45.20 Mild intermittent asthma, uncomplicated; K21.9 Gastro-esophageal reflux disease without esophagitis; R79.89 Other specified abnormal findings of blood chemistry; Z86.711 Personal history of pulmonary embolism; Z79.01 Long term (current) use of anticoagulants
CPT/HCPCS: 36415; 80053; 80305; 80307; 82140; 82247; 85027; 86780; 87811; 93005; 93010; Q0162

== ENCOUNTER 2023-09-26 12:23 | Inpatient (IN) | payer OTHER ==
[~2023-09-26 12:23] MED LIST changes: +ACETAMINOPHEN 325 MG TABLET (FP) PO PRN; +ALBUTEROL SO4 HFA INHALER IH PRN; +BENZOCAINE/MENTHOL (CHLORASEPTIC ) LOZENGE MM PRN; +BENZONATATE 200 MG CAPSULE PO PRN; +LOPERAMIDE HCL 2 MG CAPSULE PO PRN; -LORazepam 2 MG TABLET PO SCH; +MAG HYDROX/AL HYDROX/SIMETH 30 ML UNIT-DOSE CUP PO PRN; +MAGNESIUM HYDROX 2400MG/30ML ORAL SUSPENSION 30 ML CUP PO PRN; +NALOXONE (NARCAN) HCL 4 MG/0.1 ML SPRAY NS PRN; +NALOXONE HCL 0.4 MG/ML VIAL IM PRN; +NICOTINE POLACRILEX 4 MG GUM BUC PRN; +NICOTINE POLACRILEX 4 MG LOZENGE BC PRN; +POLYETHYLENE GLYCOL (HEALTHYLAX) 3350 17 GM PACKET PO PRN; +guaiFENesin 600 MG TABLET.ER (FP) PO PRN; +hydrOXYzine PAMOATE 25 MG CAPSULE (FP) PO PRN
[2023-09-26] MEDS: LACTULOSE 20 GM/30 ML UDC (FOR ORAL USE ONLY) PO SCH (13:15)
[2023-09-26] MEDS ORDERED: BISMUTH SUBSALICYLATE 524 MG/30 ML PO PRN (16:23)
[2023-09-26] MEDS ORDERED: ONDANSETRON *ODT* 4 MG TABLET SL PRN (16:23)
[2023-09-26] MEDS ORDERED: DICYCLOMINE HCL 10 MG CAPSULE PO PRN (16:23)
[2023-09-26] MEDS ORDERED: BUPRENORPHINE/NALOXONE 8 MG/2 MG FILM PACKET SL SCH (18:00)
[2023-09-26] MEDS: APIXABAN 5 MG TABLET PO SCH (18:37)
[2023-09-26] MEDS: METHOCARBAMOL 500 MG TABLET PO PRN (20:23)
[2023-09-26] MEDS: THIAMINE 100 MG TABLET PO SCH (21:29)
[2023-09-26] MEDS: MELATONIN 5 MG TABLETS PO SCH (21:29)
[2023-09-26] MEDS: PRAZOSIN HCL 1 MG CAPSULE PO SCH (21:29)
[2023-09-26] MEDS ORDERED: BUPRENORPHINE/NALOXONE 2 MG/0.5 MG FILM PACKET SL SCH (22:00)
[2023-09-26] MEDS ORDERED: APIXABAN 5 MG TABLET PO SCH (22:00)
[2023-09-27] MEDS: BUPRENORPHINE/NALOXONE 4 MG/1 MG FILM PACKET SL SCH (09:59)
[2023-09-27] MEDS: PRENATAL VITAMINS W/ FOLIC ACID TABLET (FP) PO SCH (09:59)
[2023-09-27] MEDS: hydrOXYzine PAMOATE 50 MG CAPSULE (FP) PO PRN (14:52)
[2023-09-28 06:19] VITALS: TEMP 97.3
[2023-09-28 08:58] VITALS: BP 127/69; PULSE 71; RESP 17
[2023-09-28] MEDS: BUPRENORPHINE/NALOXONE 2 MG/0.5 MG FILM PACKET SL SCH (10:48)
[2023-10-01] MEDS ORDERED: BUPRENORPHINE/NALOXONE 2 MG/0.5 MG FILM PACKET SL SCH (10:00)
== END 2023-09-28 10:58 | disposition left against medical advice (07) | DRG 770 ==
LOC: YASAS 12:23 → Y3W 12:25
PROVIDERS: ADMIT Allergy & Immunology; ATTEND Psychiatry & Neurology Pain Medicine
PROC: HZ42ZZZ Group Counseling for Substance Abuse Treatment, Cognitive-Behavioral (ICD-10-PCS; principal; 2023-09-26)
DX: F11.20 Opioid dependence, uncomplicated (principal); F10.20 Alcohol dependence, uncomplicated; F13.20 Sedative, hypnotic or anxiolytic dependence, uncomplicated; F14.10 Cocaine abuse, uncomplicated; F15.10 Other stimulant abuse, uncomplicated; F12.10 Cannabis abuse, uncomplicated; F17.210 Nicotine dependence, cigarettes, uncomplicated; F43.10 Post-traumatic stress disorder, unspecified; E72.20 Disorder of urea cycle metabolism, unspecified; I10 Essential (primary) hypertension; J45.20 Mild intermittent asthma, uncomplicated; Z86.711 Personal history of pulmonary embolism; Z79.01 Long term (current) use of anticoagulants

== ENCOUNTER 2024-01-03 20:16 | Inpatient (IN) | payer OTHER ==
[2024-01-03 20:44] VITALS: BMI 30.8
[2024-01-03] MEDS ORDERED: BISMUTH SUBSALICYLATE 524 MG/30 ML PO PRN (21:33)
[2024-01-03] MEDS ORDERED: DICYCLOMINE HCL 10 MG CAPSULE PO PRN (21:33)
[2024-01-03] MEDS ORDERED: ONDANSETRON *ODT* 4 MG TABLET SL PRN (21:33)
[2024-01-03] MEDS ORDERED: POLYETHYLENE GLYCOL (HEALTHYLAX) 3350 17 GM PACKET PO PRN (21:33)
[2024-01-03] MEDS ORDERED: IBUPROFEN 600 MG TABLET (FP) PO PRN (21:33)
[2024-01-03] MEDS ORDERED: NALOXONE (NARCAN) HCL 4 MG/0.1 ML SPRAY NS PRN (21:33)
[2024-01-03] MEDS ORDERED: LOPERAMIDE HCL 2 MG CAPSULE PO PRN (21:33)
[2024-01-03] MEDS ORDERED: ACETAMINOPHEN 325 MG TABLET (FP) PO PRN (21:33)
[2024-01-03] MEDS ORDERED: guaiFENesin 600 MG TABLET.ER (FP) PO PRN (21:33)
[2024-01-03] MEDS ORDERED: NICOTINE POLACRILEX 2 MG GUM BUC PRN (21:33)
[2024-01-03] MEDS ORDERED: BENZONATATE 200 MG CAPSULE PO PRN (21:33)
[2024-01-03] MEDS ORDERED: MAGNESIUM HYDROX 2400MG/30ML ORAL SUSPENSION 30 ML CUP PO PRN (21:33)
[2024-01-03] MEDS ORDERED: IBUPROFEN 400 MG TABLET (FP) PO PRN (21:33)
[2024-01-03] MEDS ORDERED: hydrOXYzine PAMOATE 25 MG CAPSULE (FP) PO PRN (21:33)
[2024-01-03] MEDS ORDERED: BENZOCAINE/MENTHOL (CHLORASEPTIC ) LOZENGE MM PRN (21:33)
[2024-01-03] MEDS ORDERED: MELATONIN 5 MG TABLETS ONE (22:12)
[2024-01-03] MEDS ORDERED: METHOCARBAMOL 500 MG TABLET ONE (22:33)
[2024-01-03] MEDS: THIAMINE 100 MG TABLET PO SCH (22:35)
[2024-01-03] MEDS: MELATONIN 5 MG TABLETS PO SCH (22:35)
[2024-01-03] MEDS: METHOCARBAMOL 500 MG TABLET PO PRN (22:35)
[2024-01-03] MEDS: APIXABAN 5 MG TABLET PO SCH (23:19)
[2024-01-04] MEDS: NICOTINE 21 MG/24 HOURS TOPICAL PATCH TD SCH (09:35)
[2024-01-04] MEDS: PRENATAL VITAMINS W/ FOLIC ACID TABLET (FP) PO SCH (09:35)
[2024-01-04] MEDS: OXcarbazepine 150 MG TABLET (UD) PO SCH (09:56)
[2024-01-04] MEDS ORDERED: diazePAM 5 MG TABLET PO PRN (10:04)
[2024-01-04] MEDS: diazePAM 5 MG TABLET PO SCH (10:18)
[2024-01-04 13:20] LABS: HEMATOCRIT 40.7 % (35.4-49); HEMOGLOBIN 13.6 GM/dL (11.7-16.9); MCH 31.1 pg (25.7-33.7); MCHC 33.3 g/dl (32.0-35.9); MEAN CELL VOLUME 93.4 fl (80-96); MEAN PLT VOLUME 8.4 fl (7.5-11.1); PLATELET COUNT 299 10^3/uL (134-434); RBC 4.36 M/mm3 (4.00-5.60); RDW 15.4 % (11.9-15.9); WHITE BLOOD COUNT 5.4 K/mm3 (4.0-10.0)
[2024-01-04 13:26] LABS: CHLORIDE 109 mmol/L (98-107); SODIUM 140 mmol/L (136-145)
[2024-01-04 13:35] LABS: ALBUMIN 3.1 g/dl (3.4-5.0); ANION GAP 4 mmol/L (4-13); BLOOD UREA NITROGEN 10.9 mg/dL (7-18); CO2 27 mmol/L (21-32)
[2024-01-04 13:36] LABS: GLUCOSE,RANDOM 106 mg/dL (74-106)
[2024-01-04 13:39] LABS: CREATININE 0.8 mg/dL (0.55-1.3); SGOT/AST 30 U/L (15-37); SGPT/ALT 33 U/L (13-61); TOT PROT 5.7 g/dl (6.4-8.2)
[2024-01-04 13:41] LABS: ALK PHOS 70 U/L (45-117)
[2024-01-04] MEDS: NALOXONE (NYS OPIOID OVERDOSE PROGRAM) 4 MG/0.1 ML SPRAY NS ONE (13:48)
[2024-01-04] MEDS ORDERED: NALOXONE (NYS OPIOID OVERDOSE PROGRAM) 4 MG/0.1 ML SPRAY NS PRN ×2 (14:23→14:32)
[2024-01-04] MEDS: risperiDONE 2 MG TABLET PO SCH (22:36)
[2024-01-04] MEDS: PRAZOSIN HCL 1 MG CAPSULE PO SCH (22:36)
[2024-01-06] MEDS: diazePAM 5 MG TABLET PO SCH (05:22)
[2024-01-07] MEDS: diazePAM 5 MG TABLET PO SCH (06:28)
[2024-01-07] MEDS: MAG HYDROX/AL HYDROX/SIMETH 30 ML UNIT-DOSE CUP PO PRN (10:23)
[2024-01-08] MEDS: diazePAM 5 MG TABLET PO ONE (06:00)
[2024-01-08 08:41] VITALS: BP 127/68; PULSE 72; RESP 18; TEMP 97.8
== END 2024-01-08 10:33 | disposition home or self-care (01) | DRG 775 ==
LOC: YASAS 20:16 → Y3N 21:39
PROVIDERS: ADMIT Allergy & Immunology; ATTEND Surgery
PROC: HZ2ZZZZ Detoxification Services for Substance Abuse Treatment (ICD-10-PCS; principal; 2024-01-03)
DX: F10.230 Alcohol dependence with withdrawal, uncomplicated (principal); F13.20 Sedative, hypnotic or anxiolytic dependence, uncomplicated; F17.210 Nicotine dependence, cigarettes, uncomplicated; F31.9 Bipolar disorder, unspecified; F43.10 Post-traumatic stress disorder, unspecified; I10 Essential (primary) hypertension; J45.20 Mild intermittent asthma, uncomplicated; I26.99 Other pulmonary embolism without acute cor pulmonale; Z79.01 Long term (current) use of anticoagulants; Z91.410 Personal history of adult physical and sexual abuse; Z63.0 Problems in relationship with spouse or partner; Z65.3 Problems related to other legal circumstances
CPT/HCPCS: 36415; 80053; 80305; 80307; 85027; 86780; 93005; 93010

== ENCOUNTER 2024-02-23 13:52 | Inpatient (IN) | payer OTHER ==
[2024-02-23] MEDS ORDERED: POLYETHYLENE GLYCOL (HEALTHYLAX) 3350 17 GM PACKET PO PRN (14:25)
[2024-02-23] MEDS ORDERED: IBUPROFEN 600 MG TABLET (FP) PO PRN (14:25)
[2024-02-23] MEDS ORDERED: NALOXONE HCL 0.4 MG/ML VIAL IVPUSH PRN (14:25)
[2024-02-23] MEDS ORDERED: NALOXONE (NARCAN) HCL 4 MG/0.1 ML SPRAY NS PRN (14:25)
[2024-02-23] MEDS ORDERED: MAG HYDROX/AL HYDROX/SIMETH 30 ML UNIT-DOSE CUP PO PRN (14:25)
[2024-02-23] MEDS ORDERED: NICOTINE POLACRILEX 2 MG LOZENGE BC PRN (14:25)
[2024-02-23] MEDS ORDERED: BENZOCAINE/MENTHOL (CHLORASEPTIC ) LOZENGE MM PRN (14:25)
[2024-02-23] MEDS ORDERED: guaiFENesin 600 MG TABLET.ER (FP) PO PRN (14:25)
[2024-02-23] MEDS ORDERED: IBUPROFEN 400 MG TABLET (FP) PO PRN (14:25)
[2024-02-23] MEDS ORDERED: BENZONATATE 200 MG CAPSULE PO PRN (14:25)
[2024-02-23] MEDS ORDERED: LOPERAMIDE HCL 2 MG CAPSULE PO PRN (14:25)
[2024-02-23] MEDS ORDERED: hydrOXYzine PAMOATE 25 MG CAPSULE (FP) PO PRN (14:25)
[2024-02-23] MEDS ORDERED: MAGNESIUM HYDROX 2400MG/30ML ORAL SUSPENSION 30 ML CUP PO PRN (14:25)
[2024-02-23] MEDS ORDERED: NICOTINE POLACRILEX 2 MG GUM BUC PRN (14:25)
[2024-02-23] MEDS: THIAMINE 100 MG TABLET PO SCH (21:04)
[2024-02-23] MEDS: APIXABAN 5 MG TABLET PO SCH (21:04)
[2024-02-23] MEDS: MELATONIN 5 MG TABLETS PO SCH (21:05)
[2024-02-23] MEDS: OXcarbazepine 150 MG TABLET (UD) PO SCH (21:06)
[2024-02-24] MEDS: FOLIC ACID 1 MG TABLET (FP) PO SCH (09:34)
[2024-02-24] MEDS: ACETAMINOPHEN 325 MG TABLET (FP) PO PRN (09:35)
[2024-02-24] MEDS: PRENATAL VITAMINS W/ FOLIC ACID TABLET (FP) PO SCH (09:35)
[2024-02-24] MEDS: QUEtiapine FUMARATE 100 MG TABLET (FP) PO ONE (12:08)
[2024-02-24] MEDS: QUEtiapine FUMARATE 200 MG TABLET PO SCH (21:14)
[2024-02-25] MEDS: QUEtiapine FUMARATE 100 MG TABLET (FP) PO SCH (06:37)
[2024-02-27] MEDS: METHOCARBAMOL 500 MG TABLET PO PRN (21:46)
[2024-02-27] MEDS: OXcarbazepine 150 MG TABLET (UD) PO SCH (21:56)
[2024-02-28] MEDS: risperiDONE 2 MG TABLET PO SCH (21:45)
[2024-02-29] MEDS ORDERED: DOCUSATE SODIUM 100 MG CAPSULE (FP) PO PRN (08:11)
[2024-02-29] MEDS ORDERED: LACTULOSE 20 GM/30 ML UDC (FOR ORAL USE ONLY) PO PRN (08:12)
[2024-02-29] MEDS ORDERED: NICOTINE POLACRILEX 4 MG LOZENGE BC PRN (09:43)
[2024-02-29] MEDS: risperiDONE 1 MG TABLET PO SCH (10:25)
[2024-02-29] MEDS: NICOTINE 21 MG/24 HOURS TOPICAL PATCH TD SCH (10:25)
[2024-02-29] MEDS: NALOXONE (NYS OPIOID OVERDOSE PROGRAM) 4 MG/0.1 ML SPRAY NS SCH (12:08)
[2024-03-03] MEDS ORDERED: NALOXONE (NYS OPIOID OVERDOSE PROGRAM) 4 MG/0.1 ML SPRAY NS PRN (08:19)
[2024-03-03] MEDS ORDERED: BENZOCAINE 20 % GEL TUBE MM PRN (17:17)
[2024-03-03] MEDS: SALICYLIC ACID (WART REMOVER) 9 ML LIQUID TP SCH (18:45)
[2024-03-03] MEDS: ACAMPROSATE CALCIUM 333 MG TABLET.DR PO SCH (21:35)
[2024-03-03] MEDS: PRAZOSIN HCL 1 MG CAPSULE PO SCH (21:35)
[2024-03-03] MEDS: RISPERIDONE PO SCH (21:36)
[2024-03-03] MEDS: TOLNAFTATE 1% CREAM 15 GM TUBE TP SCH (21:36)
[2024-03-03] MEDS: DOCUSATE SODIUM 100 MG CAPSULE (FP) PO SCH (21:36)
[2024-03-03] MEDS: SENNOSIDES 8.8 MG/5 ML SYRUP PO SCH (21:37)
[2024-03-03] MEDS ORDERED: risperiDONE 2 MG TABLET PO SCH (22:00)
[2024-03-04 06:41] VITALS: BP 143/75; PULSE 65; RESP 20; TEMP 98
[2024-03-04] MEDS ORDERED: risperiDONE 2 MG TABLET PO SCH (10:00)
[2024-03-04] MEDS: BACLOFEN 10 MG TABLET (FP) PO SCH (10:01)
[2024-03-04] MEDS: risperiDONE 1 MG TABLET PO SCH (10:02)
== END 2024-03-04 18:25 | disposition left against medical advice (07) | DRG 770 ==
LOC: YASAS 13:52 → Y3E 13:57
PROVIDERS: ADMIT Neuromusculoskeletal Medicine & OMM; ATTEND Psychiatry & Neurology Pain Medicine
PROC: HZ42ZZZ Group Counseling for Substance Abuse Treatment, Cognitive-Behavioral (ICD-10-PCS; principal; 2024-02-23)
DX: F10.20 Alcohol dependence, uncomplicated (principal); F14.20 Cocaine dependence, uncomplicated; F17.210 Nicotine dependence, cigarettes, uncomplicated; F41.9 Anxiety disorder, unspecified; F32.A Depression, unspecified; I10 Essential (primary) hypertension; K21.9 Gastro-esophageal reflux disease without esophagitis; K59.00 Constipation, unspecified; B35.1 Tinea unguium; Z86.711 Personal history of pulmonary embolism; Z79.01 Long term (current) use of anticoagulants
CPT/HCPCS: J0475